=== PATIENT | male | born 1975 | race American Indian/Alaskan Native ===

== ENCOUNTER 2017-03-23 03:00 | Emergency (ER) | payer OTHER ==
[~2017-03-23] VITALS: Ht 175.3 cm; Wt 61.2 kg
[~2017-03-23 03:00] MED LIST: CLINDAMYCIN HC150 MG PO; COLCHICINE0.6 M1 PO; HUMALOG100 UNIT/1 SUB-Q; IBUPROFEN800 MG PO; K-PHOS NEUTRAL T1 EA PO; LANTUS100 UNIT/1 SUB-Q; LANTUS100 UNITS/ SUB-Q; LISINOPRIL10 MG PO; NORCO 5-325 TA1 EACH PO; NORCO 7.5-3251 EACH PO; OMEGA 3 1,0001 EACH PO; PANTOPRAZOLE SO40 MG PO; SENEXON-S TABL1 EACH PO
[2017-03-23] MEDS ORDERED: NORCO 5-325 TA1 EACH PO (06:00)
--- NOTE | 2017-03-23 15:23 | EKG ---
[facility] [address] [facility] [place] [address] Signed Normal sinus rhythm Incomplete right bundle branch block Borderline ECG No previous ECGs available Confirmed by JUDIT JOSEPH MD ([id number]) on 03/23/2017 3:23:05 PM Electronically Signed By: JUDIT JOSEPH MD 03/23/17 1523 PATIENT NAME: CHARLIE CHO Electrocardiogram DATE OF : 71 PHYSICIAN: JUDIT JOSEPH MD REPORT #: [id number] REPORT IS CONFIDENTIAL AND NOT TO BE RELEASED WITHOUT AUTHORIZATION
== END 2017-03-23 06:18 | disposition home or self-care (01) ==
LOC: ED 03:00
DX: R07.9 Chest pain, unspecified (principal); E11.9 Type 2 diabetes mellitus without complications; F10.10 Alcohol abuse, uncomplicated; Z90.49 Acquired absence of other specified parts of digestive tract; Z79.4 Long term (current) use of insulin
CPT/HCPCS: 71020; 80053; 83690; 84484; 85025; 93005; 93010; 99284

== ENCOUNTER 2018-02-22 12:38 | Emergency (ER) | payer OTHER ==
[~2018-02-22] VITALS: Ht 175.3 cm; Wt 61.2 kg
[2018-02-22] MEDS ORDERED: NORCO 5-325 TA1 EACH PO (14:11)
== END 2018-02-22 14:20 | disposition home or self-care (01) ==
LOC: ED 12:38
PROC: 2W3QX1Z Immobilization of Right Lower Leg using Splint (ICD-10-PCS; principal; 2018-02-22)
DX: S82.61XA Displaced fracture of lateral malleolus of right fibula, initial encounter for closed fracture (principal); E11.9 Type 2 diabetes mellitus without complications; Z79.84 Long term (current) use of oral hypoglycemic drugs; X50.9XXA Other and unspecified overexertion or strenuous movements or postures, initial encounter
CPT/HCPCS: 29515; 73610; 99283

== ENCOUNTER 2018-04-01 10:58 | Emergency (ER) | payer OTHER ==
[~2018-04-01] VITALS: Ht 175.3 cm; Wt 61.2 kg
== END 2018-04-01 12:05 | disposition home or self-care (01) ==
LOC: ED 10:58
DX: M79.661 Pain in right lower leg (principal); M79.651 Pain in right thigh; E11.9 Type 2 diabetes mellitus without complications; Z79.4 Long term (current) use of insulin
CPT/HCPCS: 93971; 99283

== ENCOUNTER 2018-05-21 16:53 | Emergency (ER) | payer OTHER ==
[~2018-05-21] VITALS: Ht 175.3 cm; Wt 61.2 kg
[2018-05-21] MEDS ORDERED: AUGMENTIN 875-1 EACH PO (18:15)
== END 2018-05-21 18:22 | disposition home or self-care (01) ==
LOC: ED 16:53
DX: S01.01XA Laceration without foreign body of scalp, initial encounter (principal); H66.92 Otitis media, unspecified, left ear; E11.9 Type 2 diabetes mellitus without complications; Z79.4 Long term (current) use of insulin; X58.XXXA Exposure to other specified factors, initial encounter
CPT/HCPCS: 70450; 80048; 85025; 99283

== ENCOUNTER 2020-06-21 16:27 | Observation (INO) | payer OTHER ==
[~2020-06-21] VITALS: Ht 175.3 cm; Wt 80.7 kg
[~2020-06-21 16:27] MED LIST changes: +AUGMENTIN 875-1 EACH PO
--- OUTSIDE RECORDS SUMMARY | 2020-06-21 16:30 | XMS ---
PreManage Notification: CHARLIE CHO Security Slot Floor Supervisor Events No recent Security Events currently on file CRITERIA MET - History of Sepsis Dx CARE PROVIDERS There are no care providers on record at this time. Demetrio has no Care Guidelines for this patient. Jan VISIT COUNT (12 MO.) 1 [facility] TOTAL 1 NOTE: Visits indicate total known visits. ED/C VISIT TRACKING (12 MO.) 06/21/2020 16:28 [facility] [place] TYPE: Emergency COMPLAINT: - LETHARGIC, ABNORMAL LAB RESULTS INPATIENT VISIT TRACKING (12 MO.) No inpatient visits to display in this time frame [email or web address]
[2020-06-21] MEDS ORDERED: IBUPROFEN200 M1 PO (16:34)
--- NOTE | 2020-06-21 20:50 | NUR ---
PT ARRIVED TO THE FLOOR VIA STRETCHER FROM ED, PT SELF XFER TO BED, PT IS ON EOB, VITALS DONE, STEAM PAN SPONGER ON, VEST BASTER MAKING ASSESSMENT, NO FURTHER NEEDS AT TIME, PT AWAING SNACKBOX
[2020-06-21] MEDS ORDERED: GABAPENTIN100 MG PO (21:03)
--- NOTE | 2020-06-21 21:49 | NUR ---
PT ARRIVED TO FLOOR AT 2044 VIA STRETCHER. HE PIVOTED OVER TO THE BED SBA. ORIENTED PT TO ROOM AND CALL LIGHT. VS ENTERED TAKEN BY NAS BUSTAMANTE AND ENTERED. PT HAS VISABLE TREMORS, BEER PROVIDED ALONG WITH SANDWICH BOX. BG CHECKED AND ISULIN ADMINISTERED PER ORDERS. COMPLETED PT'S HX AND MEDICATION HX. PT HAS FRESH ICEWATER AT BEDSIDE AT THIS TIME AND DENIES FURTHER NEEDS. CALL LIGHT IS CLOSE AND BED ALARM IS ON.
--- NOTE | 2020-06-21 23:21 | NUR ---
ASSESSMENT COMPLETED. GCS 15, A&O X4. LUNGS CLEAR, HEART TONES REGULAR. ABD SOFT, NONTENDER. CMS INTACT. BRUIISING NOTED TO BILATERAL INNER ELBOWS FROM IV ATTEMPTS. CIWA 3, BEER PROVIDED. PT DOES HAVE SLIGHT TREMORS. IV WNL, FLUSHED WELL. NO OTHER NEEDS AT THIS TIME. CALL LIGHT IN REACH.
--- NOTE | 2020-06-22 | NUR ---
IN RM TO ASST PT TO BR, SBA TOLERATING WELL, PT NOW UP TO THE CHAIR, HI REQUESTS ANOTHER [facility], [place] SUPERVISER NOTIFIED, ALSO LULU, JASMINAIEDED TO PT, NO FURHTER REQUESTS AT THIS TIME
--- NOTE | 2020-06-22 00:50 | NUR ---
PLATELETTE INFUSION STARTED AT 0035. NO S/S OF A REACTION. 2ND SET OF VITALS TAKEN, WNL. INFUSION CONTINUED. NO OTHER NEEDS. CALL LIGHT IN REACH.
--- NOTE | 2020-06-22 02:01 | NUR ---
IN RM WITH RN TO GET VITALS (2am), RN SALINE LOCK IV, LAMONTE SPAIN PROVIDED
--- NOTE | 2020-06-22 02:32 | NUR ---
PLATELET INFUSION COMPLETE. PT DENIES ANY REACTIONS. PT FURTHER NEEDS AT THIS TIME. CALL LIGHT IS CLOSE. VS TAKEN AND ENTERED.
--- NOTE | 2020-06-22 04:00 | NUR ---
PT RESTING IN BED, EYES CLOSED. RR EVEN, UNLABORED. TELE SR @ 83. CALL LIGHT IN REACH.
--- NOTE | 2020-06-22 05:00 | NUR ---
PT STATES HE HAS A HEADACHE, 8/10. TYLENOL PROVIDED. ASSESSMENT COMPLETED. TREMORS NOTED. GCS 15, A&O X4. LUNGS CLEAR, TELE SR @ 68. IV WNL. ABD SOFT, NONTENDER, BOWEL TONES ACTIVE. PT IS A SBA IN ROOM, CALLS APPROPRIATELY SOMETIMES, EDUCATION CONCERNING CALL LIGHT PROVIDED. CMS INTACT. NO OTHER NEEDS AT THIS TIME. CALL LIGHT IN REACH.
--- NOTE | 2020-06-22 06:00 | NUR ---
PT REPORTED FEELING LIKE HIS BLOOD SUGAR WAS LOW. ACCUCHECK SHOWED BG AT 68. PROVIDED JUICE AND CRACKERS. PT DENIES FURTHER NEEDS AT THIS TIME. WILL REASSESS. CALL LIGHT IS CLOSE.
--- NOTE | 2020-06-22 06:20 | NUR ---
RECHECKED PT'S BLOOD SUGAR, IT IS NOW 112 AND HE STATES HE FEELS BETTER. PT DENIES FURTHER NEEDS. CALL LIGHT IS CLOSE.
--- NOTE | 2020-06-22 09:59 | NUR ---
ALERT, SBA UP TO RECLINER FOR BREAKFAST, MODERATE TREMORS, STATES HE DOES NOT HAVE MUCH APPETITE BUT WILL TRY TO TAKE A FEW BITES, REQUESTED A CAN OF BEER BEFORE HE TRIES TO EAT. CALL LIGHT IN EASY REACH.
--- NOTE | 2020-06-22 10:37 | NUR ---
DR MANZANARES IN TO SEE PT, JUST ARRIVED TO VISIT.
--- NOTE | 2020-06-22 11:04 | NUR ---
PHARMACY WAS IN TO SEE PT AND ANSWERE ANY QUESTIONS, REVIEWED DISCHARGE INSTRUCTIONS WITH PATIENT AND HIS , VERBALIZED UNDERSTANDING OF MEDICATIONS AND FOLLOWUP APPOINTMENT, SX TO REPORT. DENIES ANY QUESTIONS OR CONCERNS, STATES HE DOES HAVE COUNSELING APPOINTMENT AT [facility] TOMORROW. SL WAS DC INTACT, DC HOME WITH AT THIS TIME.
--- NOTE | 2020-06-22 11:55 | NUR ---
In to speak with Clyde. He is in a wc ready for dc. States his is waiting in the front. He denies needs for dc, will go home with . Plans on fu with . I called and updated Mary Lou from as she had called requesting infor. She will follow up with pt and notify his counselor he is in need of fu.
== END 2020-06-22 11:00 | disposition home or self-care (01) ==
LOC: ED 16:27 → MS 16:29
PROVIDERS: ADMIT Internal Medicine; ATTEND Internal Medicine
DX: D69.3 Immune thrombocytopenic purpura (principal); D72.819 Decreased white blood cell count, unspecified; M06.9 Rheumatoid arthritis, unspecified; E10.9 Type 1 diabetes mellitus without complications; F10.20 Alcohol dependence, uncomplicated; K76.0 Fatty (change of) liver, not elsewhere classified; I83.90 Asymptomatic varicose veins of unspecified lower extremity; Z86.718 Personal history of other venous thrombosis and embolism; Z87.891 Personal history of nicotine dependence; Z79.4 Long term (current) use of insulin
CPT/HCPCS: 36415; 36430; 74177; 80048; 80053; 80500; 81001; 82607; 82746; 83605; 83690; 83735; 85025; 85384; 85610; 85730; 86644; 86645; 86703; 86850; 86900; 86901; 87521; 87522; 96375; 96376; 99285-25; C9113; C9803; G0378; G0480; J1815; J2060; J7030; P9035; Q9967; U0003

== ENCOUNTER 2020-07-27 15:10 | Observation (INO) | payer OTHER ==
[~2020-07-27] VITALS: Ht 175.3 cm; Wt 81.0 kg
[~2020-07-27 15:10] MED LIST changes: +GABAPENTIN100 MG PO; +IBUPROFEN200 M1 PO
--- OUTSIDE RECORDS SUMMARY | 2020-07-27 15:14 | XMS ---
PreManage Notification: CHARLIE CHO Security Instructor Adjunct Pharmacy Technician Events No recent Security Events currently on file CRITERIA MET - History of Sepsis Dx CARE PROVIDERS Name Unknown Clinic/Center 06/22/2020-Current PHONE: [phone] Demetrio has no Care Guidelines for this patient. Care History Medical/Surgical 06/22/2020 [facility] - PATIENT IS [facility], \T\middot;\T\nbsp; PLEASE REFER PATIENT TO [facility] FOR NON EMERGENT MEDICAL NEEDS. \T\middot;\T\nbsp; [facility] CAN SEE PATIENTS SAME DAY FOR APTS IF PATIENT CALLS FIRST THING IN THE MORNING. E.D. VISIT COUNT (12 MO.) 2 [facility] TOTAL 2 NOTE: Visits indicate total known visits. ED/UCC VISIT TRACKING (12 MO.) 07/27/2020 15:13 [facility] [place] TYPE: Emergency COMPLAINT: - INTOXICATED 06/21/2020 16:28 [facility] [place] TYPE: Emergency COMPLAINT: - ABNORMAL LAB WORK INPATIENT VISIT TRACKING (12 MO.) 06/21/2020 16:[address] [facility] [place] TYPE: Observation COMPLAINT: - ACUTE THROMBOCYTOPENIA DIAGNOSES: - Personal history of nicotine dependence - Alcohol dependence, uncomplicated - Asymptomatic varicose veins of unspecified lower extremity - Decreased white blood cell count, unspecified - Personal history of other venous thrombosis and embolism - Rheumatoid arthritis, unspecified - Thrombocytopenia, unspecified - Type 1 diabetes mellitus without complications - watermelon inspector (current) use of insulin - Immune thrombocytopenic purpura - Fatty (change of) liver, not elsewhere classified [email or web address]
--- NOTE | 2020-07-27 19:28 | NUR ---
IN ROOM TO ASSESS PATIENT AT THIS TIME. PT DENIES SHORTNESS OF BREATH, OR ANY PAIN OR DISCOMFORT. DISCUSSED PLAN OF CARE FOR EVENING. PT REFUSED LOVENOX INJECTION. STATES "I KNOW WHAT THAT STUFF IS. I DONT NEED IT" DISCUSSED FLUID RESTRICITION FOR EVENING. CALL LIGHT WITHIN REACH. NO FURTHER NEEDS AT THIS TIME.
--- NOTE | 2020-07-27 20:00 | NUR ---
Pt arrived via stretcher on teletypesetter monitor; with Diltiazem drip infusing at 5mg/hr. application security specialist at bedside. Pt alert but disoriented, unable to remember location or situation. pt attempting to get out of bed. 5 mg of IV valium given at this time for CIWA of 9.
--- NOTE | 2020-07-27 20:42 | NUR ---
assessment completed. Pt seems more comfortable, not attempting to exit bed. following commands at this time. Pt in an A-flutter rhythm with a rate in the 70-90's at rest. spo2 =99 percent on room air.
--- NOTE | 2020-07-27 20:45 | NUR ---
pt stated he was hungry, this oil pipeline dispatcher got a lunch box for pt and he had fallen asleep, lunch box in fridge for pt.
--- NOTE | 2020-07-27 21:05 | NUR ---
Pt now resting with eyes closed. laying on left side. awakens to voice. denies need to void. heart rhythm remains in flutter with a rate in the 60's. diltiazem drip put on standby at this time.
--- NOTE | 2020-07-27 21:25 | NUR ---
pt pulling at lines and youth nutritional monitor. reoriented patient to location and situation.
--- NOTE | 2020-07-27 21:33 | EKG ---
[facility] [address] [facility] [place] [address] Signed Atrial flutter with variable AV block Right bundle branch block Possible Inferior infarct , age undetermined Abnormal ECG When compared with ECG of 27-JUL-2020 15:15, (Unconfirmed) ST elevation has replaced ST depression in Inferior leads ST no longer depressed in Anterolateral leads Nonspecific T wave abnormality now evident in Lateral leads Confirmed by JUDIT JOSEPH MD ([id number]) on 07/27/2020 9:33:14 PM Electronically Signed By: JUDIT JOSEPH MD 07/27/202132 PATIENT NAME: CHARLIE CHO Electrocardiogram DATE OF : 71 PHYSICIAN: JUDIT JOSEPH MD REPORT #: [id number] REPORT IS CONFIDENTIAL AND NOT TO BE RELEASED WITHOUT AUTHORIZATION
--- NOTE | 2020-07-27 21:33 | EKG ---
[facility] [address] [place] [address] Signed Atrial flutter with 2:1 AV conduction Right axis deviation Pulmonary disease pattern Incomplete right bundle branch block Junctional ST depression, probably normal Abnormal ECG When compared with ECG of 05-MAR-2018 10:06, Significant changes have occurred Confirmed by JUDIT JOSEPH MD ([id number]) on 07/27/2020 9:33:08 PM Electronically Signed By: JUDIT JOSEPH MD 07/27/20 2133 PATIENT NAME: MARQUISCHARLIEGELY PEREZ Electrocardiogram DATE OF : 71 PHYSICIAN: JUDIT JOSEPH MD REPORT #: [id number] REPORT IS CONFIDENTIAL AND NOT TO BE RELEASED WITHOUT AUTHORIZATION
--- NOTE | 2020-07-27 21:54 | NUR ---
pt up to bsc with two person assist. pt report dizziness with sitting up and movement. heart rate maintianed under 100 bpm with movement and ambulation. pt had small inconinent bm. provided clean attends. back in bed. given a sandwich box and water. bed alarm on. call light within reach. will continue to monitor.
--- NOTE | 2020-07-28 00:14 | NUR ---
Assessment completed. pt sleeping but rousable by voice. Pt given one unit of humalog for cbg of 166. pt alert and oriented. Able to answers questions and follow commands. heart rate in the 70-80 at rest. Remains in A-Flutter at this time. IV fluids infusing. call light within reach and bed alarm on for safety.
--- NOTE | 2020-07-28 01:51 | NUR ---
in room to check patients blood glucose. no sliding scale insulin coverage required. CIWA of 7. scheduled librium administered at this time. bed alarm on, call light within reach. no further needs at this time.
--- NOTE | 2020-07-28 03:07 | NUR ---
responded to patients call light. pt up to bsc to void and have bowel movement. heart rate up to 110 with exertion. pt states he still feels lightheaded. back in bed. assessment completed. bed alarm in place. pt denies further needs at this time.
--- NOTE | 2020-07-28 06:07 | NUR ---
IN ROOM TO CHANGE CARDIAC LEADS AND CHECK PT BLOOD SUGAR. PT ALERT AND ORIENTED. BLOOD SUGAR WITHIN RANGE. PROVIDED FRESH WATER. CALL LIGHT WITHIN REACH. NO FURTHER NEEDS AT THIS TIME.
--- NOTE | 2020-07-28 07:55 | NUR ---
PT SLEEPING, BUT WAKES EASILY TO VOICE. PT DENIES PAIN, NAUSEA, AND SOB AT THIS TIME. BREAKFAST ORDER TAKEN. VITALS ARE WNL. HR IS STILL IRREGULAR BUT RATE CONTROLED.
[2020-07-28] MEDS ORDERED: METOPROLOL SUCC50 MG PO (08:09)
--- NOTE | 2020-07-28 08:10 | NUR ---
Spoke with Clyde. He states he lives on [address] [place]. He lives with his mom and aunt. He has used crutches and a cane in the past, but no longer needs. They have a ramp. He has long history of alcohol use. He sees for counseling for alcohol. Declines Peer to Peer support. He plans on dc today as he converted from flutter.
[2020-07-28] MEDS ORDERED: NEURONTIN300 MG PO (09:07)
[2020-07-28] MEDS ORDERED: TYLENOL325 MG PO (09:07)
[2020-07-28] MEDS ORDERED: ZESTRIL10 MG PO (09:07)
[2020-07-28] MEDS ORDERED: MULTI VITAMIN1 EACH PO (09:08)
--- NOTE | 2020-07-28 09:10 | NUR ---
MED REC COMPLETE
--- NOTE | 2020-07-28 09:11 | NUR ---
pt eating breakfast at this time. pt is sitting up in bed awake and alert. pt deneis pain, nausea, and sob this morning.
[2020-07-28] MEDS ORDERED: METOPROLOL SUC100 MG PO (09:33)
--- NOTE | 2020-07-28 10:12 | NUR ---
BOTH IV SITES REMOVED. TIP OF BOTH CATHS ARE INTACT. PT DENIES PAIN, SOB, AND NAUSEA IN GENERAL. ALL DISCHARGE INSTRUCTIONS REVIEWED, ALL QUESTIONS ANSWERED. PT HAS HOME PACK OF LOPRESSOR TO TAKE WITH HIM. ALL PERSONAL BELONGINGS RETURNED TO THE PT. PT LEFT CCU VIA WHEELCHAIR TO DC HOME.
== END 2020-07-28 10:25 | disposition home or self-care (01) ==
LOC: ED 15:10 → CCU 15:14
PROVIDERS: ADMIT Internal Medicine; ATTEND Internal Medicine
DX: I48.92 Unspecified atrial flutter (principal); F10.229 Alcohol dependence with intoxication, unspecified; F10.239 Alcohol dependence with withdrawal, unspecified; F10.288 Alcohol dependence with other alcohol-induced disorder; D46.Z Other myelodysplastic syndromes; E10.65 Type 1 diabetes mellitus with hyperglycemia; M06.9 Rheumatoid arthritis, unspecified; I48.91 Unspecified atrial fibrillation; Z86.718 Personal history of other venous thrombosis and embolism; Z90.49 Acquired absence of other specified parts of digestive tract; Z79.4 Long term (current) use of insulin; Z20.828 Contact with and (suspected) exposure to other viral communicable diseases
CPT/HCPCS: 36415; 71045; 80053; 83690; 83735; 84100; 84484; 85025; 93005; 93010; 93306; 96374; 96375; 96376; 99285-25; C9803; G0378; G0480; J1815; J2405; J3360; J3411; J3480; J7030; J7121; U0003

== ENCOUNTER 2020-08-01 15:24 | Emergency (ER) | payer OTHER ==
[~2020-08-01] VITALS: Ht 175.3 cm; Wt 80.7 kg
[~2020-08-01 15:24] MED LIST changes: +METOPROLOL SUC100 MG PO; +METOPROLOL SUCC50 MG PO; +MULTI VITAMIN1 EACH PO; +NEURONTIN300 MG PO; +TYLENOL325 MG PO; +ZESTRIL10 MG PO
--- OUTSIDE RECORDS SUMMARY | 2020-08-01 15:26 | XMS ---
PreManage Notification: CHARLIE CHO Security Tape Deck Installer Events No recent Security Events currently on file CRITERIA MET - History of Sepsis - [facility] - 2 Visits in 30 Days CARE PROVIDERS Name Unknown Clinic/Center 06/22/2020-Current PHONE: [phone] Demetrio has no Care Guidelines for this patient. Care History Medical/Surgical 06/22/2020 [facility] - PATIENT IS [facility], \T\middot;\T\nbsp; PLEASE REFER PATIENT TO [facility] FOR NON EMERGENT MEDICAL NEEDS. \T\middot;\T\nbsp; [facility] CAN SEE PATIENTS SAME DAY FOR APTS IF PATIENT CALLS FIRST THING IN THE MORNING. E.D. VISIT COUNT (12 MO.) 3 [facility] TOTAL 3 NOTE: Visits indicate total known visits. ED/UCC VISIT TRACKING (12 MO.) 08/01/2020 15:24 [facility] [place] TYPE: Emergency COMPLAINT: - DIZZINESS, HEAD PAIN 07/27/2020 15:13 [facility] [place] TYPE: Emergency COMPLAINT: - INTOXICATED 06/21/2020 16:28 [facility] [place] TYPE: Emergency COMPLAINT: - ABNORMAL LAB WORK INPATIENT VISIT TRACKING (12 MO.) 07/27/2020 15:14 [facility] [place] TYPE: Observation COMPLAINT: - A FLUTTER WITH RVR DIAGNOSES: - Palpitations - Other myelodysplastic syndromes - Contact with and (suspected) exposure to other viral communicable diseases - Alcohol dependence with withdrawal, unspecified - terminal worker (current) use of insulin - Rheumatoid arthritis, unspecified - Unspecified atrial flutter - Type 1 diabetes mellitus with hyperglycemia - Alcohol dependence with intoxication, unspecified - Personal history of other venous thrombosis and embolism - Acquired absence of other specified parts of digestive tract - Alcohol dependence with other alcohol-induced disorder - Unspecified atrial fibrillation 06/21/2020 16:29 [facility] [place] TYPE: Observation COMPLAINT: - ACUTE THROMBOCYTOPENIA DIAGNOSES: - Personal history of nicotine dependence - Alcohol dependence, uncomplicated - Asymptomatic varicose veins of unspecified lower extremity - Decreased white blood cell count, unspecified - Personal history of other venous thrombosis and embolism - Rheumatoid arthritis, unspecified - Thrombocytopenia, unspecified - Type 1 diabetes mellitus without complications - [facility] (current) use of insulin - Immune thrombocytopenic purpura - Fatty (change of) liver, not elsewhere classified [email or web address]
--- NOTE | 2020-08-02 10:42 | EKG ---
[facility] [address] [place] [address] Signed Atrial flutter with variable AV block with premature ventricular or aberrantly conducted complexes Right bundle branch block Left posterior fascicular block Bifascicular block Cannot rule out Inferior infarct (cited on or before 27-JUL-2020) Abnormal ECG When compared with ECG of 27-JUL-2020 16:27, Questionable change in initial forces of Inferior leads T wave inversion now evident in Inferior leads Confirmed by JADIEL JOAQUIN DO ([id number]) on 08/02/2020 10:42:24 AM Electronically Signed By: JADIEL JOAQUIN DO 08/02/20 1042 PATIENT NAME: CHARLIE CHO Electrocardiogram DATE OF : 71 PHYSICIAN: JADIEL JOAQUIN DO REPORT #: [id number] REPORT IS CONFIDENTIAL AND NOT TO BE RELEASED WITHOUT AUTHORIZATION
== END 2020-08-01 18:04 | disposition home or self-care (01) ==
LOC: ED 15:24
DX: F10.10 Alcohol abuse, uncomplicated (principal); Y90.8 Blood alcohol level of 240 mg/100 ml or more; I48.91 Unspecified atrial fibrillation; E10.65 Type 1 diabetes mellitus with hyperglycemia; Z79.899 Other long term (current) drug therapy; Z79.4 Long term (current) use of insulin
CPT/HCPCS: 70450; 80053; 84484; 85025; 93005; 93010; 99285-25; G0480; J1815; J7030

== ENCOUNTER 2020-08-15 17:30 | Emergency (ER) | payer OTHER ==
[~2020-08-15] VITALS: Ht 175.3 cm; Wt 80.7 kg
--- OUTSIDE RECORDS SUMMARY | 2020-08-15 17:34 | XMS ---
PreManage Notification: CHARLIE CHO Security Long Line Teamster Events No recent Security Events currently on file CRITERIA MET - History of Sepsis - [facility] - 2 Visits in 30 Days CARE PROVIDERS Name Unknown Clinic/Center 06/22/2020-Current PHONE: [phone] Demetrio has no Care Guidelines for this patient. Care History Medical/Surgical 06/22/2020 [facility] - PATIENT IS [facility], \T\middot;\T\nbsp; PLEASE REFER PATIENT TO [facility] FOR NON EMERGENT MEDICAL NEEDS. \T\middot;\T\nbsp; [facility] CAN SEE PATIENTS SAME DAY FOR APTS IF PATIENT CALLS FIRST THING IN THE MORNING. E.D. VISIT COUNT (12 MO.) 4 [facility] TOTAL 4 NOTE: Visits indicate total known visits. ED/UCC VISIT TRACKING (12 MO.) 08/15/2020 17:31 [facility] [place] TYPE: Emergency COMPLAINT: - DIZZINESS 08/01/2020 15:24 [facility] [place] TYPE: Emergency COMPLAINT: - DIZZINESS, HEAD PAIN DIAGNOSES: - intermediate project manager (current) use of insulin - Unspecified atrial fibrillation - Other manager terminal (current) drug therapy - Alcohol abuse, uncomplicated - Type 2 diabetes mellitus with hyperglycemia - Type 1 diabetes mellitus with hyperglycemia - Blood alcohol level of 240 mg/100 ml or more - Dizziness and giddiness 07/27/2020 15:[address] [facility] [place] TYPE: Emergency COMPLAINT: - INTOXICATED 06/21/2020 16:[address] [facility] [place] TYPE: Emergency COMPLAINT: - ABNORMAL LAB WORK INPATIENT VISIT TRACKING (12 MO.) 07/27/2020 15:[address] [facility] [place] TYPE: Observation COMPLAINT: - A FLUTTER WITH RVR DIAGNOSES: - Palpitations - Other myelodysplastic syndromes - Contact with and (suspected) exposure to other viral communicable diseases - Alcohol dependence with withdrawal, unspecified - penitentiary (current) use of insulin - Rheumatoid arthritis, [...] Type 1 diabetes mellitus without complications - intermediate project manager (current) use of insulin - Immune thrombocytopenic purpura - Fatty (change of) liver, not elsewhere classified [email or web address]
[2020-08-15] MEDS ORDERED: CALCIUM CARBON650 MG PO (17:49)
[2020-08-15] MEDS ORDERED: D3-200050 MCG PO (17:50)
[2020-08-15] MEDS ORDERED: MAGNESIUM400 MG PO (17:50)
[2020-08-15] MEDS ORDERED: ZESTRIL40 MG PO (17:50)
[2020-08-15] MEDS ORDERED: MELATONIN3 M3 PO (17:52)
--- NOTE | 2020-08-16 21:13 | EKG ---
[facility] [address] [facility] [place], [place] [address] Signed Atrial flutter with variable AV block Right bundle branch block Possible Inferior infarct (cited on or before 27-JUL-2020) Cannot rule out Anterior infarct , age undetermined Abnormal ECG When compared with ECG of 15-AUG-2020 17:51, (Unconfirmed) No significant change was found Confirmed by JADIEL JOAQUIN DO ([id number]) on 08/16/2020 9:13:20 PM Electronically Signed By: JADIEL JOAQUIN DO 08/16/202112 PATIENT NAME: CHARLIE CHO Electrocardiogram DATE OF : 71 PHYSICIAN: JADIEL JOAQUIN DO REPORT #: [id number] REPORT IS CONFIDENTIAL AND NOT TO BE RELEASED WITHOUT AUTHORIZATION
== END 2020-08-15 20:50 | disposition home or self-care (01) ==
LOC: ED 17:30
DX: I48.92 Unspecified atrial flutter (principal); E86.0 Dehydration; E87.1 Hypo-osmolality and hyponatremia; E11.9 Type 2 diabetes mellitus without complications; E10.9 Type 1 diabetes mellitus without complications; F17.200 Nicotine dependence, unspecified, uncomplicated; Z79.899 Other long term (current) drug therapy
CPT/HCPCS: 70450; 71045; 80053; 83690; 83735; 84484; 85025; 93005; 93010; 99285-25; J7121

== ENCOUNTER 2020-08-20 06:41 | Emergency (ER) | payer OTHER ==
[~2020-08-20] VITALS: Ht 175.3 cm; Wt 79.4 kg
[~2020-08-20 06:41] MED LIST changes: +CALCIUM CARBON650 MG PO; +D3-200050 MCG PO; +MAGNESIUM400 MG PO; +MELATONIN3 M3 PO; +ZESTRIL40 MG PO
--- OUTSIDE RECORDS SUMMARY | 2020-08-20 06:44 | XMS ---
PreManage Notification: CHARLIE CHO Security Component Assembler Events No recent Security Events currently on file CRITERIA MET - 6 ED Visits in 6 Months - History of Sepsis - [facility] - 2 Visits in 30 Days CARE PROVIDERS Name Unknown Clinic/Center 06/22/2020-Current PHONE: [phone] Demetrio has no Care Guidelines for this patient. Care History Medical/Surgical 06/22/2020 [facility] - PATIENT IS [facility], \T\middot;\T\nbsp; PLEASE REFER PATIENT TO [facility] FOR NON EMERGENT MEDICAL NEEDS. \T\middot;\T\nbsp; [facility] CAN SEE PATIENTS SAME DAY FOR APTS IF PATIENT CALLS FIRST THING IN THE MORNING. E.D. VISIT COUNT (12 MO.) 1 [facility]. TOTAL 6 NOTE: Visits indicate total known visits. ED/UCC VISIT TRACKING (12 MO.) 08/20/2020 06:42 [facility] TYPE: Emergency COMPLAINT: - POSSIBLE ALERGIC REACTION BEE STING 08/16/2020 15:13 [facility] TYPE: Emergency COMPLAINT: - Heartbeat Irregular 08/15/2020 17:31 [facility] [place] TYPE: Emergency COMPLAINT: - DIZZINESS 08/01/2020 15:24 [facility] [place] TYPE: Emergency COMPLAINT: - DIZZINESS, HEAD PAIN DIAGNOSES: - terminal block assembler (current) use of insulin - Unspecified atrial fibrillation - Other termite control technician (current) drug therapy - Alcohol abuse, uncomplicated - Type 2 diabetes mellitus with hyperglycemia - Type 1 diabetes mellitus with hyperglycemia - Blood alcohol level of 240 mg/100 ml or more - Dizziness and giddiness 07/27/2020 15:13 [facility] [place] TYPE: Emergency [...] Alcohol dependence with withdrawal, unspecified - terminal block assembler (current) use of insulin - Rheumatoid arthritis, [...] Type 1 diabetes mellitus without complications - senior living (current) use of insulin - Immune thrombocytopenic purpura - Fatty (change of) liver, not elsewhere classified [email or web address]
[2020-08-20] MEDS ORDERED: CARDIZEM30 MG PO (07:07)
--- NOTE | 2020-08-20 21:22 | EKG ---
[facility] [address] [facility] [place], [place] [address] Signed Atrial flutter with variable AV block Inferior infarct (cited on or before 27-JUL-2020) Abnormal ECG When compared with ECG of 15-AUG-2020 20:28, Right bundle branch block is no longer present Confirmed by SANGITA REIS MD ([id number]) on 08/20/2020 9:21:51 PM Electronically Signed By: SANGITA REIS MD 08/20/202121 PATIENT NAME: MARQUISCHARLIEGELY PEREZ Electrocardiogram DATE OF : 71 PHYSICIAN: SANGITA REIS MD REPORT #: [id number] REPORT IS CONFIDENTIAL AND NOT TO BE RELEASED WITHOUT AUTHORIZATION
== END 2020-08-20 07:50 | disposition home or self-care (01) ==
LOC: ED 06:41
DX: T63.461A Toxic effect of venom of wasps, accidental (unintentional), initial encounter (principal); I48.92 Unspecified atrial flutter; E10.9 Type 1 diabetes mellitus without complications; F17.200 Nicotine dependence, unspecified, uncomplicated; Z79.899 Other long term (current) drug therapy
CPT/HCPCS: 93005; 93010; 99285-25; Q0163

== ENCOUNTER 2020-08-28 11:34 | Emergency (ER) | payer OTHER ==
[~2020-08-28] VITALS: Ht 175.3 cm; Wt 79.4 kg
[~2020-08-28 11:34] MED LIST changes: +CARDIZEM30 MG PO
--- OUTSIDE RECORDS SUMMARY | 2020-08-28 11:36 | XMS ---
PreManage Notification: CHARLIE CHO Security Web Applications Programmer Events No recent Security Events currently on file CRITERIA MET - 6 ED Visits in 6 Months - History of Sepsis [facility] - 2 Visits in 30 Days CARE PROVIDERS Name Unknown Clinic/Center 06/22/2020-Current PHONE: [phone] Demetrio has no Care Guidelines for this patient. Care History Medical/Surgical 08/23/2020 [facility] - PATIENT IS CLOSELY FOLLOWING UP WITH PCP DR [facility]NDEZ [facility]. - PATIENT HAS A COUNSELOR -BEHAVIORAL HEALTH- TOBI KEMP. - PATIENT REFUSED REHAB\T\nbsp; AT RECENT APT WITH PROVIDER ON 08/03/20. - PATIENT HAS AN APT WITH PCP 08/23/20 FOR FOLLOW UP TO RECENT ED VISITS. 06/22/2020 [facility] - PATIENT IS [facility] ELIGIBLE, \T\middot;\T\nbsp; PLEASE REFER PATIENT TO [facility] FOR NON EMERGENT MEDICAL NEEDS. \T\middot;\T\nbsp; [facility] CAN SEE PATIENTS SAME DAY FOR APTS IF PATIENT CALLS FIRST THING IN THE MORNING. E.D. VISIT COUNT (12 MO.) 1 Rolaagatha Rodriguezgigi H. 6 [facility] TOTAL 7 NOTE: Visits indicate total known visits. ED/UCC VISIT TRACKING (12 MO.) 08/28/2020 11:35 [facility] [place] TYPE: Emergency COMPLAINT: - DIZZINESS, SOB 08/20/2020 06:42 [facility] [place] TYPE: Emergency COMPLAINT: - POSSIBLE ALERGIC REACTION BEE STING DIAGNOSES: - Type 1 diabetes mellitus without complications - Nicotine dependence, unspecified, uncomplicated - Unspecified atrial flutter - Toxic effect of venom of wasps, accidental (unintentional), initial encounter - Other care home (current) drug therapy 08/16/2020 15:13 [facility] [place] TYPE: Emergency COMPLAINT: - Heartbeat Irregular - SYNCOPE AND COLLAPSE - UNSPECIFIED ABDOMINAL PAIN - DIZZINESS AND GIDDINESS DIAGNOSES: 0. Syncope and collapse 1. Syncope and collapse 5. Hypotension, unspecified 6. Unspecified atrial flutter 08/15/2020 17:31 [facility] TYPE: Emergency COMPLAINT: - DIZZINESS DIAGNOSES: - Type 2 diabetes mellitus without complications - Nicotine dependence, unspecified, uncomplicated - Other neuropsychology director (current) drug therapy - Type 1 diabetes mellitus without complications - Hypo-osmolality and hyponatremia - Syncope and collapse - Dehydration - Unspecified atrial flutter 08/01/2020 15:24 [facility] TYPE: Emergency COMPLAINT: - DIZZINESS, HEAD PAIN DIAGNOSES: - [facility] (current) use of insulin - Unspecified atrial fibrillation - Other care home (current) drug therapy - Alcohol abuse, uncomplicated [...] - Alcohol dependence with withdrawal, unspecified - pigment supplier (current) use of insulin - Rheumatoid arthritis, [...] Type 1 diabetes mellitus without complications - pigment supplier (current) use of insulin - Immune thrombocytopenic purpura - Fatty (change of) liver, not elsewhere classified [email or web address]
[2020-08-28] MEDS ORDERED: DILTIAZEM HCL30 MG PO (11:45)
--- NOTE | 2020-08-29 16:28 | EKG ---
[facility] [address] [place] [address] Signed Atrial flutter with variable AV block Pulmonary disease pattern Incomplete right bundle branch block Possible Right ventricular hypertrophy Junctional ST depression, probably normal Abnormal ECG When compared with ECG of 20-AUG-2020 07:18, Incomplete right bundle branch block is now present ST now depressed in Inferior leads ST now depressed in Lateral leads Confirmed by JADIEL JOAQUIN DO ([id number]) on 08/29/2020 4:27:54 PM Electronically Signed By: JADIEL JOAQUIN DO 08/29/20 1628 PATIENT NAME: CHARLIE CHO Electrocardiogram DATE OF : 71 PHYSICIAN: JADIEL JOAQUIN DO REPORT #: [id number] REPORT IS CONFIDENTIAL AND NOT TO BE RELEASED WITHOUT AUTHORIZATION
== END 2020-08-28 15:41 | disposition home or self-care (01) ==
LOC: ED 11:34
DX: E10.65 Type 1 diabetes mellitus with hyperglycemia (principal); I48.92 Unspecified atrial flutter; F10.10 Alcohol abuse, uncomplicated; Z91.14 Patient's other noncompliance with medication regimen; Z86.718 Personal history of other venous thrombosis and embolism; Z87.891 Personal history of nicotine dependence; Z79.899 Other long term (current) drug therapy
CPT/HCPCS: 71045; 80053; 83735; 84484; 85025; 93005; 93010; 96374; 96375; 96376; 99284-25; J2405; J7030

== ENCOUNTER 2020-11-19 13:03 | Observation (INO) | payer OTHER ==
[~2020-11-19] VITALS: Ht 175.3 cm; Wt 86.0 kg
[~2020-11-19 13:03] MED LIST changes: +ASPIRIN81 MG PO; +DILTIAZEM HCL30 MG PO
--- OUTSIDE RECORDS SUMMARY | 2020-11-19 13:06 | XMS ---
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 Care History Medical/Surgical 08/23/2020 [facility] - PATIENT IS CLOSELY FOLLOWING UP WITH PCP DR HERNANDEZ AT [facility]. - PATIENT HAS A COUNSELOR -BEHAVIORAL HEALTH- TOBI KEMP. - PATIENT REFUSED REHAB\T\nbsp; AT RECENT APT WITH PROVIDER ON 08/03/20. - PATIENT HAS AN APT WITH PCP 08/23/20 FOR FOLLOW UP TO RECENT ED VISITS. 06/22/2020 [facility] - PATIENT IS [facility] ELIGIBLE, \T\middot;\T\nbsp; PLEASE REFER PATIENT TO [facility] FOR NON EMERGENT MEDICAL NEEDS. \T\middot;\T\nbsp; [facility] CAN SEE PATIENTS SAME DAY FOR APTS IF PATIENT CALLS FIRST THING IN THE MORNING. E.D. VISIT COUNT (12 MO.) 1 Lavinia Berry 8 [facility] TOTAL 9 NOTE: Visits indicate total known visits. ED/UCC VISIT TRACKING (12 MO.) 11/19/2020 13:03 [facility] [place] TYPE: Emergency COMPLAINT: - FALL 10/05/2020 14:08 [facility] [place] TYPE: Emergency COMPLAINT: - CHEST PAIN DIAGNOSES: - Personal history of nicotine dependence - Type 1 diabetes mellitus without complications - retirement (current) use of aspirin - Other longterm (current) drug therapy - Blood alcohol level of 240 mg/100 ml or more - retirement (current) use of insulin - Chest pain, unspecified - Alcohol abuse with intoxication, unspecified - Type 2 diabetes mellitus without complications 08/28/2020 11:35 [facility] TYPE: Emergency COMPLAINT: - DIZZINESS, SOB DIAGNOSES: - Personal history of other venous thrombosis and embolism - Patient's other noncompliance with medication regimen - Alcohol abuse, uncomplicated - Personal history of nicotine dependence - Unspecified atrial flutter - Type 1 diabetes mellitus with hyperglycemia - Other puff ironer (current) drug therapy - Dizziness and giddiness 08/20/2020 06:42 [facility] TYPE: Emergency COMPLAINT: - POSSIBLE ALERGIC REACTION BEE STING DIAGNOSES: - Type 1 diabetes mellitus without complications - Nicotine dependence, unspecified, uncomplicated - Unspecified atrial flutter - Toxic effect of venom of wasps, accidental (unintentional), initial encounter - Other longterm (current) drug therapy 08/16/2020 15:13 [facility] TYPE: Emergency COMPLAINT: - Heartbeat Irregular - SYNCOPE AND COLLAPSE - UNSPECIFIED ABDOMINAL PAIN - DIZZINESS AND GIDDINESS DIAGNOSES: 0. Syncope and collapse 1. Syncope and collapse 5. Hypotension, unspecified 6. Unspecified atrial flutter 08/15/2020 17:31 [facility] [place] TYPE: Emergency COMPLAINT: - DIZZINESS DIAGNOSES: - Type 2 diabetes mellitus without complications - Nicotine dependence, unspecified, uncomplicated - Other puff ironer (current) drug therapy - Type 1 diabetes mellitus without complications - Hypo-osmolality and hyponatremia - Syncope and collapse - Dehydration - Unspecified atrial flutter 08/01/2020 15:24 [facility] [place] TYPE: Emergency COMPLAINT: - DIZZINESS, HEAD PAIN DIAGNOSES: - retirement (current) use of insulin - Unspecified atrial fibrillation - Other puff ironer (current) drug therapy - Alcohol abuse, uncomplicated - Type 2 diabetes mellitus with hyperglycemia - Type 1 diabetes mellitus with hyperglycemia - Blood alcohol level of 240 mg/100 ml or more - Dizziness and giddiness 07/27/2020 15:13 [facility] [place] TYPE: Emergency COMPLAINT: - INTOXICATED 06/21/2020 16:28 [facility] [place] TYPE: Emergency COMPLAINT: - ABNORMAL LAB WORK INPATIENT VISIT TRACKING (12 MO.) 07/27/2020 15:14 [facility] [place] TYPE: Observation COMPLAINT: - A FLUTTER WITH RVR DIAGNOSES: - Palpitations - Other myelodysplastic syndromes - Contact with and (suspected) exposure to other viral communicable diseases - Alcohol dependence with withdrawal, unspecified - retirement (current) use of insulin - Rheumatoid arthritis, [...] Type 1 diabetes mellitus without complications - 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
--- NOTE | 2020-11-19 19:18 | NUR ---
PATIENT ADMITTED TO [facility]U 126 FOR AFIB W/RVR. PATIENT STATES HE NEEDS TO HAVE A BM. UP TO BSC TO HAVE A BM AND VOID - PT SOMEWHAT UNSTEADY ON FEET AND STATES HE FEELS DIZZY WITH STANDING. PT HAD SMALL INCONTINENCE IN HIS UDNERWEAR WHICH WERE REMOVED AND CLEANED FOR HIM. PT HR UP TO 130s WITH THIS ACTIVITY OF STANDING AND TAKING 1-2 STEPS. PT INSTRUCTED THAT HE NEEDS TO STAY IN BED AND ONLY USE BEDSIDE COMMODE. PT REPORTS HISTORY OF AFIB. DILT GTT AT 5 MG/HR. SANDWICH BOX ORDERED FOR PATIENT. PATIENT IS DAILY DRINKING OF ALCOHOL. PO LIBRIUM GIVEN. PT ALREADY TREMULOUS. PT DENIED NEED TO LOCK ANY PERSONAL BELONGINGS IN THE SAFE AND REQUESTS TAHT THEY STAY IN HIS ROOM IN THE CLOSET. OF NOTE, APTIENT REPORTS THAT HE HAS HIS WALLET WITH AT LEAST 100$ AND AN ENVELOPE IN HIS BAG THAT HAS "ABOUT $1,500". INSTRUCTED PATIENT THAT HE IS WELCOME TO AND RECOMMENDED TO LOCK ANY AMOUNTS OF HARDING OR VALUABLES IN THE SAFE BUT DENIES DESIRE FOR THIS. PT NOW ON THE PHONE WITH HIS MOTHER. PT ASKED NOT TO GET UP ON HIS OWN AND BED ALARM WILL BE PLACED. CONTINUE TO MONITOR. REPORT TO FUR TRAPPER.
--- NOTE | 2020-11-19 19:30 | NUR ---
RECEIVED REPORT FROM YOLIS MURPHY. pt RESTING IN BED. WOULD LIKE A SANDWICH. PROVIDED FRESH ICE WATER. DILTIZEM GTT AT 5MG/HR. CALL LIGHT WITHIN REACH.
--- NOTE | 2020-11-19 20:01 | NUR ---
O2 SAT HIGH 80'S pt WOKE TO VOICE. O2 SAT MID 90'S WHILE AWAKE. pt WOULD LIKE TO REST FOR A BIT, ON 2L O2 VIA NC TO MAINTAIN SATS. NO REQUESTS AT THIS TIME. SANDWICH BOX AT BEDSIDE. CALL LIGHT WITHIN REACH. IV FLUIDS COMPLETED, SL. GTT REMAINS UNCHANGED. HR 70'S.
--- NOTE | 2020-11-19 20:36 | NUR ---
IN TO DO ASSESSMENT. pt RESTING IN BED. OPENED EYES TO VOICE. pt REPORTED NEEDING TO USE URINAL. HR INCREASES TO 130'S WHEN MOVING. UNABLE TO VOID AT THIS TIME. REQUESTED TO HOLD OFF ON LANTUS HIS BLOOD SUGAR IS "BELOW 200" WILL RECHECK AND DISCUSS LATER. REPORTS FEELING DIZZY WHEN GETTING UP TO VOID. BUMP TO BACK OF HEAD VISUALIZED, NO BLOOD AT THIS TIME. BED ALARM ON. CALL LIGHT WITHIN REACH. HX: REPORTS STAYING AWAY FROM [place] "BECAUSE IT MAKES MY HEART GO FASTER" SLEEPS SITTING UP. pt REPORTS GETTING SOB WHEN WALKING TO THE BATHROOM AT HOME. DENIES USING ANY MEDICATIONS FOR SOB AT HOME. REPORTS ONLY DRINKING TWICE A WEEK ABOUT 4 BEERS. REPORTS THAT HE FEELS THAT HE NEEDS MORE HELP AT HOME. HE LIVES WITH HIS MOTHER BECAUSE "AFTER [place] MY ROOMMATE FELT LIKE IT WOULD BE TOO MUCH"
--- NOTE | 2020-11-19 23:14 | NUR ---
RECHECKED BLOOD SUGAR. pt CONTINUES TO REFUSE LANTUS, EDUCATION DONE. pt HAS CONTINUOUS BLOOD SUGAR MONITOR ALTHOUGH HE DOES NOT HAVE THE SCANNER WITH HIM.
--- NOTE | 2020-11-19 23:44 | NUR ---
pt COMPLAINED OF HEADACHE, CIWA NOW 9. ATIVAN GIVEN (SEE MAR). CALL LIGHT WITHIN REACH.
--- NOTE | 2020-11-20 00:01 | NUR ---
ROUNDED ON pt. RESTING IN BED WITH EYES CLOSED, RESPIRATIONS REGULAR. CALL LIGHT WITHIN REACH.
--- NOTE | 2020-11-20 00:10 | NUR ---
DILTIAZEM GTT ON STANDBY AT THIS TIME. HR HAS REMAINED UNDER 100. BP STARTING TO BE LOWER. pt RESTING AT THIS TIME WITH EYES CLOSED, RESPIRATIONS REGULAR AND UNLABORED.
--- NOTE | 2020-11-20 00:20 | NUR ---
HR DID INCREASE TO 140 WHEN HE SAT AT THE SIDE OF THE BED TO VOID. RECOVERED TO <100 AFTER GETTING BACK TO BED SIMILAR TO WHEN HE WAS ON THE GTT.
--- NOTE | 2020-11-20 01:09 | NUR ---
CALL LIGHT ON. pt UP TO BSC TO VOID AND BACK TO BED. HR INCREASED TO 130'S WHILE pt WAS MOVING. HR IN 80'S WHEN pt IS RESTING IN BED. ASSESSMENT DONE. NO CHANGES NOTED. CALL LIGHT WITHIN REACH.
--- NOTE | 2020-11-20 02:14 | NUR ---
ROUNDED ON pt. RESTING IN BED WITH EYES CLOSED, RESPIRATIONS REGULAR AND UNLABORED. CALL LIGHT WITHIN REACH.
--- NOTE | 2020-11-20 02:33 | NUR ---
PT UP TO SIDE OF BED, HR UP TO 130'S, C/O NAUSEA AND "DRY HEAVING, I THREW UP A LITTLE". 4MG IV ZOFRAN GIVEN. PT ASSISTED BACK TO BED, HR QUICKLY BACK DOWN TO 90'S.
--- NOTE | 2020-11-20 02:53 | NUR ---
ROUNDED ON pt. RESTING IN BED WITH EYES CLOSED, RESPIRATIONS REGULAR. HR 76.
--- NOTE | 2020-11-20 03:31 | NUR ---
pt COMPLAINED OF "NOT BEING ABLE TO BREATH" IMPROVED AFTER SITTING pt UP IN BED. SATS HIGH 90'S ON ROOM AIR. NO CHANGES NOTED ON ECG, HR 80'S. PROVIDED PAIN MED FOR BACK PAIN, CIWA 10 PROVIDED ATIVAN, SEE MAR. NO CHANGE IN LUNG SOUNDS OR WORK OF BREATHING. CALL LIGHT WITHIN REACH.
--- NOTE | 2020-11-20 04:01 | NUR ---
pt REQUESTED TO USE COMMODE. REQUIRED 1PA TO STAND, MORE UNSTEADY THAN PRIOR AMBULATIONS. BM. VOIDED, SOME ON FLOOR. FLOOR CLEANED, FRESH LINENS. pt 1PA BACK TO BED. pt MOVEMENT IS LESS COORDINATED THAN PRIOR. SETTLE BACK IN BED. HR DID INCREASE TO 136 WHILE MOVING BEFORE, NOW IN THE 80'S. NO OTHER CHANGES IN ASSESSMENT. CALL LIGHT WITHIN REACH.
--- NOTE | 2020-11-20 04:56 | NUR ---
pt UP TO HAVE BM. BSC. BM IS BOND IN COLOR, STRANDS OF GEL LIKE SUBSTANCE. pt REPORTS THIS IS NOT A USUAL BM FOR HIM. FAT NOTED TO BE FLOATING ON TOP OF URINE/STOOL MIX. pt BACK TO BED. PROVIDED A JELLO. CALL LIGHT WITHIN REACH.
--- NOTE | 2020-11-20 05:50 | NUR ---
LAB FINISHED DRAWING. pt REPORTS THAT HIS HEADACHE AND BACK ACHE ARE "BETTER" PROVIDED WITH A MENU AND SOMETHING TO DRINK. CALL RENETTA DOLL.
--- NOTE | 2020-11-20 08:30 | NUR ---
SHIFT REPORT RECEIVED FROM JEFFREY VILLEDA. ASSESSMENT COMPLETED AT THIS TIME. PT IS ALERT/ORIENTED, REPORTS 7/10 LOW BACK PAIN, PT REPOSITIONED HIMSELF IN BED; WILL PLAN TO GIVE TYLENOL WHEN AVAILABLE. CIWA:6. LUNGS CLEAR, DIM IN BASES, RA, REPORTS MILD SOB. BOWEL TONES ACTIVE, REPORTS MILD NAUSEA, PRN ZOFRAN GIVEN. SKIN GROSSLY INTACT, BRUISING NOTED TO BACK OF HEAD. CB, 1 UNIT HUMALOG GIVEN. IV SITES INTACT AND PATENT. PT SITTING UP IN BED AND EATING BREAKFAST, CALL LIGHT WITHIN REACH.
--- NOTE | 2020-11-20 09:03 | NUR ---
RE-STARTED CARDIZEM DRIP AT 5MG/HR. PT'S HR 120-130'S AT REST. DISCUSSED WITH PT, NO QUESTIONS AT THIS TIME.
[2020-11-20] MEDS ORDERED: TOPROL XL100 MG PO (09:08)
[2020-11-20] MEDS ORDERED: HYDROCHLOROTHIA25 MG PO (09:11)
--- NOTE | 2020-11-20 09:17 | NUR ---
CARDIZEM TITRATED TO 7.5MG/HR, HR REMAINS IN 120'S.
--- NOTE | 2020-11-20 10:00 | NUR ---
PRN TYLENOL GIVEN FOR 10 LOW BACK PAIN. BED BATH AND SHOWER CAP PROVIDED PER PT REQUEST. NEW LINENS PROVIDED.
--- NOTE | 2020-11-20 10:15 | NUR ---
DR. JOAQUIN IN TO SEE PT, PLAN OF CARE DISCUSSED AND QUESTIONS ANSWERED.
--- NOTE | 2020-11-20 10:18 | NUR ---
Medications reconciled using [facility] medication list
--- NOTE | 2020-11-20 10:30 | NUR ---
CARDIZEM DRIP TITRATED TO 5 MG/HR FOR HR IN 80'S. PT UP TO BSC, UNMEASURED LARGE VOID AND MEDIUM HENNESSY-COLORED SOFT BM. PT ABLE TO PROVIDE OWN PERICARE, ASSISTED HIM BACK TO BED. 1-PA, PT UNSTEADY ON FEET.
--- NOTE | 2020-11-20 10:45 | NUR ---
CARDIZEM DRIP OFF AT THIS TIME FOR HR 60-70'S.
--- NOTE | 2020-11-20 12:39 | NUR ---
PT AWOKE FROM NAP. ASSESSMENT COMPLETED. DENIES PAIN AND NAUSEA AT THIS TIME. CIWA:5. REMAINDER OF ASSESSMENT UNCHANGED. CB, 1 UNIT HUMALOG ADMINISTERED. LUNCH ORDERED, PT DENIES FURTHER REQUESTS AT THIS TIME.
--- NOTE | 2020-11-20 14:09 | NUR ---
PT FINISHED 100% OF LUNCH, TOLERATED WELL. SCHEDULED CARDIZEM GIVEN, HR: 60- 70'S AT REST. PT DENIES NEEDS AT THIS TIME, CALL LIGHT WITHIN REACH.
--- NOTE | 2020-11-20 14:42 | NUR ---
PT IS SOMEWHAT ALERT, ORIENTED AND WELCOMED ME IN. HE BEGAN TO RELATE HIS STORY OF BEING IN LOCAL [place] [facility] AND WAITING FOR SECTION WEAVER TO CAME AND FOUND HIMSELF ON FLOOR AND BLEEDING FROM THE HEAD. PT DESCRIBES THINGS BEING "CLOUDY" AND HIS HEART RACES WHEN HE TRIES TO USE URINAL. SLIGHT HEADACHE STILL, GAVE BLESSING AND ENCOURAGEMENT. WILL FOLLOW NEEDED
--- NOTE | 2020-11-20 15:21 | NUR ---
IV FLUIDS COMPLETED, IV SALINE LOCKED. PT UP TO BSC WITH 1-PA, VOIDED (UNMEASURED, LARGE AMOUNT) AND HAD MEDIUM-SIZED HENNESSY BM. PT ABLE TO PROVIDE OWN PERICARE AND RETURN TO BED. PT DENIES FURTHER REQUESTS AT THIS TIME, CALL LIGHT WITHIN REACH.
--- NOTE | 2020-11-20 15:39 | EKG ---
[facility] [address] [place] [address] Signed Atrial flutter with 2:1 AV conduction Right axis deviation Pulmonary disease pattern Incomplete right bundle branch block Right ventricular hypertrophy Marked ST abnormality, possible inferior subendocardial injury Abnormal ECG When compared with ECG of 05-OCT-2020 14:11, Criteria for Lateral infarct are no longer present Criteria for Inferior infarct are no longer present ST more depressed in Inferior leads ST now depressed in Lateral leads Confirmed by JADIEL JOAQUIN DO ([id number]) on 11/20/2020 3:39:37 PM Electronically Signed By: JADIEL JOAQUIN DO 11/20/20 1539 PATIENT NAME: CHARLIE CHO Electrocardiogram DATE OF : 71 PHYSICIAN: JADIEL JOAQUIN DO REPORT #: [id number] REPORT IS CONFIDENTIAL AND NOT TO BE RELEASED WITHOUT AUTHORIZATION
--- NOTE | 2020-11-20 16:08 | NUR ---
SPOKE WITH PATIENT IN ROOM. PATIENT IS IN BED, AWAKE. PATIENT LIVES WITH HIS MOM IN [place]. SAYS HE DOES NOT USE ANY DME TO WALK, HAS A CANE AND CRUTCHES FROM THE PAST. STATES HE DOES GET DIZZY SOMETIMES AND HAS ISSUES WALKING ON UNEVEN SURFACES SOMETIMES. SAYS HE USES ANYTHING HE CAN TOUCH TO STAY "BALANCED" LIKE [place], FURNITURE, ETC. STATES HIS AUNT HAS A WALKER BUT HIS MOM JUST HAD SURGERY AND IS USING IT. GAVE HIM A BROCHURE FOR [facility] IF HE DECIDES HE NEEDS ONE AND HE CAN BORROW ONE TO TRY. PATIENT DOES NOT WORK, DOES NOT DRIVE. MOTHER DRIVES HIM TO TOWN. HE HAS TRIED FOR DISABILITY FOR FOUR YEARS AND HAS BEEN DENIED. STATES HE GETS SNAP BENEFITS, MEDS ARE PAID FOR AT [facility] AND MOM PAYS THE HOUSE UTILITIES AND HE DOES NOT THINK THEY ARE AT RISK FOR THAT. HE WILL NEED A RIDE HOME HIS MOTHER JUST HAD SURGERY AND CANNOT COME GET HIM AT DISCHARGE. ASKED IF HE WAS INTERESTED IN ETOH PROGRAMS OR TREATMENT. HE DENIES WANTING THIS. HE DOES KNOW THEY HAVE A PROGRAM AT [facility]. DISCUSSED OUR PEER TO PEER PROGRAM THROUGH [facility] AND IF HE DECIDES HE WANTS INFORMATION TO TELL NURSES AND WE WILL BRING IT OVER TO HIM. HIS PREFERANCE IS TO DISCHARGE HOME AT DISCHARGE AND FEELS SAFE TO DO SO. CM WILL FOLLOW NEEDED.
--- NOTE | 2020-11-20 17:13 | NUR ---
PT AWOKEN FOR DINNER, CB, 3 UNITS HUMALOG GIVEN. ASSESSMENT COMPLETED AND UNCHANGED, CIWA:4 AT THIS TIME, SCHEDULED LIBRIUM GIVEN. PT NOW SITTING UP IN BED AND EATING DINNER. IV SITES INTACT AND SALINE LOCKED. PT DENIES REQUESTS, CALL LIGHT WITHIN REACH.
--- NOTE | 2020-11-20 17:31 | NUR ---
PT FINISHED 100% OF DINNER, DENIES NAUSEA. NO FURTHER REQUESTS AT THIS TIME.
--- NOTE | 2020-11-20 19:00 | NUR ---
PT CALLED TO USE BATHROOM, REQUESTED TO WALK TO BATHROOM. TOLERATED WELL WITH 1-PA. PT VOIDED 400ML JOHN URINE AND HAD MEDIUM HENNESSY-COLORED BM. PT PROVIDED OWN PERICARE AND AMBULATED BACK TO BED. PT DENIES FURTHER REQUESTS, CALL LIGHT WITHIN REACH.
--- NOTE | 2020-11-20 19:30 | NUR ---
RECEIVED REPORT FROM JEFFREY LYLES. pt RESTING IN BED WITH EYES CLOSED, RESPIRATIONS REGULAR. PROVIDED FRESH WATER. CALL LIGHT WITHIN REACH.
--- NOTE | 2020-11-20 20:40 | NUR ---
IN TO DO ASSESSMENT. pt WOKE TO VOICE. AFFECT FLAT. REPORTED 7/10 PAIN IN LOWER BACK PROVIDED PRN. BLOOD GLUCOSE 83, LANTUS HELD PER MD ORDERS. pt WILL CALL WHEN HE NEEDS TO VOID. CALL LIGHT WITHIN REACH. BED ALARM ON.
--- NOTE | 2020-11-20 20:49 | NUR ---
pt BLOOD SUGAR 83. DR JOAQUIN NOTIFIED. NEW ORDER TO DISCONTINUE LANTUS.
--- NOTE | 2020-11-20 22:24 | NUR ---
ROUNDED ON pt. RESTING IN BED WITH EYES CLOSED, RESPIRATIONS REGULAR AND UNLABORED. CALL LIGHT WITHIN REACH. BED ALARM ON.
--- NOTE | 2020-11-21 01:27 | NUR ---
ROUNDED ON pt. PULLING AT IV. STARTLED AWAKE TO VOICE. pt ORIENTED TO PLACE AND SITUATION. REQUIRED SOME TIME TO WAKE UP PRIOR TO GETTING UP TO VOID. USED THE WALL AND GRAB BARS TO STABILIZE HE WALKED. LINENS CHANGED. pt DIAPHORETIC. CIWA OF 4. pt PROVIDED WITH FRESH WATER. CALL LIGHT WITHIN REACH.
--- NOTE | 2020-11-21 03:29 | NUR ---
ROUNDED ON pt. RESTING IN BED WITH EYES CLOSED, RESPIRATIONS REGULAR AND UNLABORED. CALL LIGHT WITHIN REACH. BED ALARM ON.
--- NOTE | 2020-11-21 04:35 | NUR ---
CALL LIGHT ON. pt UP TO HAVE BM AND VOID. BACK TO BED. REPORTED FEELING "WEAK" PROVIDED SODA AND CRACKERS. pt THOUGHT BLOOD SUGAR MIGHT BE LOW, CHECKED 141. pt REPORTED "THAT'S PRETTY LOW" DISCUSSED IMPORTANCE OF BLOOD SUGAR CONTROL. ASSESSMENT DONE. NO CHANGES FROM PRIOR ASSESSMENT. CALL LIGHT WITHIN REACH. pt SITTING UP IN BED WATCHING TV.
--- NOTE | 2020-11-21 05:50 | NUR ---
ROUNDED ON pt. RESTING IN BED WITH EYES CLOSED, RESPIRATIONS REGULAR AND UNLABORED. CALL LIGHT WITHIN REACH.
--- NOTE | 2020-11-21 08:30 | NUR ---
IN PATIENT'S ROOM FOR ASSESSMENT, CBG CHECK, AND BREAKFAST. PATIENT STATES HE FEELS PRETTY GOOD OVERALL. HR IS WELL CONTROLLED AT THE MOMENT, RANGING FROM 70-80s WHILE RESTING. PHYS THERAPY WILL SEE PATIENT TODAY AND WORK WITH PATIENT. PT EATING HIS BREAKFAST. PT ALREADY SHOWERED THIS AM AND WONDERING WHAT THE PLAN IS FOR THE DAY. CONTINUE TO MONITOR.
--- NOTE | 2020-11-21 09:01 | NUR ---
PHYSICAL THERAPY IN ROOM WITH PATIENT AT THIS TIME.
--- NOTE | 2020-11-21 09:07 | NUR ---
PATIENT WALKING WITH PHYSICAL THERAPY IN [place] AND TOLERATING WELL. PT'S HR RANGING FROM 100-132 WITH THIS ACTIVITY.
--- NOTE | 2020-11-21 09:40 | NUR ---
Spoke with Clyde and he plans on dc today. Received RX for walker from Dr. Orellana. Pt does not have transportation at this time. Notified I will call the [facility]. Called [facility] and sent RX to them for walker. 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 CAlled and spoke with Drea MURPHY from the [facility] and she states transportation is full today. Pt's mom is being transported to town today and she will check if that transport can pick pt up when her appt is complete. Updated to walker and need to orange picker machine operator. Also updated pt has a prescheduled cardiology appt. tomorrow and asked if he has transportation schedule. She will check all and call me back.
--- NOTE | 2020-11-21 09:52 | NUR ---
DR. JOAQUIN IN ROOM WITH PATIENT AT THIS TIME. PLAN OF CARE BEING DISCUSSED.
[2020-11-21] MEDS ORDERED: DILTIAZEM HCL120 MG PO (10:03)
[2020-11-21] MEDS ORDERED: METOPROLOL TART25 MG PO (10:03)
[2020-11-21] MEDS ORDERED: THIAMINE HCL100 MG PO (10:05)
--- NOTE | 2020-11-21 10:20 | NUR ---
[facility] will pick pt up when moms appt is completed and take him to [facility] to cherry picker operator his walker. Transport will call [facility] when they are headed to the hospital. [facility] [place] will arrange transport for his cardiology appt for tomorrow. DC summary faxed to [facility] for their records as requested. DC summary, orders, face sheet, notes, PT notes faxed to OP therapy.
== END 2020-11-21 11:15 | disposition home or self-care (01) ==
LOC: ED 13:03 → CCU 13:04
PROVIDERS: ADMIT Student in an Organized Health Care Education/Training Program; ATTEND Student in an Organized Health Care Education/Training Program
DX: I48.20 Chronic atrial fibrillation, unspecified (principal); I48.92 Unspecified atrial flutter; F10.232 Alcohol dependence with withdrawal with perceptual disturbance; Y90.9 Presence of alcohol in blood, level not specified; D46.Z Other myelodysplastic syndromes; E10.9 Type 1 diabetes mellitus without complications; M06.9 Rheumatoid arthritis, unspecified; I31.9 Disease of pericardium, unspecified; R55 Syncope and collapse; Z79.01 Long term (current) use of anticoagulants
CPT/HCPCS: 36415; 70450; 71045; 72125; 74177; 80048; 80053; 81001; 83690; 83735; 84484; 85025; 85379; 93005; 93010; C9803; J1815; J2060; J2405; J3411; J3475; J7030; J7121; Q9967; U0003

== ENCOUNTER 2020-11-25 22:08 | Emergency (ER) | payer OTHER ==
[~2020-11-25] VITALS: Ht 175.3 cm; Wt 90.7 kg
[~2020-11-25 22:08] MED LIST changes: +DILTIAZEM HCL120 MG PO; +HYDROCHLOROTHIA25 MG PO; +METOPROLOL TART25 MG PO; +THIAMINE HCL100 MG PO; +TOPROL XL100 MG PO
--- OUTSIDE RECORDS SUMMARY | 2020-11-25 22:10 | XMS ---
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 - 2 Visits in 30 Days CARE PROVIDERS [facility]/[place] 06/22/2020-[facility] PHONE: [phone] Demetrio has no Care Guidelines for this patient. Care History Medical/Surgical 08/23/2020 [facility] - PATIENT IS CLOSELY FOLLOWING UP WITH PCP DR HERNANDEZ AT [facility]. - PATIENT HAS A COUNSELOR -BEHAVIORAL HEALTH- TOBI KEMP. - PATIENT REFUSED REHAB\T\nbsp; AT RECENT APT WITH PROVIDER ON 08/03/20. - PATIENT HAS AN APT WITH PCP 08/23/20 FOR FOLLOW UP TO RECENT ED VISITS. 06/22/2020 [facility] - PATIENT IS [facility] ELIGIBLE, \T\middot;\T\nbsp; PLEASE REFER PATIENT TO [facility] FOR NON EMERGENT MEDICAL NEEDS. \T\middot;\T\nbsp; [facility] CAN SEE PATIENTS SAME DAY FOR APTS IF PATIENT CALLS FIRST THING IN THE MORNING. E.D. VISIT COUNT (12 MO.) 1 Lavinia Huitron HRadha 9 SOHA Hubbard TOTAL 10 NOTE: Visits indicate total known visits. ED/UCC VISIT TRACKING (12 MO.) 11/25/2020 22:09 [facility] [place] TYPE: Emergency COMPLAINT: - FALL 11/19/2020 13:03 [facility] [place] TYPE: Emergency COMPLAINT: - FALL 10/05/2020 14:08 [facility] [place] TYPE: Emergency COMPLAINT: - CHEST PAIN DIAGNOSES: - Personal history of nicotine dependence - Type 1 diabetes mellitus without complications - [facility] (current) use of aspirin - Other halfway (current) drug therapy - Blood alcohol level of 240 mg/100 ml or more - [facility] (current) use of insulin - Chest pain, unspecified - Alcohol abuse with intoxication, unspecified - Type 2 diabetes mellitus without complications 08/28/2020 11:35 [facility] [place] TYPE: Emergency COMPLAINT: - DIZZINESS, SOB DIAGNOSES: - Personal history of other venous thrombosis and embolism - Patient's other noncompliance with medication regimen - Alcohol abuse, uncomplicated - Personal history of nicotine dependence - Unspecified atrial flutter - Type 1 diabetes mellitus with hyperglycemia - Other halfway (current) drug therapy - Dizziness and giddiness 08/20/2020 06:42 [facility] [place] TYPE: Emergency COMPLAINT: - POSSIBLE ALERGIC REACTION BEE STING DIAGNOSES: - Type 1 diabetes mellitus without complications - Nicotine dependence, unspecified, uncomplicated - Unspecified atrial flutter - Toxic effect of venom of wasps, accidental (unintentional), initial encounter - Other halfway (current) drug therapy 08/16/2020 15:13 Lavinia WOO [...] - Nicotine dependence, unspecified, uncomplicated - Other ad terminal makeup operator (current) drug therapy - Type 1 diabetes mellitus without complications - Hypo-osmolality and hyponatremia - Syncope and collapse - Dehydration - Unspecified atrial flutter 08/01/2020 15:24 [facility] [place] TYPE: Emergency COMPLAINT: - DIZZINESS, HEAD PAIN DIAGNOSES: - [facility] (current) use of insulin - Unspecified atrial fibrillation - Other ad terminal makeup operator (current) drug therapy - Alcohol abuse, uncomplicated - Type 2 diabetes mellitus with hyperglycemia - Type 1 diabetes mellitus with hyperglycemia - Blood alcohol level of 240 mg/100 ml or more - Dizziness and giddiness 07/27/2020 15:13 [facility] [place] TYPE: Emergency COMPLAINT: - INTOXICATED 06/21/2020 16:28 [facility] [place] TYPE: Emergency COMPLAINT: - ABNORMAL LAB WORK INPATIENT VISIT TRACKING (12 MO.) 11/19/2020 13:04 [facility] [place] TYPE: Observation COMPLAINT: - AFIB DIAGNOSES: - Type 1 diabetes mellitus without complications - 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 - Rheumatoid arthritis, unspecified - Disease of pericardium, unspecified - Syncope and collapse - Chronic atrial fibrillation, unspecified - [facility] (current) use of anticoagulants - Presence of alcohol in blood, level not specified - Other myelodysplastic syndromes - Unspecified atrial flutter 07/27/2020 15:14 [facility] [place] TYPE: Observation COMPLAINT: - A FLUTTER WITH RVR DIAGNOSES: - Palpitations - Other myelodysplastic syndromes - Contact with and (suspected) exposure to other viral communicable diseases - Alcohol dependence with withdrawal, unspecified - 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
== END 2020-11-26 03:37 | disposition home or self-care (01) ==
LOC: ED 22:08
DX: F10.129 Alcohol abuse with intoxication, unspecified (principal); Y90.8 Blood alcohol level of 240 mg/100 ml or more; F13.10 Sedative, hypnotic or anxiolytic abuse, uncomplicated; E10.9 Type 1 diabetes mellitus without complications; I48.92 Unspecified atrial flutter; Z79.899 Other long term (current) drug therapy; Z79.4 Long term (current) use of insulin
CPT/HCPCS: 70450; 72125; 80053; 81001; 85025; 85610; 85730; 99284-25; J7030

== ENCOUNTER 2020-12-15 14:22 | Emergency (ER) | payer OTHER ==
[~2020-12-15] VITALS: Ht 175.3 cm; Wt 87.1 kg
[~2020-12-15 14:22] MED LIST changes: +CALCIUM500 MG PO; +CHLORDIAZEPOXID25 MG PO; +GLUCOSE4 GM PO; +IODOSORB40 GM TOP; +ROPINIROLE HC0.25 MG PO; +THEREMS-M TABL1 EACH PO
--- OUTSIDE RECORDS SUMMARY | 2020-12-15 14:28 | XMS ---
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 Care History Medical/Surgical 11/29/2020 [facility] - CHW CONTACTED LATHING SUPERVISOR MAICO AT [facility] - PATIENT IS CURRENTLY WORKING WITH [employer] [facility] A\T\amp;D SERVICES [phone]. 08/23/2020 [facility] - PATIENT IS CLOSELY FOLLOWING UP WITH PCP DR HERNANDEZ AT [facility]. - PATIENT HAS A COUNSELOR -BEHAVIORAL HEALTH- TOBI KEMP. - PATIENT REFUSED REHAB\T\nbsp; AT RECENT APT WITH PROVIDER ON 08/03/20. - PATIENT HAS AN APT WITH PCP 08/23/20 FOR FOLLOW UP TO RECENT ED VISITS. 06/22/2020 [facility] - PATIENT IS [facility] ELIGIBLE, \T\middot;\T\nbsp; PLEASE REFER PATIENT TO [facility] FOR NON EMERGENT MEDICAL NEEDS. \T\middot;\T\nbsp; [facility] CAN SEE PATIENTS SAME DAY FOR APTS IF PATIENT CALLS FIRST THING IN THE MORNING. E.D. VISIT COUNT (12 MO.) 2 Lavinia Berry 11 SOHA Hubbard TOTAL 13 NOTE: Visits indicate total known visits. ED/UCC VISIT TRACKING (12 MO.) 12/15/2020 14:23 [facility] [place] TYPE: Emergency COMPLAINT: - SORE THROAT, UNABLE TO TALK 12/08/2020 11:12 [facility] [place] TYPE: Emergency COMPLAINT: - DIZZINESS 12/06/2020 10[facility] COMPLAINT: - Syncope / Pre-syncope - DIZZINESS AND GIDDINESS - SYNCOPE AND COLLAPSE DIAGNOSES: 0. Syncope and collapse 1. Syncope and collapse 4. Other petroleum terminal plant operator (current) drug therapy 5. FDC (current) use of insulin 11/25/2020 22:09 [facility] [place] TYPE: Emergency COMPLAINT: - INTOXICATION DIAGNOSES: - Blood alcohol level of 240 mg/100 ml or more - Unspecified atrial flutter - Other longterm (current) drug therapy - Alcohol abuse with intoxication, unspecified - Alcohol abuse with intoxication, unspecified - terminal manager (current) use of insulin - Type 1 diabetes mellitus without complications - Sedative, hypnotic or anxiolytic abuse, uncomplicated 11/19/2020 13:03 [facility] [place] TYPE: Emergency COMPLAINT: - FALL 10/05/2020 14:08 [facility] [place] TYPE: Emergency COMPLAINT: - CHEST PAIN DIAGNOSES: - Personal history of nicotine dependence - Type 1 diabetes mellitus without complications - terminal manager (current) use of aspirin - Other longterm (current) drug therapy - Blood alcohol level of 240 mg/100 ml or more - FDC (current) use of insulin - Chest pain, [...] 1 diabetes mellitus with hyperglycemia - Other petroleum terminal plant operator (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 Syncope and collapse 1. Syncope and collapse 5. Hypotension, unspecified 6. Unspecified atrial flutter 08/15/2020 17:31 SOHA [place] TYPE: Emergency COMPLAINT: - DIZZINESS DIAGNOSES: - Type 2 diabetes mellitus without complications - Nicotine dependence, unspecified, uncomplicated - Other petroleum terminal plant operator (current) drug therapy - Type 1 diabetes mellitus without complications - Hypo-osmolality and hyponatremia - Syncope and collapse - Dehydration - Unspecified atrial flutter 08/01/2020 15:24 SOH[facility] [place] TYPE: Emergency COMPLAINT: - DIZZINESS, HEAD PAIN DIAGNOSES: - FDC (current) use of insulin - Unspecified atrial fibrillation - Other petroleum terminal plant operator (current) drug therapy - Alcohol abuse, uncomplicated - Type 2 diabetes mellitus with hyperglycemia - Type 1 diabetes mellitus with hyperglycemia - Blood alcohol level of 240 mg/100 ml or more - Dizziness and giddiness 07/27/2020 15:13 [facility] [place] TYPE: Emergency COMPLAINT: - INTOXICATED 06/21/2020 16:28 [facility] [place] TYPE: Emergency COMPLAINT: - ABNORMAL LAB WORK INPATIENT VISIT TRACKING (12 MO.) 12/08/2020 11:13 [facility] [place] TYPE: Observation COMPLAINT: - ALCOHOL WITHDRAWL DIAGNOSES: - Essential (primary) hypertension - Unspecified atrial flutter - Type 1 diabetes mellitus with hyperglycemia - FDC (current) use of insulin - Chronic atrial fibrillation, unspecified - Myelodysplastic syndrome, unspecified - Alcohol abuse with withdrawal, unspecified - Unspecified atrial fibrillation - Rheumatoid arthritis, unspecified 11/19/2020 13:04 [facility] [place] TYPE: Observation COMPLAINT: - AFIB DIAGNOSES: - Type 1 diabetes mellitus without complications - 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 - Rheumatoid arthritis, unspecified - Disease of pericardium, unspecified - Syncope and collapse - Chronic atrial fibrillation, unspecified - terminal manager (current) use of anticoagulants - Presence of alcohol in blood, level not specified - Other myelodysplastic syndromes - Unspecified atrial flutter 07/27/2020 15:14 [facility] [place] TYPE: Observation COMPLAINT: - A FLUTTER WITH RVR DIAGNOSES: - Palpitations - Other myelodysplastic syndromes - Contact with and (suspected) exposure to other viral communicable diseases - Alcohol dependence with withdrawal, unspecified - FDC (current) use of insulin - Rheumatoid arthritis, unspecified - Unspecified atrial flutter - Type 1 diabetes mellitus with hyperglycemia - Alcohol dependence with intoxication, unspecified - Personal history of other venous thrombosis and embolism - Acquired absence of other specified parts of digestive tract - Alcohol dependence with other alcohol-induced disorder - Unspecified atrial fibrillation 06/21/2020 16:[address] [facility] [place] TYPE: Observation COMPLAINT: - ACUTE THROMBOCYTOPENIA DIAGNOSES: - Personal history of nicotine dependence - Alcohol dependence, uncomplicated - Asymptomatic varicose veins of unspecified lower extremity - Decreased white blood cell count, unspecified - Personal history of other venous thrombosis and embolism - Rheumatoid arthritis, unspecified - Thrombocytopenia, unspecified - Type 1 diabetes mellitus without complications - terminal manager (current) use of insulin - Immune thrombocytopenic purpura - Fatty (change of) liver, not elsewhere classified [email or web address]
[2020-12-15] MEDS ORDERED: DOXYCYCLINE HY100 MG PO (18:13)
[2020-12-15] MEDS ORDERED: NYSTATIN100000 UN1 PO (18:13)
== END 2020-12-15 18:40 | disposition home or self-care (01) ==
LOC: ED 14:22
DX: B37.0 Candidal stomatitis (principal); J02.9 Acute pharyngitis, unspecified; Z20.822 Contact with and (suspected) exposure to COVID-19; E11.9 Type 2 diabetes mellitus without complications; E10.9 Type 1 diabetes mellitus without complications; I48.4 Atypical atrial flutter; Z79.899 Other long term (current) drug therapy; Z79.4 Long term (current) use of insulin
CPT/HCPCS: 71045; 80053; 83605; 85025; 86308; 87880; 99283-25; C9803; J7040; U0003

== ENCOUNTER 2021-02-12 13:59 | Emergency (ER) | payer OTHER ==
[~2021-02-12] VITALS: Ht 175.3 cm; Wt 87.1 kg
[~2021-02-12 13:59] MED LIST changes: +DOXYCYCLINE HY100 MG PO; +NYSTATIN100000 UN1 PO
--- OUTSIDE RECORDS SUMMARY | 2021-02-12 14:08 | XMS ---
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 Care History Medical/Surgical 12/18/2020 [facility] - [facility] CONTACTED MAICO MURPHYAPPLE PICKER AT [facility] - CASE MANAGEMENT TEAM IS FULLY AWARE OF PATIENT- LAST APT WITH PATIENT WAS ON 12/14/20 PATIENT WAS TOO INTOXICATED FOR THE ASSESSMENT. - REFERRAL HAS BEEN PLACED FOR PEER SUPPORT A\T\amp;D SERVICES AT [facility] - PATIENT HAS ANOTHER EVALUATION SCHEDULED WITH [facility] WITHIN THE WEEK OF 12/18/20. - PATIENT HAS A COUNTY ADVISER REFERRAL-PATIENT DID NOT GO TO PREVIOUS APT-NEXT APT SCHEDULED 01/03/21. - APPLE PICKER MAICO HAS A CONSULT FROM PATIENT PROVIDER TO HELP PATIENT- MAICO WILL TRY AND GET IN CONTACT WITH PATIENT. 11/29/2020 [facility] - W CONTACTED APPLE PICKER MAICO AT [facility] - PATIENT IS CURRENTLY WORKING WITH [employer] [facility] A\T\amp;D SERVICES [phone]. 08/23/2020 [facility] - PATIENT IS CLOSELY FOLLOWING UP WITH PCP DR EHRNANDEZ AT [facility]. - PATIENT HAS A COUNSELOR -BEHAVIORAL HEALTH- TOBI KEMP. - PATIENT REFUSED REHAB\T\nbsp; AT RECENT APT WITH PROVIDER ON 08/03/20. - PATIENT HAS AN APT WITH PCP 08/23/20 FOR FOLLOW UP TO RECENT ED VISITS. EHumaira VISIT COUNT (12 MO.) 1 [facility] TOTAL 15 NOTE: Visits indicate total known visits. ED/C VISIT TRACKING (12 MO.) 02/12/2021 13:59 [facility] [place] TYPE: Emergency COMPLAINT: - DIZZINESS 01/27/2021 18:04 [facility] TYPE: Emergency DIAGNOSES: - Alcohol use, unspecified with intoxication, uncomplicated - Syncope - Unspecified atrial flutter 12/15/2020 14:23 [facility] [place] TYPE: Emergency COMPLAINT: - SORE THROAT DIAGNOSES: - Atypical atrial flutter - Other group home (current) drug therapy - Type 1 diabetes mellitus without complications - Candidal stomatitis - [facility] (current) use of insulin - Acute pharyngitis, unspecified - Type 2 diabetes mellitus without complications 12/08/2020 11:12 [facility] [place] TYPE: Emergency COMPLAINT: - DIZZINESS 12/06/2020 10:55 Lavinia Reeves [place] TYPE: Emergency COMPLAINT: - Syncope / Pre-syncope - DIZZINESS AND GIDDINESS - SYNCOPE AND COLLAPSE DIAGNOSES: 0. Syncope and collapse 1. Syncope and collapse 4. Other group home (current) drug therapy 5. [facility] (current) use of insulin 11/25/2020 22:09 [facility] [place] TYPE: Emergency COMPLAINT: - INTOXICATION DIAGNOSES: - Blood alcohol level of 240 mg/100 ml or more - Unspecified atrial flutter - Other watcher automat long goods (current) drug therapy - Alcohol abuse with intoxication, unspecified - Alcohol abuse with intoxication, unspecified - [facility] (current) use of insulin - Type 1 diabetes mellitus without complications - Sedative, hypnotic or anxiolytic abuse, uncomplicated 11/19/2020 13:03 [facility] [place] TYPE: Emergency COMPLAINT: - FALL 10/05/2020 14:08 [facility] [place] TYPE: Emergency COMPLAINT: - CHEST PAIN DIAGNOSES: - Personal history of nicotine dependence - Type 1 diabetes mellitus without complications - manager long term care (current) use of aspirin - Other group home (current) drug therapy - Blood alcohol level of 240 mg/100 ml or more - [facility] (current) use of insulin - Chest pain, [...] 1 diabetes mellitus with hyperglycemia - Other watcher automat long goods (current) drug therapy - Dizziness and giddiness 08/20/2020 06:42 [facility] [place] TYPE: Emergency COMPLAINT: - POSSIBLE ALERGIC REACTION BEE STING DIAGNOSES: - Type 1 diabetes mellitus without complications - Nicotine dependence, unspecified, uncomplicated - Unspecified atrial flutter - Toxic effect of venom of wasps, accidental (unintentional), initial encounter - Other watcher automat long goods (current) drug therapy 08/16/2020 15:13 Lavinia WOO TYPE: Emergency COMPLAINT: - Heartbeat Irregular - SYNCOPE AND COLLAPSE - UNSPECIFIED ABDOMINAL PAIN - DIZZINESS AND GIDDINESS DIAGNOSES: 0. Syncope and collapse 1. Syncope and collapse 5. Hypotension, unspecified 6. Unspecified atrial flutter 08/15/2020 17:[address] [facility] TYPE: Emergency COMPLAINT: - DIZZINESS DIAGNOSES: - Type 2 diabetes mellitus without complications - Nicotine dependence, unspecified, uncomplicated - Other group home (current) drug therapy - Type 1 diabetes mellitus without complications - Hypo-osmolality and hyponatremia - Syncope and collapse - Dehydration - Unspecified atrial flutter 08/01/2020 15:[address] [facility] TYPE: Emergency COMPLAINT: - DIZZINESS, HEAD PAIN DIAGNOSES: - manager long term care (current) use of insulin - Unspecified atrial fibrillation - Other group home (current) drug therapy - Alcohol abuse, uncomplicated - Type 2 diabetes mellitus with hyperglycemia - Type 1 diabetes mellitus with hyperglycemia - Blood alcohol level of 240 mg/100 ml or more - Dizziness and giddiness 07/27/2020 15:[address] [facility] [place] TYPE: Emergency COMPLAINT: - INTOXICATED 06/21/2020 16:28 [facility] [place] TYPE: Emergency COMPLAINT: - ABNORMAL LAB WORK INPATIENT VISIT TRACKING (12 MO.) 12/08/2020 11:13 [facility] [place] TYPE: Observation COMPLAINT: - ALCOHOL WITHDRAWL DIAGNOSES: - Essential (primary) hypertension - Unspecified atrial flutter - Type 1 diabetes mellitus with hyperglycemia - manager long term care (current) use of insulin - Chronic atrial [...] collapse - Chronic atrial fibrillation, unspecified - manager long term care (current) use of anticoagulants - Presence of alcohol in blood, level not specified - Other myelodysplastic syndromes - Unspecified atrial flutter 07/27/2020 15:14 [facility] [place] TYPE: Observation COMPLAINT: - A FLUTTER WITH RVR DIAGNOSES: - Palpitations - Other myelodysplastic syndromes - Contact with and (suspected) exposure to other viral communicable diseases - Alcohol dependence with withdrawal, unspecified - [facility] (current) use of insulin - Rheumatoid arthritis, [...] Type 1 diabetes mellitus without complications - [facility] (current) use of insulin - Immune thrombocytopenic purpura - Fatty (change of) liver, not elsewhere classified [email or web address]
--- NOTE | 2021-02-15 10:23 | EKG ---
[facility] [address] [facility] [place] [address] Signed Atrial flutter with variable AV block Incomplete right bundle branch block Inferior infarct , age undetermined Abnormal ECG When compared with ECG of 09-DEC-2020 14:10, Inferior infarct is now present ST now depressed in Anterior leads T wave inversion now evident in Inferior leads Confirmed by SANGITA REIS MD ([id number]) on 02/15/2021 10:23:40 AM Electronically Signed By: SANGITA REIS MD 02/15/21 1023 PATIENT NAME: CHARLIE CHO Electrocardiogram DATE OF : 71 PHYSICIAN: SANGITA REIS MD REPORT #: [id number] REPORT IS CONFIDENTIAL AND NOT TO BE RELEASED WITHOUT AUTHORIZATION
== END 2021-02-12 16:31 | disposition home or self-care (01) ==
LOC: ED 13:59
DX: F10.129 Alcohol abuse with intoxication, unspecified (principal); Y90.8 Blood alcohol level of 240 mg/100 ml or more; E10.9 Type 1 diabetes mellitus without complications; Z79.899 Other long term (current) drug therapy
CPT/HCPCS: 80053; 85025; 99284-25; G0480; J7030

== ENCOUNTER 2021-02-16 02:25 | Emergency (ER) | payer OTHER ==
[~2021-02-16] VITALS: Ht 175.3 cm; Wt 87.1 kg
--- OUTSIDE RECORDS SUMMARY | 2021-02-16 02:28 | XMS ---
PreManage Notification: CHARLIE CHO Security Mortar Carrier Events No recent Security Events currently on file CRITERIA MET - [facility] - 3 Facilities in 90 Days - [facility] - 2 Visits in 30 Days - 6 ED Visits in 6 Months CARE PROVIDERS [facility] 06/22/2020-[facility] PHONE: [phone] Demetrio has no Care Guidelines for this patient. Care History Medical/Surgical 12/18/2020 [facility] - [facility] CONTACTED MAICO MURPHYAPPLICATIONS SALES REPRESENTATIVE AT [facility] - CASE MANAGEMENT TEAM IS FULLY AWARE OF PATIENT- LAST APT WITH PATIENT WAS ON 12/14/20 PATIENT WAS TOO INTOXICATED FOR THE ASSESSMENT. - REFERRAL HAS BEEN PLACED FOR PEER SUPPORT A\T\amp;D SERVICES AT [facility] - PATIENT HAS ANOTHER EVALUATION SCHEDULED WITH [facility] WITHIN THE WEEK OF 12/18/20. - PATIENT HAS A NONFARM ANIMAL CARETAKER REFERRAL-PATIENT DID NOT GO TO PREVIOUS APT-NEXT APT SCHEDULED 01/03/21. - APPLICATIONS SALES REPRESENTATIVE MAICO HAS A CONSULT FROM PATIENT PROVIDER TO HELP PATIENT- MAICO WILL TRY AND GET IN CONTACT WITH PATIENT. 11/29/2020 [facility] - [facility] CONTACTED APPLICATIONS SALES REPRESENTATIVE MAICO AT [facility] - PATIENT IS CURRENTLY WORKING WITH [employer] [facility] A\T\amp;D SERVICES [phone]. 08/23/2020 [facility] - PATIENT IS CLOSELY FOLLOWING UP WITH PCP DR HERNANDEZ AT [facility]. - PATIENT HAS A COUNSELOR -BEHAVIORAL HEALTH- TOBI KEMP. - PATIENT REFUSED REHAB\T\nbsp; AT RECENT APT WITH PROVIDER ON 08/03/20. - PATIENT HAS AN APT WITH PCP 08/23/20 FOR FOLLOW UP TO RECENT ED VISITS. EHumaira V[facility] ([facility] MO[facility] TOTAL 17 NOTE: Visits indicate total known visits. ED/C VISIT TRACKING (12 MO.) 02/16/2021 02:25 [facility] [place] TYPE: Emergency COMPLAINT: - HEART PALPATATIONS 02/14/2021 15:33 [facility] TYPE: Emergency COMPLAINT: - Walk In 02/12/2021 13:[address] [facility] TYPE: Emergency COMPLAINT: - DIZZINESS DIAGNOSES: - Dizziness and giddiness - Alcohol abuse with intoxication, unspecified - Type 1 diabetes mellitus without complications - Blood alcohol level of 240 mg/100 ml or more - Other fpc (current) drug therapy 01/27/2021 [facility] DIAGNOSES: - Alcohol use, unspecified with intoxication, uncomplicated - Syncope - Unspecified atrial flutter 12/15/2020 14:[address] [facility] [place] TYPE: Emergency COMPLAINT: - SORE THROAT DIAGNOSES: - Atypical atrial flutter - Other termite control representative (current) drug therapy - Type 1 diabetes mellitus without complications - Candidal stomatitis - senior care (current) use of insulin - Acute pharyngitis, unspecified - Type 2 diabetes mellitus without complications 12/08/2020 11:12 [place] [facility] TYPE: Emergency COMPLAINT: - DIZZINESS 12/06/2020 10:55 [facility] TYPE: Emergency COMPLAINT: - Syncope / Pre-syncope - DIZZINESS AND GIDDINESS - SYNCOPE AND COLLAPSE DIAGNOSES: 0. Syncope and collapse 1. Syncope and collapse 4. Other fpc (current) drug therapy 5. meterman (current) use of insulin 11/25/2020 22:09 [place] [facility] TYPE: Emergency COMPLAINT: - INTOXICATION DIAGNOSES: - Blood alcohol level of 240 mg/100 ml or more - Unspecified atrial flutter - Other fpc (current) drug therapy - Alcohol abuse with intoxication, unspecified - Alcohol abuse with intoxication, unspecified - senior care (current) use of insulin - Type 1 diabetes mellitus without complications - Sedative, hypnotic or anxiolytic abuse, uncomplicated 11/19/2020 13:03 [facility] [place] TYPE: Emergency COMPLAINT: - FALL 10/05/2020 14:08 [facility] [place] TYPE: Emergency COMPLAINT: - CHEST PAIN DIAGNOSES: - Personal history of nicotine dependence - Type 1 diabetes mellitus without complications - meterman (current) use of aspirin - Other fpc (current) drug therapy - Blood alcohol level of 240 mg/100 ml or more - meterman (current) use of insulin - Chest pain, [...] 1 diabetes mellitus with hyperglycemia - Other termite control representative (current) drug therapy - Dizziness and giddiness 08/20/2020 06:42 [facility] [place] TYPE: Emergency COMPLAINT: - POSSIBLE ALERGIC REACTION BEE STING DIAGNOSES: - Type 1 diabetes mellitus without complications - Nicotine dependence, unspecified, uncomplicated - Unspecified atrial flutter - Toxic effect of venom of wasps, accidental (unintentional), initial encounter - Other termite control representative (current) drug therapy 08/16/2020 15:13 [facility] [...] - Nicotine dependence, unspecified, uncomplicated - Other fpc (current) drug therapy - Type 1 diabetes mellitus without complications - Hypo-osmolality and hyponatremia - Syncope and collapse - Dehydration - Unspecified atrial flutter 08/01/2020 15:24 [facility] [place] TYPE: Emergency COMPLAINT: - DIZZINESS, HEAD PAIN DIAGNOSES: - meterman (current) use of insulin - Unspecified atrial fibrillation - Other fpc (current) drug therapy - Alcohol abuse, uncomplicated - Type 2 diabetes mellitus with hyperglycemia - Type 1 diabetes mellitus with hyperglycemia - Blood alcohol level of 240 mg/100 ml or more - Dizziness and giddiness 07/27/2020 15:13 [facility] [place] TYPE: Emergency COMPLAINT: - INTOXICATED 06/21/2020 16:[facility] [place] TYPE: Emergency COMPLAINT: - ABNORMAL LAB WORK INPATIENT VISIT TRACKING (12 MO.) 12/08/2020 11:13 [facility] [place] TYPE: Observation COMPLAINT: - ALCOHOL WITHDRAWL DIAGNOSES: - Essential (primary) hypertension - Unspecified atrial flutter - Type 1 diabetes mellitus with hyperglycemia - meterman (current) use of insulin - Chronic atrial [...] collapse - Chronic atrial fibrillation, unspecified - meterman (current) use of anticoagulants - Presence of alcohol in blood, level not specified - Other myelodysplastic syndromes - Unspecified atrial flutter 07/27/2020 15:14 [facility] [place] TYPE: Observation COMPLAINT: - A FLUTTER WITH RVR DIAGNOSES: - Palpitations - Other myelodysplastic syndromes - Contact with and (suspected) exposure to other viral communicable diseases - Alcohol dependence with withdrawal, unspecified - senior care (current) use of insulin - Rheumatoid arthritis, unspecified - Unspecified atrial flutter - Type 1 diabetes mellitus with hyperglycemia - Alcohol dependence with intoxication, unspecified - Personal history of other venous thrombosis and embolism - Acquired absence of other specified parts of digestive tract - Alcohol dependence with other alcohol-induced disorder - Unspecified atrial fibrillation 06/21/2020 16:[address] [facility] [place] [...] 1 diabetes mellitus without complications - senior care (current) use of insulin - Immune thrombocytopenic purpura - Fatty (change of) liver, not elsewhere classified [email or web address]
--- NOTE | 2021-02-16 07:14 | EKG ---
[facility] [address] [facility] [place] [address] Signed Atrial flutter with variable AV block Indeterminate axis Right bundle branch block T wave abnormality, consider inferolateral ischemia Abnormal ECG When compared with ECG of 12-FEB-2021 14:07, Right bundle branch block has replaced Incomplete right bundle branch block Confirmed by SANGITA REIS MD ([id number]) on 02/16/2021 7:14:20 AM Electronically Signed By: SANGITA REIS MD 02/16/21 0714 PATIENT NAME: CHARLIE CHO Electrocardiogram DATE OF : 71 PHYSICIAN: SANGITA REIS MD REPORT #: [id number] REPORT IS CONFIDENTIAL AND NOT TO BE RELEASED WITHOUT AUTHORIZATION
== END 2021-02-16 04:19 | disposition home or self-care (01) ==
LOC: ED 02:25
DX: E83.42 Hypomagnesemia (principal); E87.6 Hypokalemia; E11.9 Type 2 diabetes mellitus without complications; E10.9 Type 1 diabetes mellitus without complications; I48.92 Unspecified atrial flutter; Z79.899 Other long term (current) drug therapy; Z79.4 Long term (current) use of insulin
CPT/HCPCS: 80053; 83735; 84484; 85025; 93005; 93010; 96374; 99285-25; J2060; J7121

== ENCOUNTER 2021-02-23 22:16 | Emergency (ER) | payer OTHER ==
[~2021-02-23] VITALS: Ht 175.3 cm; Wt 79.8 kg
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
--- NOTE | 2021-02-24 13:09 | EKG ---
[facility] [address] [place] [address] Signed Atrial flutter with variable AV block Incomplete right bundle branch block Cannot rule out Anterior infarct , age undetermined ST \T\ T wave abnormality, consider lateral ischemia Abnormal ECG When compared with ECG of 16-FEB-2021 02:31, Vent. rate has decreased BY 70 BPM Incomplete right bundle branch block has replaced Right bundle branch block Minimal criteria for Anterior infarct are now present Confirmed by JUDIT JOSEPH MD ([id number]) on 02/24/2021 1:08:50 PM Electronically Signed By: JUDIT JOSEPH MD 02/24/21 1309 PATIENT NAME: CHARLIE CHO Electrocardiogram DATE OF : 71 PHYSICIAN: JUDIT JOSEPH MD REPORT #: [id number] REPORT IS CONFIDENTIAL AND NOT TO BE RELEASED WITHOUT AUTHORIZATION
== END 2021-02-24 00:16 | disposition home or self-care (01) ==
LOC: ED 22:16
DX: S00.93XA Contusion of unspecified part of head, initial encounter (principal); S20.211A Contusion of right front wall of thorax, initial encounter; Y04.0XXA Assault by unarmed brawl or fight, initial encounter; E10.9 Type 1 diabetes mellitus without complications; I48.92 Unspecified atrial flutter; Z79.899 Other long term (current) drug therapy; Z79.4 Long term (current) use of insulin
CPT/HCPCS: 70450; 70486; 71046; 72125; 93005; 93010; 99284-25

== ENCOUNTER 2021-04-08 22:26 | Emergency (ER) | payer OTHER ==
[~2021-04-08] VITALS: Ht 175.3 cm; Wt 79.8 kg
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
[2021-04-09] MEDS ORDERED: ATIVAN1 MG PO (01:55)
--- NOTE | 2021-04-10 14:29 | EKG ---
[facility] [address] [place] [address] Signed Atrial flutter with 2:1 AV conduction Right bundle branch block Septal infarct (cited on or before 23-FEB-2021) Inferior infarct , age undetermined Abnormal ECG When compared with ECG of 23-FEB-2021 22:22, Vent. rate has increased BY 86 BPM Right bundle branch block has replaced Incomplete right bundle branch block Serial changes of Septal infarct present Confirmed by JUDIT JOSEPH MD ([id number]) on 04/10/2021 2:29:15 PM Electronically Signed By: JUDIT JOSEPH MD 04/10/21 1429 PATIENT NAME: CHARLIE CHO Electrocardiogram DATE OF : 71 PHYSICIAN: JUDIT JOSEPH MD REPORT #: [id number] REPORT IS CONFIDENTIAL AND NOT TO BE RELEASED WITHOUT AUTHORIZATION
== END 2021-04-09 02:10 | disposition home or self-care (01) ==
LOC: ED 22:26
DX: F10.239 Alcohol dependence with withdrawal, unspecified (principal); Y90.0 Blood alcohol level of less than 20 mg/100 ml; I48.92 Unspecified atrial flutter; E10.9 Type 1 diabetes mellitus without complications; Z87.891 Personal history of nicotine dependence; Z79.899 Other long term (current) drug therapy; Z79.4 Long term (current) use of insulin
CPT/HCPCS: 80048; 81001; 85007; 85025; 93005; 93010; 96365; 96375; 99285-25; G0480; J2060; J3411; J7030

== ENCOUNTER 2021-04-13 18:10 | Emergency (ER) | payer OTHER ==
[~2021-04-13] VITALS: Ht 175.3 cm; Wt 79.8 kg
[~2021-04-13 18:10] MED LIST changes: +ATIVAN1 MG PO
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
== END 2021-04-13 20:34 | disposition home or self-care (01) ==
LOC: ED 18:10
DX: R53.1 Weakness (principal); F10.10 Alcohol abuse, uncomplicated; M25.511 Pain in right shoulder; R10.9 Unspecified abdominal pain; I48.92 Unspecified atrial flutter; E10.9 Type 1 diabetes mellitus without complications; M19.90 Unspecified osteoarthritis, unspecified site; M06.9 Rheumatoid arthritis, unspecified; I82.409 Acute embolism and thrombosis of unspecified deep veins of unspecified lower extremity; Z87.891 Personal history of nicotine dependence; Z79.899 Other long term (current) drug therapy; Z79.4 Long term (current) use of insulin
CPT/HCPCS: 80053; 81001; 83690; 85007; 85025; 96374; 99285-25; J1815; J2405; J7030

== ENCOUNTER 2021-04-18 17:42 | Emergency (ER) | payer OTHER ==
[~2021-04-18] VITALS: Ht 175.3 cm; Wt 79.8 kg
--- OUTSIDE RECORDS SUMMARY | 2021-04-18 17:44 | XMS ---
PreManage Notification: CHARLIE CHO Security Cheesemaker Events No recent Security Events currently on file CRITERIA MET - 6 ED Visits in 6 Months - [facility] [place] - 3 Facilities in 90 Days - PDMP - [facility] [place] - 2 Visits in 30 Days CARE PROVIDERS [facility] 06/22/[facility] PHONE: [phone] Demetrio has no Care Guidelines for this patient. Care History Medical/Surgical 03/12/2021 [facility] - PER SAMPLE STITCHER- [facility] AT [facility]-PATIENT HAS A CARDIOLOGY APT AT [facility] 03/20/21. 12/18/2020 [facility] CONTACTED MAICO MURPHYSAMPLE STITCHER AT [facility] - CASE MANAGEMENT TEAM IS FULLY AWARE OF PATIENT- LAST APT WITH PATIENT WAS ON 12/14/20 PATIENT WAS TOO INTOXICATED FOR THE ASSESSMENT. - REFERRAL HAS BEEN PLACED FOR PEER SUPPORT A\T\amp;D SERVICES AT [facility] - PATIENT HAS ANOTHER EVALUATION SCHEDULED WITH [facility] WITHIN THE WEEK OF 12/18/20. - PATIENT HAS A DIRECTOR OF PRODUCT DEVELOPMENT REFERRAL-PATIENT DID NOT GO TO PREVIOUS APT-NEXT APT SCHEDULED 01/03/21. - SAMPLE STITCHER MAICO HAS A CONSULT FROM PATIENT PROVIDER TO HELP PATIENT- MAICO WILL TRY AND GET IN CONTACT WITH PATIENT. 11/29/2020 [facility] - [facility] CONTACTED SAMPLE STITCHER MAICO AT [facility] - PATIENT IS CURRENTLY WORKING WITH [employer] A\T\amp;D SERVICES [phone]. EHumaira VISIT COUNT (12 MO.) 1 [facility] S[facility]A [facility] TOTAL 22 NOTE: Visits indicate total known visits. ED/UCC VISIT TRACKING (12 MO.) 04/18/2021 17:43 [place] [place] TYPE: Emergency COMPLAINT: - WEAKNESS 04/13/2021 18:11 [place] [place] TYPE: Emergency COMPLAINT: - WEAKNESS DIAGNOSES: - Unspecified abdominal pain - Rheumatoid arthritis, unspecified - Pain in left shoulder - Other intermediate accountant (current) drug therapy - terminologist (current) use of insulin - Pain in right shoulder - Unspecified osteoarthritis, unspecified site - Personal history of nicotine dependence - Weakness - Alcohol abuse, uncomplicated - Acute embolism and thrombosis of unspecified deep veins of unspecified lower extremity - Type 1 diabetes mellitus without complications - Unspecified atrial flutter 04/08/2021 22:[address] [facility] [address] Baldev [place] TYPE: Emergency COMPLAINT: - ALCOHOL WITHDRAW DIAGNOSES: - Unspecified atrial flutter - Blood alcohol level of less than 20 mg/100 ml - Syncope and collapse - Personal history of nicotine dependence - Other group home (current) drug therapy - Alcohol dependence with withdrawal, unspecified - nursing home (current) use of insulin - Type 1 diabetes mellitus without complications 03/08/2021 18:16 Lavinia WOO TYPE: Emergency COMPLAINT: - Ambulance - PALPITATIONS - ALCOHOL USE UNS W/INTOXICATION UNS - HEADACHE UNSPECIFIED DIAGNOSES: 0. Alcohol use, unspecified with intoxication, unspecified 1. Alcohol abuse with intoxication, unspecified 5. terminologist (current) use of insulin 6. Other intermediate accountant (current) drug therapy 7. Blood alcohol level [...] initial encounter - Syncope and collapse - terminologist (current) use of insulin - Other group home (current) drug therapy 02/16/2021 02:25 SOHA Blackwell TYPE: Emergency COMPLAINT: - HEART PALPATATIONS DIAGNOSES: - Unspecified atrial flutter - Dizziness and giddiness - nursing home (current) use of insulin - Hypokalemia - Type 2 diabetes mellitus without complications - Other intermediate accountant (current) drug therapy - Hypomagnesemia - Type 1 diabetes mellitus without complications 02/14/2021 15:33 Lavinia WOO TYPE: Emergency COMPLAINT: - Walk In - CHEST PAIN UNSPECIFIED DIAGNOSES: 0. Chest pain, unspecified 1. Alcohol abuse with intoxication, unspecified 3. Unspecified atrial flutter 4. Blood alcohol level of 240 mg/100 ml or more 5. nursing home (current) use of insulin 6. Other group home (current) drug therapy 02/12/2021 13:59 [facility] [place] TYPE: Emergency COMPLAINT: - DIZZINESS DIAGNOSES: - Dizziness and giddiness - Alcohol abuse with intoxication, unspecified - Type 1 diabetes mellitus without complications - Blood alcohol level of 240 mg/100 ml or more - Other group home (current) drug therapy [facility]2021 [facility] DIAGNOSES: - Alcohol use, unspecified with intoxication, uncomplicated - Syncope - Unspecified atrial flutter 12/15/2020 14:23 [facility] [place] TYPE: Emergency COMPLAINT: - SORE THROAT DIAGNOSES: - Atypical atrial flutter - Other intermediate accountant (current) drug therapy - Type 1 diabetes [...] collapse 1. Syncope and collapse 4. Other intermediate accountant (current) drug therapy 5. terminologist (current) use of insulin 11/25/2020 22:09 [facility] [place] TYPE: Emergency COMPLAINT: - INTOXICATION DIAGNOSES: - Blood alcohol level of 240 mg/100 ml or more - Unspecified atrial flutter - Other group home (current) drug therapy - Alcohol abuse with intoxication, unspecified - Alcohol abuse with intoxication, unspecified - terminologist (current) use of insulin - Type 1 diabetes mellitus without complications - Sedative, hypnotic or anxiolytic abuse, uncomplicated 11/19/2020 13:03 SOHA Lawsony Jamal [place] TYPE: Emergency COMPLAINT: - FALL 10/05/2020 14:08 [facility] [place] TYPE: Emergency COMPLAINT: - CHEST PAIN DIAGNOSES: - Personal history of nicotine dependence - Type 1 diabetes mellitus without complications - terminologist (current) use of aspirin - Other intermediate accountant (current) drug therapy - Blood alcohol level [...] 1 diabetes mellitus with hyperglycemia - Other intermediate accountant (current) drug therapy - Dizziness and giddiness 08/20/2020 06:42 SOHA [place] TYPE: Emergency COMPLAINT: - POSSIBLE ALERGIC REACTION BEE STING DIAGNOSES: - Type 1 diabetes mellitus without complications - Nicotine dependence, unspecified, uncomplicated - Unspecified atrial flutter - Toxic effect of venom of wasps, accidental (unintentional), initial encounter - Other group home (current) drug therapy 08/16/2020 15:13 Lavinia Reeves PA TYPE: Emergency COMPLAINT: - Heartbeat Irregular - [...] COMPLAINT: - DIZZINESS, HEAD PAIN DIAGNOSES: - terminologist (current) use of insulin - Unspecified atrial fibrillation - Other group home (current) drug therapy - Alcohol abuse, uncomplicated - Type 2 diabetes mellitus with hyperglycemia - Type 1 diabetes mellitus with hyperglycemia - Blood alcohol level of 240 mg/100 ml or more - Dizziness and giddiness Plus 2 More Visits INPATIENT VISIT TRACKING (12 MO.) 12/08/2020 11:13 [facility] [place] TYPE: Observation COMPLAINT: - ALCOHOL WITHDRAWL [...] - Alcohol dependence with withdrawal, unspecified - terminologist (current) use of insulin - Rheumatoid arthritis, [...] Type 1 diabetes mellitus without complications - terminologist (current) use of insulin - Immune thrombocytopenic purpura - Fatty (change of) liver, not elsewhere classified [email or web address]
[2021-04-18] MEDS ORDERED: MULTI-VITAMIN1 EACH PO (17:58)
[2021-04-18] MEDS ORDERED: D3-200050 MCG PO (17:59)
[2021-04-18] MEDS ORDERED: MELATONIN3 M3 PO (18:00)
[2021-04-18] MEDS ORDERED: OZEMPIC1 MG/0.71 SUB-Q (18:00)
[2021-04-18] MEDS ORDERED: HYDROCHLOROTHIA25 MG PO (18:01)
--- NOTE | 2021-04-19 02:28 | EKG ---
[facility] [address] [facility] [address] [place] [address] Signed Atrial flutter with variable AV block Incomplete right bundle branch block Inferior infarct , possibly acute ACUTE ME / STEMI Abnormal ECG Confirmed by SANGITA REIS MD ([id number]) on 04/19/2021 2:28:43 AM Electronically Signed By: SANGITA REIS MD 04/19/21 0228 PATIENT NAME: CHARLIE CHO Electrocardiogram DATE OF : 71 PHYSICIAN: SANGITA REIS MD REPORT #: [id number] REPORT IS CONFIDENTIAL AND NOT TO BE RELEASED WITHOUT AUTHORIZATION
== END 2021-04-18 19:08 | disposition left against medical advice (07) ==
LOC: ED 17:42
DX: Z53.21 Procedure and treatment not carried out due to patient leaving prior to being seen by health care provider (principal); E11.9 Type 2 diabetes mellitus without complications; E10.9 Type 1 diabetes mellitus without complications; I48.92 Unspecified atrial flutter; Z79.899 Other long term (current) drug therapy
CPT/HCPCS: 80053; 83735; 84484; 85007; 85025; 93005; 93010; G0480

== ENCOUNTER 2021-04-21 20:56 | Inpatient (IN) | payer OTHER ==
[~2021-04-21] VITALS: Ht 175.3 cm; Wt 82.4 kg
[~2021-04-21 20:56] MED LIST changes: +MULTI-VITAMIN1 EACH PO; +OZEMPIC1 MG/0.71 SUB-Q
--- OUTSIDE RECORDS SUMMARY | 2021-04-21 20:58 | XMS ---
PreManage Notification: CHARLIE CHO Security Brick Grader Events 1 event(s) in the past 18 months Most recent security events: Elopement at [facility] 04/18/2021 17:43 - Other Details: PATIENT LEFT AMA CRITERIA MET - [facility] - 2 Visits in 30 Days - 6 ED Visits in 6 Months - [facility] - 3 [facility] in 90 Days [facility] [facility]22[facility]2020[facility] PHONE: [phone] Demetrio has no Care Guidelines for this patient. Care History Medical/Surgical 03/12/2021 [facility] - [place] PASTER OPERATOR- [facility]-PATIENT HAS A CARDIOLOGY APT AT [facility] 03/20/21. 12/18/2020 [facility] - [facility] CONTACTED MAICO MURPHYPASTER OPERATOR AT [facility] - CASE MANAGEMENT TEAM IS FULLY AWARE OF PATIENT- LAST APT WITH PATIENT WAS ON 12/14/20 PATIENT WAS TOO INTOXICATED FOR THE ASSESSMENT. - REFERRAL HAS BEEN PLACED FOR PEER SUPPORT A\T\amp;D SERVICES AT [facility] - PATIENT HAS ANOTHER EVALUATION SCHEDULED WITH [facility] WITHIN THE WEEK OF 12/18/20. - PATIENT HAS A FURNACE COMBINATION ANALYST REFERRAL-PATIENT DID NOT GO TO PREVIOUS APT-NEXT APT SCHEDULED 01/03/21. - PASTER OPERATOR MAICO HAS A CONSULT FROM PATIENT PROVIDER TO HELP PATIENT- MAICO WILL TRY AND GET IN CONTACT WITH PATIENT. 11/29/2020 [facility] - [facility] CONTACTED PASTER OPERATOR MAICO LEROY [facility] - PATIENT IS CURRENTLY WORKING WITH [employer] [facility] A\T\amp;D SERVICES [phone]. EHumaira VISIT COUNT (12 MO.) 1 [facility] NOTE: Visits indicate total known visits. ED/UCC VISIT TRACKING (12 MO.) 04/21/2021 20:57 [facility] [place] TYPE: Emergency COMPLAINT: - LOC 04/18/2021 17:43 [facility] [place] TYPE: Emergency COMPLAINT: - WEAKNESS 04/13/2021 18:11 [facility] [place] TYPE: Emergency COMPLAINT: - WEAKNESS DIAGNOSES: - Unspecified abdominal pain - Rheumatoid arthritis, unspecified - Pain in left shoulder - Other terminal carman (current) drug therapy - senior living (current) use of insulin - Pain in right shoulder - Unspecified osteoarthritis, unspecified site - Personal history of nicotine dependence - Weakness - Alcohol abuse, uncomplicated - Acute embolism and thrombosis of unspecified deep veins of unspecified lower extremity - Type 1 diabetes mellitus without complications - Unspecified atrial flutter 04/08/2021 22:27 [facility] [place] TYPE: Emergency COMPLAINT: - ALCOHOL WITHDRAW DIAGNOSES: - Unspecified atrial flutter - Blood alcohol level of less than 20 mg/100 ml - Syncope and collapse - Personal history of nicotine dependence - Other nursing home (current) drug therapy - Alcohol dependence with withdrawal, unspecified - exterminator termite (current) use of insulin - Type 1 diabetes mellitus without complications 03/08/2021 18:16 Lavinia Reeves MD TYPE: Emergency COMPLAINT: - Ambulance - PALPITATIONS - ALCOHOL USE UNS W/INTOXICATION UNS - HEADACHE UNSPECIFIED DIAGNOSES: 0. Alcohol use, unspecified with intoxication, unspecified 1. Alcohol abuse with intoxication, unspecified 5. senior living (current) use of insulin 6. Other terminal carman (current) drug therapy 7. Blood alcohol level [...] initial encounter - Syncope and collapse - senior living (current) use of insulin - Other nursing home (current) drug therapy 02/16/2021 02:25 [facility] [place] TYPE: Emergency COMPLAINT: - HEART PALPATATIONS DIAGNOSES: - Unspecified atrial flutter - Dizziness and giddiness - exterminator termite (current) use of insulin - Hypokalemia - Type 2 diabetes mellitus without complications - Other nursing home (current) drug therapy - Hypomagnesemia - Type 1 diabetes mellitus without complications 02/14/2021 15:33 Rolaagatha Michaelbishopgalilea MoyRadha Reeves MD TYPE: Emergency COMPLAINT: - Walk In - CHEST PAIN UNSPECIFIED DIAGNOSES: 0. Chest pain, unspecified 1. Alcohol abuse with intoxication, unspecified 3. Unspecified atrial flutter 4. Blood alcohol level of 240 mg/100 ml or more 5. senior living (current) use of insulin 6. Other nursing home (current) drug therapy 02/12/2021 13:59 [facility] [place] TYPE: Emergency COMPLAINT: - DIZZINESS DIAGNOSES: - Dizziness and giddiness - Alcohol abuse with intoxication, unspecified - Type 1 diabetes mellitus without complications - Blood alcohol level of 240 mg/100 ml or more - Other terminal carman (current) drug therapy 01/27/2021 [facility]:04 [facility] DIAGNOSES: - Alcohol use, unspecified with intoxication, uncomplicated - Syncope - Unspecified atrial flutter 12/15/2020 14:23 SOHA [place] TYPE: Emergency COMPLAINT: - SORE THROAT DIAGNOSES: - Atypical atrial flutter - Other nursing home (current) drug therapy - Type 1 diabetes mellitus without complications - Candidal stomatitis - senior living (current) use of insulin - Acute pharyngitis, unspecified - Type 2 diabetes mellitus without complications 12/08/2020 11:[address] [facility] [address] [facility] [place] TYPE: Emergency COMPLAINT: - DIZZINESS 12/06/2020 10:55 Lavinia WOO TYPE: Emergency COMPLAINT: - Syncope / Pre-syncope - DIZZINESS AND GIDDINESS - SYNCOPE AND COLLAPSE DIAGNOSES: 0. Syncope and collapse 1. Syncope and collapse 4. Other nursing home (current) drug therapy 5. senior living (current) use of insulin 11/25/2020 22:[address] [facility] [address] [facility] [place] TYPE: Emergency COMPLAINT: - INTOXICATION DIAGNOSES: - Blood alcohol level of 240 mg/100 ml or more - Unspecified atrial flutter - Other nursing home (current) drug therapy - Alcohol abuse with intoxication, unspecified - Alcohol abuse with intoxication, unspecified - exterminator termite (current) use of insulin - Type 1 diabetes mellitus without complications - Sedative, hypnotic or anxiolytic abuse, uncomplicated 11/19/2020 13:03 [facility] [address] [facility] [place] TYPE: Emergency COMPLAINT: - FALL 10/05/2020 14:[address] [facility] [address] [place] [place] TYPE: Emergency COMPLAINT: - CHEST PAIN DIAGNOSES: - Personal history of nicotine dependence - Type 1 diabetes mellitus without complications - exterminator termite (current) use of aspirin - Other terminal carman (current) drug therapy - Blood alcohol level of 240 mg/100 ml or more - senior living (current) use of insulin - Chest pain, unspecified - Alcohol abuse with intoxication, unspecified - Type 2 diabetes mellitus without complications 08/28/2020 11:35 SOHA Hines MoyRadha [place] TYPE: Emergency COMPLAINT: - DIZZINESS, SOB DIAGNOSES: - Personal history of other venous thrombosis and embolism - Patient's other noncompliance with medication regimen - Alcohol abuse, uncomplicated - Personal history of nicotine dependence - Unspecified atrial flutter - Type 1 diabetes mellitus with hyperglycemia - Other terminal carman (current) drug therapy - Dizziness and giddiness 08/20/2020 06:42 SOHA Hines MoyRadha [place] TYPE: Emergency COMPLAINT: - POSSIBLE ALERGIC REACTION BEE STING DIAGNOSES: - Type 1 diabetes mellitus without complications - Nicotine dependence, unspecified, uncomplicated - Unspecified atrial flutter - Toxic effect of venom of wasps, accidental (unintentional), initial encounter - Other nursing home (current) drug therapy 08/16/2020 15:13 [facility]: Emergency COMPLAINT: - Heartbeat Irregular - SYNCOPE AND COLLAPSE - UNSPECIFIED ABDOMINAL PAIN - DIZZINESS AND GIDDINESS DIAGNOSES: 0. Syncope and collapse 1. Syncope and collapse 5. Hypotension, unspecified 6. Unspecified atrial flutter 08/15/2020 17:31 [facility] [place] TYPE: Emergency COMPLAINT: - DIZZINESS DIAGNOSES: - Type 2 diabetes mellitus without complications - Nicotine dependence, unspecified, uncomplicated - Other nursing home (current) drug therapy - Type 1 diabetes mellitus without complications - Hypo-osmolality and hyponatremia - Syncope and collapse - Dehydration - Unspecified atrial flutter Plus 3 More Visits INPATIENT VISIT TRACKING (12 MO.) 12/08/2020 11:13 [facility] [place] TYPE: Observation COMPLAINT: - ALCOHOL WITHDRAWL DIAGNOSES: - Essential (primary) hypertension - Unspecified atrial flutter - Type 1 diabetes mellitus with hyperglycemia - senior living (current) use of insulin - Chronic atrial [...] - Alcohol dependence with withdrawal, unspecified - exterminator termite (current) use of insulin - Rheumatoid arthritis, [...] Type 1 diabetes mellitus without complications - exterminator termite (current) use of insulin - Immune thrombocytopenic purpura - Fatty (change of) liver, not elsewhere classified [email or web address]
--- NOTE | 2021-04-22 04:00 | NUR ---
arrived from ed via stretcher.
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
--- NOTE | 2021-04-22 04:49 | NUR ---
pt arrived from ed at 0400, brought in by EMS after syncope with loss of consiousness. injury to back of head with 2 stapled area, scant amount of sanguineous drainage, loose dressing to area. IVF infusing R hand, field start IV site. Pt alert and cooperative with admit assessment. mild hand tremors noted bilat. Tele#[address] Sinus tach readings, denies CP or SOB. coop with assessment, lungs clear bilat, hob elevated to comfort, tende to touch all over. Ice to R knee, edema to R ankle and feet+1. scabbed over areas L huston "from my dogs stated. voided clear yellow urine. Bed alarm on as a precaution.
--- NOTE | 2021-04-22 06:12 | NUR ---
on room air, head bandage loosened, redressed with jaspal wrap, non adherent dressing adn abd, tender, coop
--- NOTE | 2021-04-22 08:06 | NUR ---
pt alert and interactive at time of shift exchange. sitting up in bed watching tv call light in reach. breakfast ordered pt denies other needs.
--- NOTE | 2021-04-22 08:45 | NUR ---
PT WAS IN BED EATING BREAKFAST. PT STATED THEY WERE FEELING NAUSEOUS. THIS SWISS MACHINIST REPORTED TO HARSHAD. PT DECLINED A WARM WASHCLOTH FOR FACE. WHITEBOARD WAS UPDATED. CALL LIGHT IS WITHIN REACH. NO FURTHER NEEDS AT THIS TIME.
--- NOTE | 2021-04-22 09:36 | NUR ---
PT HAD SOME NAUSEA AFTER MORNING MEAL, NO EMESIS. MEDICATED WITH ZOFRAN PT AGREES IT WAS EFFECTIVE FOR HIM.
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
--- NOTE | 2021-04-22 10:30 | NUR ---
THIS SWITCHGEAR REPAIRER AND DIANNA MUELLER TRANSFERRED PT TO THE BED. THIS SWITCHGEAR REPAIRER AND SWITCHGEAR REPAIRERDoug SUNI CHANGED PTS ATTENDS. ATTENDS WERE ABOUT X3 OF INCONTINENCE. PT IS NOW IN BED WITH BLANKETS. ROTATED TO THEIR RIGHT SIDE. CALL LIGHT IS WITHIN REACH. NO FURTHER NEEDS AT THIS TIME. BED ALARM IS ON.
--- NOTE | 2021-04-22 10:30 | NUR ---
TOOK BLOOD SUGAR UPON RN REQUEST. BLOOD SUGAR WAS 176, RN NOTIFIED.
--- NOTE | 2021-04-22 12:07 | NUR ---
PT HAS REMAINED IN BED THIS SHIFT. HAS SOME SHAKING IN HIS HANDS AND GENERALIZED BODY TREMOR PT STATES THIS IS NOT NEW FOR HIM AND HAS BEEN GOING ON FOR A COUPLE OF YEARS. HE GOES ON TO SAY HE ASKED HIS PCP ABOUT IT BUT DID NOT GET AN ANSWER. PT FEELING A LITTLE UNSTEADY WALKER PROVIDED FOR [facility] TO [facility], PT HAS A WALKER AT HOME HE USES AT DIFFERENT TIMES. PT IS SWEATY BUT DENIES DISCOMFORTS. EATING NOON MEAL CURRENTLY. BLOOD SUGAR WAS TESTED ONE UNIT OF INSULIN ADMINISTERED
--- NOTE | 2021-04-22 13:02 | NUR ---
DR JOSEPH IN TO SEE PT ORDERS TO BE WRITTEN
--- NOTE | 2021-04-22 14:56 | NUR ---
PATIENT IN BED WATCHING TV, VISITOR IN ROOM. VITALS AND I&O'S CHARTED. TEMP ELEVATED, RN NOTIFIED. CALL LIGHT IN REACH. NO FURTHER NEEDS AT THIS TIME.
--- NOTE | 2021-04-22 15:25 | NUR ---
BOILER HELPER REPORTS ELEVATED TEMP, TYLENOL ADMINISTERED. PT C/O NAUSEA COMPAZINE PROVIDED. PT RESTING EYES CLOSED AT THIS TIME APPEARS COMFORTABLE. MOTHER AT BEDSIDE
--- NOTE | 2021-04-22 16:26 | EKG ---
[facility] [address] [place] [address] Signed Atrial flutter with 2:1 AV conduction Incomplete right bundle branch block Inferior infarct (cited on or before 08-APR-2021) Abnormal ECG When compared with ECG of 18-APR-2021 18:15, Vent. rate has increased BY [address] now depressed in Inferior leads ST now depressed in Anterolateral leads Confirmed by JUDIT JOSEPH MD ([id number]) on 04/22/2021 4:26:51 PM Electronically Signed By: JUDIT JOSEPH MD 04/22/21 1626 PATIENT NAME: CHARLIE CHO Electrocardiogram DATE OF : 71 PHYSICIAN: JUDIT JOSEPH MD REPORT #: [id number] REPORT IS CONFIDENTIAL AND NOT TO BE RELEASED WITHOUT AUTHORIZATION
--- NOTE | 2021-04-22 18:26 | NUR ---
PT HAS BEEN QUIET ALERT SINCE MEDICATIONS FOR ETOH STARTED. HE DOZES AWHILE THEN AWAKENS AND WATCHES TV OR EATS HIS MEAL. AGREES HE IS NO LONGER NAUSEATED HIS HEAD FEELS BETTER AND HE IS COMFORTABLE.
--- NOTE | 2021-04-22 18:35 | NUR ---
PATIENT IN BED WATCHING TV. VITALS AND I&O'S CHARTED. CALL LIGHT IN REACH. NO FURTHER NEEDS AT THIS TIME.
--- NOTE | 2021-04-22 19:20 | NUR ---
SHIFT REPORT RECEIVED FROM DAYSHIFT JEFFREY PATRICIA AT BEDSIDE. pt RESTING QUIETLY IN BED. NO DISTRESS NOTED, TELE#[address] IN [address], HR 80'S. NSR. SUGAR FREE JELLO PROVIDED. NO FURTHER NEEDS.
--- NOTE | 2021-04-22 20:43 | NUR ---
ASSESSMENT COMPLETE, VSS. TELE#[address] DENIES CHEST PAIN, REPORTS MINIMAL SOB WITH EXERTION, NO DISTRESS AT THIS TIME. RR EVEN AND UNLABORED, CLEAR LUNG SOUNDS. 100% ON RA. SINUS RHYTHM, HR 80'S-90'S. pt SENSITIVE TO TOUCH, BUT FOLLOWS COMMANDS AND IS COMPLAIANT WITH CARE. IV SITE WNL, FLUSHES EASILY. ACCUCHECK COMPLETE, SCHEDULED MEDS GIVEN, SEE EMAR. NO FURTHER NEEDS, CALL LIGHT IN REACH AND BED ALARM ON FOR SAFETY. pt DENIES NEED TO VOID. WILL MONITOR.
--- NOTE | 2021-04-22 22:10 | NUR ---
PT REQUESTED AND RECEIVED JELLOW AND SOFT DRINK, SUGAR FREE.
--- NOTE | 2021-04-22 22:31 | NUR ---
SCHEDULED VALIUM GIVEN (SEE EMAR). CIWA SCORE OF 6. SWEATING NOTED TO pt's FOREHEAD AND MINIMAL TREMORS NOTED TO BILATERAL HANDS WITH MOVEMENT. pt DENIES HALLUCINATIONS OF ANY KIND, WILL CONTINUE TO MONITOR. CALL LIGHT IN REACH AND BED ALARM REMAINS ON. URINAL ALSO EMPTIED.
--- NOTE | 2021-04-23 01:23 | NUR ---
pt RESTING IN BED, EYES CLOSED. RR EVEN AND UNLABORED. NO DISTRESS NOTED. BED ALARM REMAINS ON FOR SAFETY. TELE#[address] CALL LIGHT IN REACH.
--- NOTE | 2021-04-23 03:00 | NUR ---
SCHEDULED CARDIAC AND VALIUM GIVEN (SEE EMAR). UNABLE TO COMPLETE ACCURATE CIWA, WHEN ASKED IF pt IS HAVING ANY HALLUCINATIONS OR HEADACHE, pt STATES, "I DON'T KNOW...I JUST WOKE UP". VISIBLE TREMORS NOTED IN HANDS ONLY WHEN MOVING, NOT VISIBLE WHEN pt IS STILL IN BED RESTING. NO FURTHER NEEDS, CALL LIGHT IN REACH.
--- NOTE | 2021-04-23 07:21 | NUR ---
CHANGED PATIENT'S INCONTINENT BM AND URINE ON THE BED AND ON HIS PANTS.
--- NOTE | 2021-04-23 07:26 | NUR ---
PT AWAKE SITTING UP IN BED WATCHING TV. CALM AND COOPERATIVE. C/O NAUSEA, WILL BRING PRN. BALNKET AND FRESH H20 PROVIDED PT DENIES OTHER NEEDS.
--- NOTE | 2021-04-23 08:47 | NUR ---
PT AWAKE IN ROOM. PT USED BSC AND NOW AWAKE IN BED EATING BREAKFAST WITH BED ALARM ON. NO FURTHER NEEDS AT THIS TIME.
--- NOTE | 2021-04-23 09:04 | NUR ---
PT UP TO BSC THEN EATS MOST OF MORNING MEAL. RESTING NOW EYES CLOSED APPEARS RELAXED AND COMFORTABLE. CALL LIGHT AND NEEDED ITEMS IN REACH
--- NOTE | 2021-04-23 10:15 | NUR ---
PT CONTINUES RESTING IN BED TV IS ON FRESH H20 AT BEDSIDE. PT AWAKENS TO VOICE DENIES HEAD ACHE OR OTHER DISCOMFORTS AGREES NAUSEA HAS ABATED. HE'S BEEN UP TO BSC EARLIER IN THE SHIFT AND MOVED HIS BOWELS, ATE MOST OF MORNING MEAL.
--- NOTE | 2021-04-23 11:57 | NUR ---
PT AWAKE AFTER SOUNDLY NAPPING FOR QUIET SOMETIME. ASKS WHAT HIS BLOOD SUGAR IS DRINKS H20. MOTHER IS PRESENT IN THE ROOM.
--- NOTE | 2021-04-23 12:50 | NUR ---
pt returns to napping soundly refuses noon meal at the moment, which he has done on several other occassions. mother remains in the room
--- NOTE | 2021-04-23 15:36 | NUR ---
PT AWAKENS TO VOICE. AGREES MD WAS IN TO SEE HIM A SHORT TIME AGO. DENIES QUESTIONS OR CONCERNS. CONTINUES JUST RESTING FOR THE MOST PART THIS SHIFT.
--- NOTE | 2021-04-23 16:13 | NUR ---
PT HAS SHOWERED, RETURNED TO BED. WELL TOLERATED. RESTING EYES CLOSED NOW
--- NOTE | 2021-04-23 17:06 | NUR ---
PT AWAKE EATING EVENING MEAL. NO SWEATING OR AGITATION. NO C/O NAUSEA OR HEADACHE. CONTINUES TO HAVE SOME TREMORS BUT AGREES HE FEELS PRETTY GOOD.
--- NOTE | 2021-04-23 19:53 | NUR ---
REPORT RECEIVED FROM DAY SHIFT RN. PT LYING IN BED ALERT AND ORIENTED. FRESH WATER AND CRACKERS PROVIDED. NO FURTHER NEEDS. CALL LIGHT IN REACH. WHITE BOARD UPDATED.
--- NOTE | 2021-04-23 21:15 | NUR ---
EVENING ASSESSMENT COMPLETE. SCHEDULED MEDS ADMINISTERED PER EMAR. PRN FOR PAIN ADMINISTERED FOR C/O HEAD/RIGHT KNEE PAIN. PT DENIES NAUSEA. REQUESTING FREQUENT SNACKS. PROTEIN PACK PROVIDED. MILD TREMORS IN HAND NOTED. CIWA SCORE 3. SCD'S IN PLACE. ANNABELLA TO BACK OF HEAD INTACT. SMALL AMOUNT SEROSANG DRAINAGE NOTED ON PILLOW CASE. CLEAN PILLOW CASE PROVIDED. PT DENIES QUESTIONS OR CONCERNS. CALL LIGHT IN REACH.
--- NOTE | 2021-04-23 21:50 | NUR ---
WENT IN TO THE ROOM. EMPTIED URINAL. PATIENT ASKED FOR SALTINE CRACKERS AND SUGAR FREE JELLO. PROVIDED.
--- NOTE | 2021-04-23 22:25 | NUR ---
PT CALLED, REQUESTED ICE WATER, AND SONYA SPAIN. GIVEN. NO OTHER REQUESTS AT THIS TIME.
--- NOTE | 2021-04-23 23:53 | NUR ---
CALL LIGHT ANSWERED. PT RUBBING HEAD AND SAYS HE "FEELS A BUMP". ICE PACK PROVIDED FOR HEAD. ANNABELLA INTACT. ASSESSMENT UNCHANGED. PT DENIES FURTHER NEEDS. CALL LIGHT IN REACH.
--- NOTE | 2021-04-24 02:20 | NUR ---
PT AWAKE SITTING UP IN BED. CALENDER AND PEN PROVIDED PER PT REQUEST. QUESTIONS ANSWERED ABOUT ADMISSION DATE AND TIME. SCHEDULED MEDS ADMINISTERED PER EMAR. CIWA 3. FRESH WATER PROVIDED. NO FURTHER NEEDS. CALL LIGHT IN REACH.
--- NOTE | 2021-04-24 03:56 | NUR ---
CALL LIGHT ANSWERED. PT UP TO BSC TO HAVE XL SOFT BM AND VOID. SBA AND FWW. GAIT STEADY. PT INCONTINENT OF URINE ALSO. MONA CARE DONE. CLEAN BRIEF PROVIDED. BACK TO BED, ABDIEL WELL. SCD'S IN PLACE. CALL LIGHT IN REACH.
--- NOTE | 2021-04-24 06:15 | NUR ---
VS AND I&O COMPLETE. BREAKFAST ORDERED. CIWA ASSESSMENT UNCHANGED. SCHEDULED MEDS ADMINISTERED PER EMAR. PT DENIES FURTHER NEEDS. CALL LIGHT IN REACH.
--- NOTE | 2021-04-24 07:35 | NUR ---
this rn received report from lucila staples. pt appears to be resting at this time, this rn will come back to check on pt soon
--- NOTE | 2021-04-24 08:03 | NUR ---
this rn in pts room to give pt his morning meds. pt states that he is hungry this am and frustrated that this rn interrupted his breakfast. pt compliant with care otherwise. pt sitting up to chair and has notable tremors and not fully oriented. pt has no other complaints or other things to report at this time.
--- NOTE | 2021-04-24 08:19 | NUR ---
PATIENT UP TO CHAIR FOR BREAKFAST, 1PA. LINENS CHANGED. CALL LIGHT IN REACH. NO FURTHER NEEDS AT THIS TIME.
--- NOTE | 2021-04-24 08:40 | NUR ---
pt sustained at 130 HR for about 2mins. pt was sitting on edge of bed packing and repacking his backpack, pt states that he not feeling palpitations. pt not willing to allow nurse to help with getting pt settled in bed, pt wanting to do it himself stating "im tired of doing nothing"
--- NOTE | 2021-04-24 10:24 | NUR ---
THIS RN IN PTS ROOM TO ENSURE THAT PT TOOK HIS VALIUM, PT ABLE TO TAKE IT INFRONT OF THIS RN. PT APPEARS TO BE 2-3 ON THE CIWA SCALE. PT ASKING FOR A SNACK THIS RN PROVIDED PT WITH A SUGAR FREE JELLO AT THIS TIME.
--- NOTE | 2021-04-24 11:45 | NUR ---
Pt lives in a triple wide trailer home with his mom and aunt. Pt has long history of Alcoholism. He states he had counseling from [facility] and graduated. He will not answer, when I ask if he has stopped drinking and when. States he's "tired" of being asked this questions. Informed I was asking to find out if he would like me to schedule with [facility] if he needs to resume counseling. Pt declined to answer so I moved on. He uses a cane and a walker at his home. He would like a wc, discussed he was able to walk without issue with PT, so I cannot order a wc. Gave him the sheet for [place] to borrow a wc if he wishes. Pt denies issues with walking up steps into his home. He also states he feels he needs to help his elderly mom and Aunt, but cannot due to his health. Pt is anxious to discharge today and states he has called his mom. Discussed he needs to see Dr. Brooks before he discharges and is busy in CCU at this time and may be a while. Pts hand are shakey during our visit. Pt denies other needs and plans on going home with mom today.
--- NOTE | 2021-04-24 12:46 | NUR ---
THIS RN HAS BEEN IN PTS ROOM 3 TIMES IN THE PAST HOUR. PTS MOM IN ROOM, PT STAETS THAT HE IS READY TO GO HOME. THIS RN DISCUSSED WITH PT THAT MD IS TIED UP WITH A CRICAL PT AND WILL BE IN TO SEE PT SOON HE CAN. PT ASKING IF THERE WAS ANOTHER MD- THIS RN INFORMED THAT NO THERE ISN'T AND WE JUST NEED TO SIT TIGHT.
--- NOTE | 2021-04-24 12:58 | NUR ---
Spoke with Norman. He states he lives in an apartment on the bottom floor. He has a caregiver he pays out of pockets. He spends 1-3 hrs per day. He sees pt daily and gets him up and cleaned up for the day Pt is no longer able to walk or assist cg. He would like to go to a SNF for rehab and regain ability to stand and transfer. Pt denies issues with alcoholism, but does state he drinks a 6 pack per day. He states his cg has a second job, so is not able to spend much time on some days. He cleans pts home, does laundry, and brings/cooks him food. Pt would like placement to [facility] and informed they are not cur- rently accepting pts. List given of SNFS in area. Pts first choice is [facility], second choice is [facility] and rehab. Pulled up pictures of [facility] on my phone and showed them to Norman. He is happy with the photos and would like to go there. I will fax chart to Alisa at [facility].
[2021-04-24] MEDS ORDERED: DILTIAZEM 24HR120 MG PO (13:21)
--- NOTE | 2021-04-24 13:21 | NUR ---
Face sheet, covid test with not showing pt was vaccinated x 2, ER note, H&P, progress notes, PT eval faxed to Alisa at [facility].
[2021-04-24] MEDS ORDERED: METOPROLOL SUC200 MG PO (13:22)
--- NOTE | 2021-04-25 07:12 | NUR ---
DC summary and H&P faxed to medical records.
== END 2021-04-24 14:10 | disposition home or self-care (01) | DRG 312 ==
LOC: ED 20:56 → MS 20:58
PROVIDERS: ADMIT Internal Medicine; ATTEND Internal Medicine
PROC: 0HQ0XZZ Repair Scalp Skin, External Approach (ICD-10-PCS; principal; 2021-04-21)
DX: R55 Syncope and collapse (principal); F10.239 Alcohol dependence with withdrawal, unspecified; I48.92 Unspecified atrial flutter; D61.818 Other pancytopenia; F40.240 Claustrophobia; S01.01XA Laceration without foreign body of scalp, initial encounter; E10.9 Type 1 diabetes mellitus without complications; M06.9 Rheumatoid arthritis, unspecified; W01.10XA Fall on same level from slipping, tripping and stumbling with subsequent striking against unspecified object, initial encounter; I48.91 Unspecified atrial fibrillation; Z86.718 Personal history of other venous thrombosis and embolism; Z98.890 Other specified postprocedural states; Z79.899 Other long term (current) drug therapy
CPT/HCPCS: 12001; 70450; 71045; 72125; 80053; 80500; 81001; 83605; 83735; 84484; 85025; 85610; 93005; 93010; 96376; 97110; 97116; 97163; 99285-25; A9270; C9113; C9803; G0378; G0480; J0780; J1815; J2405; J7030; J7121; U0003

== ENCOUNTER 2021-05-04 15:16 | Emergency (ER) | payer OTHER ==
[~2021-05-04] VITALS: Ht 175.3 cm; Wt 82.1 kg
[~2021-05-04 15:16] MED LIST changes: +DILTIAZEM 24HR120 MG PO; +METOPROLOL SUC200 MG PO
--- OUTSIDE RECORDS SUMMARY | 2021-05-04 15:18 | XMS ---
PreManage Notification: CHARLIE CHO Security Patient Relations Manager Events 1 event(s) in the past 18 months Most recent security events: Elopement at [facility] 04/18/2021 17:43 - Other Details: PATIENT LEFT AMA CRITERIA MET - [facility] - 2 Visits in 30 Days - [facility] [facility] PHONE: [phone] Demetrio has no Care Guidelines for this patient. Care History Medical/Surgical 03/12/2021 [facility] - PER CALENDER RUNNER- [facility]-PATIENT HAS A CARDIOLOGY APT AT [facility] 03/20/21. 12/18/2020 [facility] - W CONTACTED MAICO MURPHYCALENDER RUNNER AT [facility] - CASE MANAGEMENT TEAM IS FULLY AWARE OF PATIENT- LAST APT WITH PATIENT WAS ON 12/14/20 PATIENT WAS TOO INTOXICATED FOR THE ASSESSMENT. - REFERRAL HAS BEEN PLACED FOR [facility] A\T\amp;D SERVICES AT [facility] - PATIENT HAS ANOTHER EVALUATION SCHEDULED WITH [facility] WITHIN THE WEEK OF 12/18/20. - PATIENT HAS A SWING SAW OPERATOR REFERRAL-PATIENT DID NOT GO TO PREVIOUS APT-NEXT APT SCHEDULED 01/03/21. - CALENDER RUNNER AMICO HAS A CONSULT FROM PATIENT PROVIDER TO HELP PATIENT- MAICO WILL TRY AND GET IN CONTACT WITH PATIENT. 11/29/2020 [facility] - [facility] CAL[facility] PATIENT IS CURRENTLY WORKING WITH [employer] [facility] A\T\amp;D SERVICES [phone]. E.D. VISIT COUNT (12 MO.) [facility] Elana [facility] 19 [facility] TOTAL 24 NOTE: Visits indicate total known visits. ED/UCC VISIT TRACKING (12 MO.) 05/04/2021 15:16 [facility] [place] TYPE: Emergency COMPLAINT: - CHEST PAIN 04/21/2021 20:57 [facility] [place] TYPE: Emergency COMPLAINT: - LOC 04/18/2021 17:43 [facility] [place] TYPE: Emergency COMPLAINT: - WEAKNESS DIAGNOSES: - Unspecified atrial flutter - Procedure and treatment not carried out due to patient leaving prior to being seen by health care provider - Type 2 diabetes mellitus without complications - Type 1 diabetes mellitus without complications - Other ballistics expert forensic (current) drug therapy 04/13/2021 18:11 [facility] [place] TYPE: Emergency COMPLAINT: - WEAKNESS DIAGNOSES: - Unspecified abdominal pain - Rheumatoid arthritis, unspecified - Pain in left shoulder - Other snf (current) drug therapy - penitentiary (current) use of insulin - Pain in right shoulder - Unspecified osteoarthritis, unspecified site - Personal history of nicotine dependence - Weakness - Alcohol abuse, uncomplicated - Acute embolism and thrombosis of unspecified deep veins of unspecified lower extremity - Type 1 diabetes mellitus without complications - Unspecified atrial flutter 04/08/2021 22:27 [facility] [place] TYPE: Emergency COMPLAINT: - ALCOHOL WITHDRAW DIAGNOSES: - Unspecified atrial flutter - Blood alcohol level of less than 20 mg/100 ml - Syncope and collapse - Personal history of nicotine dependence - Other snf (current) drug therapy - Alcohol dependence with withdrawal, unspecified - penitentiary (current) use of insulin - Type 1 diabetes mellitus without complications [facility] [place] [facility] COMPLAINT: - Ambulance - PALPITATIONS - ALCOHOL USE UNS W/INTOXICATION UNS - HEADACHE UNSPECIFIED DIAGNOSES: 0. Alcohol use, unspecified with intoxication, unspecified 1. Alcohol abuse with intoxication, unspecified 5. grain elevator man (current) use of insulin 6. Other snf (current) drug therapy 7. Blood alcohol level [...] initial encounter - Syncope and collapse - penitentiary (current) use of insulin - Other ballistics expert forensic (current) drug therapy 02/16/2021 02:25 [facility] [place] TYPE: Emergency COMPLAINT: - HEART PALPATATIONS DIAGNOSES: - Unspecified atrial flutter - Dizziness and giddiness - penitentiary (current) use of insulin - Hypokalemia - Type 2 diabetes mellitus without complications - Other ballistics expert forensic (current) drug therapy - Hypomagnesemia - Type 1 diabetes mellitus without complications 02/14/2021 15:33 [facility] TYPE: Emergency COMPLAINT: - Walk In - CHEST PAIN UNSPECIFIED DIAGNOSES: 0. Chest pain, unspecified 1. Alcohol abuse with intoxication, unspecified 3. Unspecified atrial flutter 4. Blood alcohol level of 240 mg/100 ml or more 5. penitentiary (current) use of insulin 6. Other ballistics expert forensic (current) drug therapy 02/12/2021 13:59 [facility] [place] TYPE: Emergency COMPLAINT: - DIZZINESS DIAGNOSES: - Dizziness and giddiness - Alcohol abuse with intoxication, unspecified - Type 1 diabetes mellitus without complications - Blood alcohol level of 240 mg/100 ml or more - Other snf (current) drug therapy 01/27/2021 18:04 [facility] TYPE: Emergency DIAGNOSES: - Alcohol use, unspecified with intoxication, uncomplicated - Syncope - Unspecified atrial flutter 12/15/2020 14:23 [facility] [place] TYPE: Emergency COMPLAINT: - SORE THROAT DIAGNOSES: - Atypical atrial flutter - Other snf (current) drug therapy - Type 1 diabetes mellitus without complications - Candidal stomatitis - penitentiary (current) use of insulin - Acute pharyngitis, unspecified - Type 2 diabetes mellitus without complications 12/08/2020 11:12 [facility] [place] TYPE: Emergency COMPLAINT: - DIZZINESS 12/06/2020 10:55 [facility] [place] TYPE: Emergency COMPLAINT: - Syncope / Pre-syncope - DIZZINESS AND GIDDINESS - SYNCOPE AND COLLAPSE DIAGNOSES: 0. Syncope and collapse 1. Syncope and collapse 4. Other snf (current) drug therapy 5. penitentiary (current) use of insulin 11/25/2020 22:09 [facility] [place] TYPE: Emergency COMPLAINT: - INTOXICATION DIAGNOSES: - Blood alcohol level of 240 mg/100 ml or more - Unspecified atrial flutter - Other ballistics expert forensic (current) drug therapy - Alcohol abuse with intoxication, unspecified - Alcohol abuse with intoxication, unspecified - grain elevator man (current) use of insulin - Type 1 diabetes mellitus without complications - Sedative, hypnotic or anxiolytic abuse, uncomplicated 11/19/2020 13:03 [facility] [place] TYPE: Emergency COMPLAINT: - FALL 10/05/2020 14:08 [facility] [place] TYPE: Emergency COMPLAINT: - CHEST PAIN DIAGNOSES: - Personal history of nicotine dependence - Type 1 diabetes mellitus without complications - penitentiary (current) use of aspirin - Other snf (current) drug therapy - Blood alcohol level of 240 mg/100 ml or more - grain elevator man (current) use of insulin - Chest pain, [...] 1 diabetes mellitus with hyperglycemia - Other ballistics expert forensic (current) drug therapy - Dizziness and giddiness 08/20/2020 06:42 [facility] [place] TYPE: Emergency COMPLAINT: - POSSIBLE ALERGIC REACTION BEE STING DIAGNOSES: - Type 1 diabetes mellitus without complications - Nicotine dependence, unspecified, uncomplicated - Unspecified atrial flutter - Toxic effect of venom of wasps, accidental (unintentional), initial encounter - Other ballistics expert forensic (current) drug therapy 08/16/2020 15:13 [facility] [place] TYPE: Emergency COMPLAINT: - Heartbeat Irregular - SYNCOPE AND COLLAPSE - UNSPECIFIED ABDOMINAL PAIN - DIZZINESS AND GIDDINESS DIAGNOSES: 0. Syncope and collapse 1. Syncope and collapse 5. Hypotension, unspecified 6. Unspecified atrial flutter Plus 4 More Visits INPATIENT VISIT TRACKING (12 MO.) 04/23/2021 13:49 [facility] [place] TYPE: Medical Surgical COMPLAINT: - SYNCOPE,A-FLUTTER,HEAD INJURY DIAGNOSES: - Unspecified atrial fibrillation - Unspecified atrial fibrillation - Rheumatoid arthritis, unspecified - Unspecified atrial flutter - Alcohol dependence with withdrawal, unspecified - Other specified postprocedural states - Type 1 diabetes mellitus without complications - Alcohol dependence with withdrawal, unspecified - Fall on same level from slipping, tripping and stumbling with subsequent striking against unspecified object, initial encounter - Other specified postprocedural states - Rheumatoid arthritis, unspecified - Laceration without foreign body of scalp, initial encounter - Claustrophobia - Unspecified atrial flutter - Personal history of other venous thrombosis and embolism - Fall on same level from slipping, tripping and stumbling with subsequent striking against unspecified object, initial encounter - Claustrophobia - Other snf (current) drug therapy - Personal history of other venous thrombosis and embolism - Other ballistics expert forensic (current) drug therapy - Laceration without foreign body of scalp, initial encounter - Other pancytopenia - Other pancytopenia - Syncope and collapse - Type 1 diabetes mellitus without complications 12/08/2020 11:13 [facility] [place] TYPE: Observation COMPLAINT: - ALCOHOL WITHDRAWL DIAGNOSES: - Essential (primary) hypertension - Unspecified atrial flutter - Type 1 diabetes mellitus with hyperglycemia - penitentiary (current) use of insulin - Chronic atrial [...] collapse - Chronic atrial fibrillation, unspecified - grain elevator man (current) use of anticoagulants - Presence of [...] Type 1 diabetes mellitus without complications - penitentiary (current) use of insulin - Immune thrombocytopenic purpura - Fatty (change of) liver, not elsewhere classified [email or web address]
--- NOTE | 2021-05-06 18:04 | EKG ---
[facility] [address] [place], [place] [address] Signed Atrial flutter with variable AV block Incomplete right bundle branch block Inferior infarct , age undetermined T wave abnormality, consider lateral ischemia Prolonged QT Abnormal ECG No previous ECGs available Confirmed by JUDIT JOSEPH MD ([id number]) on 05/06/2021 6:03:58 PM Electronically Signed By: JUDIT JOSEPH MD 05/06/21 1804 PATIENT NAME: CHARLIE CHO Electrocardiogram DATE OF : 71 PHYSICIAN: JUDIT JOSEPH MD REPORT #: [id number] REPORT IS CONFIDENTIAL AND NOT TO BE RELEASED WITHOUT AUTHORIZATION
== END 2021-05-04 17:16 | disposition home or self-care (01) ==
LOC: ED 15:16
DX: F10.129 Alcohol abuse with intoxication, unspecified (principal); I48.92 Unspecified atrial flutter; E10.9 Type 1 diabetes mellitus without complications; Z86.718 Personal history of other venous thrombosis and embolism; Y90.8 Blood alcohol level of 240 mg/100 ml or more; Z87.891 Personal history of nicotine dependence; Z90.49 Acquired absence of other specified parts of digestive tract; Z79.899 Other long term (current) drug therapy
CPT/HCPCS: 71045; 80053; 83735; 84484; 85025; 93005; 93010; 99285-25; G0480; J7030

== ENCOUNTER 2021-07-17 15:28 | Emergency (ER) | payer OTHER ==
[~2021-07-17] VITALS: Ht 175.3 cm; Wt 82.1 kg
--- OUTSIDE RECORDS SUMMARY | 2021-07-17 16:33 | XMS ---
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 06/22/2020-[facility] PHONE: [phone] Demetrio has no Care Guidelines for this patient. Care History Medical/Surgical 03/12/2021 [facility] - PER COAGULATING BATH OPERATOR- [facility] AT [facility]-PATIENT HAS A CARDIOLOGY APT AT [facility] 03/20/21. 12/18/2020 [facility] - W CONTACTED MAICO MURPHYCOAGULATING BATH OPERATOR AT [facility] - CASE MANAGEMENT TEAM IS FULLY AWARE OF PATIENT- LAST APT WITH PATIENT WAS ON 12/14/20 PATIENT WAS TOO INTOXICATED FOR THE ASSESSMENT. - REFERRAL HAS BEEN PLACED FOR PEER SUPPORT A\T\amp;D SERVICES AT [facility] - PATIENT HAS ANOTHER EVALUATION SCHEDULED WITH [facility] WITHIN THE WEEK OF 12/18/20. - PATIENT HAS A BUTTON FACING MACHINE OPERATOR REFERRAL-PATIENT DID NOT GO TO PREVIOUS APT-NEXT APT SCHEDULED 01/03/21. - COAGULATING BATH OPERATOR MAICO HAS A CONSULT FROM PATIENT PROVIDER TO HELP PATIENT- MAICO WILL TRY AND GET IN CONTACT WITH PATIENT. 11/29/2020 [facility] - W CONTACTED COAGULATING BATH OPERATOR MAICO BELTRAN - PATIENT IS CURRENTLY WORKING WITH [facility] A[facility]T\amp;D [facility] [phone]. EHumaira VISIT [facility] (12 MO.) [facility] [place] TOTAL 24 NOTE: Visits indicate total known visits. ED/UCC VISIT TRACKING (12 MO.) 07/17/2021 15:28 [place] TYPE: Emergency COMPLAINT: - SYNCOPE 05/04/2021 15:16 [place] [place] TYPE: Emergency COMPLAINT: - CHEST PAIN DIAGNOSES: - Chest pain, unspecified - Personal history of nicotine dependence - Other group home (current) drug therapy - Type 1 diabetes mellitus without complications - Alcohol abuse with intoxication, unspecified - Personal history of other venous thrombosis and embolism - Unspecified atrial flutter - Blood alcohol level of 240 mg/100 ml or more - Acquired absence of other specified parts of digestive tract 04/21/2021 20:57 [place] [place] TYPE: Emergency COMPLAINT: - LOC 04/18/2021 17:43 [place] [place] TYPE: Emergency COMPLAINT: - WEAKNESS DIAGNOSES: - Unspecified atrial flutter - Procedure and treatment not carried out due to patient leaving prior to being seen by health care provider - Type 2 diabetes mellitus without complications - Type 1 diabetes mellitus without complications - Other group home (current) drug therapy 04/13/2021 18:11 [facility] [place] TYPE: Emergency COMPLAINT: - WEAKNESS DIAGNOSES: - Unspecified abdominal pain - Rheumatoid arthritis, unspecified - Pain in left shoulder - Other long filler cigar roller machine (current) drug therapy - terminal block assembler (current) use of insulin - Pain in [...] - Alcohol dependence with withdrawal, unspecified - skilled nursing (current) use of insulin - Type 1 diabetes mellitus without complications 03/08/2021 18:16 Rola Elana [place] TYPE: Emergency COMPLAINT: - Ambulance - PALPITATIONS - ALCOHOL USE UNS W/INTOXICATION UNS - HEADACHE UNSPECIFIED DIAGNOSES: 0. Alcohol use, unspecified with intoxication, unspecified 1. Alcohol abuse with intoxication, unspecified 5. terminal block assembler (current) use of insulin 6. Other long filler cigar roller machine (current) drug therapy 7. Blood alcohol level [...] initial encounter - Syncope and collapse - terminal block assembler (current) use of insulin - Other group home (current) drug therapy 02/16/2021 02:25 [facility] [place] TYPE: Emergency COMPLAINT: - HEART PALPATATIONS DIAGNOSES: - Unspecified atrial flutter - Dizziness and giddiness - terminal block assembler (current) use of insulin - Hypokalemia - Type 2 diabetes mellitus without complications - Other group home (current) drug therapy - Hypomagnesemia - Type 1 diabetes mellitus without complications 02/14/2021 15:33 Lavinia Reeves [place] TYPE: Emergency COMPLAINT: - Walk In - CHEST PAIN UNSPECIFIED DIAGNOSES: 0. Chest pain, unspecified 1. Alcohol abuse with intoxication, unspecified 3. Unspecified atrial flutter 4. Blood alcohol level of 240 mg/100 ml or more 5. terminal block assembler (current) use of insulin 6. Other group home (current) drug therapy 02/12/2021 13:59 [facility] [place] TYPE: Emergency COMPLAINT: - DIZZINESS DIAGNOSES: - Dizziness and giddiness - Alcohol abuse with intoxication, unspecified - Type 1 diabetes mellitus without complications - Blood alcohol level of 240 mg/100 ml or more - Other long filler cigar roller machine (current) drug therapy 01/27/2021 18:04 [facility] AMNA [place] TYPE: Emergency DIAGNOSES: - Alcohol use, unspecified with intoxication, uncomplicated - Syncope - Unspecified atrial flutter 12/15/2020 14:23 [place] [place] TYPE: Emergency COMPLAINT: - SORE THROAT DIAGNOSES: - Atypical atrial flutter - Other long filler cigar roller machine (current) drug therapy - Type 1 diabetes mellitus without complications - Candidal stomatitis - terminal block assembler (current) use of insulin - Acute pharyngitis, unspecified - Type 2 diabetes mellitus without complications 12/08/2020 11:12 SOHA [place] TYPE: Emergency COMPLAINT: - DIZZINESS 12/06/2020 10:55 Rolaagatha Elana MoyRadha WOO TYPE: Emergency COMPLAINT: - Syncope / Pre-syncope - DIZZINESS AND GIDDINESS - SYNCOPE AND COLLAPSE DIAGNOSES: 0. Syncope and collapse 1. Syncope and collapse 4. Other long filler cigar roller machine (current) drug therapy 5. terminal block assembler (current) use of insulin 11/25/2020 22:09 [facility] [place] TYPE: Emergency COMPLAINT: - INTOXICATION DIAGNOSES: - Blood alcohol level of 240 mg/100 ml or more - Unspecified atrial flutter - Other long filler cigar roller machine (current) drug therapy - Alcohol abuse with intoxication, unspecified - Alcohol abuse with intoxication, unspecified - terminal block assembler (current) use of insulin - Type 1 diabetes mellitus without complications - Sedative, hypnotic or anxiolytic abuse, uncomplicated 11/19/2020 13:03 [facility] [place] TYPE: Emergency COMPLAINT: - FALL 10/05/2020 14:08 [facility] [place] TYPE: Emergency COMPLAINT: - CHEST PAIN DIAGNOSES: - Personal history of nicotine dependence - Type 1 diabetes mellitus without complications - skilled nursing (current) use of aspirin - Other long filler cigar roller machine (current) drug therapy - Blood alcohol level of 240 mg/100 ml or more - terminal block assembler (current) use of insulin - Chest pain, [...] 1 diabetes mellitus with hyperglycemia - Other group home (current) drug therapy - Dizziness and giddiness 08/20/2020 06:42 [facility] [place] TYPE: Emergency COMPLAINT: - POSSIBLE ALERGIC REACTION BEE STING DIAGNOSES: - Type 1 diabetes mellitus without complications - Nicotine dependence, unspecified, uncomplicated - Unspecified atrial flutter - Toxic effect of venom of wasps, accidental (unintentional), initial encounter - Other long filler cigar roller machine (current) drug therapy Plus 4 More Visits INPATIENT VISIT TRACKING [...] object, initial encounter - Claustrophobia - Other long filler cigar roller machine (current) drug therapy - Personal history of other venous thrombosis and embolism - Other long filler cigar roller machine (current) drug therapy - Laceration without foreign body of scalp, initial encounter - Other pancytopenia - Other pancytopenia - Syncope and collapse - Type 1 diabetes mellitus without complications 12/08/2020 11:13 [facility] [place] TYPE: Observation COMPLAINT: - ALCOHOL WITHDRAWL DIAGNOSES: - Essential (primary) hypertension - Unspecified atrial flutter - Type 1 diabetes mellitus with hyperglycemia - terminal block assembler (current) use of insulin - Chronic atrial fibrillation, unspecified - Myelodysplastic syndrome, unspecified - Alcohol abuse with withdrawal, unspecified - Unspecified atrial fibrillation - Rheumatoid arthritis, unspecified 11/19/2020 13:[address] [facility] [place] TYPE: Observation COMPLAINT: - AFIB DIAGNOSES: - Type 1 diabetes mellitus without complications - 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 - Rheumatoid arthritis, unspecified - Disease of pericardium, unspecified - Syncope and collapse - Chronic atrial fibrillation, unspecified - skilled nursing (current) use of anticoagulants - Presence of alcohol in blood, level not specified - Other myelodysplastic syndromes - Unspecified atrial flutter 07/27/2020 15:14 [facility] [place] TYPE: Observation COMPLAINT: - A FLUTTER WITH RVR DIAGNOSES: - Palpitations - Other myelodysplastic syndromes - Contact with and (suspected) exposure to other viral communicable diseases - Alcohol dependence with withdrawal, unspecified - skilled nursing (current) use of insulin - Rheumatoid arthritis, unspecified - Unspecified atrial flutter - Type 1 diabetes mellitus with hyperglycemia - Alcohol dependence with intoxication, unspecified - Personal history of other venous thrombosis and embolism - Acquired absence of other specified parts of digestive tract - Alcohol dependence with other alcohol-induced disorder - Unspecified atrial fibrillation [email or web address]
[2021-07-17] MEDS ORDERED: METOPROLOL SUC100 MG PO (16:46)
[2021-07-17] MEDS ORDERED: K-TAB ER20 MEQ PO (18:50)
--- NOTE | 2021-07-18 13:07 | EKG ---
[facility] [address] [place] [address] Signed Atrial flutter with variable AV block RSR' or QR pattern in V1 suggests right ventricular conduction delay Nonspecific ST abnormality Abnormal ECG When compared with ECG of 04-MAY-2021 15:17, Significant changes have occurred Confirmed by SANGITA REIS MD ([id number]) on 07/18/2021 1:07:10 PM Electronically Signed By: SANGITA REIS MD 07/18/21 1307 PATIENT NAME: MARQUISCHARLIE CHRIS Electrocardiogram DATE OF : 71 PHYSICIAN: SANGITA REIS MD REPORT #: [id number] REPORT IS CONFIDENTIAL AND NOT TO BE RELEASED WITHOUT AUTHORIZATION
== END 2021-07-17 19:10 | disposition home or self-care (01) ==
LOC: ED 15:28
DX: F10.10 Alcohol abuse, uncomplicated (principal); I48.92 Unspecified atrial flutter; E10.65 Type 1 diabetes mellitus with hyperglycemia; Z79.899 Other long term (current) drug therapy
CPT/HCPCS: 80053; 84484; 85025; 93005; 93010; 99285-25; G0480; J1815; J7030

== ENCOUNTER 2021-07-19 17:54 | Emergency (ER) | payer OTHER ==
[~2021-07-19] VITALS: Ht 175.3 cm; Wt 82.1 kg
[~2021-07-19 17:54] MED LIST changes: +K-TAB ER20 MEQ PO
--- OUTSIDE RECORDS SUMMARY | 2021-07-19 18:02 | XMS ---
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 Care History Medical/Surgical 03/12/2021 [facility] - PER SAUSAGE WRAPPER- [facility] AT [facility]-PATIENT HAS A CARDIOLOGY APT AT LOC[facility]IN [facility] 03/20/21. 12/18/2020 [facility] - W CONTACTED MAICO MURPHYSAUSAGE WRAPPER AT [facility] - CASE MANAGEMENT TEAM IS FULLY AWARE OF PATIENT- LAST APT WITH PATIENT WAS ON 12/14/20 PATIENT WAS TOO INTOXICATED FOR THE ASSESSMENT. - REFERRAL HAS BEEN PLACED FOR PEER SUPPORT A\T\amp;D SERVICES AT [facility] - PATIENT HAS ANOTHER EVALUATION SCHEDULED WITH [facility] WITHIN THE WEEK OF 12/18/20. 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 - SAUSAGE WRAPPER MAICO HAS A CONSULT FROM PATIENT PROVIDER TO HELP PATIENT- MAICO WILL TRY AND GET IN CONTACT WITH PATIENT. 11/29/2020 [facility] - W CONTACTED SAUSAGE WRAPPER [facility] - PATIENT IS CURRENTLY WORKING WITH [employer] [facility] A\T\amp;D SERVICES [phone]. E.D. VISIT COUNT (12 MO.) 1 [facility] [address] [place] [address] Elana Javier [facility] TOTAL 25 NOTE: Visits indicate total known visits. ED/UCC VISIT TRACKING (12 MO.) 07/19/2021 17:54 [facility] [place] [facility] COMPLAINT: - FALL, NECK PAIN 07/17/2021 15:28 [facility] [place] TYPE: Emergency [...] 1 diabetes mellitus without complications - Other local company intermodal truck driver (current) drug therapy 04/13/2021 18:11 [facility] [place] TYPE: Emergency COMPLAINT: - WEAKNESS DIAGNOSES: - Unspecified abdominal pain - Rheumatoid arthritis, unspecified - Pain in left shoulder - Other group home (current) drug therapy - local intermodal truck driver (current) use of insulin - Pain in [...] Personal history of nicotine dependence - Other local 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 Alcohol use, unspecified with intoxication, unspecified 1. Alcohol abuse with intoxication, unspecified 5. local intermodal truck driver (current) use of insulin 6. Other group home (current) drug therapy 7. 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 Chest pain, unspecified 1. Alcohol abuse with intoxication, unspecified 3. Unspecified atrial flutter 4. Blood alcohol level of 240 mg/100 ml or more 5. local intermodal truck driver (current) use of insulin 6. Other local company intermodal truck driver (current) drug therapy 02/12/2021 13:[address] [facility] [address] 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 DIAGNOSES: - Alcohol use, unspecified with intoxication, uncomplicated - Syncope - Unspecified atrial flutter 12/15/2020 14:23 [facility] [place] TYPE: Emergency COMPLAINT: - SORE THROAT DIAGNOSES: - Atypical atrial flutter - Other local company intermodal truck driver (current) drug therapy - Type 1 diabetes mellitus without complications - Candidal stomatitis - local intermodal truck driver (current) use of insulin - Acute pharyngitis, unspecified - Type 2 diabetes mellitus without complications 12/08/2020 11:12 S[facility] [place] TYPE: Emergency COMPLAINT: - DIZZINESS 12/06/2020 10:55 [facility] [place] TYPE: Emergency COMPLAINT: - Syncope / Pre-syncope - DIZZINESS AND GIDDINESS - SYNCOPE AND COLLAPSE DIAGNOSES: 0. Syncope and collapse 1. Syncope and collapse 4. Other local company intermodal truck driver (current) drug therapy 5. local intermodal truck driver (current) use of insulin 11/25/2020 22:09 [facility] [place] TYPE: Emergency COMPLAINT: - INTOXICATION DIAGNOSES: - Blood alcohol level of 240 mg/100 ml or more - Unspecified atrial flutter - Other local company intermodal truck driver (current) drug therapy - Alcohol abuse with intoxication, unspecified - Alcohol abuse with intoxication, unspecified - [facility] (current) use of insulin - Type 1 diabetes mellitus without complications - Sedative, hypnotic or anxiolytic abuse, uncomplicated 11/19/2020 13:03 [facility] [place] TYPE: Emergency COMPLAINT: - FALL 10/05/2020 14:08 [facility] [place] TYPE: Emergency COMPLAINT: - CHEST PAIN DIAGNOSES: - Personal history of nicotine dependence - Type 1 diabetes mellitus without complications - [facility] (current) use of aspirin - 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 [place] TYPE: Medical Surgical COMPLAINT: - SYNCOPE,A-FLUTTER,HEAD [...] object, initial encounter - Claustrophobia - Other group home (current) drug therapy - Personal history of other venous thrombosis and embolism - Other local company intermodal truck driver (current) drug therapy - Laceration without foreign body of scalp, initial encounter - Other pancytopenia - Other pancytopenia - Syncope and collapse - Type 1 diabetes mellitus without complications 12/08/2020 11:13 [facility] [place] TYPE: Observation COMPLAINT: - ALCOHOL WITHDRAWL DIAGNOSES: - Essential (primary) hypertension - Unspecified atrial flutter - Type 1 diabetes mellitus with hyperglycemia - [facility] (current) use of insulin - Chronic atrial [...] collapse - Chronic atrial fibrillation, unspecified - local intermodal truck driver (current) use of anticoagulants - Presence of alcohol in blood, level not specified - Other myelodysplastic syndromes - Unspecified atrial flutter 07/27/2020 15:[address] [facility] [place] TYPE: Observation COMPLAINT: - A FLUTTER WITH RVR DIAGNOSES: - Palpitations - Other myelodysplastic syndromes - Contact with and (suspected) exposure to other viral communicable diseases - Alcohol dependence with withdrawal, unspecified - [facility] (current) use of insulin - Rheumatoid arthritis, unspecified - Unspecified atrial flutter - Type 1 diabetes mellitus with hyperglycemia - Alcohol dependence with intoxication, unspecified - Personal history of other venous thrombosis and embolism - Acquired absence of other specified parts of digestive tract - Alcohol dependence with other alcohol-induced disorder - Unspecified atrial fibrillation [email or web address]
--- NOTE | 2021-07-20 07:10 | EKG ---
[facility] [address] [facility] [place] [address] Signed Atrial flutter with variable AV block Left axis deviation Incomplete right bundle branch block Inferior infarct , age undetermined Abnormal ECG When compared with ECG of 17-JUL-2021 15:42, QRS axis shifted left Inferior infarct is now present ST less elevated in Inferior leads T wave inversion now evident in Inferior leads Confirmed by SANGITA REIS MD ([id number]) on 07/20/2021 7:10:06 AM Electronically Signed By: SANGITA REIS MD 07/20/21 0710 PATIENT NAME: CHARLIE CHO Electrocardiogram DATE OF : 71 PHYSICIAN: SANGITA REIS MD REPORT #: [id number] REPORT IS CONFIDENTIAL AND NOT TO BE RELEASED WITHOUT AUTHORIZATION
== END 2021-07-19 22:22 | disposition home or self-care (01) ==
LOC: ED 17:54
DX: S09.90XA Unspecified injury of head, initial encounter (principal); E10.65 Type 1 diabetes mellitus with hyperglycemia; F10.129 Alcohol abuse with intoxication, unspecified; W18.30XA Fall on same level, unspecified, initial encounter; I48.92 Unspecified atrial flutter; Z87.891 Personal history of nicotine dependence; Z79.899 Other long term (current) drug therapy
CPT/HCPCS: 70450; 72125; 80048; 82010; 82803; 85007; 85025; 93005; 93010; 99284-25; J7121

== ENCOUNTER 2021-08-08 14:22 | Emergency (ER) | payer OTHER ==
[~2021-08-08] VITALS: Ht 175.3 cm; Wt 82.1 kg
--- NOTE | ~2021-08-08 | EKG ---
[facility] [address] [place], [place] [address] Draft EK completed, results pending confirmation PATIENT NAME: CHARLIE CHO Electrocardiogram DATE OF : 71 PHYSICIAN: PRELIMINARY REPORT #: [id number] REPORT IS CONFIDENTIAL AND NOT TO BE RELEASED WITHOUT AUTHORIZATION
--- NOTE | ~2021-08-08 | EKG ---
[facility] [address] [place], [place] [address] Draft EK completed, results pending confirmation PATIENT NAME: CHARLIE CHO Electrocardiogram DATE OF : 71 PHYSICIAN: PRELIMINARY REPORT #: [id number] REPORT IS CONFIDENTIAL AND NOT TO BE RELEASED WITHOUT AUTHORIZATION
--- OUTSIDE RECORDS SUMMARY | 2021-08-08 14:24 | XMS ---
PreManage Notification: CHARLIE CHO Security Accounts Receivable Coordinator Events 1 event(s) in the past 18 months Most recent security events: Elopement at [facility] 04/18/2021 17:43 - Other Details: PATIENT LEFT AMA CRITERIA MET - [facility] - 2 Visits in 30 Days - PDMP - 6 ED Visits in 6 Months CARE PROVIDERS [facility]/[place] 06/22/2020-[facility] PHONE: [phone] Demetrio has no Care Guidelines for this patient. Care History Medical/Surgical 03/12/2021 [facility] - PER FOOD SERVICE SALES REPRESENTATIVES- [facility] AT [facility]-PATIENT HAS A CARDIOLOGY APT AT [facility] 03/20/21. 12/18/2020 [facility] - W CONTACTED MAICO MURPHYFOOD SERVICE SALES REPRESENTATIVES AT [facility] - CASE MANAGEMENT TEAM IS FULLY AWARE OF PATIENT- LAST APT WITH PATIENT WAS ON 12/14/20 PATIENT WAS TOO INTOXICATED FOR THE ASSESSMENT. - REFERRAL HAS BEEN PLACED FOR PEER SUPPORT A\T\amp;D SERVICES AT [facility] - PATIENT HAS ANOTHER EVALUATION SCHEDULED WITH [facility] WITHIN THE WEEK OF 12/18/20. - PATIENT HAS A GLOVE TURNER AND FORMER AUTOMATIC REFERRAL-PATIENT DID NOT GO TO PREVIOUS APT-NEXT APT SCHEDULED 01/03/21. - FOOD SERVICE SALES REPRESENTATIVES MAICO HAS A CONSULT FROM PATIENT PROVIDER TO HELP PATIENT- MAICO WILL TRY AND GET IN CONTACT WITH PATIENT. 11/29/2020 [facility] - W CONTACTED FOOD SERVICE SALES REPRESENTATIVES MAICO RAMIREZFORMERLY [facility] - PATIENT IS CURRENTLY WORKING WITH [employer]ACO[employer] [facility] A\T\amp;D SERVICES [phone]. [facility].D. V[facility] ([facility] MO[facility] Elana Dahl [facility] TOTAL 24 NOTE: Visits indicate total known visits. ED/UCC VISIT TRACKING (12 MO.) 08/08/2021 14:23 [facility] [place] TYPE: Emergency COMPLAINT: - WEAKNESS 07/19/2021 17:54 [facility] [place] TYPE: Emergency COMPLAINT: - FALL, NECK PAIN DIAGNOSES: - Personal history of nicotine dependence - Unspecified injury of head, initial encounter - Alcohol abuse with intoxication, unspecified - Type 2 diabetes mellitus with hyperglycemia - Unspecified atrial flutter - Type 1 diabetes mellitus with hyperglycemia - Fall on same level, unspecified, initial encounter - Other emt intermediate (current) drug therapy 07/17/2021 15:28 [facility] [place] TYPE: Emergency COMPLAINT: - SYNCOPE DIAGNOSES: - Type 1 diabetes mellitus with hyperglycemia - Unspecified atrial flutter - Alcohol abuse, uncomplicated - Other emt intermediate (current) drug therapy - Type 2 diabetes mellitus with hyperglycemia - Syncope and collapse 05/04/2021 15:16 [facility] [place] TYPE: Emergency COMPLAINT: - CHEST PAIN DIAGNOSES: - Chest pain, unspecified - Personal history of nicotine dependence - Other skilled nursing (current) drug therapy [...] 1 diabetes mellitus without complications - Other skilled nursing (current) drug therapy 04/13/2021 18:11 [facility] [place] TYPE: Emergency COMPLAINT: - WEAKNESS DIAGNOSES: - Unspecified abdominal pain - Rheumatoid arthritis, unspecified - Pain in left shoulder - Other emt intermediate (current) drug therapy - FPC (current) use of insulin - Pain in [...] Personal history of nicotine dependence - Other emt intermediate (current) drug therapy - Alcohol dependence with withdrawal, unspecified - termite exterminator helper (current) use of insulin - Type 1 diabetes mellitus without complications 03/08/2021 18:16 [facility] TYPE: Emergency COMPLAINT: - Ambulance - PALPITATIONS - ALCOHOL USE UNS W/INTOXICATION UNS - HEADACHE UNSPECIFIED DIAGNOSES: 0. Alcohol use, unspecified with intoxication, unspecified 1. Alcohol abuse with intoxication, unspecified 5. termite exterminator helper (current) use of insulin 6. Other skilled nursing (current) drug therapy 7. Blood alcohol level [...] initial encounter - Syncope and collapse - termite exterminator helper (current) use of insulin - Other emt intermediate (current) drug therapy 02/16/2021 02:25 [facility] [place] TYPE: Emergency COMPLAINT: - HEART PALPATATIONS DIAGNOSES: - Unspecified atrial flutter - Dizziness and giddiness - FPC (current) use of insulin - Hypokalemia - Type 2 diabetes mellitus without complications - Other emt intermediate (current) drug therapy - Hypomagnesemia - Type 1 diabetes mellitus without complications 02/14/2021 15:33 [facility] TYPE: Emergency COMPLAINT: - Walk In - CHEST PAIN UNSPECIFIED DIAGNOSES: 0. Chest pain, unspecified 1. Alcohol abuse with intoxication, unspecified 3. Unspecified atrial flutter 4. Blood alcohol level of 240 mg/100 ml or more 5. FPC (current) use of insulin 6. Other skilled nursing (current) drug therapy 02/12/2021 13:59 [facility] [place] TYPE: Emergency COMPLAINT: - DIZZINESS DIAGNOSES: - Dizziness and giddiness - Alcohol abuse with intoxication, unspecified - Type 1 diabetes mellitus without complications - Blood alcohol level of 240 mg/100 ml or more - Other emt intermediate (current) drug therapy 01/27/2021 18:04 [facility] TYPE: Emergency DIAGNOSES: - Alcohol use, unspecified with intoxication, uncomplicated - Syncope - Unspecified atrial flutter 12/15/2020 14:23 [facility] [place] TYPE: Emergency COMPLAINT: - SORE THROAT DIAGNOSES: - Atypical atrial flutter - Other emt intermediate (current) drug therapy - Type 1 diabetes mellitus without complications - Candidal stomatitis - termite exterminator helper (current) use of insulin - Acute pharyngitis, unspecified - Type 2 diabetes mellitus without complications 12/08/2020 11:12 [facility] [place] TYPE: Emergency COMPLAINT: - DIZZINESS 12/06/2020 10:55 [facility] TYPE: Emergency COMPLAINT: - Syncope / Pre-syncope - DIZZINESS AND GIDDINESS - SYNCOPE AND COLLAPSE DIAGNOSES: 0. Syncope and collapse 1. Syncope and collapse 4. Other emt intermediate (current) drug therapy 5. FPC (current) use of insulin 11/25/2020 22:09 [facility] [place] TYPE: Emergency COMPLAINT: - INTOXICATION DIAGNOSES: - Blood alcohol level of 240 mg/100 ml or more - Unspecified atrial flutter - Other emt intermediate (current) drug therapy - Alcohol abuse with intoxication, unspecified - Alcohol abuse with intoxication, unspecified - FPC (current) use of insulin - Type 1 diabetes mellitus without complications - Sedative, hypnotic or anxiolytic abuse, uncomplicated 11/19/2020 13:03 [facility] [place] TYPE: Emergency COMPLAINT: - FALL 10/05/2020 14:08 [facility] [place] TYPE: Emergency COMPLAINT: - CHEST PAIN DIAGNOSES: - Personal history of nicotine dependence - Type 1 diabetes mellitus without complications - termite exterminator helper (current) use of aspirin - Other emt intermediate (current) drug therapy - Blood alcohol level of 240 mg/100 ml or more - termite exterminator helper (current) use of insulin - Chest pain, unspecified - Alcohol abuse with intoxication, unspecified - Type 2 diabetes mellitus without complications Plus 4 More Visits INPATIENT VISIT TRACKING [...] object, initial encounter - Claustrophobia - Other emt intermediate (current) drug therapy - Personal history of other venous thrombosis and embolism - Other emt intermediate (current) drug therapy - Laceration without foreign body of scalp, initial encounter - Other pancytopenia - Other pancytopenia - Syncope and collapse - Type 1 diabetes mellitus without complications 12/08/2020 11:[address] [facility] [address] [facility] [place] TYPE: Observation COMPLAINT: - ALCOHOL WITHDRAWL DIAGNOSES: - Essential (primary) hypertension - Unspecified atrial flutter - Type 1 diabetes mellitus with hyperglycemia - FPC (current) use of insulin - Chronic atrial fibrillation, unspecified - Myelodysplastic syndrome, unspecified - Alcohol abuse with withdrawal, unspecified - Unspecified atrial fibrillation - Rheumatoid arthritis, unspecified 11/19/2020 13:[address] [facility] [address] 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
== END 2021-08-08 17:35 | disposition home or self-care (01) ==
LOC: ED 14:22
DX: S09.90XA Unspecified injury of head, initial encounter (principal); F10.121 Alcohol abuse with intoxication delirium; Y90.8 Blood alcohol level of 240 mg/100 ml or more; E10.65 Type 1 diabetes mellitus with hyperglycemia; I48.91 Unspecified atrial fibrillation; W18.39XA Other fall on same level, initial encounter; Z87.891 Personal history of nicotine dependence; Z79.899 Other long term (current) drug therapy; I48.92 Unspecified atrial flutter
CPT/HCPCS: 70450; 80053; 82010; 82803; 83690; 85025; 93005; 93010; 99284-25; G0480

== ENCOUNTER 2021-08-09 14:37 | Emergency (ER) | payer OTHER ==
[~2021-08-09] VITALS: Ht 175.3 cm; Wt 74.7 kg
--- OUTSIDE RECORDS SUMMARY | 2021-08-09 14:40 | XMS ---
PreManage Notification: CHARLIE CHO Security Clinical Operations Consultant Events 1 event(s) in the past 18 months Most recent security events: Elopement at [facility] 04/18/2021 17:43 - Other Details: PATIENT LEFT AMA CRITERIA MET - 6 ED Visits in 6 Months - [facility] - 2 Visits in 30 Days - [facility] CARE PROVIDERS [facility]/[place] 06/22/2020-[facility] PHONE: [phone] Demetrio has no Care Guidelines for this patient. Care History Medical/Surgical 03/12/2021 [facility] - PER SOCK DRIER- [facility] AT [facility]-PATIENT HAS A CARDIOLOGY APT AT [facility] 03/20/21. 12/18/2020 [facility] - W CONTACTED MAICO MURPHYSOCK DRIER AT [facility] - CASE MANAGEMENT TEAM IS FULLY AWARE OF PATIENT- LAST APT WITH PATIENT WAS ON 12/14/20 PATIENT WAS TOO INTOXICATED FOR THE ASSESSMENT. - REFERRAL HAS BEEN PLACED FOR PEER SUPPORT A\T\amp;D SERVICES AT [facility] - PATIENT HAS ANOTHER EVALUATION SCHEDULED WITH [facility] WITHIN THE WEEK OF 12/18/20. - PATIENT HAS A DIRECTOR GIFT REFERRAL-PATIENT DID NOT GO TO PREVIOUS APT-NEXT APT SCHEDULED 01/03/21. - SOCK DRIER MAICO HAS A CONSULT FROM PATIENT PROVIDER TO HELP PATIENT- MAICO WILL TRY AND GET IN CONTACT WITH PATIENT. 11/29/2020 [facility] - W CONTACTED [facility] PATIENT IS CURRENTLY WORKING WITH [employer] [facility] A\T\amp;D SERVICES [phone]. E.D. VISIT COUNT (12 MO.) 1 [facility] Michaelwidener Jamal Javier [facility] TOTAL 25 NOTE: Visits indicate total known visits. ED/UCC VISIT TRACKING (12 MO.) 08/09/2021 14:38 [facility] [place] TYPE: Emergency COMPLAINT: - SYNCOPE 08/08/2021 14:23 [facility] [place] TYPE: Emergency COMPLAINT: - WEAKNESS 07/19/2021 17:54 [facility] [place] TYPE: Emergency COMPLAINT: - FALL, NECK PAIN DIAGNOSES: - Personal history of nicotine dependence - Unspecified injury of head, initial encounter - Alcohol abuse with intoxication, unspecified - Type 2 diabetes mellitus with hyperglycemia - Unspecified atrial flutter - Type 1 diabetes mellitus with hyperglycemia - Fall on same level, unspecified, initial encounter - Other oil heaterman (current) drug therapy 07/17/2021 15:28 [facility] [place] TYPE: Emergency COMPLAINT: - SYNCOPE DIAGNOSES: - Type 1 diabetes mellitus with hyperglycemia - Unspecified atrial flutter - Alcohol abuse, uncomplicated - Other oil heaterman (current) drug therapy - Type 2 diabetes mellitus with hyperglycemia - Syncope and collapse 05/04/2021 15:16 [facility] [place] TYPE: Emergency COMPLAINT: - CHEST PAIN DIAGNOSES: - Chest pain, unspecified - Personal history of nicotine dependence - Other oil heaterman (current) drug therapy - Type 1 diabetes [...] 1 diabetes mellitus without complications - Other care home (current) drug therapy 04/13/2021 18:11 [facility] [place] TYPE: Emergency COMPLAINT: - WEAKNESS DIAGNOSES: - Unspecified abdominal pain - Rheumatoid arthritis, unspecified - Pain in left shoulder - Other care home (current) drug therapy - longterm (current) use of insulin - Pain in right shoulder - Unspecified osteoarthritis, unspecified site - Personal history of nicotine dependence - Weakness - Alcohol abuse, uncomplicated - Acute embolism and thrombosis of unspecified deep veins of unspecified lower extremity - Type 1 diabetes mellitus without complications - Unspecified atrial flutter 04/08/2021 22:27 [facility] [place] TYPE: Emergency COMPLAINT: - ALCOHOL WITHDRAW DIAGNOSES: - Unspecified atrial flutter - Blood alcohol level of less than 20 mg/100 ml - Syncope and collapse - Personal history of nicotine dependence - Other oil heaterman (current) drug therapy - Alcohol dependence with withdrawal, unspecified - roasterman (current) use of insulin - Type 1 diabetes mellitus without complications 03/08/2021 18:16 [facility]al Reeves [place] TYPE: Emergency COMPLAINT: - Ambulance - PALPITATIONS - ALCOHOL USE UNS W/INTOXICATION UNS - HEADACHE UNSPECIFIED DIAGNOSES: 0. Alcohol use, unspecified with intoxication, unspecified 1. Alcohol abuse with intoxication, unspecified 5. roasterman (current) use of insulin 6. Other oil heaterman (current) drug therapy 7. Blood alcohol level [...] initial encounter - Syncope and collapse - longterm (current) use of insulin - Other oil heaterman (current) drug therapy 02/16/2021 02:25 [facility] [place] TYPE: Emergency COMPLAINT: - HEART PALPATATIONS DIAGNOSES: - Unspecified atrial flutter - Dizziness and giddiness - roasterman (current) use of insulin - Hypokalemia - Type 2 diabetes mellitus without complications - Other care home (current) drug therapy - Hypomagnesemia - Type 1 diabetes mellitus without complications 02/14/2021 15:33 [facility] TYPE: Emergency COMPLAINT: - Walk In - CHEST PAIN UNSPECIFIED DIAGNOSES: 0. Chest pain, unspecified 1. Alcohol abuse with intoxication, unspecified 3. Unspecified atrial flutter 4. Blood alcohol level of 240 mg/100 ml or more 5. longterm (current) use of insulin 6. Other oil heaterman (current) drug therapy 02/12/2021 13:59 [facility] [place] TYPE: Emergency COMPLAINT: - DIZZINESS DIAGNOSES: - Dizziness and giddiness - Alcohol abuse with intoxication, unspecified - Type 1 diabetes mellitus without complications - Blood alcohol level of 240 mg/100 ml or more - Other oil heaterman (current) drug therapy [facility]2021 [facility] DIAGNOSES: - Alcohol use, unspecified with intoxication, uncomplicated - Syncope - Unspecified atrial flutter 12/15/2020 14:23 [facility] [place] TYPE: Emergency COMPLAINT: - SORE THROAT DIAGNOSES: - Atypical atrial flutter - Other oil heaterman (current) drug therapy - Type 1 diabetes mellitus without complications - Candidal stomatitis - roasterman (current) use of insulin - Acute pharyngitis, unspecified - Type 2 diabetes mellitus without complications 12/08/2020 11:12 [facility] [place] TYPE: Emergency COMPLAINT: - DIZZINESS 12/06/2020 10:55 [facility] [place] TYPE: Emergency COMPLAINT: - Syncope / Pre-syncope - DIZZINESS AND GIDDINESS - SYNCOPE AND COLLAPSE DIAGNOSES: 0. Syncope and collapse 1. Syncope and collapse 4. Other care home (current) drug therapy 5. longterm (current) use of insulin 11/25/2020 22:09 [facility] [place] TYPE: Emergency COMPLAINT: - INTOXICATION DIAGNOSES: - Blood alcohol level of 240 mg/100 ml or more - Unspecified atrial flutter - Other care home (current) drug therapy - Alcohol abuse with intoxication, unspecified - Alcohol abuse with intoxication, unspecified - roasterman (current) use of insulin - Type 1 diabetes mellitus without complications - Sedative, hypnotic or anxiolytic abuse, uncomplicated 11/19/2020 13:03 [facility] [place] TYPE: Emergency COMPLAINT: - FALL Plus 5 More Visits INPATIENT VISIT TRACKING [...] object, initial encounter - Claustrophobia - Other oil heaterman (current) drug therapy - Personal history of other venous thrombosis and embolism - Other oil heaterman (current) drug therapy - Laceration without foreign [...] collapse - Chronic atrial fibrillation, unspecified - longterm (current) use of anticoagulants - Presence of alcohol in blood, level not specified - Other myelodysplastic syndromes - Unspecified atrial flutter [email or web address]
== END 2021-08-09 15:43 | disposition left against medical advice (07) ==
LOC: ED 14:37
DX: R55 Syncope and collapse (principal); F10.129 Alcohol abuse with intoxication, unspecified; E10.9 Type 1 diabetes mellitus without complications; I48.92 Unspecified atrial flutter; Z87.891 Personal history of nicotine dependence; Z79.899 Other long term (current) drug therapy
CPT/HCPCS: 80053; 84484; 85025; 93005; 93010; 99284-25; G0480

== ENCOUNTER 2021-10-10 23:18 | Emergency (ER) | payer OTHER ==
[~2021-10-10] VITALS: Ht 175.3 cm; Wt 73.2 kg
[~2021-10-10 23:18] MED LIST changes: +CARDIZEM CD120 MG PO; +MAGNESIUM OXID400 M1 PO; +TERBINAFINE HC250 MG PO
--- OUTSIDE RECORDS SUMMARY | 2021-10-10 23:20 | XMS ---
PreManage Notification: CHARLIE CHO Security Obiee Report Developer Events 2 event(s) in the past 18 months Most recent security events: Elopement at [facility] 08/09/2021 14:38 - Other Details: PATIENT LEFT AMA Elopement at [facility] 04/18/2021 17:43 - Other Details: PATIENT LEFT AMA CRITERIA MET - [facility] - 2 Visits in 30 Days - 6 ED Visits in 6 Months - [facility] CARE PROVIDERS [facility] 06/22/[facility] PHONE: [phone] Demetrio has no Care Guidelines for this patient. Care History Medical/Surgical 08/27/2021 [facility] Contacted Jada MURPHYblackenerXesoibs-Dcfvqb-qreavoxd of recent ED visits. They will follow up with the patient. 03/12/2021 [facility] - CALDERON MURPHYIT HELP DESK TECHNICIAN- [facility]-PATIENT HAS A CARDIOLOGY APT AT [facility] 03/20/21. 12/18/2020 [facility] - [facility] CONTACTED MAICO MURPHYIT HELP DESK TECHNICIAN AT [facility] - CASE MANAGEMENT TEAM IS FULLY AWARE OF PATIENT- LAST APT WITH PATIENT WAS ON 12/14/20 PATIENT WAS TOO INTOXICATED FOR THE ASSESSMENT. - REFERRAL HAS BEEN PLACED FOR PEER SUPPORT A\T\amp;D SERVICES AT [facility] - PATIENT HAS ANOTHER EVALUATION SCHEDULED WITH [facility] [address] WITHIN THE WEEK OF 12/18/20. - PATIENT HAS A MANAGER TRANSMISSION REFERRAL-PATIENT DID NOT GO TO PREVIOUS APT-NEXT APT SCHEDULED 01/03/21. - IT HELP DESK TECHNICIAN MAICO HAS A CONSULT FROM PATIENT PROVIDER TO HELP PATIENT- MAICO WILL TRY AND GET IN CONTACT WITH PATIENT. [place] VISIT COUNT (12 MO.) 1 [facility] 1 [facility] 3 Lavin[facility] Hubbard TOTAL 23 NOTE: Visits indicate total known visits. ED/UCC VISIT TRACKING (12 MO.) 10/10/2021 23:18 [facility] [place] TYPE: Emergency COMPLAINT: - HALLUCINATIONS 10/03/2021 19:25 [facility] TYPE: Emergency 08/15/2021 12:36 [facility] [place] TYPE: Emergency COMPLAINT: - SOB DIAGNOSES: - Other intermediate card tender (current) drug therapy - Personal history of nicotine dependence - Unspecified atrial flutter - Weakness - Type 2 diabetes mellitus with hyperglycemia - Type 1 diabetes mellitus with hyperglycemia 08/09/2021 14:38 [facility] [place] TYPE: Emergency COMPLAINT: - SYNCOPE DIAGNOSES: - Other prison (current) drug therapy - Unspecified atrial flutter - Syncope and collapse - Alcohol abuse with intoxication, unspecified - Personal history of nicotine dependence - Type 1 diabetes mellitus without complications 08/08/2021 14:23 [facility] [place] TYPE: Emergency COMPLAINT: - WEAKNESS DIAGNOSES: - Unspecified atrial flutter - Unspecified atrial fibrillation - Headache, unspecified - Unspecified injury of head, initial encounter - Other intermediate card tender (current) drug therapy - Personal history of nicotine dependence - Other fall on same level, initial encounter - Alcohol abuse with intoxication delirium - Blood alcohol level of 240 mg/100 ml or more - Type 1 diabetes mellitus with hyperglycemia 07/19/2021 17:54 [facility]: [place] COMPLAINT: - FALL, NECK PAIN DIAGNOSES: - Personal history of nicotine dependence - Unspecified injury of head, initial encounter - Alcohol abuse with intoxication, unspecified - Type 2 diabetes mellitus with hyperglycemia - Unspecified atrial flutter - Type 1 diabetes mellitus with hyperglycemia - Fall on same level, unspecified, initial encounter - Other prison (current) drug therapy 07/17/2021 15:28 [facility] TYPE: Emergency COMPLAINT: - SYNCOPE DIAGNOSES: - Type 1 diabetes mellitus with hyperglycemia - Unspecified atrial flutter - Alcohol abuse, uncomplicated - Other prison (current) drug therapy - Type 2 diabetes mellitus with hyperglycemia - Syncope and collapse 05/04/2021 15:16 [facility] [place] TYPE: Emergency COMPLAINT: - CHEST PAIN DIAGNOSES: - Chest pain, unspecified - Personal history of nicotine dependence - Other prison (current) drug therapy - Type 1 diabetes [...] 1 diabetes mellitus without complications - Other prison (current) drug therapy 04/13/2021 18:11 [facility] [place] TYPE: Emergency COMPLAINT: - WEAKNESS DIAGNOSES: - Unspecified abdominal pain - Rheumatoid arthritis, unspecified - Pain in left shoulder - Other prison (current) drug therapy - snf (current) use of insulin - Pain in right shoulder - Unspecified osteoarthritis, unspecified site - Personal history of nicotine dependence - Weakness - Alcohol abuse, uncomplicated - Acute embolism and thrombosis of unspecified deep veins of unspecified lower extremity - Type 1 diabetes mellitus without complications - Unspecified atrial flutter 04/08/2021 22:27 [facility] [place] TYPE: Emergency COMPLAINT: - ALCOHOL WITHDRAW DIAGNOSES: - Unspecified atrial flutter - Blood alcohol level of less than 20 mg/100 ml - Syncope and collapse - Personal history of nicotine dependence - Other intermediate card tender (current) drug therapy - Alcohol dependence with withdrawal, unspecified - intermediate card tender (current) use of insulin - Type 1 diabetes mellitus without complications 03/08[facility]2021 18[facility] [place] [facility] COMPLAINT: - Ambulance - PALPITATIONS - ALCOHOL USE UNS W/INTOXICATION UNS - HEADACHE UNSPECIFIED DIAGNOSES: 0. Alcohol use, unspecified with intoxication, unspecified 1. Alcohol abuse with intoxication, unspecified 5. intermediate card tender (current) use of insulin 6. Other intermediate card tender (current) drug therapy 7. Blood alcohol level [...] initial encounter - Syncope and collapse - intermediate card tender (current) use of insulin - Other prison (current) drug therapy 02/16/2021 02:25 [facility] [place] TYPE: Emergency COMPLAINT: - HEART PALPATATIONS DIAGNOSES: - Unspecified atrial flutter - Dizziness and giddiness - snf (current) use of insulin - Hypokalemia - Type 2 diabetes mellitus without complications - Other intermediate card tender (current) drug therapy - Hypomagnesemia - Type 1 diabetes mellitus without complications 02/14/2021 15:33 [facility] TYPE: Emergency COMPLAINT: - Walk In - CHEST PAIN UNSPECIFIED DIAGNOSES: 0. Chest pain, unspecified 1. Alcohol abuse with intoxication, unspecified 3. Unspecified atrial flutter 4. Blood alcohol level of 240 mg/100 ml or more 5. intermediate card tender (current) use of insulin 6. Other intermediate card tender (current) drug therapy 02/12/2021 13:59 [facility] [place] TYPE: Emergency COMPLAINT: - DIZZINESS DIAGNOSES: - Dizziness and giddiness - Alcohol abuse with intoxication, unspecified - Type 1 diabetes mellitus without complications - Blood alcohol level of 240 mg/100 ml or more - Other intermediate card tender (current) drug therapy 01/27/2021 [facility] DIAGNOSES: - Alcohol use, unspecified with intoxication, uncomplicated - Syncope - Unspecified atrial flutter 12/15/2020 14:[address] [facility] [address] [facility] [place] TYPE: Emergency COMPLAINT: - SORE THROAT DIAGNOSES: - Atypical atrial flutter - Other prison (current) drug therapy - Type 1 diabetes mellitus without complications - Candidal stomatitis - snf (current) use of insulin - Acute pharyngitis, unspecified - Type 2 diabetes mellitus without complications 12/08/2020 11:12 [facility] [place] TYPE: Emergency COMPLAINT: - DIZZINESS Plus 3 More Visits INPATIENT VISIT TRACKING [...] object, initial encounter - Claustrophobia - Other prison (current) drug therapy - Personal history of other venous thrombosis and embolism - Other prison (current) drug therapy - Laceration without foreign body of scalp, initial encounter - Other pancytopenia - Other pancytopenia - Syncope and collapse - Type 1 diabetes mellitus without complications 12/08/2020 11:13 [facility] [place] TYPE: Observation COMPLAINT: - ALCOHOL WITHDRAWL DIAGNOSES: - Essential (primary) hypertension - Unspecified atrial flutter - Type 1 diabetes mellitus with hyperglycemia - intermediate card tender (current) use of insulin - Chronic atrial [...] collapse - Chronic atrial fibrillation, unspecified - intermediate card tender (current) use of anticoagulants - Presence of alcohol in blood, level not specified - Other myelodysplastic syndromes - Unspecified atrial flutter [email or web address]
[2021-10-11] MEDS ORDERED: DILTIAZEM 24HR120 MG PO (00:26)
[2021-10-11] MEDS ORDERED: METOPROLOL SUC200 MG PO (00:27)
[2021-10-11] MEDS ORDERED: GLUCOSE4 GM PO (00:28)
--- NOTE | 2021-10-11 16:21 | EKG ---
[facility] [address] [place] [address] Signed Normal sinus rhythm Possible Left atrial enlargement Incomplete right bundle branch block Borderline ECG When compared with ECG of 09-AUG-2021 14:54, Sinus rhythm has replaced Atrial flutter Incomplete right bundle branch block has replaced Right bundle branch block Confirmed by JADIEL JOAQUIN DO ([id number]) on 10/11/2021 4:21:06 PM Electronically Signed By: JADIEL JOAQUIN DO 10/11/21 1621 PATIENT NAME: CHARLIE CHO Electrocardiogram DATE OF : 71 PHYSICIAN: JADIEL JOAQUIN DO REPORT #: [id number] REPORT IS CONFIDENTIAL AND NOT TO BE RELEASED WITHOUT AUTHORIZATION
== END 2021-10-11 01:18 | disposition home or self-care (01) ==
LOC: ED 23:18
DX: F10.951 Alcohol use, unspecified with alcohol-induced psychotic disorder with hallucinations (principal); E10.9 Type 1 diabetes mellitus without complications; M06.9 Rheumatoid arthritis, unspecified; Z86.718 Personal history of other venous thrombosis and embolism; Z87.891 Personal history of nicotine dependence; Z79.899 Other long term (current) drug therapy
CPT/HCPCS: 81001; 84443; 84484; 85025; 93005; 93010; 99285-25; G0480

== ENCOUNTER 2021-10-26 10:55 | Emergency (ER) | payer OTHER ==
[~2021-10-26] VITALS: Ht 175.3 cm; Wt 73.0 kg
--- OUTSIDE RECORDS SUMMARY | 2021-10-26 10:58 | XMS ---
PreManage Notification: CHARLIE CHO Security Fund Raiser Events 2 event(s) in the past 18 months Most recent security events: Elopement at [facility] 08/09/2021 14:38 - Other Details: PATIENT LEFT AMA Elopement at [facility] 04/18/2021 17:43 - Other Details: PATIENT LEFT AMA CRITERIA MET - 6 ED Visits in 6 Months - [facility] - 2 Visits in 30 Days - [facility] CARE PROVIDERS [facility] 06/22/2020-[facility] PHONE: [phone] Demetrio has no Care Guidelines for this patient. Care History Medical/Surgical 08/27/2021 [facility] Contacted Jada MURPHYmetal furniture assembly supervisorJonctjj-Fsscxo-wyizrwpl of recent ED visits. They will follow up with the patient. 03/12/2021 [facility] - CALDERON MURPHYDESIGN PRINTER BALLOON- [facility]-PATIENT HAS A CARDIOLOGY APT AT [facility] 03/20/21. 12/18/2020 [facility] - W CONTACTED MAICO MURPHYDESIGN PRINTER BALLOON AT [facility] - CASE MANAGEMENT TEAM IS FULLY AWARE OF PATIENT- LAST APT WITH PATIENT WAS ON 12/14/20 PATIENT WAS TOO INTOXICATED FOR THE ASSESSMENT. - REFERRAL HAS BEEN PLACED FOR PEER SUPPORT A\T\amp;D SERVICES AT [facility] - PATIENT HAS ANOTHER EVALUATION SCHEDULED WITH [facility] WITHIN THE WEEK OF 12/18/20. - PATIENT HAS A APRON TRIMMER REFERRAL-PATIENT DID NOT GO TO PREVIOUS APT-NEXT APT SCHEDULED 01/03/21. - DESIGN PRINTER BALLOON MAICO HAS A CONSULT FROM PATIENT PROVIDER TO HELP PATIENT- MAICO WILL TRY AND GET IN CONTACT WITH PATIENT. [place] VISIT COUNT (12 MO.) 1 [facility] 1 [facility] 3 Lavinia Hubbard TOTAL 24 NOTE: Visits indicate total known visits. 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 Alcohol abuse with intoxication, unspecified 2. Type 2 diabetes mellitus with hyperglycemia 3. long-term (current) use of insulin 4. Pain in right wrist 5. Pain in right knee 6. Pain in left knee 7. Unspecified fall, initial encounter 08/15/2021 12:36 [facility] [place] TYPE: Emergency COMPLAINT: - SOB DIAGNOSES: - Other shelter (current) drug therapy - Personal history of nicotine dependence - Unspecified atrial flutter - Weakness - Type 2 diabetes mellitus with hyperglycemia - Type 1 diabetes mellitus with hyperglycemia [facility]09[facility]2021 [facility] [place] [facility] COMPLAINT: - SYNCOPE DIAGNOSES: - Other shelter (current) drug therapy - Unspecified atrial flutter - Syncope and collapse - Alcohol abuse with intoxication, unspecified - Personal history of nicotine dependence - Type 1 diabetes mellitus without complications 08/08/2021 14:23 [facility] [place] TYPE: Emergency COMPLAINT: - WEAKNESS DIAGNOSES: - Unspecified atrial flutter - Unspecified atrial fibrillation - Headache, unspecified - Unspecified injury of head, initial encounter - Other terminal manager (current) drug therapy - Personal history of nicotine dependence - Other fall on same level, initial encounter - Alcohol abuse with intoxication delirium - Blood alcohol level of 240 mg/100 ml or more - Type 1 diabetes mellitus with hyperglycemia 07/19/2021 17:54 [facility] [place] TYPE: Emergency COMPLAINT: - FALL, NECK PAIN DIAGNOSES: - Personal history of nicotine dependence - Unspecified injury of head, initial encounter - Alcohol abuse with intoxication, unspecified - Type 2 diabetes mellitus with hyperglycemia - Unspecified atrial flutter - Type 1 diabetes mellitus with hyperglycemia - Fall on same level, unspecified, initial encounter - Other shelter (current) drug therapy 07/17/2021 15:28 [facility] [place] TYPE: Emergency COMPLAINT: - SYNCOPE DIAGNOSES: - Type 1 diabetes mellitus with hyperglycemia - Unspecified atrial flutter - Alcohol abuse, uncomplicated - Other shelter (current) drug therapy - Type 2 diabetes mellitus with hyperglycemia - Syncope and collapse 05/04/2021 15:16 [facility] [place] TYPE: Emergency COMPLAINT: - CHEST PAIN DIAGNOSES: - Chest pain, unspecified - Personal history of nicotine dependence - Other terminal manager (current) drug therapy - Type 1 diabetes [...] 1 diabetes mellitus without complications - Other shelter (current) drug therapy 04/13/2021 18:11 [facility] [place] TYPE: Emergency COMPLAINT: - WEAKNESS DIAGNOSES: - Unspecified abdominal pain - Rheumatoid arthritis, unspecified - Pain in left shoulder - Other terminal manager (current) drug therapy - long-term (current) use of insulin - Pain in [...] Personal history of nicotine dependence - Other terminal manager (current) drug therapy - Alcohol dependence with withdrawal, unspecified - long-term (current) use of insulin - Type 1 diabetes mellitus without complications 03/08/2021 18:16 [facility] [place] TYPE: Emergency COMPLAINT: - Ambulance - PALPITATIONS - ALCOHOL USE UNS W/INTOXICATION UNS - HEADACHE UNSPECIFIED DIAGNOSES: 0. Alcohol use, unspecified with intoxication, unspecified 1. Alcohol abuse with intoxication, unspecified 5. 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 Other shelter (current) drug therapy 7. Blood alcohol level [...] initial encounter - Syncope and collapse - petroleum terminal plant operator (current) use of insulin - Other shelter (current) drug therapy 02/16/2021 02:25 [facility] [place] TYPE: Emergency COMPLAINT: - HEART PALPATATIONS DIAGNOSES: - Unspecified atrial flutter - Dizziness and giddiness - petroleum terminal plant operator (current) use of insulin - Hypokalemia - Type 2 diabetes mellitus without complications - Other terminal manager (current) drug therapy - Hypomagnesemia - Type 1 diabetes mellitus without complications 02/14/2021 15:33 [facility] TYPE: Emergency COMPLAINT: - Walk In - CHEST PAIN UNSPECIFIED DIAGNOSES: 0. Chest pain, unspecified 1. Alcohol abuse with intoxication, unspecified 3. Unspecified atrial flutter 4. Blood alcohol level of 240 mg/100 ml or more 5. 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 Other shelter (current) drug therapy 02/12/2021 13:59 [facility] [place] TYPE: Emergency COMPLAINT: - DIZZINESS DIAGNOSES: - Dizziness and giddiness - Alcohol abuse with intoxication, unspecified - Type 1 diabetes mellitus without complications - Blood alcohol level of 240 mg/100 ml or more - Other terminal manager (current) drug therapy 01/27/2021 18:04 [facility] TYPE: Emergency DIAGNOSES: - Alcohol use, unspecified with intoxication, uncomplicated - Syncope - Unspecified atrial flutter 12/15/2020 14:23 [facility] [place] TYPE: Emergency COMPLAINT: - SORE THROAT DIAGNOSES: - Atypical atrial flutter - Other terminal manager (current) drug therapy - Type 1 diabetes mellitus without complications - Candidal stomatitis - petroleum terminal plant operator (current) use of insulin - Acute pharyngitis, [...] object, initial encounter - Claustrophobia - Other terminal manager (current) drug therapy - Personal history of other venous thrombosis and embolism - Other terminal manager (current) drug therapy - Laceration without foreign body of scalp, initial encounter - Other pancytopenia - Other pancytopenia - Syncope and collapse - Type 1 diabetes mellitus without complications 12/08/2020 11:13 [facility] [place] TYPE: Observation COMPLAINT: - ALCOHOL WITHDRAWL DIAGNOSES: - Essential (primary) hypertension - Unspecified atrial flutter - Type 1 diabetes mellitus with hyperglycemia - long-term (current) use of insulin - Chronic atrial [...] collapse - Chronic atrial fibrillation, unspecified - petroleum terminal plant operator (current) use of anticoagulants - Presence of alcohol in blood, level not specified - Other myelodysplastic syndromes - Unspecified atrial flutter [email or web address]
== END 2021-10-26 16:15 | disposition home or self-care (01) ==
LOC: ED 10:55
DX: E10.65 Type 1 diabetes mellitus with hyperglycemia (principal); F10.10 Alcohol abuse, uncomplicated; M19.90 Unspecified osteoarthritis, unspecified site; Z86.718 Personal history of other venous thrombosis and embolism; M06.9 Rheumatoid arthritis, unspecified; Z87.891 Personal history of nicotine dependence; Z79.899 Other long term (current) drug therapy
CPT/HCPCS: 80053; 85025; 99285; G0480; J1815; J7030

== ENCOUNTER 2021-10-31 18:22 | Emergency (ER) | payer OTHER ==
[~2021-10-31] VITALS: Ht 175.3 cm; Wt 73.0 kg
--- OUTSIDE RECORDS SUMMARY | 2021-10-31 18:24 | XMS ---
PreManage Notification: CHARLIE CHO Security Nurse Wound Events 2 event(s) in the past 18 months Most recent security events: Elopement at [facility] 08/09/2021 14:38 - Other Details: PATIENT LEFT AMA Elopement at [facility] 04/18/2021 17:43 - Other Details: PATIENT LEFT AMA CRITERIA MET - [facility] - 2 Visits in 30 Days - PDMP - 6 ED Visits in 6 Months - [facility] - Has Care Guidelines CARE PROVIDERS [facility]/[place] 06/22/2020-[facility] PHONE: [phone] Demetrio has no Care Guidelines for this patient. Care History Medical/Surgical 10/28/2021 [facility] - PATIENT IS [facility] ELIGIBLE, \T\middot;\T\nbsp; PLEASE REFER PATIENT TO [facility] FOR NON EMERGENT MEDICAL NEEDS. \T\middot;\T\nbsp; [facility] CAN SEE PATIENTS SAME DAY FOR APTS IF PATIENT CALLS FIRST THING IN THE MORNING. 08/27/2021 [facility] Contacted Jada landing scalerVxnfajm-Fmfkmb-quximnkf of recent ED visits. They will follow up with the patient. 03/12/2021 [facility] - CALDERON MANAGER POOL- [facility] AT [facility]-PATIENT HAS A CARDIOLOGY APT AT [facility] 8/3/21. E.D. VISIT COUNT (12 MO.) 1 [facility] 1 [facility] NOTE: Visits indicate total known visits. ED/UCC VISIT TRACKING (12 MO.) 10/31/2021 18:22 [facility] [place] TYPE: Emergency COMPLAINT: - ALTERED MENTAL STATUS 10/26/2021 10:55 [facility] [place] TYPE: Emergency COMPLAINT: - WEAKNESS DIAGNOSES: - Other watermelon harvesting supervisor (current) drug therapy - Rheumatoid arthritis, unspecified - Type 1 diabetes mellitus with hyperglycemia - Personal history of other venous thrombosis and embolism - Personal history of nicotine dependence - Unspecified osteoarthritis, unspecified site - Weakness - Alcohol abuse, uncomplicated 10/10/2021 23:18 [facility] TYPE: Emergency COMPLAINT: - HALLUCINATIONS DIAGNOSES: - Personal history of nicotine dependence - Type 1 diabetes mellitus without complications - Personal history of other venous thrombosis and embolism - Rheumatoid arthritis, unspecified - Other watermelon harvesting supervisor (current) drug therapy - Alcohol use, 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 Alcohol abuse with intoxication, unspecified 2. Type 2 diabetes mellitus with hyperglycemia 3. termite control service representative (current) use of insulin 4. Pain in right wrist 5. Pain in right knee 6. Pain in left knee 7. Unspecified fall, initial encounter 08/15/2021 12:[address] [facility] [place] TYPE: Emergency COMPLAINT: - SOB DIAGNOSES: - Other watermelon harvesting supervisor (current) drug therapy - Personal history of nicotine dependence - Unspecified atrial flutter - Weakness - Type 2 diabetes mellitus with hyperglycemia - Type 1 diabetes mellitus with hyperglycemia 08/09/2021 14:[address] [facility] [place] TYPE: Emergency COMPLAINT: - SYNCOPE DIAGNOSES: - Other skilled nursing (current) drug therapy - Unspecified atrial flutter - Syncope and collapse - Alcohol abuse with intoxication, unspecified - Personal history of nicotine dependence - Type 1 diabetes mellitus without complications 08/08/2021 14:23 [facility] [place] [facility]: Emergency COMPLAINT: - WEAKNESS DIAGNOSES: - Unspecified atrial flutter - Unspecified atrial fibrillation - Headache, unspecified - Unspecified injury of head, initial encounter - Other skilled nursing (current) drug therapy - Personal history of nicotine dependence - Other fall on same level, initial encounter - Alcohol abuse with intoxication delirium - Blood alcohol level of 240 mg/100 ml or more - Type 1 diabetes mellitus with hyperglycemia 07/19/2021 17:[address] [facility] [place] TYPE: Emergency COMPLAINT: - FALL, NECK PAIN DIAGNOSES: - Personal history of nicotine dependence - Unspecified injury of head, initial encounter - Alcohol abuse with intoxication, unspecified - Type 2 diabetes mellitus with hyperglycemia - Unspecified atrial flutter - Type 1 diabetes mellitus with hyperglycemia - Fall on same level, unspecified, initial encounter - Other skilled nursing (current) drug therapy 07/17/2021 15:[address] [facility] [place] TYPE: Emergency COMPLAINT: - SYNCOPE DIAGNOSES: - Type 1 diabetes mellitus with hyperglycemia - Unspecified atrial flutter - Alcohol abuse, uncomplicated - Other skilled nursing (current) drug therapy - Type 2 diabetes mellitus with hyperglycemia - Syncope and collapse 05/04/2021 15:[address] [facility] [place] TYPE: Emergency [...] 1 diabetes mellitus without complications - Other watermelon harvesting supervisor (current) drug therapy 04/13/2021 18:11 [facility] [place] TYPE: Emergency COMPLAINT: - WEAKNESS DIAGNOSES: - Unspecified abdominal pain - Rheumatoid arthritis, unspecified - Pain in left shoulder - Other skilled nursing (current) drug therapy - [facility] (current) use of insulin - Pain in [...] skilled nursing (current) drug therapy - Alcohol dependence with withdrawal, unspecified - termite control service representative (current) use of insulin - Type 1 diabetes mellitus without complications 03/08/2021 18:16 [facility] TYPE: Emergency COMPLAINT: - Ambulance - PALPITATIONS - ALCOHOL USE UNS W/INTOXICATION UNS - HEADACHE UNSPECIFIED DIAGNOSES: 0. Alcohol use, unspecified with intoxication, unspecified 1. Alcohol abuse with intoxication, unspecified 5. [facility] (current) use of insulin 6. Other skilled [...] initial encounter - Syncope and collapse - [facility] (current) use of insulin - Other watermelon harvesting supervisor (current) drug therapy 02/16/2021 02:25 [facility] [place] TYPE: Emergency COMPLAINT: - HEART PALPATATIONS DIAGNOSES: - Unspecified atrial flutter - Dizziness and giddiness - [facility] (current) use of insulin - Hypokalemia - Type 2 diabetes mellitus without complications - Other watermelon harvesting supervisor (current) drug therapy - Hypomagnesemia - Type 1 diabetes mellitus without complications [facility]21 [facility] [place] [facility] COMPLAINT: - Walk In - CHEST PAIN UNSPECIFIED DIAGNOSES: 0. Chest pain, unspecified 1. Alcohol abuse with intoxication, unspecified 3. Unspecified atrial flutter 4. Blood alcohol level of 240 mg/100 ml or more 5. [facility] (current) use of insulin 6. Other skilled nursing (current) drug therapy 02/12/2021 13:59 [facility] TYPE: Emergency COMPLAINT: - DIZZINESS DIAGNOSES: - Dizziness and giddiness - Alcohol abuse with intoxication, unspecified - Type 1 diabetes mellitus without complications - Blood alcohol level of 240 mg/100 ml or more - Other skilled nursing (current) drug therapy 01/27/2021 18:04 [facility] TYPE: Emergency DIAGNOSES: - Alcohol use, unspecified with intoxication, uncomplicated - Syncope - Unspecified atrial flutter Plus 5 More Visits INPATIENT VISIT TRACKING [...] object, initial encounter - Claustrophobia - Other watermelon harvesting supervisor (current) drug therapy - Personal history of other venous thrombosis and embolism - Other watermelon harvesting supervisor (current) drug therapy - Laceration without foreign body of scalp, initial encounter - Other pancytopenia - Other pancytopenia - Syncope and collapse - Type 1 diabetes mellitus without complications 12/08/2020 11:[address] [facility] [place] TYPE: Observation COMPLAINT: - ALCOHOL WITHDRAWL DIAGNOSES: - Essential (primary) hypertension - Unspecified atrial flutter - Type 1 diabetes mellitus with hyperglycemia - [facility] (current) use of insulin - Chronic atrial fibrillation, unspecified - Myelodysplastic syndrome, unspecified - Alcohol abuse with withdrawal, unspecified - Unspecified atrial fibrillation - Rheumatoid arthritis, unspecified 11/19/2020 13:[address] [facility] [place] TYPE: Observation COMPLAINT: - AFIB DIAGNOSES: - Type 1 diabetes mellitus without complications - 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 - Rheumatoid arthritis, unspecified - Disease of pericardium, unspecified - Syncope and collapse - Chronic atrial fibrillation, unspecified - termite control service representative (current) use of anticoagulants - Presence of alcohol in blood, level not specified - Other myelodysplastic syndromes - Unspecified atrial flutter [email or web address]
--- NOTE | 2021-11-01 07:45 | EKG ---
[facility] [address] [facility] [place] [address] Signed Normal sinus rhythm Possible Right ventricular hypertrophy Inferior infarct , age undetermined Abnormal ECG When compared with ECG of 11-OCT-2021 00:15, QRS axis shifted right T wave inversion no longer evident in Anterior leads Confirmed by SANGITA REIS MD ([id number]) on 11/01/2021 7:45:38 AM Electronically Signed By: SANGITA REIS MD 11/01/21 0745 PATIENT NAME: MARQUISCHARLIE DAVE Electrocardiogram DATE OF : 71 PHYSICIAN: SANGITA REIS MD REPORT #: [id number] REPORT IS CONFIDENTIAL AND NOT TO BE RELEASED WITHOUT AUTHORIZATION
== END 2021-10-31 21:28 | disposition home or self-care (01) ==
LOC: ED 18:22
DX: R20.0 Anesthesia of skin (principal); F10.129 Alcohol abuse with intoxication, unspecified; M19.90 Unspecified osteoarthritis, unspecified site; Z86.718 Personal history of other venous thrombosis and embolism; M06.9 Rheumatoid arthritis, unspecified; E10.9 Type 1 diabetes mellitus without complications; Z87.891 Personal history of nicotine dependence; Z79.899 Other long term (current) drug therapy
CPT/HCPCS: 36415; 70450; 70496; 70498; 71045; 80053; 80503; 81001; 83735; 84484; 85025; 85610; 85730; 93005; 93010; 96372; 99285-25; G0480; J1815; J3411; J7030; Q9967

== ENCOUNTER 2022-07-03 10:53 | Emergency (ER) | payer OTHER ==
[~2022-07-03] VITALS: Ht 175.3 cm; Wt 71.0 kg
--- OUTSIDE RECORDS SUMMARY | 2022-07-03 10:57 | XMS ---
PreManage Notification: CHARLIE CHO Security Builder'S Labourer Events 3 event(s) in the past 18 months Most recent security events: Elopement at [facility] 12/18/2021 13:40 - Patient eloped before treatment completed. - Patient with suicidal and/or homicidal ideations eloped. - Patient eloped with IV in place. Details: PATIENT LWBS Elopement at [facility] 08/09/2021 14:38 - Other Details: PATIENT LEFT AMA Elopement at [facility] 04/18/2021 17:43 - Other Details: PATIENT LEFT AMA CRITERIA MET - [facility] - [facility] - Has Care Guidelines CARE PROVIDERS [facility]/[place] 06/22/2020-[facility] PHONE: [phone] Demetrio has no Care Guidelines for this patient. Care History Medical/Surgical 10/28/2021 [facility] - PATIENT IS RUBY CASTILLO, \T\middot;\T\nbsp; PLEASE REFER PATIENT TO [facility] FOR NON EMERGENT MEDICAL NEEDS. \T\middot;\T\nbsp; [facility] CAN SEE PATIENTS SAME DAY FOR APTS IF PATIENT CALLS FIRST THING IN THE MORNING. 08/27/2021 [facility] Contacted Ruby MURPHYpaint brush makerXagspqu-Jhnxsz-paksdeoq of recent ED visits. They will follow up with the patient. 03/12/2021 [facility] - PER EMERGENCY DEPARTMENT AIDE- [facility] AT [facility]-PATIENT HAS A CARDIOLOGY APT AT [facility] 03/20/21. Jan VISIT COUNT (12 MO.) [address] [facility] 1 [facility] TOTAL [facility] NOTE: Visits indicate total known visits. ED/UCC VISIT TRACKING (12 MO.) 07/03/2022 10:54 [facility] [place] [facility] COMPLAINT: - LOW IRON 02/25/2022 01:39 [facility] TYPE: Emergency DIAGNOSES: - Diarrhea, unspecified - Diarrhea; Dizzy; lightheadedness 12/18/2021 13:40 [facility] TYPE: Emergency COMPLAINT: - SYNCOPE 10/31/2021 18:22 [facility] TYPE: Emergency COMPLAINT: - ALTERED MENTAL STATUS DIAGNOSES: - Other half-way (current) drug therapy - Personal history of nicotine dependence - Anesthesia of skin - Alcohol abuse with intoxication, unspecified - Personal history of other venous thrombosis and embolism - Unspecified osteoarthritis, unspecified site - Type 1 diabetes mellitus without complications - Rheumatoid arthritis, unspecified 10/26/2021 10:55 [facility] [place] TYPE: Emergency COMPLAINT: - WEAKNESS DIAGNOSES: - Type 1 diabetes mellitus with hyperglycemia - Other rat exterminator (current) drug therapy - Alcohol abuse, uncomplicated - Unspecified osteoarthritis, unspecified site - Personal history of other venous thrombosis and embolism - Rheumatoid arthritis, unspecified - Weakness - Personal history of nicotine dependence 10/10/2021 23:18 [facility] [place] TYPE: Emergency COMPLAINT: - HALLUCINATIONS DIAGNOSES: - Personal history of other venous thrombosis and embolism - Personal history of nicotine dependence - Alcohol use, 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 Alcohol abuse with intoxication, unspecified 2. Type 2 diabetes mellitus with hyperglycemia 3. jail (current) use of insulin 4. Pain in right wrist 5. Pain in right knee 6. Pain in left knee 7. Unspecified fall, initial encounter 08/15/2021 12:36 [facility] [place] TYPE: Emergency COMPLAINT: - SOB DIAGNOSES: - Unspecified atrial flutter - Other half-way (current) drug therapy - Type 1 diabetes mellitus with hyperglycemia - Weakness - Personal history of nicotine dependence - Type 2 diabetes mellitus with hyperglycemia 08/09/2021 14:38 [facility] [place]: Emergency COMPLAINT: - SYNCOPE DIAGNOSES: - Syncope and collapse - Other half-way (current) drug therapy - Type 1 diabetes mellitus without complications - Alcohol abuse with intoxication, unspecified - Unspecified atrial flutter - Personal history of nicotine dependence 08/08/2021 14:23 [facility] [place]: Emergency COMPLAINT: - WEAKNESS DIAGNOSES: - Headache, unspecified - Type 1 diabetes mellitus with hyperglycemia - Unspecified atrial flutter - Alcohol abuse with intoxication delirium - Personal history of nicotine dependence - Unspecified injury of head, initial encounter - Unspecified atrial fibrillation - Blood alcohol level of 240 mg/100 ml or more - Other fall on same level, initial encounter - Other half-way (current) drug therapy 07/19/2021 17:[address] [facility] [address] [facility] [place] TYPE: Emergency COMPLAINT: - FALL, NECK PAIN DIAGNOSES: - Alcohol abuse with intoxication, unspecified - Personal history of nicotine dependence - Other half-way (current) drug therapy - Type 1 diabetes mellitus with hyperglycemia - Type 2 diabetes mellitus with hyperglycemia - Unspecified injury of head, initial encounter - Fall on same level, unspecified, initial encounter - Unspecified atrial flutter 07/17/2021 15:28 [facility] [place] TYPE: Emergency COMPLAINT: - SYNCOPE DIAGNOSES: - Alcohol abuse, uncomplicated - Type 1 diabetes mellitus with hyperglycemia - Syncope and collapse - Other rat exterminator (current) drug therapy - Unspecified atrial flutter - Type 2 diabetes mellitus with hyperglycemia INPATIENT VISIT TRACKING (12 MO.) No inpatient visits to display in this time frame [id number]
--- NOTE | 2022-07-06 13:53 | EKG ---
[facility] [address] [place] [address] Signed Marked sinus bradycardia Abnormal ECG When compared with ECG of 31-OCT-2021 18:44, Vent. rate has decreased BY 33 BPM QRS axis shifted left QT has shortened Confirmed by JUDIT JOSEPH MD ([id number]) on 07/06/2022 1:52:54 PM Electronically Signed By: JUDIT JOSEPH MD 07/06/22 1353 PATIENT NAME: CHARLIE CHO Electrocardiogram DATE OF : 71 PHYSICIAN: JUDIT JOSEPH MD REPORT #: [id number] REPORT IS CONFIDENTIAL AND NOT TO BE RELEASED WITHOUT AUTHORIZATION
== END 2022-07-03 14:15 | disposition home or self-care (01) ==
LOC: ED 10:53
DX: E10.9 Type 1 diabetes mellitus without complications (principal); I48.92 Unspecified atrial flutter; Z87.891 Personal history of nicotine dependence; Z86.718 Personal history of other venous thrombosis and embolism; Z79.899 Other long term (current) drug therapy
CPT/HCPCS: 36415; 80053; 83540; 83550; 85025; 86850; 86900; 86901; 93005; 93010; 96365; 99284-25; Q0138

== ENCOUNTER 2022-09-22 00:25 | Emergency (ER) | payer OTHER ==
[~2022-09-22] VITALS: Ht 175.3 cm; Wt 70.8 kg
--- OUTSIDE RECORDS SUMMARY | 2022-09-22 00:28 | XMS ---
PreManage Notification: CHARLIE CHO Security Bruise Trimmer Events 3 event(s) in the past 18 months Most recent security events: Elopement at [facility] 12/18/2021 13:40 - Patient eloped before treatment completed. - Patient with suicidal and/or homicidal ideations eloped. - Patient eloped with IV in place. Details: PATIENT LWBS Elopement at [facility] 08/09/2021 14:38 - Other Details: PATIENT LEFT AMA Elopement at [facility] 04/18/2021 17:43 - Other Details: PATIENT LEFT AMA CRITERIA MET - [facility] - Has Care Guidelines - PDMP CARE PROVIDERS [facility]/[place] 06/22/2020-[facility] PHONE: [phone] Demetrio has no Care Guidelines for this patient. Care History Medical/Surgical 10/28/2021 [facility] - PATIENT IS RUBY CASTILLO, \T\middot;\T\nbsp; PLEASE REFER PATIENT TO [facility] FOR NON EMERGENT MEDICAL NEEDS. \T\middot;\T\nbsp; [facility] CAN SEE PATIENTS SAME DAY FOR APTS IF PATIENT CALLS FIRST THING IN THE MORNING. 08/27/2021 [facility] Contacted Ruby MURPHYarboristJkwvdjq-Yaohhl-dptvysdh of recent ED visits. They will follow up with the patient. 03/12/2021 [facility] - PER SURGICAL INSTRUMENT TECHNICIAN- [facility] AT [facility]-PATIENT HAS A CARDIOLOGY APT AT [facility] 03/20/21. Jan VISIT COUNT (12 MO.) [address] 6 [facility] TOTAL 8 NOTE: Visits indicate total known visits. ED/UCC VISIT TRACKING (12 MO.) 09/22/2022 [facility]:25 [facility] [place] [facility] COMPLAINT: - FELL IN SHOWER 07/03/2022 10:54 [facility] [place] TYPE: Emergency COMPLAINT: - LOW IRON DIAGNOSES: - Other intermodal customer service (current) drug therapy - Type 1 diabetes mellitus without complications - Iron deficiency anemia, unspecified - Unspecified atrial flutter - Personal history of other venous thrombosis and embolism - Personal history of nicotine dependence 02/25/2022 01:39 [facility] DIAGNOSES: - Diarrhea; Dizzy; lightheadedness - Diarrhea, unspecified 12/18/2021 13:40 [facility] [place] TYPE: Emergency COMPLAINT: - SYNCOPE 10/31/2021 18:22 [facility] [place] TYPE: Emergency COMPLAINT: - ALTERED MENTAL STATUS DIAGNOSES: - Unspecified osteoarthritis, unspecified site - Type 1 diabetes mellitus without complications - Rheumatoid arthritis, unspecified - Other intermodal customer service (current) drug therapy - Personal history of nicotine dependence - Anesthesia of skin - Alcohol abuse with intoxication, unspecified - Personal history of other venous thrombosis and embolism 10/26/2021 10:55 [facility] TYPE: Emergency COMPLAINT: - WEAKNESS DIAGNOSES: - Rheumatoid arthritis, unspecified - Weakness - Personal history of nicotine dependence - Type 1 diabetes mellitus with hyperglycemia - Other correction (current) drug therapy - Alcohol abuse, uncomplicated - Unspecified osteoarthritis, unspecified site - Personal history of other venous thrombosis and embolism 10/10/2021 23:18 [facility] TYPE: Emergency COMPLAINT: - HALLUCINATIONS DIAGNOSES: - Type 1 diabetes mellitus without complications - Visual hallucinations - Other correction (current) drug therapy - Personal history of other venous thrombosis and embolism - Personal history of nicotine dependence - Alcohol use, 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 Alcohol abuse with intoxication, unspecified 2. Type 2 diabetes mellitus with hyperglycemia 3. manager long term care (current) use of insulin 4. Pain in right wrist 5. Pain in right knee 6. Pain in left knee 7. Unspecified fall, initial encounter INPATIENT VISIT TRACKING (12 MO.) No inpatient visits to display in this time frame [email or web address]
== END 2022-09-22 02:31 | disposition left against medical advice (07) ==
LOC: ED 00:25
DX: E11.65 Type 2 diabetes mellitus with hyperglycemia (principal); F10.129 Alcohol abuse with intoxication, unspecified; Z87.891 Personal history of nicotine dependence; Z79.899 Other long term (current) drug therapy; W18.2XXA Fall in (into) shower or empty bathtub, initial encounter; Z53.29 Procedure and treatment not carried out because of patient's decision for other reasons
CPT/HCPCS: 36415; 71045; 73020; 73560; 80053; 82010; 82803; 85025; 85610; 99284-25; G0480; J1815; J7121

== ENCOUNTER 2023-05-02 14:25 | Emergency (ER) | payer OTHER ==
[~2023-05-02] VITALS: Ht 175.3 cm; Wt 74.8 kg
[~2023-05-02 14:25] MED LIST changes: +ASPIR-TRIN325 MG PO; +CILOXAN3.5 GM OPTH
[2023-05-02 15:12] LABS: BASOPHILS 0.3 % (0-2); EOSINOPHILS 0.5 % (0-6); HEMATOCRIT 25.3 % (35.0-50.0); HEMOGLOBIN 8.5 g/dL (12.0-18.0); LYMPHOCYTES 18.1 % (24-44); MCH 33.3 (27-36); MCHC 33.8 g/dl (30-36); MCV 98.4 fl (81-99); MONOCYTES 11.3 % (0-12); NEUTROPHILS 69.8 % (39-80); PLATELET COUNT 90 K/uL (140-440); RBC 2.57 M/ul (4.3-5.7); RDW 13.6 (10.5-15.0)
[2023-05-02 15:20] LABS: ALBUMIN 2.5 g/dL (3.4-5.0); ALBUMIN/GLOBULIN RATIO 0.57 (1.1-2.4); ANION GAP 12.8 (7-21); BILIRUBIN, TOTAL 0.3 ng/dL (0.2-1.0); BUN/CREATININE RATIO 8.82 (6.0-28.6); CALCIUM 7.5 mg/dL (8.5-10.1); CREATININE, SERUM 1.36 mg/dL (0.70-1.30); POTASSIUM 3.8 mmol/L (3.5-5.1); PROTEIN, TOTAL 6.9 g/dL (6.4-8.2)
[2023-05-02 18:34] VITALS: BP 121/87
== END 2023-05-02 18:34 | disposition home or self-care (01) ==
LOC: ED 14:25
PROVIDERS: Emergency Medicine
DX: F10.129 Alcohol abuse with intoxication, unspecified (principal); E10.9 Type 1 diabetes mellitus without complications; Z87.891 Personal history of nicotine dependence; Z79.899 Other long term (current) drug therapy; Z79.82 Long term (current) use of aspirin
CPT/HCPCS: 36415; 80053; 85025; 99284; G0480

== ENCOUNTER 2024-01-28 18:51 | Emergency (ER) | payer OTHER ==
[~2024-01-28] VITALS: Ht 175.3 cm; Wt 60.1 kg
[~2024-01-28 18:51] MED LIST changes: +MAG-OXIDE400 MG PO
[2024-01-28 19:43] LABS: BASOPHILS 0.7 % (0-2); HEMATOCRIT 27.4 % (35.0-50.0); HEMOGLOBIN 9.2 g/dL (12.0-18.0); LYMPHOCYTES 16.4 % (24-44); MCH 32.2 (27-36); MCHC 33.6 g/dl (30-36); MCV 95.9 fl (81-99); MONOCYTES 8.4 % (0-12); NEUTROPHILS 73.5 % (39-80); PLATELET COUNT 117 K/uL (140-440); RBC 2.86 M/ul (4.3-5.7); RDW 12.2 (10.5-15.0)
[2024-01-28] MEDS ORDERED: CIPROFLOXACIN 0.3% OD ONE (19:45)
[2024-01-28] MEDS ORDERED: OPTH OD ONE (19:45)
[2024-01-28 19:58] LABS: ALBUMIN 2.7 g/dL (3.4-5.0); ALBUMIN/GLOBULIN RATIO 0.66 (1.1-2.4); ANION GAP 18.9 (7-21); BILIRUBIN, TOTAL 0.3 ng/dL (0.2-1.0); BUN/CREATININE RATIO 6.52 (6.0-28.6); CALCIUM 8.3 mg/dL (8.5-10.1); CREATININE, SERUM 1.38 mg/dL (0.70-1.30); POTASSIUM 3.9 mmol/L (3.5-5.1); PROTEIN, TOTAL 6.8 g/dL (6.4-8.2)
[2024-01-28] MEDS ORDERED: FUROSEMIDE 20 MG/2 ML VIAL IV ONE (20:15)
[2024-01-28] MEDS ORDERED: INSULIN LISPRO 100 UNIT/ML ML IV ONE (20:15)
[2024-01-28 20:23] LABS: PH, VENOUS 7.337 (7.31-7.41)
[2024-01-28] MEDS ORDERED: CIPROFLOXACIN 0.3% 5 ML HOME.PACK OPTH ONE (20:30)
[2024-01-28 20:57] VITALS: BP 130/90
== END 2024-01-28 21:04 | disposition home or self-care (01) ==
LOC: ED 18:51
PROVIDERS: Family Medicine
DX: E10.65 Type 1 diabetes mellitus with hyperglycemia (principal); H10.9 Unspecified conjunctivitis; R60.9 Edema, unspecified; Z87.891 Personal history of nicotine dependence; Z79.899 Other long term (current) drug therapy; Z79.82 Long term (current) use of aspirin
CPT/HCPCS: 36415; 80053; 82010; 82803; 83880; 85025; G0480; J1815; J1940

== ENCOUNTER 2024-03-11 12:08 | Emergency (ER) | payer OTHER ==
[~2024-03-11] VITALS: Ht 175.3 cm; Wt 60.8 kg
[2024-03-11] MEDS ORDERED: ondansetron HCL 4 MG/2 ML VIAL IV ONE (12:15)
[2024-03-11] MEDS ORDERED: SODIUM CHLORIDE 0.9% 1,000 ML IV ONE ×2 (12:15→13:15)
[2024-03-11 12:25] LABS: BASOPHILS 0.9 % (0-2); EOSINOPHILS 2.2 % (0-6); HEMATOCRIT 25.9 % (35.0-50.0); HEMOGLOBIN 8.8 g/dL (12.0-18.0); LYMPHOCYTES 41.1 % (24-44); MCH 30.3 (27-36); MCHC 33.9 g/dl (30-36); MCV 89.2 fl (81-99); MONOCYTES 5.4 % (0-12); NEUTROPHILS 50.4 % (39-80); PLATELET COUNT 240 K/uL (140-440)
[2024-03-11 12:40] LABS: MAGNESIUM 1.7 mg/dL (1.8-2.4)
[2024-03-11 12:44] LABS: ALBUMIN 2.6 g/dL (3.4-5.0); ALBUMIN/GLOBULIN RATIO 0.59 (1.1-2.4); ALKALINE PHOSPHATASE 141 U/L (46-116); ALT (SGPT) 14 U/L (14-59); AST (SGOT) 17 U/L (15-37); BILIRUBIN, TOTAL 0.2 ng/dL (0.2-1.0); BUN/CREATININE RATIO 4.54 (6.0-28.6); CALCIUM 8.7 mg/dL (8.5-10.1); CARBON DIOXIDE 23 mmol/L (21-32); CHLORIDE 96 mmol/L (98-107); CREATININE, SERUM 1.54 mg/dL (0.70-1.30); GLOMERULAR FILTRATION RATE,EST 55 mL/min (>60); UREA NITROGEN 7 mg/dL (7-18)
[2024-03-11] MEDS ORDERED: Insulin Regular, Human 100 UNIT/ML ML SUB-Q ONE ×2 (13:15→14:45)
[2024-03-11] MEDS ORDERED: MAGNESIUM OXIDE 400 MG TABLET PO ONE (13:45)
[2024-03-11] MEDS ORDERED: POTASSIUM CHLORIDE 10 MEQ TABCR PO ONE (13:45)
[2024-03-11 16:06] VITALS: BP 150/100
== END 2024-03-11 16:06 | disposition home or self-care (01) ==
LOC: ED 12:08
PROVIDERS: Emergency Medicine
DX: E10.65 Type 1 diabetes mellitus with hyperglycemia (principal); F10.10 Alcohol abuse, uncomplicated; Z79.82 Long term (current) use of aspirin; Z79.899 Other long term (current) drug therapy; Z87.891 Personal history of nicotine dependence
CPT/HCPCS: 36415; 80053; 83690; 83735; 85025; 96361; 96374; 99284-25; A9270; G0480; J1815; J2405; J7030

== ENCOUNTER 2024-04-04 08:18 | Emergency (ER) | payer OTHER ==
[~2024-04-04] VITALS: Ht 175.3 cm; Wt 74.9 kg
[2024-04-04 11:00] VITALS: BP 137/81
== END 2024-04-04 11:00 | disposition home or self-care (01) ==
LOC: ED 08:18
DX: E10.649 Type 1 diabetes mellitus with hypoglycemia without coma (principal); Z79.4 Long term (current) use of insulin; Z87.891 Personal history of nicotine dependence; Z79.899 Other long term (current) drug therapy; Z79.82 Long term (current) use of aspirin
CPT/HCPCS: 99285

== ENCOUNTER 2024-04-15 20:32 | Emergency (ER) | payer OTHER ==
[~2024-04-15] VITALS: Ht 175.3 cm; Wt 74.6 kg
[2024-04-15 21:45] LABS: BASOPHILS 0.5 % (0-2); EOSINOPHILS 1.7 % (0-6); HEMATOCRIT 20.5 % (35.0-50.0); HEMOGLOBIN 6.9 g/dL (12.0-18.0); LYMPHOCYTES 24.6 % (24-44); MCH 30.9 (27-36); MCHC 33.8 g/dl (30-36); MCV 91.3 fl (81-99); MONOCYTES 11.7 % (0-12); NEUTROPHILS 61.5 % (39-80); PLATELET COUNT 272 K/uL (140-440); RBC 2.25 M/ul (4.3-5.7); RDW 15.5 (10.5-15.0)
[2024-04-15 22:01] LABS: ALBUMIN/GLOBULIN RATIO 0.43 (1.1-2.4); ANION GAP 16.4 (7-21); BILIRUBIN, TOTAL 0.2 ng/dL (0.2-1.0); BUN/CREATININE RATIO 12.5 (6.0-28.6); CALCIUM 7.8 mg/dL (8.5-10.1); CREATININE, SERUM 1.36 mg/dL (0.70-1.30); MAGNESIUM 1.9 mg/dL (1.8-2.4); POTASSIUM 4.4 mmol/L (3.5-5.1); PROTEIN, TOTAL 6.6 g/dL (6.4-8.2)
[2024-04-15] MEDS ORDERED: ACETAMINOPHEN 500 MG TAB PO ONE (22:30)
[2024-04-15 23:00] LABS: ABO O; ANTIBODY SCREEN NEGATIVE; IS CROSSMATCH COMPATIBLE; RH POSITIVE
[2024-04-16] MEDS ORDERED: FUROSEMIDE 40 MG/4 ML VIAL IV ONE (02:15)
[2024-04-16 02:51] LABS: BILIRUBIN, URINE NEGATIVE (negative); BLOOD/HGB, URINE TRACE-I (Negative); KETONE, URINE NEGATIVE (Negative); LEUK ESTERASE, URINE NEGATIVE (negative); NITRITE, URINE NEGATIVE (negative)
[2024-04-16 02:56] LABS: EPITHELIAL CELLS, URINE SQUAMOUS 1+ /lpf (0-1+)
[2024-04-16 02:57] LABS: BACTERIA, URINE RARE /hpf (negative); CASTS, URINE NONE SEEN \\lpf; COLLECTION TYPE, URINE CLEAN CATCH; CRYSTALS, URINE NONE SEEN (0-1+); REFLEX CULTURE, URINE No (No)
[2024-04-16 03:05] LABS: AMPHETAMINES, URINE NEGATIVE (NEGATIVE); BARBITURATES, URINE NEGATIVE (NEGATIVE); BENZODIAZEPINE, URINE NEGATIVE (NEGATIVE); BUPRENORPHINE, URINE NEGATIVE (NEGATIVE); CANNABINOID, URINE NEGATIVE (NEGATIVE); COCAINE, URINE NEGATIVE (NEGATIVE); ECSTASY, URINE NEGATIVE (NEGATIVE); FENTANYL, URINE NEGATIVE (NEGATIVE); METHADONE, URINE NEGATIVE (NEGATIVE); OPIATES, URINE NEGATIVE (NEGATIVE); OXYCODONE, URINE NEGATIVE (NEGATIVE); PHENCYCLIDINE, URINE NEGATIVE (NEGATIVE)
[2024-04-16 05:34] LABS: BASOPHILS 0.8 % (0-2); EOSINOPHILS 3.2 % (0-6); HEMATOCRIT 25.1 % (35.0-50.0); HEMOGLOBIN 8.7 g/dL (12.0-18.0); LYMPHOCYTES 25.1 % (24-44); MCH 30.9 (27-36); MCHC 34.6 g/dl (30-36); MCV 89.4 fl (81-99); MONOCYTES 12.3 % (0-12); NEUTROPHILS 58.6 % (39-80); PLATELET COUNT 250 K/uL (140-440); RBC 2.81 M/ul (4.3-5.7); RDW 15.5 (10.5-15.0)
[2024-04-16 05:45] LABS: ANION GAP 14.2 (7-21); BUN/CREATININE RATIO 13.04 (6.0-28.6); CALCIUM 7.9 mg/dL (8.5-10.1); CREATININE, SERUM 1.38 mg/dL (0.70-1.30); POTASSIUM 4.2 mmol/L (3.5-5.1)
[2024-04-16 06:21] VITALS: BP 163/98
--- NOTE | 2024-04-16 14:52 | EKG ---
[facility] [address] [facility] [place] [address] Signed Normal sinus rhythm Incomplete right bundle branch block Prolonged QT Abnormal ECG When compared with ECG of 23-OCT-2023 14:48, Nonspecific T wave abnormality has replaced inverted T waves in Inferior leads Confirmed by Keiry Rico MD () on 04/16/2024 2:51:55 PM Electronically Signed By: KEIRY RICO MD 04/16/24 1452 PATIENT NAME: CHOCHARLIE CHRIS Electrocardiogram DATE OF : 71 PHYSICIAN: KEIRY RICO MD REPORT #: [id number] REPORT IS CONFIDENTIAL AND NOT TO BE RELEASED WITHOUT AUTHORIZATION
[2024-04-17 21:37] LABS: IRON BINDING CAPACITY TOTAL 174 ug/dL (240-450); IRON,SERUM OR PLASMA 54 ug/dL (45-182); TRANSFERRIN SATURATION 31 %sat (20-50)
== END 2024-04-16 06:54 | disposition home or self-care (01) ==
LOC: ED 20:32
PROVIDERS: Internal Medicine
DX: D64.9 Anemia, unspecified (principal); I50.9 Heart failure, unspecified; R60.0 Localized edema; E10.9 Type 1 diabetes mellitus without complications; Z87.891 Personal history of nicotine dependence
CPT/HCPCS: 36415; 36430; 71045; 80048; 80053; 80307; 81001; 83550; 83735; 83880; 85025; 85379; 86850; 86900; 86901; 86922; 93005; 93010; 93970; 96374; 99284-25; A9270; J1940; P9016; U0002

== ENCOUNTER 2024-05-21 11:18 | Inpatient (IN) | payer OTHER ==
[2024-05-21] VITALS (7 sets, daily range): BP systolic 148–178; BP diastolic 76–94
[~2024-05-21] VITALS: Ht 175.3 cm; Wt 71.9 kg
[2024-05-21] MEDS ORDERED: SODIUM CHLORIDE 0.9% 1,000 ML IV PRN (11:30)
[2024-05-21 11:47] LABS: BASOPHILS 0.6 % (0-2); EOSINOPHILS 1.6 % (0-6); HEMOGLOBIN 9.4 g/dL (12.0-18.0); LYMPHOCYTES 42.1 % (24-44); MCH 31.7 (27-36); MCHC 33.6 g/dl (30-36); MCV 94.3 fl (81-99); MONOCYTES 6.4 % (0-12); NEUTROPHILS 49.3 % (39-80); PLATELET COUNT 141 K/uL (140-440); RBC 2.97 M/ul (4.3-5.7); RDW 18.2 (10.5-15.0)
[2024-05-21 11:52] LABS: INR 1.16 (0.80-1.30)
[2024-05-21 11:56] LABS: BILIRUBIN, URINE NEGATIVE (negative); BLOOD/HGB, URINE SMALL (Negative); KETONE, URINE NEGATIVE (Negative); LEUK ESTERASE, URINE NEGATIVE (negative); NITRITE, URINE NEGATIVE (negative)
[2024-05-21] MEDS ORDERED: CEFEPIME HCL/D5W 2 GM/100 ML PIGGYBACK IV ONE (12:00)
--- NOTE | 2024-05-21 12:01 | EKG ---
[facility] [address] [facility] [place] [address] Signed Normal sinus rhythm with sinus arrhythmia Incomplete right bundle branch block Prolonged QT Abnormal ECG No previous ECGs available Confirmed by Roberto Campuzano MD ([id number]) on 05/21/2024 12:01:35 PM Electronically Signed By: ROBERTO CAMPUZANO DO 05/21/24 1201 PATIENT NAME: MARQUISCHARLIE CHRIS Electrocardiogram DATE OF : 71 PHYSICIAN: ROBERTO CAMPUZANO DO REPORT #: [id number] REPORT IS CONFIDENTIAL AND NOT TO BE RELEASED WITHOUT AUTHORIZATION
[2024-05-21 12:04] LABS: ALBUMIN 2.3 g/dL (3.4-5.0); ALBUMIN/GLOBULIN RATIO 0.47 (1.1-2.4); ANION GAP 16.6 (7-21); BILIRUBIN, TOTAL 0.1 ng/dL (0.2-1.0); BUN/CREATININE RATIO 13.19 (6.0-28.6); CALCIUM 8.1 mg/dL (8.5-10.1); CREATININE, SERUM 1.44 mg/dL (0.70-1.30); MAGNESIUM 2.6 mg/dL (1.8-2.4); POTASSIUM 4.6 mmol/L (3.5-5.1); PROTEIN, TOTAL 7.2 g/dL (6.4-8.2); TSH, 3RD GENERATION 3.468 uIU/mL (0.358-3.740)
[2024-05-21 12:07] LABS: BACTERIA, URINE 1+ /hpf (negative); COLLECTION TYPE, URINE CLEAN CATCH; CRYSTALS, URINE NONE SEEN (0-1+); REFLEX CULTURE, URINE No (No)
[2024-05-21 12:08] LABS: CASTS, URINE GRANULAR 2+ \\lpf
[2024-05-21 12:18] LABS: AMPHETAMINES, URINE NEGATIVE (NEGATIVE); BARBITURATES, URINE NEGATIVE (NEGATIVE); BENZODIAZEPINE, URINE NEGATIVE (NEGATIVE); BUPRENORPHINE, URINE NEGATIVE (NEGATIVE); CANNABINOID, URINE NEGATIVE (NEGATIVE); COCAINE, URINE NEGATIVE (NEGATIVE); ECSTASY, URINE NEGATIVE (NEGATIVE); FENTANYL, URINE NEGATIVE (NEGATIVE); METHADONE, URINE NEGATIVE (NEGATIVE); OPIATES, URINE NEGATIVE (NEGATIVE); OXYCODONE, URINE NEGATIVE (NEGATIVE); PHENCYCLIDINE, URINE NEGATIVE (NEGATIVE)
[2024-05-21 12:42] LABS: INFLUENZA B NAA NEGATIVE (NEGATIVE); RESPIRATORY SYNCYTIAL VIR NAA NEGATIVE (NEGATIVE)
[2024-05-21] MEDS ORDERED: DEXTROSE 5% - NACL 0.45% 1,000 ML IV SCH (14:00)
[2024-05-21] MEDS ORDERED: DEXTROSE 50% 50 ML SYR IV ONE ×2 (15:45→16:00)
[2024-05-21] MEDS ORDERED: IBLOOD GLUCOSE TEST STRIP 1 EA TEST XX SCH (16:00)
[2024-05-21] MEDS ORDERED: ondansetron HCL 4 MG/2 ML VIAL IV PRN (16:00)
[2024-05-21] MEDS ORDERED: THIAMINE HCL 100 MG,FOLIC ACID 1 MG,MULTIVITAMINS 10 ML in SODIUM CHLORIDE 0.9% 1,000 ML IV ONE (16:15)
[2024-05-21] MEDS ORDERED: LORazepam 1 MG TAB PO PRN (16:15)
[2024-05-21] MEDS ORDERED: LANTUS100 UNITS/ SUB-Q (16:52)
[2024-05-21] MEDS ORDERED: SYMBICORT 80-10.2 GM INH (17:20)
--- NOTE | 2024-05-21 17:47 | NUR ---
LE 1700: THIS RN SEES THE PT FOR A WOUND CONSULT OF BILATERAL FEET. HE IS REPORTED TO HAVE LACERATIONS/FISSURES ON EACH. LACERATIONS ARE ONLY VISUALIZED ON THE RIGHT FOOT BY THIS WOUND RN. THERE IS A SIGNIFICANT AMOUNT OF DRIED BLOOD ON THE RIGHT FOOT AND DRY/ SKIN ON THE LEFT FOOT. USING WARM, WET WASH CLOTHS BILATERAL FEET ARE GENTLY CLEANSED OF DRY/ SKIN AND DRIED BLOOD. HYDROGEN PEROXIDE SOAKED GAUZE IS UTILIZED TO HELP REMOVED ALL THE DRIED BLOOD FROM THE RIGHT FOOT. ONCE ALL DRIED BLOOD (AND DOG HAIR) IS REMOVED FROM THE RIGHT FOOT PHOTOGRAPHS ARE TAKEN OF THE GREAT TOE ANTERIORLY AND LATERALLY. THERE IS A SMALL OPEN AREA ON BOTH ANTERIOR AND LATERAL AREAS. SKIN PREP IS APPLIED TO THE LACERATIONS. MEDIHONEY IS APPLIED TO THE OPEN AREAS AND COVERED WITH A SMALL ADHESIVE FOAM DRESSING. LOTION IS APPLIED TO BILATERAL FEET. LAURO 1738: WOUND CONSULT IS COMPLETE.
[2024-05-21] MEDS ORDERED: ARTIFICIAL TEAR15 M6 OU (17:55)
[2024-05-21] MEDS ORDERED: GLUCOSE4 GM PO (17:56)
--- NOTE | 2024-05-21 17:56 | NUR ---
MED REC COMPLETE
--- NOTE | 2024-05-21 18:00 | NUR ---
SINCE ARRIVAL PT HAS BEEN AAOX4, PT IS VERY HARD OF HEARING ON THE LEFT SIDE. 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 PT OVERALL SEEMS VERY PAINFULLY SENSITIVE TO MINOR TOUCH. WOUND RN DID TREAT ABRASIONS ON RIGHT FOOT. PLEASE SEE HER ORDERS. ALL LOBES ARE CLERA, ABD SOUNDS PRESENT, PT IS WEAK OVERALL. PER PT HE DRINKS ABOUT 3 TALLBOYS/ DAY. PER MOTHER PT DRINKS ABOUT 4 TALL BOYS PER DAY. CIWA AT 1800 WAS A 9. 1MG ATIVAN PO WAS GIVEN. PT HAS HAD WITHDRAWL SYMPTOMS WITH SEIZURES BEFORE WAS STATED BY HIS MOTHER. BUT PT HASNEVER BEEN INTUBATED FOR ETOH WITHDRAWL. BLOOD SUGAR IS OF CONCERN BECAUSE IT SO FAR APPEARS TO BE DROPPING QUICKLY. AT [facility] @ 1600--152, @1700--109, @1800--85. PT IS CURRENTLY EATING DINNER AND DRINKING SOME OJ. PER PT AND HIS MOTHER, PT HAD 15IU OF LANTUS INSULIN YESTDAY EVENING BETWEEN [id number]. NO PERIPHERAL EDEMA NOTED. NO HEART MURMUR NOTED, S1 S2 HEARD.
--- NOTE | 2024-05-21 19:33 | NUR ---
REPORT RECEIVED FROM DAY SHIFT RN. PATIENT RESTING IN BED WITH EYES CLOSED. RESPIRATIONS EVEN AND UNLABORED. CALL LIGHT WITHIN REACH.
--- NOTE | 2024-05-21 20:34 | NUR ---
PATIENT RESTING IN BED. ALERT AND ORIENTED TO PERSON AND PLACE. CIWA ASSESSMENT COMPLETED. HS MEDICATIONS ADMINSTERED. LUNGS CTA, RESPIRATIONS EVEN AND UNLABORED. BOWEL TONES ACTIVE X 4 QUADRANTS. IVF INFUSING WITH NO ISSUES OR CONCERNS. VSS, VILLAR CATHERTER DRAINING CLEAR YELLOW URINE. DRESSING TO RIGHT FOOT CDI, SLIGHT DRAINAGE LEAKING FROM SIDE OF DRESSING. PEDAL PULSES PALPABLE. PATIENT C/O NAUSEA AND HEADACHE. APPEARS SENSITIVE TO TOUCH, AND LIGHT. SECOND RN SKIN CHECK COMPLETED. PATIENT REPOSITIONED IN BED. PATIENT ABLE TO ROLL FROM SIDE TO SIDE WITH MINMIAL ASSISTANCE. NO FURTHER NEEDS AT THIS TIME. CALL LIGHT WITHIN REACH. BED ALARM ON.
[2024-05-21] MEDS ORDERED: DEXTROSE 10% 1,000 ML IV SCH (20:45)
[2024-05-21 21:00] LABS: ANION GAP 13.5 (7-21); BUN/CREATININE RATIO 14.16 (6.0-28.6); CALCIUM 7.5 mg/dL (8.5-10.1); CREATININE, SERUM 1.2 mg/dL (0.70-1.30); POTASSIUM 4.5 mmol/L (3.5-5.1)
[2024-05-21] MEDS ORDERED: MELATONIN 3 MG TAB PO SCH (21:00)
[2024-05-21] MEDS ORDERED: GABAPENTIN 300 MG CAP PO SCH (21:00)
[2024-05-21] MEDS ORDERED: IBLOOD GLUCOSE TEST STRIP 1 EA TEST XX PRN (21:15)
[2024-05-21] MEDS ORDERED: DEXTROSE 50% 50 ML SYR IV PRN ×2 (21:15)
--- NOTE | 2024-05-21 21:55 | NUR ---
PATIENT RESTING IN BED. BS TAKEN. IVF INFUSING WITH NO ISSUES OR CONCERNS. IV SITE WNL. PATIENT REPORTS FEELING, "SLEEPY." NO FURTHER NEEDS AT THIS TIME.
--- NOTE | 2024-05-21 23:06 | NUR ---
PATIENT RESTING IN BED. ALERT AND ORIENTED TO PERSNO, PLACE AND SITUTATION. CIWA ASSESSMENT COMPLETED. BS OBTAINED. IV SITES REMAIN WNL. IVF INFUSING WITH NO ISSUES OR CONCERNS. PATIENT WAKES TO ANSWER QUESTIONS THAN HE FALLS BACK TO SLEEP. CATHERTER DRAINAING YELLOW URINE WITH NO ISSUES. CALL LIGHT WITHIN REACH. BED ALARM ON.
--- NOTE | 2024-05-21 23:52 | NUR ---
PATIENT CALLING OUT. REQUESTING CRACKERS. CRACKERS GIVEN. PATIENT ABLE TO CHEW AND SWALLOW WITH NO ISSUES OR CONCERNS. OFFERED APPLE JUICE, PATIENT ACCEPTED.
[2024-05-22] VITALS (16 sets, daily range): BP systolic 130–170; BP diastolic 67–87
--- NOTE | 2024-05-22 01:07 | NUR ---
BS OBTAINED. PATIENT RESTING IN BED WITH EYES CLOSED. RESPIRATIONS EVEN AND UNLABORED. CIWA COMPLETED. IVF INFUSING WITH NO ISSUE. VSS. CALL LIGHT WITHIN REACH, BED ALARM ON.
--- NOTE | 2024-05-22 03:02 | NUR ---
BS OBTAINED PATIENT RESTING IN BED WITH EYES CLOSED. RESPIRATIONS EVEN AND UNLABORED. VILLAR DRAINAING YELLOW URINE. CALL LIGHT WITHIN REACH, BED ALARM ON .
--- NOTE | 2024-05-22 05:09 | NUR ---
PATIENT RESTING IN BED WITH EYES CLOSED. RESPONDS TO VERBAL STIMULI. ANSWERES WUESTIONS APPROPIATLY. BS OBTAINED. LUNGS CTA, BOWEL TONES ACTIVE X 4 QUADRANTS. DRESSING TO RIGHT FOOT REMAINS CDI. IV SITES WNL, IVF INFUSING WITH NO ISSUES. LAB IN ROOM WITH PATIENT. PATIENT DENIES ANY FURTHER NEEDS AT THIS TIME. CALL LIGHT WITHIN REACH, BED ALARM ON.
[2024-05-22 05:59] LABS: ANION GAP 10.7 (7-21); BUN/CREATININE RATIO 13.07 (6.0-28.6); CALCIUM 7.5 mg/dL (8.5-10.1); CREATININE, SERUM 1.3 mg/dL (0.70-1.30); PHOSPHORUS, INORGANIC 3.1 mg/dL (2.5-4.9); POTASSIUM 4.7 mmol/L (3.5-5.1)
--- NOTE | 2024-05-22 06:10 | NUR ---
BS OBTAINED, OUTPUT DOCUMENTED. VLILAR DRAINAING WELL. ORAL TEMPERATURE TAKEN. CIWA COMPLETED. LAB BACK IN ROOM WITH PATIENT. NO FURTHER NEEDS AT THIS TIME. BED ALARM BRONZER LIGHT WITHIN REACH.
[2024-05-22 06:20] LABS: BASOPHILS 0.5 % (0-2); EOSINOPHILS 0.8 % (0-6); HEMATOCRIT 22.6 % (35.0-50.0); HEMOGLOBIN 7.6 g/dL (12.0-18.0); LYMPHOCYTES 17.4 % (24-44); MCH 31.5 (27-36); MCHC 33.7 g/dl (30-36); MCV 93.3 fl (81-99); MONOCYTES 15.6 % (0-12); NEUTROPHILS 65.7 % (39-80); PLATELET COUNT 97 K/uL (140-440); RBC 2.42 M/ul (4.3-5.7); RDW 17.7 (10.5-15.0)
[2024-05-22] MEDS ORDERED: SODIUM PHOSPHATE 20 MMOL in DEXTROSE 5% 250 ML IV ONE (07:00)
--- NOTE | 2024-05-22 07:29 | NUR ---
PATIENT CALLED FOR ASSISTANCE UP TO THE BSC. PATIENT IS WEAK, ABLE TO TRANSFER WITH STAND PIVOT. PATIENT HAD MEDIUM SOFT BM; WHICH IS HENNESSY IN COLOR. PATIENT ASSISTED WITH MONA CARE. RETURNED TO BED. ASSISTED TO POSITION FOR COMFORT. PATIENT REPORTS FEELING BETTER THIS MORNING. DENIED ANY NEEDS OR CONCERNS. CALL LIGHT IN REACH. BED ALARM ACTIVE.
[2024-05-22] MEDS ORDERED: THIAMINE HCL 100 MG TAB PO SCH (08:00)
[2024-05-22] MEDS ORDERED: FOLIC ACID 1 MG TAB PO SCH (08:00)
[2024-05-22] MEDS ORDERED: AMOXICILLIN/CLAVULANATE K 875 MG TAB PO SCH (09:00)
[2024-05-22] MEDS ORDERED: ENOXAPARIN SODIUM 40 MG/0.4 ML SYR SUB-Q SCH (09:00)
--- NOTE | 2024-05-22 09:15 | NUR ---
ACCUCHECK-162. TOOK BREAKFAST WELL . D10 CONTINUES AT 100 ML/HR. SODIUM PHOSPHATE INFUSING AT 62 ML/H. SODIUM PHOSPHATE MIXED IN D5W. WILL NOTIFY MD REGARDING ACCUCHECK. PHYSICAL THERAPIST WORKING WITH PATIENT.
--- NOTE | 2024-05-22 09:30 | NUR ---
BACK TO BED W/O INCIDENT. DENIES SHORTNESS OF BREATH OR DIZZINESS. IVF CONTINUE TO INFUSE. VILLAR CATH PATENT WITH CLEAR YELLOW URINE NOTED. PATIENT W/O REQUESTS. CALL LIGHT IS WITHIN REACH.
--- NOTE | 2024-05-22 10:11 | NUR ---
HENRY FOR ACCUCHECK OF 205. DR. COBB AWARE. ORDERS RECEIVED TO DC D10. THIS DONE.
--- NOTE | 2024-05-22 11:10 | NUR ---
ACCUCHECK-172. PATIENT HAS BEEN RESTING AND NAPPING. STATES HE IS FEELING BETTER.
[2024-05-22] MEDS ORDERED: PHARMACY RENAL DOSE ADJUSTMENT 1 DOSE MISC PO SCH (12:00)
--- NOTE | 2024-05-22 14:10 | NUR ---
DR. COBB HERE TO SEE PATIENT. ORDERS RECEIVED. WILL GIVE SEMGLEE ORDERED.
[2024-05-22] MEDS ORDERED: INSULIN GLARGINE-YFGN 100 UNIT/ML ML SUB-Q ONE (14:15)
--- NOTE | 2024-05-22 15:10 | NUR ---
VILLAR CATH DC'D AND EMPTIED FOR 550 ML OF CLEAR YELLOW URINE.
--- NOTE | 2024-05-22 16:30 | NUR ---
ASSESSMENT DONE. STATES PAIN IS LESS. NO IVF INFUSING AT THIS TIME. TAKING PO WELL. DENIES NAUSEA. ACCUCHECK 145. DR. COBB AWARE. NO SS INSULIN ORDERED.
[2024-05-22] MEDS ORDERED: IBLOOD GLUCOSE TEST STRIP 1 EA TEST VI SCH (16:45)
--- NOTE | 2024-05-22 17:18 | NUR ---
TOOK DINNER WELL. IS W/O C/O.
[2024-05-22] MEDS ORDERED: TRAZODONE HCL 50 MG TAB PO PRN (18:45)
--- NOTE | 2024-05-22 19:20 | NUR ---
REPORT RECEIVED FROM DAY SHIFT RN. PATIENT RESTING IN BED WATCHING TV. DENIES ANY NEEDS AT THIS TIME. CALL LIGHT WITHIN REACH.
--- NOTE | 2024-05-22 20:30 | NUR ---
VSS, NOTED ELEVATED TEMPERATURE. MD AWARE. PATIENT IS ASYMTPOMATIC AT THIS TIME. LUNGS CTA, BOWEL TONES ACTIVE X 4. NOTED EDMEA TO BILATERAL LOWER EXTERMITIES GENERALIZED. DRESSING TO RIGHT FOOT REMAINS CDI. PATIENT C/O PAIN TO LEFT ANKLE. REPORTS PAIN IS CHRONIC AND HIS PRIMARY DOCTOR KNOWS ABOUT IT STATING. " THE GABAPENTIN IS SUPPOSED TO HELP WITH IT". DENIES NEED TO VOID AT THIS TIME. IV SITES WNL AND PATENT. BS TAKEN, HS MEDICATIONS ADMINSTERED. HS SNACK GIVEN. NO FURTHER NEEDS AT THIS TIME. CALL LIGHT WITHIN REACH.
--- NOTE | 2024-05-22 21:11 | NUR ---
CALL LIGHT ANSWERED. PATIENT DONE EATTING HS SNACK. URINAL EMPTED. NO FURTHER NEEDS AT THIS TIME CALL LIGHT WITHIN REACH.
--- NOTE | 2024-05-22 23:30 | NUR ---
PATIENT RESTING IN BED WITH EYES CLOSED. RESPIRATIONS EVEN AND UNLABORED. CALL LIGHT WITHIN REACH.
[2024-05-23] VITALS (11 sets, daily range): BP systolic 141–179; BP diastolic 82–101
--- NOTE | 2024-05-23 00:27 | NUR ---
PATIENT RESTING IN BED, FACE APPEARS SWEATY. BS CHECKED. READING OF 61MG/DL. DEXTROSE GIVEN PER MD VERBAL ORDERS EARILER IN THE SHIFT. VSS, IV SITES WNL. DENIES ANY HEADACHE AT THIS TIME. NO NOTED TREMMOR. LUNGS CTA, BOWEL TONES ACTIVE. EDEMA TO BLLE APPERAS TO BE IMPROVED. PAIN TO LEFT ANKLE REMAINS. URINAL EMPTIED. CALL LIGHT WITHIN REACH.
--- NOTE | 2024-05-23 00:43 | NUR ---
BS RECHECKED AND WITHIN ACCEPTABLE RANGE AT THIS TIME.
--- NOTE | 2024-05-23 01:47 | NUR ---
CALL LIGHT ANSWERED. PATIENT ASSISTED TO BSC, 1PA ASSIST WITH FWW. TOLLERATED WELL. BM NOTED. PATIENT ASSISTED BACK INTO BED. BS RECHECKED RESULTS OF 80. JUCIE AND SNACK GIVEN TO PATIENT. NO FURTHER NEEDS AT THIS TIME. CALL LIGHT WITHIN REACH.
--- NOTE | 2024-05-23 02:40 | NUR ---
PATIENT REQUESTING HIS LIGHT BE SHUT OFF AND REQUESTING HELP TO PUT THE HOB DOWN. LIGHT TURNED OFF AND HOB PUT DOWN. CALL LIGHT WITHIN REACH.
--- NOTE | 2024-05-23 04:19 | NUR ---
BLOOD SUGAR RECHECKED PRN RESULTS OF 91. PATIENT GIVEN SNACK OF PUDDING AND CRACKERS. VSS. ASSESSMENT COMPLETED. URINAL EMPTIED. NO FURTHER NEEDS AT THIS TIME. CALL LIGHT WITHIN REACH.
[2024-05-23 05:04] LABS: BASOPHILS 0.4 % (0-2); HEMATOCRIT 23.1 % (35.0-50.0); HEMOGLOBIN 7.9 g/dL (12.0-18.0); MCH 31.5 (27-36); MCV 92.6 fl (81-99); NEUTROPHILS 60.6 % (39-80); PLATELET COUNT 91 K/uL (140-440); RDW 17.5 (10.5-15.0)
[2024-05-23 05:18] LABS: ANION GAP 13.1 (7-21); BUN/CREATININE RATIO 16.27 (6.0-28.6); CALCIUM 7.6 mg/dL (8.5-10.1); CREATININE, SERUM 1.29 mg/dL (0.70-1.30); MAGNESIUM 1.7 mg/dL (1.8-2.4); PHOSPHORUS, INORGANIC 4.6 mg/dL (2.5-4.9); POTASSIUM 4.1 mmol/L (3.5-5.1)
--- NOTE | 2024-05-23 05:54 | NUR ---
UPON REVIEWING LABS NOTED PATIENT BS. BS CHECKED ON UNIT READING OF 100 MG/DL. PATIENT WITH NO COMPLAINTS AT THIS TIME. RESTING IN BED. CALL LIGHT WITHIN REACH.
--- NOTE | 2024-05-23 06:01 | NUR ---
MD NOTIFIED OF PATIENT BLOOD SUGARS THROUGHOUT THIS SHIFT. NEW TELEPHONE ORDERS RECEIVED TO MONITOR BLOOD SUGARS Q 2 HRS.
[2024-05-23] MEDS ORDERED: IBLOOD GLUCOSE TEST STRIP 1 EA TEST VI SCH (08:00)
--- NOTE | 2024-05-23 08:30 | NUR ---
TOOK BREAKFAST WELL. DENIES PROBLEMS. RESTING WITH HOB ELEVATED.
--- NOTE | 2024-05-23 08:50 | NUR ---
TO CT VIA W/C. RN WITH PATIENT.
[2024-05-23] MEDS ORDERED: MAGNESIUM SULFATE 2 GM/50 ML BAG IV ONE (09:15)
--- NOTE | 2024-05-23 09:15 | NUR ---
RETURN TO CCU TOLERATED CT WELL. REMAINS IN W/C. DRESSING TO RIGHT FOOT TAKEN OFF, CLEANSER TO RIGHT FOOT WOUND. TO SHOWER VIA SHOWER CHAIR.
--- NOTE | 2024-05-23 09:50 | NUR ---
TOLERATED SHOWER WELL. BACK TO ROOM. TRANSFERRED TO CHAIR.
[2024-05-23] MEDS ORDERED: PIPERACILLIN/TAZOBACTAM 3.375 GM in DEXTROSE 5% 100 ML IV SCH (10:24)
[2024-05-23] MEDS ORDERED: FUROSEMIDE 20 MG/2 ML VIAL IV ONE (10:45)
--- NOTE | 2024-05-23 13:00 | NUR ---
CONTINUES TO SIT IN CHAIR. TOOK LUNCH WELL. DENIES NAUSEA. ABX INFUSING. ASKING ABOUT DISCHARGE. TALKED WITH PATIENT ABOUT THIS, TOLD HIM I WOULD TALK TO DR. COBB ABOUT POC. PATIENT IS SOMEWHAT FRUSTRATED. PATIENT MOTHER IS IN ROOM.
--- NOTE | 2024-05-23 13:20 | NUR ---
AFTER TALKING WITH DR. COBB ABOUT POC FOR PATIENT, HE SAID HE HAS NO PLANS TO DISCHARGE PATIENT. I WILL COMMUNICATE THIS TO THE PATIENT.
--- NOTE | 2024-05-23 13:30 | NUR ---
TALKED WITH PATIENT THE REASONS WHY HE NEEDS TO REMAIN IN THE HOSPITAL. PATIENT INDICATES UNDERSTANDING. AMBULATED TO BR USING WALKER. VOIDED AND HAD SMALL FORMED STOOL. TO BED. HOB ELEVATED WATCHING TV.
--- NOTE | 2024-05-23 14:15 | NUR ---
DR. ROSARIO HERE TO SEE PATIENT. ORDERS RECEIVED TO APPLY METAHONEY THEN APPLY DRY SPONGE GAUZE AND WRAP WITH GAUZE. THIS DONE.
--- NOTE | 2024-05-23 18:00 | NUR ---
TOOK DINNER WELL.
[2024-05-23] MEDS ORDERED: INSULIN GLARGINE-YFGN 100 UNIT/ML ML SUB-Q ONE (18:15)
[2024-05-23] MEDS ORDERED: ACETAMINOPHEN 325 MG TAB PO PRN (18:15)
--- NOTE | 2024-05-23 18:15 | NUR ---
DR. COBB HERE AND UPDATED ON PATIENT DAY, VITAL SIGNS, ACCUCHECKS. ORDERS RECEIVED.
[2024-05-23] MEDS ORDERED: LOSARTAN POTASSIUM 25 MG TAB PO ONE (18:30)
--- NOTE | 2024-05-23 18:45 | NUR ---
LANTUN 5 UNITS SQ GIVEN ORDERED. COZAR 25 MG PO GIVEN ORDERED. PATIENT IS RESTING IN BED. IV ABX INFUSING.
--- NOTE | 2024-05-23 19:30 | NUR ---
REPORT RECEIVED FROM DONG MURPHY. PT IS AWAKE IN BED WATCHING TV, HR 90'S, RR 20.
--- NOTE | 2024-05-23 19:47 | NUR ---
IN TO CHECK ON PT AND DO ASSESSMENT. PT DENIES HEADACHE BUT DOES C/O PAIN "ALL THROUGHOUT MY BODY" AND POINTS TO LEFT SIDE DOWN TO LEGS. WILL GIVE PRN PAIN MEDS. DRESSING CDI, NO FURTHER REQUESTS. CALL LIGHT IN HAND.
--- NOTE | 2024-05-23 22:15 | NUR ---
IN TO DO BLOOD SUGAR, PT STATES HIS PAIN HAS IMPROVED "I WAS ABLE TO SLEEP". DENIES FURTHER NEEDS.
[2024-05-24] VITALS (12 sets, daily range): BP systolic 138–184; BP diastolic 73–104
--- NOTE | 2024-05-24 00:42 | NUR ---
IN TO DO ASSESSMENT, PT AWAKENS EASILY, DENIES NEEDS AND BACK TO SLEEP.
--- NOTE | 2024-05-24 02:20 | NUR ---
IN TO DO BLOOD SUGAR, PT AWAKENS EASILY, DENIES NEEDS. BLOOD SUGAR 148.
--- NOTE | 2024-05-24 03:40 | NUR ---
PT RESTING WITH EYES CLOSED, RESP EVEN AND UNLABORED. HR 70'S SINUS RHYTHM.
[2024-05-24 05:40] LABS: BASOPHILS 0.5 % (0-2); EOSINOPHILS 4.3 % (0-6); HEMATOCRIT 23.8 % (35.0-50.0); HEMOGLOBIN 8.1 g/dL (12.0-18.0); LYMPHOCYTES 20.8 % (24-44); MCH 31.9 (27-36); MCHC 34.2 g/dl (30-36); MCV 93.4 fl (81-99); MONOCYTES 10.6 % (0-12); NEUTROPHILS 63.8 % (39-80); PLATELET COUNT 91 K/uL (140-440); RBC 2.55 M/ul (4.3-5.7); RDW 17.3 (10.5-15.0)
[2024-05-24 05:57] LABS: ANION GAP 12.4 (7-21); BUN/CREATININE RATIO 12.5 (6.0-28.6); CREATININE, SERUM 1.76 mg/dL (0.70-1.30); MAGNESIUM 1.9 mg/dL (1.8-2.4); PHOSPHORUS, INORGANIC 4.7 mg/dL (2.5-4.9); POTASSIUM 4.4 mmol/L (3.5-5.1)
--- NOTE | 2024-05-24 07:30 | NUR ---
REPORT RECEIVED. PATIENT SLEEPING NO DISTRESS NOTED. IV ABX INFUSING.
[2024-05-24] MEDS ORDERED: AMOXICILLIN/CLAVULANATE K 875 MG TAB PO SCH (08:00)
[2024-05-24] MEDS ORDERED: INSULIN GLARGINE-YFGN 100 UNIT/ML ML SUB-Q SCH (09:00)
--- NOTE | 2024-05-24 09:00 | NUR ---
TOOK BREAKFAST WELL. AMBULATED TO BR TO VOID AND EXPELL FORMED STOOL. BACK TO CHAIR. USING WALKER TO AMBULATE. TOLERATES AMBULATION WELL. DENIES DIZZINESS.
--- NOTE | 2024-05-24 11:12 | NUR ---
SLEEPING IN CHAIR. NOT DISTRESS NOTED.
--- NOTE | 2024-05-24 11:26 | NUR ---
SPOKE TO THE PATIENT ABOUT THE DISCHARGE PLAN. THE PATIENT'S DEMOGRAPHICS ARE CORRECT.THE PATIENT LIVES WITH HIS MOTHER WHO HELPS THE PATIENT WITH IS ADLS AND MEDICATION ADMINISTRATION. PATIENT HAS FAMILY AND FRIENDS WHO CAN HELP NEEDED.PATIENT PLANS TO RETURN TO HIS MOTHER'S HOUSE. THE PATIENT USES A WALKER AND A WHEELCHAIR. THE PATIENT HAS GRABS IN THE BATHROOM. PATIENT CAN AFFORD FOOD AND RENT. PATIENT PALNS TO FOLLOW UP WITH [facility] WHEN HE IS DISCHARGED.
--- NOTE | 2024-05-24 11:35 | NUR ---
AMBULATED IN HALLWAY USING WALKER. WALKED UP AND DOWN GREGG 8-9 TIMES. TOLERATED WELL. RETURN TO ROOM, SITTING IN CHAIR.
--- NOTE | 2024-05-24 12:00 | NUR ---
ASSESSMENT UNCHANGE. SITTING IN CHAIR READY TO EAT LUNCH.
--- NOTE | 2024-05-24 13:27 | NUR ---
UR CLINICAL AND CONCURRENT REVIEW: [facility]CG-MEETS INPATIENT CRITERIA; DOES NOT MEET GL DAY 2, VARIANCE ADDED BASIC DMAP INPT 05/21/24 @ 1550 NO AUTH REQUIRED PER MEDICAID GUIDELINES DISCHARGE TO HOME WHEN STABLE 05/26/24
--- NOTE | 2024-05-24 14:20 | NUR ---
PATIENT UP TO BATHROOM, 1PA FWW. PATIENT THEN AMBULATED IN HALLWAY, 6 TIMES BACK AND FORTH IN CCU, 1PA FWW. PATIENT TOLERATED AMBULATION WELL. NOW BACK IN CHAIR. FRESH WATER GIVEN. CALL LIGHT IN REACH. NO FURTHER NEEDS AT THIS TIME.
--- NOTE | 2024-05-24 14:30 | NUR ---
DR. COBB AWARE OF MOST RECENT BP-176/101. HE SAID HE WILL PUT ORDER IN FOR BP MEDICATION.
--- NOTE | 2024-05-24 14:49 | NUR ---
VITALS AND I&O'S DONE AND CHARTED. RN NOTIFIED OF BLOOD PRESSURE. PATIENT UP TO BATHROOM AND BACK TO CHAIR, 1PA FWW. CALL LIGHT IN REACH. NO FURTHER NEEDS AT THIS TIME.
--- NOTE | 2024-05-24 15:47 | NUR ---
PATIENT UP TO BATHROOM, THEN AMBULATED 6 LAPS IN CCU, AND THEN TO CHAIR, 1PA FWW. FRESH WATER GIVEN. CALL LIGHT IN REACH. NO FURTHER NEEDS AT THIS TIME.
[2024-05-24] MEDS ORDERED: IBLOOD GLUCOSE TEST STRIP 1 EA TEST VI SCH (16:00)
--- NOTE | 2024-05-24 18:10 | NUR ---
dr. marie aware of lab results.
[2024-05-24] MEDS ORDERED: AMLODIPINE BESYLATE 5 MG TAB PO SCH (18:15)
[2024-05-24 18:34] LABS: ANION GAP 13.8 (7-21); BUN/CREATININE RATIO 13.14 (6.0-28.6); CALCIUM 8.1 mg/dL (8.5-10.1); CREATININE, SERUM 1.75 mg/dL (0.70-1.30); POTASSIUM 4.8 mmol/L (3.5-5.1)
[2024-05-24] MEDS ORDERED: SODIUM CHLORIDE 0.9% 500 ML IV SCH (18:45)
--- NOTE | 2024-05-24 18:45 | NUR ---
NORVASC 5 MG PO GIVEN, IVF OF NS AT 125 ML HUNG. TOTAL TO BE INFUSE 500 ML. PATIENT AWARE.
--- NOTE | 2024-05-24 19:30 | NUR ---
REPORT RECEIVED FROM DONG MURPHY. PT AWAKE IN BED WATCHING TV, NAD.
--- NOTE | 2024-05-24 20:30 | NUR ---
IN TO DO ASSESSMENT. WHEN ASKED PT HOW HE IS DOING HE STATES "A LITTLE SORE" AND ACCEPTS SOME TYLENOL WITH NEXT MEDS GIVEN. LUNGS CLEAR, IVF STILL INFUSING. DENIES FURTHER NEEDS, CALL LIGHT IN REACH, PT WATCHING TV IN BED.
--- NOTE | 2024-05-24 20:31 | NUR ---
PATIENT BS OBTAINED AND RECORDED. PATIENT DENIES NEEDS AT THIS TIME. CALL LIGHT IN REACH.
--- NOTE | 2024-05-24 21:27 | NUR ---
IN TO CHECK ON PT HIS HEARTRATE HAS COME UP TO 120'S. HE IS WANTING TO GET UP TO GO INTO BATHROOM. UP WITH ASSIST AND FWW TO BATHROOM, HAD STOOL AND URINE, HR UP TO 130, THEN BACK DOWN TO 125 IN BED. HS MEDS GIVEN WITH TYLENOL PT C/O "MY WHOLE BODY" PAIN 04/27. HE IS WANTING TO NAP AND THEN REQUESTS A SANDWICH BOX FOR LATER. IVF CONT OT INFUSE. CALL LIGHT IN HAND.
[2024-05-24] MEDS ORDERED: dilTIAZem HCL 25 MG/5 ML VIAL IV ONE (22:00)
--- NOTE | 2024-05-24 23:30 | NUR ---
IN TO DO ASSESSMENT, PT DENIES NEEDS, HAS BEEN ABLE TO SLEEP.
[2024-05-25] VITALS (21 sets, daily range): BP systolic 120–166; BP diastolic 59–96
[2024-05-25] MEDS ORDERED: dilTIAZem HCL 30 MG TAB PO SCH (02:00)
--- NOTE | 2024-05-25 02:02 | NUR ---
PT UP TO BR AND BACK TO BED, SBA WITH FWW. PT TOLERATED WELL. ICE WATER PROVIDED. PT STATES NO OTHER NEEDS.
--- NOTE | 2024-05-25 02:30 | NUR ---
IN TO GIVE PT SCHEDULED PO CARDIZEM. PT ALSO GIVEN SANDWICH BOX PER REQUEST.
--- NOTE | 2024-05-25 03:30 | NUR ---
PT ATE 100% OF SANDWICH BOX, NOW LYING DOWN TO GET SOME SLEEP WITH LIGHTS OUT. NO FURTHER REQUESTS.
--- NOTE | 2024-05-25 05:04 | NUR ---
PT CONT TO REST, HR 80'S SINUS RHYTHM. RR 16.
[2024-05-25 05:41] LABS: BASOPHILS 0.2 % (0-2); EOSINOPHILS 2.8 % (0-6); HEMATOCRIT 20.3 % (35.0-50.0); LYMPHOCYTES 15.3 % (24-44); MCH 32.1 (27-36); MCHC 34.7 g/dl (30-36); MCV 92.5 fl (81-99); MONOCYTES 12.8 % (0-12); NEUTROPHILS 68.9 % (39-80); PLATELET COUNT 82 K/uL (140-440); RBC 2.19 M/ul (4.3-5.7)
[2024-05-25 05:52] LABS: ANION GAP 12.2 (7-21); BUN/CREATININE RATIO 13.96 (6.0-28.6); CALCIUM 7.7 mg/dL (8.5-10.1); CREATININE, SERUM 1.79 mg/dL (0.70-1.30); MAGNESIUM 1.6 mg/dL (1.8-2.4); PHOSPHORUS, INORGANIC 4.4 mg/dL (2.5-4.9); POTASSIUM 4.2 mmol/L (3.5-5.1)
[2024-05-25] MEDS ORDERED: MAGNESIUM SULFATE 2 GM/50 ML BAG IV SCH (06:30)
--- NOTE | 2024-05-25 06:43 | NUR ---
PT CONT TO REST, HR 90'S SINUS RHYTHM.
[2024-05-25] MEDS ORDERED: dilTIAZem HCL 120 MG CAPCR PO SCH (09:00)
--- NOTE | 2024-05-25 10:30 | NUR ---
Spoke with Clyde. He denies needs. Lives with his mom and Aunt and they assist him. Per 8:30 meeting tp will move to the medical floor today. Per pt he is feeling better.
--- NOTE | 2024-05-25 10:41 | NUR ---
VISITED DURING SPIRITUAL CARE ROUNDS. PT APPEARED TO BE SLEEPING. DID NOT DISTURB. PROVIDED PRAYER.
--- NOTE | 2024-05-25 11:52 | NUR ---
VERBAL REPORT RECEIVED FROM JEFFREY UMANA AT 1111. PT ARRIVES TO MED-SURG ROOM 119 AT 1151 VIA BED. BELONGINGS WITH PT. PT IS AAOX4. REPORTS PAIN 9/10 LOWER BACK PAIN, DESCRIBES PAIN SHARP AND THROBBING. LUNGS DIM THROUGHOUT, DEEP BREATHING AND IS ENCOURAGED. HRR. BOWEL TONES ACTIVE X4 QUADRANTS. LLQ AND RLQ TENDER TO TOUCH. PT ORIENTED TO ROOM. CALL LIGHT IN REACH. PT NOTED TO BE FEBRILE PRIOR TO TRANSFER, DR. COBB NOTIFIED BY JEFFREY UMANA. NO NEW ORDERS. DRESSING TO RIGHT FOOT INTACT. PT EXPRESSES INTEREST IN AMBULTING AFTER LUNCH.
--- NOTE | 2024-05-25 15:17 | NUR ---
PT REPORTS HE AMBULATED IN THE HALLWAY WITH DIANNA MELISSA. PT NOW SITS UP IN BED WITH VISITOR AT BEDSIDE.
--- NOTE | 2024-05-25 15:21 | NUR ---
PT WANTED TO GO ON WALK IN THE HALLWAY AND JUST WALKED UP AND DOWN THE HALLWAY AND WANTED TO GO BACK TO HIS ROOM. PT ASKED FOR A SANDWICH BOX, WATER AND A MENUE. NURSE SAID IT WAS OKAY TO HAVE SANDWICH BOX. PT DIDNT NEED ANYHTING ELSE AND CALL LIGHT IS WITHIN REACH.
--- NOTE | 2024-05-25 17:06 | NUR ---
WARM PACKS X2 PROVIDED TO PT FOR NECK AND SHOULDERS.
--- NOTE | 2024-05-25 18:49 | NUR ---
PATIENT IN BED AT THIS TIME. VITALS AND I&O'S CHARTED. CALL LIGHT WITHIN REACH, NO FURTHER NEEDS AT THIS TIME.
--- NOTE | 2024-05-25 19:10 | NUR ---
pt RESTING IN THE BED WITH EYES CLOSED. BOARD UPDATED. CALL LIGHT WITHIN REACH.
[2024-05-25] MEDS ORDERED: SODIUM CHLORIDE 0.9% 500 ML IV SCH (19:15)
--- NOTE | 2024-05-25 20:30 | NUR ---
ASSESSMENT AND VITAL SIGNS DONE. pt RESTING IN THE BED. BG GLUCOSE CHECKED WITH A RESULTS OF 175 NO SS INSULIN AT THIS TIME PER ORDER. SCHEDULED MEDICATIONS ADMINISTERED AT THIS TIME. IV ASSESSED, WNL. IVF INFUSING PER ORDER. pt DENIES ANY OTHER NEEDS AT THIS TIME. CALL LIGHT WITHIN REACH.
--- NOTE | 2024-05-25 20:45 | NUR ---
PHONE PLACED TO ABOUT pt FEVER OF 102.6. TYLENOL GIVEN. GAVE NEW ORDERS AND VERFIED WITH REPEAT BACK METHOD. JORDYN TO PUT IN ORDERS.
[2024-05-25] MEDS ORDERED: PIPERACILLIN/TAZOBACTAM 3.375 GM VIAL ONE (21:40)
[2024-05-25] MEDS ORDERED: PIPERACILLIN/TAZOBACTAM 3.375 GM in DEXTROSE 5% 100 ML IV SCH (22:00)
--- NOTE | 2024-05-25 22:00 | NUR ---
pt TEMP RECHECKED WITH A RESULTS OF 101.5.
--- NOTE | 2024-05-25 23:35 | NUR ---
pt RESTING IN THE BED WITH EYES CLOSED. RR EVEN AND UNLABORED. CALL LIGHT WITHIN REACH.
[2024-05-26] VITALS (8 sets, daily range): BP systolic 117–147; BP diastolic 59–79
--- NOTE | 2024-05-26 01:50 | NUR ---
pt IV ABX DONE INFUSING. pt SL. pt DENIES ANY OTHER NEEDS AT THIS TIME. CALL LIGHT WITHIN REACH.
--- NOTE | 2024-05-26 03:00 | NUR ---
pt CALLED AND STATED HE WAS WET. pt ATTEMPTED TO USE THE URINAL AND MISSED. pt DENIES ANY OTHER NEEDS AT THIS TIME. CALL LIGHT WITHIN REACH.
[2024-05-26] MEDS ORDERED: PIPERACILLIN/TAZOBACTAM 3.375 GM VIAL ONE (05:45)
[2024-05-26 05:55] LABS: BASOPHILS 0.3 % (0-2); EOSINOPHILS 1.1 % (0-6); HEMATOCRIT 21.2 % (35.0-50.0); HEMOGLOBIN 7.3 g/dL (12.0-18.0); LYMPHOCYTES 9.8 % (24-44); MCH 32.1 (27-36); MCHC 34.5 g/dl (30-36); MONOCYTES 13.8 % (0-12); PLATELET COUNT 81 K/uL (140-440); RBC 2.28 M/ul (4.3-5.7); RDW 17.3 (10.5-15.0)
--- NOTE | 2024-05-26 06:05 | NUR ---
CALL PLACED TO ABOUT pt TEMP OF 102.6. TYLENOL ADMINISTERED. MD GAVE ORDER AND VERIFIED WITH REPEAT BACK METHOD.
[2024-05-26 06:14] LABS: ANION GAP 15.4 (7-21); BUN/CREATININE RATIO 14.85 (6.0-28.6); CALCIUM 7.7 mg/dL (8.5-10.1); CREATININE, SERUM 2.02 mg/dL (0.70-1.30); MAGNESIUM 2.3 mg/dL (1.8-2.4); PHOSPHORUS, INORGANIC 4.4 mg/dL (2.5-4.9); POTASSIUM 4.4 mmol/L (3.5-5.1)
[2024-05-26 07:35] LABS: BILIRUBIN, URINE NEGATIVE (negative); BLOOD/HGB, URINE MODERATE (Negative); KETONE, URINE NEGATIVE (Negative); LEUK ESTERASE, URINE NEGATIVE (negative); NITRITE, URINE NEGATIVE (negative)
[2024-05-26 07:43] LABS: BACTERIA, URINE RARE /hpf (negative); COLLECTION TYPE, URINE CLEAN CATCH; CRYSTALS, URINE NONE SEEN (0-1+); EPITHELIAL CELLS, URINE SQUAMOUS 2+ /lpf (0-1+)
[2024-05-26 07:45] LABS: CASTS, URINE HYALINE 1+ \\lpf; REFLEX CULTURE, URINE No (No)
[2024-05-26] MEDS ORDERED: SODIUM CHLORIDE 0.9% 1,000 ML IV ONE (08:00)
--- NOTE | 2024-05-26 08:06 | NUR ---
PT CALLED AND ASKED TO USE THE RESTROOM. PT HAD A BM AND HE GOT A NEW BRIEF. BM WAS CHARTED. PT IS IN PAIN. NURSE IS AWARE. PT DIDNT NEED ANYTHING ELSE AND IS BACK IN BED CALL LIGHT IS WITHIN REACH.
--- NOTE | 2024-05-26 08:59 | NUR ---
PT REPOSITIONED SELF IN BED. SITS UP AND EATS MEAL, FEEDS SELF. NS BOLUS INFUSING IN LAC, SITE C/D/I. IV IN RAC, NOT PATENT, REMOVED, TIP INTACT, GAUZE AND COBAN DRESSING APPLIED TO SITE, PT TOLERATED WELL. CALL LIGHT IN REACH, BED IN LOW POSITION, RAILS UP X3. NO FURTHER REQUESTS AT THIS TIME.
--- NOTE | 2024-05-26 12:32 | NUR ---
PT RESTS IN BED WITH EYES CLOSED, RESP EVEN AND UNLABORED. VISITOR X1 IN ROOM.
--- NOTE | 2024-05-26 14:56 | NUR ---
PT SITS UP AT BEDSIDE, DONS PERSONAL SHIRT PER PREFERENCE. ROM IN NECK INTACT. IV SL AT THIS TIME. CALL LIGHT AND BELONGINGS IN REACH. NO REQUESTS AT THIS TIME.
[2024-05-26 16:08] LABS: ANION GAP 14.2 (7-21); BUN/CREATININE RATIO 14.56 (6.0-28.6); CALCIUM 7.7 mg/dL (8.5-10.1); CREATININE, SERUM 2.06 mg/dL (0.70-1.30); POTASSIUM 4.2 mmol/L (3.5-5.1)
[2024-05-26 16:29] LABS: INFLUENZA B NAA NEGATIVE (NEGATIVE); RESPIRATORY SYNCYTIAL VIR NAA NEGATIVE (NEGATIVE)
[2024-05-26] MEDS ORDERED: SODIUM CHLORIDE 0.9% 1,000 ML IV SCH (16:30)
--- NOTE | 2024-05-26 17:01 | NUR ---
TOOK PT TEMP AND GOT 102.0 NURSE WAS NOTIFIED AND TEMP WAS CHARGED.
--- NOTE | 2024-05-26 17:40 | NUR ---
PT UP TO USE RESTROOM. PT SITS ON EDGE OF BED WITHOUT ASSISTANCE. PT STANDS WITH FWW AND CRIES OUT IN PAIN. PT STATES HIS R CALF HURTS WHEN WALKING ON IT. PT AMBULATES TO TOILET WITH SBA. BLE ASSESSED. R KNEE AND CALF NOTED TO BE WARMER THAN L WITH TENDERNESS TO PALTATION. PULSES STRONG BLE, CAP REFILL WNL BLE. PTs MOTHER IS PRESENT IN ROOM AND STATES THIS HAPPENS SOMETIMES R/T TO PTs RA. DR RICO INFORMED OF ALL OF THE ABOVE, STATES HE WILL GO IN TO SEE THE PT.
[2024-05-26] MEDS ORDERED: predniSONE 20 MG TAB PO ONE (18:30)
--- NOTE | 2024-05-26 19:10 | NUR ---
REPORT RECEIVED FROM THELMA MURPHY. pt RESTING IN THE BED. BOARD UPDATED. pt DENIES ANY OTHER NEEDS AT THIS TIME. CALL LIGHT WITHIN REACH.
--- NOTE | 2024-05-26 21:31 | NUR ---
ASSESSMENT DONE. pt RESTING IN THE BED. BG CHECKED WITH A RESULTS OF 131. SCHEDULED MEDICATION ADMINISTERED. IV ASSESSED, WNL. IVF INFUSING PER ORDER SEE MAR. pt DENIES ANY OTHER NEEDS AT THIS TIME. CALL LIGHT WITHIN REACH.
[2024-05-26 22:08] LABS: ANION GAP 13.3 (7-21); BUN/CREATININE RATIO 14.63 (6.0-28.6); CREATININE, SERUM 2.05 mg/dL (0.70-1.30); POTASSIUM 4.3 mmol/L (3.5-5.1)
--- NOTE | 2024-05-26 23:48 | NUR ---
pt TEMP RECHECKED WITH A RESULTS OF 101.6. pt DENIES ANY OTHER NEEDS AT THIS TIME. CALL LIGHT WITHIN.
[2024-05-27] VITALS (7 sets, daily range): BP systolic 111–133; BP diastolic 66–84
--- NOTE | 2024-05-27 01:17 | NUR ---
pt RESTING IN THE BED WITH EYES CLOSED. RR EVEN AND UNLABORED. CALL LIGHT WITHIN REACH.
--- NOTE | 2024-05-27 03:30 | NUR ---
pt RESTING IN THE BED WITH EYES CLOSED. RR EVEN AND UNLABORED. CALL LIGHT WITHIN REACH.
[2024-05-27 05:53] LABS: BASOPHILS 0.1 % (0-2); HEMOGLOBIN 7.3 g/dL (12.0-18.0); LYMPHOCYTES 4.8 % (24-44); MCH 32.3 (27-36); MCHC 34.7 g/dl (30-36); MONOCYTES 3.8 % (0-12); NEUTROPHILS 91.3 % (39-80); PLATELET COUNT 102 K/uL (140-440); RBC 2.26 M/ul (4.3-5.7); RDW 16.9 (10.5-15.0)
[2024-05-27 06:06] LABS: ALBUMIN 1.5 g/dL (3.4-5.0); ALBUMIN/GLOBULIN RATIO 0.35 (1.1-2.4); ANION GAP 16.1 (7-21); BILIRUBIN, TOTAL 0.3 ng/dL (0.2-1.0); BUN/CREATININE RATIO 14.69 (6.0-28.6); CALCIUM 7.7 mg/dL (8.5-10.1); CREATININE, SERUM 2.11 mg/dL (0.70-1.30); MAGNESIUM 2.1 mg/dL (1.8-2.4); POTASSIUM 4.1 mmol/L (3.5-5.1); PROTEIN, TOTAL 5.8 g/dL (6.4-8.2)
--- NOTE | 2024-05-27 06:33 | NUR ---
pt RESTED THROUGH OUT THE NIGHT. pt BLOOD GLUCOSE WNL. IVF INFUSING OVER THE NIGHT PER ORDER. NO OTHER CONCERNS AT THIS TIME.
--- NOTE | 2024-05-27 07:24 | NUR ---
RECIEVED SHIFT REPORT. PT IS RESTING IN BED, EYES CLOSED. BREATHING EVEN AND UNLABORED. CALL LIGHT IN REACH
--- NOTE | 2024-05-27 07:54 | NUR ---
Patient was sleeping I first entered the room. Student nurse entered and she, Sayda, and I checked BS. No other cares were requested at that time.
[2024-05-27] MEDS ORDERED: LACTATED RINGER'S 1,000 ML IV SCH (08:00)
--- NOTE | 2024-05-27 12:10 | NUR ---
pt requesting something for a cough. spoke with md. verbal order for lillian.
[2024-05-27] MEDS ORDERED: BENZONATATE 100 MG CAP PO PRN (12:15)
--- NOTE | 2024-05-27 13:12 | NUR ---
UR CLINICAL CONCURRENT REVIEW: [facility]-MEETS INPATIENT CRITERIA; DOES NOT MEET GL DAY 3 FOR HYPOGLYCEMIA, VARIANCE ADDED. MEETS INPT CRITERIA FOR ACUTE RENAL FAILURE GL 1, VARIANCE ADDED FOR DAY 2 BASIC DMAP INPT 05/21/24 @ 1550 NO AUTH REQUIRED PER MEDICAID GUIDELINES DISCHARGE TO HOME WHEN STABLE 05/30/24
--- NOTE | 2024-05-27 13:21 | NUR ---
WATCHING TV. PATIENT IS WAIT FOR HIS MOM TO COME FOR A VISIT. PATIENT PLANS TO GO HOME TODAY. THE HAS NOT ROUNDED ON THE PATIENT YET. CS REMINDED PATIENT THAT THE DOCTOR WILL MAKE THE DECISSION OF WHEN THE PATIENT WILL BE DC'D.
[2024-05-27 14:30] LABS: ANION GAP 15.6 (7-21); BUN/CREATININE RATIO 16.43 (6.0-28.6); CALCIUM 7.9 mg/dL (8.5-10.1); CREATININE, SERUM 2.13 mg/dL (0.70-1.30); POTASSIUM 4.6 mmol/L (3.5-5.1)
[2024-05-27] MEDS ORDERED: DEXTROSE 5% 1,000 ML IV PRN (17:15)
[2024-05-27] MEDS ORDERED: DEXTROSE 50% 50 ML SYR IV PRN ×2 (17:15)
[2024-05-27] MEDS ORDERED: IBLOOD GLUCOSE TEST STRIP 1 EA TEST XX PRN (17:15)
[2024-05-27] MEDS ORDERED: GLUCAGON,HUMAN RECOMBINANT 1 MG/ML VIAL SUB-Q PRN (17:15)
[2024-05-27] MEDS ORDERED: INSULIN LISPRO 100 UNIT/ML ML SUB-Q SCH ×2 (17:30→21:00)
[2024-05-27] MEDS ORDERED: THIAMINE HCL 100 MG,FOLIC ACID 1 MG,MULTIVITAMINS 10 ML in SODIUM CHLORIDE 0.9% 1,000 ML IV ONE (17:45)
--- NOTE | 2024-05-27 18:10 | NUR ---
PT WAS GIVEN A SHOWER. REFUSED TO TAKE OFF BANDAGE IN SHOWER. AFTER SHOWER THIS RN IN ROOM REMOVED DRESSING, WASHED R FOOT. NEW DRESSING APPLIED (PER WOUND DRESSING ORDER).
--- NOTE | 2024-05-27 19:10 | NUR ---
REPORT RECEIVED FROM KERVIN MURPHY. pt RESTING IN THE BED. BOARD UPDATED. CALL LIGHT WITHIN REACH.
--- NOTE | 2024-05-27 19:48 | NUR ---
CALL LIGHT ANSWERED. PT NEEDED TO USE BATHROOM. DIGITAL CAMERA TECHNICIAN SBA WITH FWW TO BATHROOM. PT HAD BM AND ASSISTED BACK TO BED. PT GIVEN TWO HOT PACKS UPON REQUEST. PT STATES NO FURTHER NEEDS AT THIS TIME. CALL LIGHT WITHIN REACH.
--- NOTE | 2024-05-27 20:17 | NUR ---
CALL LIGHT ANSWERED. PT NEEDED TO USE BATHROOM. PT SBA WITH FWW TO BATHROOM. PT HAD BM. PT THEN ASSISTED BACK TO BED. CASTING MACHINE SERVICE OPERATOR OBTAINED AND DOCUMENTED VITALS AND I&O. PT STATES NO FURTHER NEEDS AT THIS TIME. CALL LIGHT WITHIN REACH.
[2024-05-27 20:36] LABS: ANION GAP 16.4 (7-21); BUN/CREATININE RATIO 16.52 (6.0-28.6); CALCIUM 7.9 mg/dL (8.5-10.1); CREATININE, SERUM 2.36 mg/dL (0.70-1.30); POTASSIUM 4.4 mmol/L (3.5-5.1)
[2024-05-27] MEDS ORDERED: IBLOOD GLUCOSE TEST STRIP 1 EA TEST VI SCH (21:00)
--- NOTE | 2024-05-27 21:20 | NUR ---
ASSESSMENT AND VITAL SIGNS DONE. pt SITTING IN THE EDGE BED. BG CHECKED WITH A RESULTS OF 237. SS INSULIN ADMINISTERED. SCHEDULED MEDS ADMINISTERED. PRN PAIN MEDICATION ADMINISERED FOR 9/10 PAIN. WATER REFRESHED. WARM PACKS PROVIDED. pt DENIES ANY OTHER NEEDS AT THIS TIME. CALL LIGHT WITHIN REACH. SNACK PROVIDED.
--- NOTE | 2024-05-28 00:06 | NUR ---
pt RESTING IN THE BED WITH EYES CLOSED. RR EVEN AND UNLABORED. CALL LIGHT WITHIN REACH.
--- NOTE | 2024-05-28 02:05 | NUR ---
pt RESTING IN THE BED WITH EYES CLOSED. RR EVEN AND UNLABORED. CALL LIGHT WITHIN REACH.
--- NOTE | 2024-05-28 04:05 | NUR ---
pt RESTING IN THE BED. NO NEEDS AT THIS TIME. CALL LIGHT WITHIN REACH.
[2024-05-28 05:12] VITALS: BP 136/77
[2024-05-28 05:29] LABS: BASOPHILS 0.2 % (0-2); EOSINOPHILS 0.2 % (0-6); HEMOGLOBIN 7.3 g/dL (12.0-18.0); LYMPHOCYTES 13.6 % (24-44); MCH 31.9 (27-36); MCHC 34.6 g/dl (30-36); MCV 92.2 fl (81-99); MONOCYTES 11.3 % (0-12); NEUTROPHILS 74.7 % (39-80); PLATELET COUNT 159 K/uL (140-440); RBC 2.28 M/ul (4.3-5.7); RDW 16.4 (10.5-15.0)
[2024-05-28 05:46] LABS: ALBUMIN 1.4 g/dL (3.4-5.0); ALBUMIN/GLOBULIN RATIO 0.33 (1.1-2.4); ANION GAP 16.1 (7-21); BILIRUBIN, TOTAL 0.2 ng/dL (0.2-1.0); BUN/CREATININE RATIO 18.34 (6.0-28.6); CALCIUM 8.1 mg/dL (8.5-10.1); CREATININE, SERUM 2.18 mg/dL (0.70-1.30); MAGNESIUM 2.1 mg/dL (1.8-2.4); PHOSPHORUS, INORGANIC 4.9 mg/dL (2.5-4.9); POTASSIUM 4.1 mmol/L (3.5-5.1); PROTEIN, TOTAL 5.6 g/dL (6.4-8.2)
--- NOTE | 2024-05-28 06:27 | NUR ---
pt RESTED THROUGH OUT THE NIGHT. pt BG CHECKS ARE WNL. SS INSULIN ADMINISTERED PER ORDER. NO OTHER CONCERNS AT THIS TIME.
--- NOTE | 2024-05-28 06:49 | NUR ---
ROOM SERVICE CLERK ATTEMPED TO GET A UA SAMPLE FROM PT. PT STATED THAT HE TRIED EARLIER BUT IT DIDN'T MAKE IT INTO THE URINAL. ROOM SERVICE CLERK HELPED PT GET CLEANED UP AND CHANGE CLOTHES. PT CURRENTLY HAS A CLEAN URINAL FOR NEXT TIME WITHIN REACH. ROOM SERVICE CLERK ASSISTED PT TO WALK WITH FWW FROM ROOM TO THE CARPET BY [facility], TURN, WALK TO THE FULL LENGTH OF THE GREGG TO THE WALL, AND BACK TO PT'S ROOM, ROOM SERVICE CLERK LEFT PT IN RECLINING CHAIR WITH CALL LIGHT AND WHEELS LOCKED ON CHAIR.
[2024-05-28 07:25] LABS: BILIRUBIN, URINE NEGATIVE (negative); BLOOD/HGB, URINE TRACE-I (Negative); KETONE, URINE NEGATIVE (Negative); LEUK ESTERASE, URINE NEGATIVE (negative); NITRITE, URINE NEGATIVE (negative)
--- NOTE | 2024-05-28 07:39 | NUR ---
RECIEVED SHIFT REPORT. PT WAS WALKING OUT OF THE BATHROOM TO SIT IN RECLINER. PT REQUESTING TO SHOWER, AND WALK THE HALLS AFTER BREAKFAST. EAGER TO GO HOME. CALL LIGHT IN REACH.
[2024-05-28 07:40] LABS: CRYSTALS, URINE NONE SEEN (0-1+); EPITHELIAL CELLS, URINE SQUAMOUS 1+ /lpf (0-1+)
[2024-05-28 07:41] LABS: BACTERIA, URINE 1+ /hpf (negative); CASTS, URINE GRANULAR 2+ \\lpf; COLLECTION TYPE, URINE CLEAN CATCH; REFLEX CULTURE, URINE No (No)
[2024-05-28 08:30] VITALS: BP 135/75
--- NOTE | 2024-05-28 09:00 | NUR ---
MORNING ASSESSMENT COMPLETE. PT SITTING IN RECLINER. REQUESTING TYLENOL FOR GENERALIZED PAIN (PER EMAR). PT REQUESTING A WALK, AND A SHOWER AFTER BREAKFAST. NURISNG STUDENT IN ROOM TO ASSIST PT WITH MORNING ROUTINE. CALL LIGHT IN REACH.
--- NOTE | 2024-05-28 10:34 | NUR ---
PATIENT HAS BEEN HERE X7 DAYS. HE IS ON A 60 [employer] CONS CARB DIET AND IS EATING 85-100% OF MEALS. IT IS NOTED THAT HE HAS A HISTORY OF DRINKING 3 TALL BEERS A DAY AT HOME. DIABETES IS NOT NEW. CURRENT DIET IS APPROPRIATE. NO NUTRITION INTERVENTION NEEDED AT THIS TIME. PATIENT LIKELY TO GO HOME SOON.
--- NOTE | 2024-05-28 11:25 | NUR ---
ASSISTED PATIENT WITH A WALK. PT COMPLETED THREE LAPS DOWN HALLWAY AND BACK TO ROOM WITHOUT DIFFICULTY. PROVIDED A HOT PACK AND WARM BLANKET. PATIENT RESTING IN BED. CALL LIGHT WITHIN REACH.
[2024-05-28 13:11] LABS: ANION GAP 13.1 (7-21); BUN/CREATININE RATIO 20.5 (6.0-28.6); CALCIUM 8.1 mg/dL (8.5-10.1); POTASSIUM 4.1 mmol/L (3.5-5.1)
[2024-05-28] MEDS ORDERED: BENZONATATE100 MG PO (14:40)
[2024-05-28] MEDS ORDERED: DILTIAZEM 24HR120 MG PO (14:40)
[2024-05-28] MEDS ORDERED: FOLIC ACID1 MG PO (14:41)
[2024-05-28] MEDS ORDERED: VITAMIN B-1100 MG PO (14:41)
[2024-05-28 14:42] VITALS: BP 125/76
[2024-05-28] MEDS ORDERED: LANTUS100 UNITS/ SUB-Q (14:42)
--- NOTE | 2024-05-28 14:54 | NUR ---
PATIENT FOLLOW-UP APPOINTMENT SCHEDULED FOR Friday BY NURSING STAFF. PATIENT'S TRANSPORTATION FOR PROCEDURE IN [place] SET UP TO LEAVE PRIOR TO APPOINMENT TIME. CALLED AND SPOKE WITH RISHI AT [facility]. DR. RICO STATES APPOINTMENT IS NOT VITAL LONG LABS ARE REVIEWED BY A PROVIDER, LABS TO BE COMPLETED FRIDAY. NOTIFIED IRSHI OF THIS. STATES SHE WILL HAVE A PROVIDER REVIEW LABS WHEN THEY ARE RECEIVED AT THEIR FACILITY. DC SUMMARY FAXED TO CANDELARIA AT [facility].
== END 2024-05-28 15:30 | disposition home or self-care (01) | DRG 638 ==
LOC: ED 11:18 → CCU 15:50 → MS 05-25 11:30
PROVIDERS: Emergency Medicine; Family Medicine; ADMIT Student in an Organized Health Care Education/Training Program; ATTEND Student in an Organized Health Care Education/Training Program
DX: E10.649 Type 1 diabetes mellitus with hypoglycemia without coma (principal); E87.1 Hypo-osmolality and hyponatremia; E87.20 Acidosis, unspecified; I48.92 Unspecified atrial flutter; T68.XXXA Hypothermia, initial encounter; M06.9 Rheumatoid arthritis, unspecified; N17.9 Acute kidney failure, unspecified; H26.9 Unspecified cataract; M19.90 Unspecified osteoarthritis, unspecified site; F10.129 Alcohol abuse with intoxication, unspecified; E86.0 Dehydration; E10.42 Type 1 diabetes mellitus with diabetic polyneuropathy; S91.351A Open bite, right foot, initial encounter; W54.0XXA Bitten by dog, initial encounter; R26.81 Unsteadiness on feet; Z87.19 Personal history of other diseases of the digestive system; Z86.718 Personal history of other venous thrombosis and embolism; Z87.891 Personal history of nicotine dependence; Z98.890 Other specified postprocedural states; Z79.899 Other long term (current) drug therapy; Z79.82 Long term (current) use of aspirin
CPT/HCPCS: 36415; 51702; 70450; 71045; 71260; 74177; 76770; 80048; 80053; 80307; 81001; 82040; 82140; 82553; 83036; 83605; 83735; 84100; 84443; 85025; 85060; 85610; 85730; 87040; 87502; 93005; 93010; 93306; 97161; 97530; 99285-25; A9270; A9270-GY; G0480; J0692; J1815; J1940; J2405; J2543; J3411; J3475; J7030; J7040; J7042; J7060; J7121; J7512; Q9967; U0002

== ENCOUNTER 2024-06-04 12:10 | Inpatient (IN) | payer OTHER ==
[~2024-06-04] VITALS: Ht 175.3 cm; Wt 82.0 kg
[~2024-06-04 12:10] MED LIST changes: +ARTIFICIAL TEAR15 M6 OU; +BENZONATATE100 MG PO; +FOLIC ACID1 MG PO; +SYMBICORT 80-10.2 GM INH; +VITAMIN B-1100 MG PO
[2024-06-04 13:49] LABS: BASOPHILS 0.9 % (0-2); EOSINOPHILS 1.6 % (0-6); HEMATOCRIT 21.7 % (35.0-50.0); HEMOGLOBIN 7.4 g/dL (12.0-18.0); LYMPHOCYTES 14.7 % (24-44); MCH 31.1 (27-36); MCHC 33.9 g/dl (30-36); MCV 91.6 fl (81-99); MONOCYTES 15.4 % (0-12); NEUTROPHILS 67.4 % (39-80); PLATELET COUNT 421 K/uL (140-440); RBC 2.37 M/ul (4.3-5.7); RDW 16.6 (10.5-15.0)
[2024-06-04 14:03] LABS: ALBUMIN 1.8 g/dL (3.4-5.0); ALBUMIN/GLOBULIN RATIO 0.38 (1.1-2.4); BILIRUBIN, TOTAL 0.2 ng/dL (0.2-1.0); BUN/CREATININE RATIO 10.98 (6.0-28.6); CREATININE, SERUM 1.73 mg/dL (0.70-1.30); PROTEIN, TOTAL 6.6 g/dL (6.4-8.2)
[2024-06-04 14:22] LABS: INR 1.27 (0.80-1.30); PARTIAL THROMBOPLASTIN TIME 38.7 Sec (22.9-41.3); PROTIME 15.1 Sec (11.2-14.2)
[2024-06-04 14:50] LABS: ABO O; ANTIBODY SCREEN NEGATIVE; IS CROSSMATCH COMPATIBLE; RH POSITIVE
[2024-06-04] MEDS ORDERED: FUROSEMIDE40 MG PO (14:55)
[2024-06-04] MEDS ORDERED: K-TAB ER20 MEQ PO (14:55)
[2024-06-04] MEDS ORDERED: FUROSEMIDE 40 MG/4 ML VIAL IV ONE ×2 (17:00→18:30)
[2024-06-04] MEDS ORDERED: NITROGLYCERIN 0.4 MG SUBL SL ONE (17:00)
[2024-06-04] MEDS ORDERED: NITROGLYCERIN 0.4 MG SUBL SL PRN (17:15)
[2024-06-04] MEDS ORDERED: NITROGLYCERIN 50MG/D5W 250 ML IV SCH (17:15)
[2024-06-04] MEDS ORDERED: ACETAMINOPHEN 325 MG TAB PO PRN (18:45)
[2024-06-04] MEDS ORDERED: GLUCAGON,HUMAN RECOMBINANT 1 MG/ML VIAL SUB-Q PRN (18:45)
[2024-06-04] MEDS ORDERED: bisacodyL 10 MG SUPP PR PRN (18:45)
[2024-06-04] MEDS ORDERED: DEXTROSE 5% 1,000 ML IV PRN (18:45)
[2024-06-04] MEDS ORDERED: IBLOOD GLUCOSE TEST STRIP 1 EA TEST XX PRN (18:45)
[2024-06-04] MEDS ORDERED: ondansetron HCL 4 MG/2 ML VIAL IV PRN (18:45)
[2024-06-04] MEDS ORDERED: DEXTROSE 50% 50 ML SYR IV PRN ×2 (18:45)
[2024-06-04] MEDS ORDERED: LABETALOL HCL 100 MG/20 ML MDV IV PRN (19:15)
--- NOTE | 2024-06-04 19:45 | NUR ---
PATIENT ASSISTED BY BRANCH ASSISTANT TO BED FROM RECLINER, PATIENT OXYGEN SATURATIONS DROPPED TO 60% SHAWN 2L N.C., YOHANA RN INTO ROOMO TO ASSIST, PLACED OXYMASK AT 8L TO RECOVER PATIENT, PATIENT RECOVERED TO 98% IN 2MIN, PLACED BACK OT 3L N.C. FOR NOW, BEDSIDE PULSE OXIMETRY IN PLACE.
[2024-06-04 20:19] VITALS: BP 172/97
[2024-06-04] MEDS ORDERED: ADULT LOW DOSE81 MG PO (20:24)
[2024-06-04] MEDS ORDERED: AMLODIPINE BESYLATE 10 MG TAB PO SCH (20:30)
[2024-06-04] MEDS ORDERED: LOSARTAN POTASSIUM 25 MG TAB PO SCH (20:30)
--- NOTE | 2024-06-04 20:30 | NUR ---
THIS RN INTO PATIENT ROOM TO ASSESS PATIENT BILL RECAPITULATION CLERK ERIK IN ROOM TO COMPLETE INTAKE, PATIENTS MOTHER AT BEDSIDE, SHE SAID SHE PLANS TO LEAVE TO GO HOME.
[2024-06-04] MEDS ORDERED: INSULIN LISPRO 100 UNIT/ML ML SUB-Q SCH (21:00)
[2024-06-04] MEDS ORDERED: IBLOOD GLUCOSE TEST STRIP 1 EA TEST VI SCH (21:00)
[2024-06-04] MEDS ORDERED: MELATONIN 3 MG TAB PO PRN (21:00)
[2024-06-04] MEDS ORDERED: HEParin SOD (PORCINE) 5,000 UNIT/ML SDV SUB-Q SCH (21:00)
[2024-06-04] MEDS ORDERED: INSULIN GLARGINE-YFGN 100 UNIT/ML ML SUB-Q SCH (21:00)
--- NOTE | 2024-06-04 21:18 | NUR ---
UPDATED ON PATIENTS BLOOD SUGARS AND FOOD INTAKE, DISCUSSED LUNG SOUNDS, LASIX HAS BEEN GIVEN IN ED.
[2024-06-04] MEDS ORDERED: dilTIAZem HCL 60 MG TAB PO SCH (21:42)
--- NOTE | 2024-06-04 21:53 | NUR ---
UPDATED ON PATIENT FEVER.
[2024-06-04] MEDS ORDERED: LORazepam 2 MG/ML VIAL IV/IM PRN (22:00)
[2024-06-04] MEDS ORDERED: diphenhydrAMINE HCL 25 MG CAP PO ONE (22:00)
[2024-06-04] MEDS ORDERED: THIAMINE HCL 100 MG,FOLIC ACID 1 MG,MULTIVITAMINS 10 ML in SODIUM CHLORIDE 0.9% 1,000 ML IV ONE (22:00)
[2024-06-04] MEDS ORDERED: AZITHROMYCIN 250 MG TAB PO SCH (22:15)
[2024-06-04] MEDS ORDERED: CEFTRIAXONE/SODIUM CHLORIDE 2 GM/100 ML PIGGYBACK IV SCH (22:15)
[2024-06-04] MEDS ORDERED: metroNIDAZOLE 250 MG TAB PO SCH (22:15)
[2024-06-04] MEDS ORDERED: METOPROLOL TARTRATE 50 MG TAB PO SCH (22:16)
[2024-06-04] MEDS ORDERED: risperiDONE 1 MG TAB PO SCH (22:17)
[2024-06-04] MEDS ORDERED: THIAMINE HCL 200 MG/2 ML VIAL ONE (22:28)
[2024-06-04 22:56] VITALS: BP 152/78
--- NOTE | 2024-06-04 22:57 | NUR ---
UPDATED ON PATIENT, FEVER 102.3, V/S, MEETING SEPSIS PROTOCOL. NEW ORDERS FOR BLOOD CULTURES, ABX X3 HAS BEEN STARTED.
[2024-06-04 22:59] VITALS: BP 152/78
--- NOTE | 2024-06-04 23:03 | NUR ---
ROOF SHINGLER CHECKED PT BG AT JEFFREY CR REQUEST. PT BG IS 95. JEFFREY CR NOTIFED. PT STATES NO NEEDS AT THIS TIME. LAB IN ROOM AND CALL LIGHT WITHIN REACH.
--- NOTE | 2024-06-04 23:06 | NUR ---
UPDATED IN REGARDS TO PATIENT V/S, SEPSIS CRITERIA, RAPID RESPONSE CALL, PATIENT TO BE TRANSFERED TO CCU.
--- NOTE | 2024-06-04 23:09 | NUR ---
BLODD SUGAR 95 CHECKED WITH V/S
--- NOTE | 2024-06-04 23:20 | NUR ---
CALLED PATIENTS MARIKA ASKEW TO UPDATE ON PATIENT STATUS, V/S AND DUE TO SEPSIS PROTOCOL WILL BE MOVING PATIENT TO ROOM 126 IN CCU.
[2024-06-04 23:34] LABS: LACTIC ACID, BLOOD 0.7 mmol/L (0.4-2.0)
[2024-06-04 23:50] VITALS: BP 122/55
--- NOTE | 2024-06-04 23:50 | NUR ---
pt arrived to CCU room 126. handoff report received from JEFFREY Vidal. pt is asleep in bed, awakens with verbal stimuli. pt is A/O, has a flat affect, and is able to follow commands. pt IV site WNL. pt has 2+ pitting edema in lower extremities. pt has dry cough. pt updated on plan of care. call light within reach. bed in low and locked postion. pt has no needs at this time.
--- NOTE | 2024-06-04 23:50 | NUR ---
BEDSIDE REPORT TO BENITO Shafer RN IN CCU.
[2024-06-05] VITALS (25 sets, daily range): BP systolic 95–155; BP diastolic 53–95
--- NOTE | 2024-06-05 00:49 | NUR ---
PATIENT AGREED TO NASAL SWAB. DONE PER PROTOCOL AND SENT TO LAB.
--- NOTE | 2024-06-05 00:50 | NUR ---
COVID SWAB COMPLETED AND SENT TO LAB
--- NOTE | 2024-06-05 01:18 | NUR ---
UPDATED MD ON PATIENT'S CURRENT VS
[2024-06-05 01:21] LABS: INFLUENZA B NAA NEGATIVE (NEGATIVE); RESPIRATORY SYNCYTIAL VIR NAA NEGATIVE (NEGATIVE)
[2024-06-05 01:45] LABS: BILIRUBIN, URINE NEGATIVE (negative); BLOOD/HGB, URINE SMALL (Negative); KETONE, URINE NEGATIVE (Negative); LEUK ESTERASE, URINE NEGATIVE (negative); NITRITE, URINE NEGATIVE (negative); PH, URINE 5.5 (5-7)
[2024-06-05 01:56] LABS: CRYSTALS, URINE NONE SEEN (0-1+); EPITHELIAL CELLS, URINE NONE SEEN /lpf (0-1+)
[2024-06-05 01:57] LABS: BACTERIA, URINE RARE /hpf (negative); CASTS, URINE HYALINE 1+ \\lpf; COLLECTION TYPE, URINE CLEAN CATCH; REFLEX CULTURE, URINE No (No)
[2024-06-05 02:17] LABS: AMPHETAMINES, URINE NEGATIVE (NEGATIVE); BARBITURATES, URINE NEGATIVE (NEGATIVE); BENZODIAZEPINE, URINE NEGATIVE (NEGATIVE); CANNABINOID, URINE NEGATIVE (NEGATIVE); COCAINE, URINE NEGATIVE (NEGATIVE); ECSTASY, URINE NEGATIVE (NEGATIVE); FENTANYL, URINE NEGATIVE (NEGATIVE); METHADONE, URINE NEGATIVE (NEGATIVE); OPIATES, URINE NEGATIVE (NEGATIVE); OXYCODONE, URINE NEGATIVE (NEGATIVE); PHENCYCLIDINE, URINE NEGATIVE (NEGATIVE)
[2024-06-05 02:35] LABS: BUPRENORPHINE, URINE NEGATIVE (NEGATIVE)
--- NOTE | 2024-06-05 02:45 | NUR ---
pt resting with eyes closed, respirations even and unlabored. vital signs stable. call light within reach.
--- NOTE | 2024-06-05 04:15 | NUR ---
PT TEMPERATURE TAKEN; 100.3. PRN TYLENOL GIVEN PER EMAR. PT HAS NO FURTER NEEDS AT THIS TIME. CALL LIGHT WITHIN REACH.
[2024-06-05 05:31] LABS: BASOPHILS 2.1 % (0-2); EOSINOPHILS 0.8 % (0-6); HEMATOCRIT 19.4 % (35.0-50.0); HEMOGLOBIN 6.7 g/dL (12.0-18.0); LYMPHOCYTES 15.2 % (24-44); MCH 31.7 (27-36); MCHC 34.7 g/dl (30-36); MCV 91.3 fl (81-99); MONOCYTES 15.3 % (0-12); NEUTROPHILS 66.6 % (39-80); PLATELET COUNT 321 K/uL (140-440); RBC 2.12 M/ul (4.3-5.7); RDW 16.2 (10.5-15.0)
[2024-06-05 05:46] LABS: ANION GAP 15.3 (7-21); BUN/CREATININE RATIO 12.3 (6.0-28.6); CALCIUM 7.9 mg/dL (8.5-10.1); CREATININE, SERUM 1.95 mg/dL (0.70-1.30); MAGNESIUM 1.6 mg/dL (1.8-2.4); POTASSIUM 4.3 mmol/L (3.5-5.1)
--- NOTE | 2024-06-05 06:30 | NUR ---
DR CAMPUZANO CALLED AND UPDATED ON PT LABS AND STATUS. NEW ORDER RECEIVED FOR ONE UNIT BLOOD TO BE INFUSED.
[2024-06-05] MEDS ORDERED: LEVOTHYROXINE SODIUM 125 MCG TAB PO SCH (07:00)
[2024-06-05 07:21] LABS: IS CROSSMATCH COMPATIBLE
--- NOTE | 2024-06-05 07:30 | NUR ---
REPORT RECEIVED. U.S. OF ABD BEING DONE AT BEDSIDE.
--- NOTE | 2024-06-05 07:55 | NUR ---
U.S. COMPLETE. PATIENT USED URINAL TO VOID 400 ML 0F CLEAR YELLOW URINE.
--- NOTE | 2024-06-05 08:10 | NUR ---
ACCUCHKARELY 83. ASSESSMENT DONE. TALKED WITH PATIENT ABOUT POC. PATIENT DIDN'T RESPOND TO THIS VERBALLY. WITHDRAWN. SITTING UP IN BED FOR BREAKFAST.
--- NOTE | 2024-06-05 08:30 | NUR ---
PATIENT SKIN AND BODY VERY SENSITIVE TO TOUCH.
--- NOTE | 2024-06-05 08:58 | NUR ---
1 UNIT PRBC'S HUNG PER ORDERS. PRBC'S STARTED AT 50 ML/HR. PATIENT WITH VERY FLAT AFFECT, HAS KEPT EYES SHUT MOST OF THE MORNING. ROUTINE MEDS GIVEN.
[2024-06-05] MEDS ORDERED: ALBUMIN HUMAN 25% 100 ML BTL IV SCH (09:00)
[2024-06-05] MEDS ORDERED: lisinopriL 20 MG TAB PO SCH (09:00)
[2024-06-05] MEDS ORDERED: MAGNESIUM OXIDE 400 MG TABLET PO ONE (09:00)
[2024-06-05] MEDS ORDERED: FUROSEMIDE 100 MG/10 ML VIAL IV SCH (09:00)
[2024-06-05] MEDS ORDERED: lamoTRIgine 25 MG TAB PO SCH (09:00)
[2024-06-05] MEDS ORDERED: GABAPENTIN 300 MG CAP PO SCH (09:00)
--- NOTE | 2024-06-05 09:13 | NUR ---
prbc's increased to 85 ml/hr from 50 ml/hr as started.
[2024-06-05] MEDS ORDERED: metroNIDAZOLE 250 MG TAB ONE (09:16)
--- NOTE | 2024-06-05 09:50 | NUR ---
Evaristo AGARWAL RN, HERE TO PLACE U.S. GUIDED IV. HE PLACE AN 18 GA 2.5 INCH IV TO RIGHT AC. THIS WAS DONE AFTER 2 FAILED IV SITE ATTEMPTS.
--- NOTE | 2024-06-05 10:30 | NUR ---
DR. CAMPUZANO HERE TO SEE PATIENT. EXPLAINED TO PATIENT ABOUT THE NEED TO REMAIN IN THE HOSPITAL FOR AT LEAST THE NEXT TWO DAYS. PATIENT FRUSTRATED. ALBUMIN INFUSED. PRBC'S CONTINUE TO INFUSE. PATIENT WITH EVEN RESP, BP-145/72 (93). TEMP-99.6 AX. O2 SAT-94% DENIES SHORTNESS OF BREATH. NO S/S OF TRANSFUSION REACTION.
[2024-06-05] MEDS ORDERED: PHARMACY RENAL DOSE ADJUSTMENT 1 DOSE MISC PO SCH (12:00)
[2024-06-05] MEDS ORDERED: FUROSEMIDE 20 MG/2 ML VIAL IV ONE (14:00)
--- NOTE | 2024-06-05 15:13 | NUR ---
TYLENOL 650 MG PO GIVEN FOR COMFORT AND FEVER OF 101.5.
--- NOTE | 2024-06-05 15:15 | NUR ---
TYLENOL 650 MG PO GIVEN FOR OVERALL COMFORT AT TEMP.
--- NOTE | 2024-06-05 15:30 | NUR ---
DR. COBB HERE TO SEE PATIENT AND TALK WITH PATIENT ABOUT POC. PATIENT MOTHER IS IN ROOM.
--- NOTE | 2024-06-05 15:45 | NUR ---
DR. COBB SAID TO KEEP THE EYE GTT THAT WHERE ORDERED AT [facility] EARLIER THIS LAST WEEK ON SCHEDULE. EYE GTT TAKEN TO PHARMACY FOR REVIEW. PATIENT SITTING UP IN BED ENC TO USE I.S.
[2024-06-05] MEDS ORDERED: BENZONATATE 100 MG CAP PO PRN (16:00)
[2024-06-05] MEDS ORDERED: OFLOXACIN 0.3% OD SCH (17:00)
[2024-06-05] MEDS ORDERED: OPTH OD SCH (17:00)
[2024-06-05] MEDS ORDERED: prednisoLONE ACETATE 1% 10 ML BTL OD SCH (17:00)
--- NOTE | 2024-06-05 17:00 | NUR ---
T. PERLE 100 MG PO GIVEN FOR COUGH. PATIENT HAS OCC HARSH NON-PRODUCTIVE COUGH. SITTING UP IN BED EATING DINNER. MORE INTERACTIVE NOW THAN HE WAS EARLIER IN THE DAY.
--- NOTE | 2024-06-05 19:30 | NUR ---
REPORT RECEIVED FROM DAY SHIFT RN. DAYSHIFT RN ASSISTED PATIENT TO BATHROOM. NOTED INCONTENT VOID. PATIENT BACK IN BED. NO FURTHER NEEDS AT THIS TIME. CALL LIGHT WITHIN REACH, AT BEDSIDE.
--- NOTE | 2024-06-05 19:45 | NUR ---
handoff report received from JEFFREY Alatorre. pt laying awake in bed. no needs at this time. call light within reach. vital signs stable.
--- NOTE | 2024-06-05 20:35 | NUR ---
PT ASSESSMENT COMPLETE. PT LAYING AWAKE IN BED WATCHING TV. PT IS A/O, PLEASANT, ANSWERS QUESTIONS AND FOLLOWS COMMANDS APPROPRIATELY. PT TEMPERATURE TAKEN ORALLY AT 100.3. LUNG SOUNDS ARE DIMINSIHED, AND PT IS ON 2L NC SATURATING WELL. PT CONTINUES TO HAVE NON-PRODUCTIVE HARSH COUGH. 2+ EDEMA NOTED IN LOWER EXTREMITIES. PT DENIES FEELING SOB. IV SITES WNL. FRESH ICE WATER PROVIDED. PT HAS NO FURTHER NEEDS AT THIS TIME. CALL LIGHT WITHIN REACH. BED IN LOW AND LOCKED POSITION WITH BED ALARM ON.
[2024-06-05] MEDS ORDERED: DORZOLAMIDE HCL/TIMOLOL MALEAT 10 ML PLCT OD SCH (21:00)
--- NOTE | 2024-06-05 21:15 | NUR ---
pt provided with sandwhich and milk per request. PRN Tylenol and Melatonin given per EMAR. pt states his back hurts at 8/10 pain. pt has no further needs at this time. call light within reach, bed in low and locked position.
--- NOTE | 2024-06-05 23:05 | NUR ---
pt resting in bed with eyes closed, respirations even and unlabored. vital signs stable. no needs at this time. call light within reach. bed in low and locked positon with bed alarm on.
[2024-06-06] VITALS (11 sets, daily range): BP systolic 114–158; BP diastolic 62–89
--- NOTE | 2024-06-06 00:15 | NUR ---
pt assessment complete. no new changes at this time. pt has no needs at this time. call light within reach.
--- NOTE | 2024-06-06 00:47 | NUR ---
pt blood sugar checked with a result of 125. pt temperature 100.5. pt states he is comfortable and has no needs at this time. call light within reach.
--- NOTE | 2024-06-06 02:00 | NUR ---
pt continues to have dry hacking cough. pt is laying awake in bed. vital signs stable. pt states he has no needs at this time. call light within reach.
--- NOTE | 2024-06-06 02:50 | NUR ---
DOMINIQUE SHIPLEY GIVEN PER EMAR. TEMPERATURE TAKEN; 99.8. NO FURTHER NEEDS AT THIS TIME. CALL LIGHT WITHIN REACH.
--- NOTE | 2024-06-06 03:45 | NUR ---
PT RESTING IN BED WITH EYES CLOSED, RESPIRATIONS EVEN AND UNLABORED. VITAL SIGNS STABLE. PT ON 4L NC, WITH SATURATIONS IN THE LOW 90'S. NO NEEDS AT THIS TIME. CALL LIGHT WITHIN REACH.
--- NOTE | 2024-06-06 04:50 | NUR ---
PT ASSESSMENT COMPLETE. NO NEW CHANGES AT THIS TIME. PT REPOSITIONED IN BED, FRESH ICE WATER PROVIDED. NO NEEDS AT THIS TIME. CALL LIGHT WITHIN REACH.
[2024-06-06 05:17] LABS: BASOPHILS 0.9 % (0-2); EOSINOPHILS 2.7 % (0-6); HEMATOCRIT 22.6 % (35.0-50.0); HEMOGLOBIN 7.8 g/dL (12.0-18.0); LYMPHOCYTES 10.4 % (24-44); MCH 31.7 (27-36); MCHC 34.6 g/dl (30-36); MCV 91.5 fl (81-99); MONOCYTES 11.7 % (0-12); NEUTROPHILS 74.3 % (39-80); PLATELET COUNT 323 K/uL (140-440); RBC 2.47 M/ul (4.3-5.7)
[2024-06-06 05:31] LABS: ANION GAP 15.2 (7-21); BUN/CREATININE RATIO 12.9 (6.0-28.6); CALCIUM 8.1 mg/dL (8.5-10.1); CREATININE, SERUM 2.17 mg/dL (0.70-1.30); MAGNESIUM 1.6 mg/dL (1.8-2.4); POTASSIUM 4.2 mmol/L (3.5-5.1)
--- NOTE | 2024-06-06 06:03 | NUR ---
pt temperature taken; 101.1. pt reports shoulder and back pain. pt assisted with repositioning in bed. PRN Tylenol given per EMAR. No further needs at this time. call light within reach.
[2024-06-06] MEDS ORDERED: MAGNESIUM SULFATE 2 GM/50 ML BAG IV SCH (06:30)
--- NOTE | 2024-06-06 07:30 | NUR ---
report received. PATIENT IS SLEEPING WITH HOB ELEVATED TO 30 DEGREES. O2 AT [address] NO DISTRESS NOTED.
--- NOTE | 2024-06-06 07:45 | NUR ---
DR. COBB, WOKE PATIENT FOR ASSESSMENT. PATIENT STATES HE IS PAINFUL. SENSITIVE TO TOUCH. DR. COBB TALKED WITH PATIENT ABOUT POC, MD WILL CONSULT SKI PATROLLER REGARDING HEPATIC/RENAL SYNDROME. ROUTINE MEDS TO BE GIVEN.
--- NOTE | 2024-06-06 08:56 | NUR ---
TOOK BREAKFAST WELL. WANTS TO REST NOW. DR. COBB DID CONSULT REAL ESTATE ASSET MANAGER. AFTER CONSULT, ALBUMIN DC'D. LASIX ORDERED. ON NEXT VOID, WILL SEND URINE FOR TESTING. PATIENT IS AWARE.
[2024-06-06] MEDS ORDERED: FUROSEMIDE 40 MG/4 ML VIAL IV ONE ×2 (09:30→15:00)
--- NOTE | 2024-06-06 09:30 | NUR ---
SITTING UP IN BED TO TAKE MILK AND GLUCERNA. CONTINUES TO C/O INTERMITTENT PAIN IN SHOULDER AND FEET. NO TREATMENT AT THIS TIME. PATIENT IS FRUSTRATED WITH MONITOR CORDS, O2 TUBING. IV TUBING.
--- NOTE | 2024-06-06 09:35 | NUR ---
RN TOOK PATIENT TO XRAY VIA W/C FOR 2 VIEW CHEST XRAY.
--- NOTE | 2024-06-06 10:00 | NUR ---
RETURN TO CCU. PATIENT TOLERATED WELL. WAS NOT ABLE TO STAND UP FOR CHEST XRAY. WISHES TO SIT AT BEDSIDE. O2 SATS ON 4 L 97 WHILE SITTING UP, O2 DECREASED TO 2 LITERS.
[2024-06-06 11:49] LABS: CREATININE, RANDOM URINE 43.79 mg/dL (NOT ESTABLISHED)
--- NOTE | 2024-06-06 12:00 | NUR ---
ASSESSMENT UNCHANGED 3 UNITS INSULIN GIVEN FOR BLOOD SUGAR OF 182.
--- NOTE | 2024-06-06 12:12 | NUR ---
MED REC COMPLETE
--- NOTE | 2024-06-06 12:20 | NUR ---
TYLENOL 650 MG PO GIVEN FOR COMFORT. FMAILY MEMBERS ARE IN ROOM.
--- NOTE | 2024-06-06 13:10 | NUR ---
TOOK LUNCH WELL. PATIENT TALKING WITH HIS MOTHER. DENIES NEEDS AT THIS TIME.
--- NOTE | 2024-06-06 15:00 | NUR ---
ORDERS RECEIVED TO TRANSFER TO [facility].
[2024-06-06] MEDS ORDERED: OFLOXACIN5 M1 OD (15:20)
[2024-06-06] MEDS ORDERED: DILTIAZEM 24HR120 MG PO (15:24)
[2024-06-06] MEDS ORDERED: DORZOLAMIDE-TIM10 ML OD (15:25)
[2024-06-06] MEDS ORDERED: PREDNISOLONE ACE5 ML OD (15:25)
--- NOTE | 2024-06-06 16:30 | NUR ---
TO [facility] VIA [facility]. REPORT CALLED TO THEM.
[2024-06-07 01:20] LABS: IRON BINDING CAPACITY TOTAL 112 ug/dL (240-450); IRON,SERUM OR PLASMA 8 ug/dL (45-182); TRANSFERRIN SATURATION 7 %sat (20-50)
[2024-06-08 11:35] LABS: HEPATITIS A ANTIBODY, IGM Negative (Negative); HEPATITIS B CORE ANTIBODY, IGM Negative (Negative); HEPATITIS B SURFACE ANTIGEN Negative (Negative); HEPATITIS C AB CIA INTERP Negative (Negative); HEPATITIS C ANTIBODY CIA INDEX 0.08 IV (())
[2024-06-08 12:04] LABS: ANTI-NUCLEAR AB ANA,IGG ELISA Detected (None Detected)
[2024-06-08 16:34] LABS: DOUBLE-STRANDED DNA IGG ELISA 14 IU (0-24)
[2024-06-08 20:36] LABS: COMPLEMENT COMPONENT 4 21 mg/dL (10-40)
[2024-06-09 01:31] LABS: COMPLEMENT COMPONENT 3 93 mg/dL (90-180)
[2024-06-09 14:48] LABS: ANA PATTERN Speckled (()); ANTINUCLEAR AB (ANA),HEP-2,IGG Detected (<1:80)
== END 2024-06-06 16:23 | disposition short-term general hospital (02) | DRG 640 ==
LOC: ED 12:10 → MS 18:52 → CCU 23:07
PROVIDERS: Emergency Medicine; Student in an Organized Health Care Education/Training Program; ADMIT Student in an Organized Health Care Education/Training Program; ATTEND Student in an Organized Health Care Education/Training Program
PROC: 30233N1 Transfusion of Nonautologous Red Blood Cells into Peripheral Vein, Percutaneous Approach (ICD-10-PCS; principal; 2024-06-04)
DX: E87.70 Fluid overload, unspecified (principal); J18.9 Pneumonia, unspecified organism; I48.92 Unspecified atrial flutter; N17.9 Acute kidney failure, unspecified; R18.8 Other ascites; I50.32 Chronic diastolic (congestive) heart failure; I11.0 Hypertensive heart disease with heart failure; F10.10 Alcohol abuse, uncomplicated; E83.42 Hypomagnesemia; H54.61 Unqualified visual loss, right eye, normal vision left eye; E10.42 Type 1 diabetes mellitus with diabetic polyneuropathy; D64.9 Anemia, unspecified; M19.90 Unspecified osteoarthritis, unspecified site; Z87.19 Personal history of other diseases of the digestive system; M06.9 Rheumatoid arthritis, unspecified; H26.9 Unspecified cataract; Z87.891 Personal history of nicotine dependence; Z90.49 Acquired absence of other specified parts of digestive tract; Z98.890 Other specified postprocedural states; Z79.4 Long term (current) use of insulin; Z79.899 Other long term (current) drug therapy; R45.1 Restlessness and agitation; Z99.81 Dependence on supplemental oxygen
CPT/HCPCS: 36415; 71045; 71046; 76705; 80048; 80053; 80074; 80307; 81001; 82570; 83036; 83550; 83605; 83735; 83880; 84156; 84484; 85025; 85610; 85730; 86038; 86161; 86850; 86900; 86901; 86922; 87502; A9270; J0696; J1644; J1815; J1940; J3411; J3475; J7030; P9016; P9047; U0002

== ENCOUNTER 2024-09-18 15:30 | Emergency (ER) | payer OTHER ==
[~2024-09-18] VITALS: Ht 175.3 cm; Wt 88.5 kg
[~2024-09-18 15:30] MED LIST changes: +ADULT LOW DOSE81 MG PO; +DORZOLAMIDE-TIM10 ML OD; +FUROSEMIDE40 MG PO; +OFLOXACIN5 M1 OD; +PREDNISOLONE ACE5 ML OD
[2024-09-18] MEDS ORDERED: MULTIVITAMINS THERAPEUTIC 1 EA TAB PO ONE (17:45)
[2024-09-18] MEDS ORDERED: SODIUM CHLORIDE 0.9% 1,000 ML IV ONE (17:45)
[2024-09-18 17:59] LABS: HEMOGLOBIN 7.1 g/dL (12.0-18.0); RBC 2.16 M/ul (4.3-5.7)
[2024-09-18 18:01] LABS: BASOPHILS 0.8 % (0-2); EOSINOPHILS 4.9 % (0-6); HEMATOCRIT 20.9 % (35.0-50.0); LYMPHOCYTES 29.5 % (24-44); MCHC 34.2 g/dl (30-36); MCV 96.5 fl (81-99); MONOCYTES 15.6 % (0-12); NEUTROPHILS 49.2 % (39-80); PLATELET COUNT 209 K/uL (140-440); RDW 17.2 (10.5-15.0)
[2024-09-18 18:14] LABS: ALBUMIN 1.4 g/dL (3.4-5.0); ALBUMIN/GLOBULIN RATIO 0.32 (1.1-2.4); ANION GAP 16.2 (7-21); BILIRUBIN, TOTAL 0.1 ng/dL (0.2-1.0); BUN/CREATININE RATIO 7.38 (6.0-28.6); CALCIUM 7.4 mg/dL (8.5-10.1); CREATININE, SERUM 1.49 mg/dL (0.70-1.30); POTASSIUM 4.2 mmol/L (3.5-5.1); PROTEIN, TOTAL 5.8 g/dL (6.4-8.2)
[2024-09-18 22:25] VITALS: BP 126/82
== END 2024-09-18 22:25 | disposition home or self-care (01) ==
LOC: ED 15:30
PROVIDERS: Emergency Medicine
DX: F10.929 Alcohol use, unspecified with intoxication, unspecified (principal); E10.40 Type 1 diabetes mellitus with diabetic neuropathy, unspecified; E10.22 Type 1 diabetes mellitus with diabetic chronic kidney disease; N18.9 Chronic kidney disease, unspecified; I50.9 Heart failure, unspecified; I48.91 Unspecified atrial fibrillation; D63.8 Anemia in other chronic diseases classified elsewhere; H54.61 Unqualified visual loss, right eye, normal vision left eye; Z86.718 Personal history of other venous thrombosis and embolism; Z87.891 Personal history of nicotine dependence; Z79.4 Long term (current) use of insulin; Z79.899 Other long term (current) drug therapy
CPT/HCPCS: 36415; 80053; 85025; 85060; 99284; G0480; J7030

== ENCOUNTER 2024-10-19 11:13 | Emergency (ER) | payer OTHER ==
[~2024-10-19] VITALS: Ht 175.3 cm; Wt 82.6 kg
[2024-10-19] MEDS ORDERED: CEFTRIAXONE SODIUM 2 GM in SODIUM CHLORIDE 0.9% 100 ML IV ONE (11:30)
[2024-10-19] MEDS ORDERED: CEFTRIAXONE SODIUM 2 GM VIAL ONE (11:32)
[2024-10-19 11:38] LABS: BASOPHILS 0.3 % (0-2); EOSINOPHILS 0.2 % (0-6); HEMATOCRIT 19.9 % (35.0-50.0); HEMOGLOBIN 6.6 g/dL (12.0-18.0); LYMPHOCYTES 1.7 % (24-44); MCH 32.1 (27-36); MCHC 33.1 g/dl (30-36); MCV 97.1 fl (81-99); MONOCYTES 5.7 % (0-12); NEUTROPHILS 92.1 % (39-80); PLATELET COUNT 215 K/uL (140-440); RBC 2.05 M/ul (4.3-5.7); RDW 15.1 (10.5-15.0)
[2024-10-19] MEDS ORDERED: ZITHROMAX250 MG PO (11:39)
[2024-10-19] MEDS ORDERED: SODIUM CHLORIDE 0.9% 1,000 ML IV PRN ×2 (11:45)
[2024-10-19] MEDS ORDERED: SODIUM CHLORIDE 0.9% 500 ML IV PRN (11:45)
[2024-10-19 11:51] LABS: ALBUMIN 1.2 g/dL (3.4-5.0); ALBUMIN/GLOBULIN RATIO 0.25 (1.1-2.4); ANION GAP 16.5 (7-21); BILIRUBIN, TOTAL 0.8 mg/dL (0.2-1.0); BUN/CREATININE RATIO 16.86 (6.0-28.6); CALCIUM 7.6 mg/dL (8.5-10.1); CREATININE, SERUM 2.49 mg/dL (0.70-1.30); POTASSIUM 3.5 mmol/L (3.5-5.1)
[2024-10-19 11:53] LABS: INR 2.3 (0.80-1.30); PROTIME 25.4 Sec (11.2-14.2)
[2024-10-19 11:56] LABS: LACTIC ACID, BLOOD 1.7 mmol/L (0.4-2.0)
[2024-10-19] MEDS ORDERED: FUROSEMIDE 40 MG/4 ML VIAL IV ONE (13:00)
[2024-10-19 13:26] LABS: ABO O; RH POSITIVE
[2024-10-19 13:27] LABS: ANTIBODY SCREEN NEGATIVE
[2024-10-19] MEDS ORDERED: ondansetron HCL 4 MG/2 ML VIAL IV ONE (13:30)
[2024-10-19] MEDS ORDERED: PIPERACILLIN/TAZOBACTAM 4.5 GM in SODIUM CHLORIDE 0.9% 100 ML IV ONE (14:00)
[2024-10-19] MEDS ORDERED: VANCOMYCIN HCL 2,000 MG in DEXTROSE 5% 500 ML IV ONE (14:15)
[2024-10-19 14:45] LABS: IS CROSSMATCH COMPATIBLE
[2024-10-19 18:04] LABS: MONONUCLEAR CELLS, BODY FLUID 18; PMNS, BODY FLUID 82; RBC, BODY FLUID 310000; WBC, BODY FLUID 4500
[2024-10-19 19:54] LABS: CORONAVIRUS COVID-19 AG NEGATIVE (NEGATIVE); INFLUENZA A AG NEGATIVE (NEGATIVE); INFLUENZA B AG NEGATIVE (NEGATIVE)
[2024-10-19] MEDS ORDERED: DAILY VITE1 EAC1 PO (20:25)
[2024-10-19] MEDS ORDERED: THIAMINE HCL100 MG PO (20:25)
[2024-10-19] MEDS ORDERED: AMOXICILLIN500 M1 PO (20:25)
[2024-10-19] MEDS ORDERED: VENTOLIN HFA18 GM INH (20:26)
[2024-10-19] MEDS ORDERED: TORSEMIDE20 MG PO (20:26)
[2024-10-19] MEDS ORDERED: PHYTONADIONE 10 MG/ML AMP SUB-Q ONE (20:45)
[2024-10-19] MEDS ORDERED: TRANEXAMIC ACID IN NACL,ISO-OS 1,000 MG/100 ML PIGGYBACK IV ONE (21:00)
[2024-10-19 22:47] LABS: BASOPHILS 0.7 % (0-2); EOSINOPHILS 0.9 % (0-6); HEMATOCRIT 24.5 % (35.0-50.0); HEMOGLOBIN 8.3 g/dL (12.0-18.0); LYMPHOCYTES 3.1 % (24-44); MCH 31.5 (27-36); MCV 92.6 fl (81-99); MONOCYTES 7.5 % (0-12); NEUTROPHILS 87.8 % (39-80); PLATELET COUNT 167 K/uL (140-440); RBC 2.65 M/ul (4.3-5.7); RDW 16.6 (10.5-15.0)
[2024-10-19 22:49] LABS: PH, VENOUS 7.431 (7.31-7.41)
[2024-10-19 23:00] LABS: INR 2.28 (0.80-1.30); PROTIME 25.2 Sec (11.2-14.2)
[2024-10-20] MEDS ORDERED: HUMAN PROTHROMBIN COMPLX(PCC) 500 UNIT/20 ML VIAL IV ONE (02:15)
[2024-10-20 02:37] LABS: IS CROSSMATCH COMPATIBLE
[2024-10-20 03:02] LABS: HEMATOCRIT 24.6 % (35.0-50.0); HEMOGLOBIN 8.4 g/dL (12.0-18.0); MCH 31.3 (27-36); MCHC 34.1 g/dl (30-36); MCV 91.8 fl (81-99); PLATELET COUNT 172 K/uL (140-440); RBC 2.68 M/ul (4.3-5.7); RDW 17.3 (10.5-15.0)
[2024-10-20 03:19] LABS: BASOPHILS, MANUAL DIFF 1; EOSINOPHILS, MANUAL DIFF 4; LYMPHOCYTES, MANUAL DIFF 7; NEUTROPHILS, MANUAL DIFF 88
[2024-10-20 03:22] VITALS: BP 139/76
[2024-10-21 09:32] LABS: GLUCOSE FLUID SOURCE Pleural fluid (()); GLUCOSE,BODY FLUID 147 mg/dL (()); LACTATE DEHYDROGENASE TOTAL,BF 1156 U/L (()); LDH FLUID SOURCE Pleural fluid (()); TOTAL PROTEIN FLUID SOURCE Pleural fluid (()); TOTAL PROTEIN, BODY FLUID 3.3 g/dL (())
== END 2024-10-20 02:55 | disposition short-term general hospital (02) ==
LOC: ED 11:13
PROVIDERS: Emergency Medicine; Family Medicine
DX: A37.90 Whooping cough, unspecified species without pneumonia (principal); K70.9 Alcoholic liver disease, unspecified; D63.8 Anemia in other chronic diseases classified elsewhere; J94.2 Hemothorax; E10.9 Type 1 diabetes mellitus without complications; I50.9 Heart failure, unspecified; N28.9 Disorder of kidney and ureter, unspecified; Z87.891 Personal history of nicotine dependence; Z79.899 Other long term (current) drug therapy; Z79.4 Long term (current) use of insulin
CPT/HCPCS: 32551; 32555; 36415; 36430; 51702; 71045; 71260; 76604; 80053; 82803; 82945; 83605; 83880; 84155; 84157; 85025; 85610; 85730; 86850; 86900; 86901; 86922; 87040; 87070; 87077; 87186; 87205; 89051; 94799; 96368; 99285-25; J0696; J1940; J2405; J2543; J3370; J3430; J7060; J7168; P9016; P9059; Q9967

== ENCOUNTER 2024-11-05 13:54 | Emergency (ER) | payer OTHER ==
[~2024-11-05] VITALS: Ht 175.3 cm; Wt 82.3 kg
--- OUTSIDE RECORDS SUMMARY | ~2024-11-05 | XMS | Continuity of Care Document ---
Demographics + + + | Address | [address] | | | [place] [address] | + + + | Preferred Language | Unknown | + + + | Marital Status | Unknown | + + + | Quaker Affiliation | Unknown | + + + | Race | or | + + + | Ethnic Group | Not or | + + + Author + + + | Author | [facility] | + + + | Organization | [facility] | + + + | Address | [address] | | | [place] [address] | + + + | Phone | | + + + Care Team Providers + + + + | Care Hangar Attendant Name | Role | Phone | + [...]
[~2024-11-05 13:54] MED LIST changes: +AMOXICILLIN500 M1 PO; +DAILY VITE1 EAC1 PO; +TORSEMIDE20 MG PO; +VENTOLIN HFA18 GM INH; +ZITHROMAX250 MG PO
[2024-11-05 14:43] LABS: BASOPHILS 0.7 % (0-2); EOSINOPHILS 0.8 % (0-6); HEMATOCRIT 20.5 % (35.0-50.0); LYMPHOCYTES 5.6 % (24-44); MCH 31.9 (27-36); MCHC 34.1 g/dl (30-36); MCV 93.6 fl (81-99); MONOCYTES 4.7 % (0-12); NEUTROPHILS 88.2 % (39-80); RBC 2.19 M/ul (4.3-5.7); RDW 18.3 (10.5-15.0)
[2024-11-05 15:02] LABS: PLATELET COUNT 41 K/uL (140-440)
[2024-11-05 15:08] LABS: ALBUMIN 2.8 g/dL (3.4-5.0); ALBUMIN/GLOBULIN RATIO 0.88 (1.1-2.4); ALCOHOL, MEDICAL 276 ng/dL (<3); ALKALINE PHOSPHATASE 220 U/L (46-116); ALT (SGPT) 10 U/L (14-59); ANION GAP 15.9 (7-21); AST (SGOT) 20 U/L (15-37); BILIRUBIN, TOTAL 0.5 mg/dL (0.2-1.0); BUN/CREATININE RATIO 16.23 (6.0-28.6); CALCIUM 7.9 mg/dL (8.5-10.1); CARBON DIOXIDE 19 mmol/L (21-32); CHLORIDE 100 mmol/L (98-107); CREATININE, SERUM 1.54 mg/dL (0.70-1.30); GLOMERULAR FILTRATION RATE,EST 54 mL/min (>60); POTASSIUM 4.9 mmol/L (3.5-5.1); UREA NITROGEN 25 mg/dL (7-18)
[2024-11-05] MEDS ORDERED: FUROSEMIDE 40 MG/4 ML VIAL IV ONE (17:45)
[2024-11-05 17:51] LABS: ABO O; ANTIBODY SCREEN NEGATIVE; RH POSITIVE
[2024-11-05] MEDS ORDERED: ONDANSETRON 4 MG HOME.PACK SL ONE (18:30)
[2024-11-05 18:40] VITALS: BP 118/59
[2024-11-06] MEDS ORDERED: PREDNISONE20 MG PO (14:18)
[2024-11-06] MEDS ORDERED: CEFDINIR300 MG PO (14:18)
--- NOTE | 2024-11-06 19:24 | EKG ---
[facility] [address] [place] [address] Signed Normal sinus rhythm Incomplete right bundle branch block Cannot rule out Anteroseptal infarct , age undetermined Prolonged QT Abnormal ECG When compared with ECG of 21-MAY-2024 11:20, Minimal criteria for Anteroseptal infarct are now present Confirmed by Pee Woodard MD ([id number]) on 11/06/2024 7:24:33 PM Electronically Signed By: PEE OWODARD MD 11/06/241923 PATIENT NAME: MARQUISCHARLIEGELY PEREZ Electrocardiogram DATE OF : 71 PHYSICIAN: PEE WOODARD MD REPORT #: [id number] REPORT IS CONFIDENTIAL AND NOT TO BE RELEASED WITHOUT AUTHORIZATION
== END 2024-11-05 18:40 | disposition home or self-care (01) ==
LOC: ED 13:54
PROVIDERS: Emergency Medicine
DX: F10.129 Alcohol abuse with intoxication, unspecified (principal); D69.6 Thrombocytopenia, unspecified; Z79.4 Long term (current) use of insulin; Z79.899 Other long term (current) drug therapy
CPT/HCPCS: 36415; 71045; 80053; 83690; 83880; 85025; 85060; 86850; 86900; 86901; 93005; 93010; 96374; 99284-25; A9270; G0480; J1940

== ENCOUNTER 2024-11-06 11:15 | Emergency (ER) | payer OTHER ==
[~2024-11-06] VITALS: Ht 175.3 cm; Wt 81.9 kg
--- OUTSIDE RECORDS SUMMARY | ~2024-11-06 | XMS | Continuity of Care Document ---
Demographics + + + | Address | [address] | | | [place] [address] | + + + | Preferred Language | Unknown | + + + | Marital Status | Unknown | + + + | Tenriism Affiliation | Unknown | + + + | Race | or | + + + | Ethnic Group | Not or | + + + Author + + + | Author | [facility] | + + + | Organization | [facility] | + + + | Address | [address] | | | [place] [address] | + + + | Phone | | + + + Care Team Providers + + + + | Care Counter Clerk Name | Role | Phone | + + + + Unavailable | Unavailable | + + + + Allergies No information. Encounters No information. Functional Status No information. Immunizations No information. Medications No information. Problems + + + + | date | description | facility | + + + + | 2024-10-29 16:31:42 | Other pericardial effusion | [facility] | | | (noninflammatory) | | + + + + | 2024-10-29 16:31:42 | Hemothorax | [facility] | + + + + Procedures No information. Results/Labs No information. Social History +--------+ + + | date | description | facility | +--------+ + + Vital Signs No information."
[2024-11-06] MEDS ORDERED: diphenhydrAMINE HCL 50 MG/ML VIAL IV ONE (11:30)
[2024-11-06] MEDS ORDERED: FAMOTIDINE 20 MG/ 2 ML VIAL IV ONE (11:30)
[2024-11-06] MEDS ORDERED: methylPREDNISolone SOD SUCC 125 MG/2 ML VIAL IV ONE (11:30)
[2024-11-06 11:35] LABS: BASOPHILS 0.3 % (0-2); EOSINOPHILS 0.1 % (0-6); HEMATOCRIT 24.4 % (35.0-50.0); HEMOGLOBIN 8.3 g/dL (12.0-18.0); LYMPHOCYTES 4.6 % (24-44); MONOCYTES 2.2 % (0-12); NEUTROPHILS 92.8 % (39-80); RBC 2.59 M/ul (4.3-5.7); RDW 18.4 (10.5-15.0)
[2024-11-06 11:47] LABS: PLATELET COUNT 34 K/uL (140-440)
[2024-11-06 11:50] LABS: ALBUMIN 3.1 g/dL (3.4-5.0); ALBUMIN/GLOBULIN RATIO 0.86 (1.1-2.4); ANION GAP 19.8 (7-21); BILIRUBIN, TOTAL 0.9 mg/dL (0.2-1.0); BUN/CREATININE RATIO 14.81 (6.0-28.6); CALCIUM 8.5 mg/dL (8.5-10.1); CREATININE, SERUM 1.62 mg/dL (0.70-1.30); POTASSIUM 4.8 mmol/L (3.5-5.1); PROTEIN, TOTAL 6.7 g/dL (6.4-8.2)
[2024-11-06] MEDS ORDERED: CEFDINIR 300 MG CAP PO ONE (14:15)
[2024-11-06] MEDS ORDERED: PREDNISONE20 MG PO (14:18)
[2024-11-06] MEDS ORDERED: CEFDINIR300 MG PO (14:18)
[2024-11-06 15:29] VITALS: BP 163/96
== END 2024-11-06 15:29 | disposition home or self-care (01) ==
LOC: ED 11:15
PROVIDERS: Emergency Medicine
DX: T50.1X5A Adverse effect of loop [high-ceiling] diuretics, initial encounter (principal); D69.6 Thrombocytopenia, unspecified; E10.9 Type 1 diabetes mellitus without complications; I50.9 Heart failure, unspecified; M19.90 Unspecified osteoarthritis, unspecified site
CPT/HCPCS: 36415; 71045; 80053; 85025; 85060; J1200; J2919

== ENCOUNTER 2024-11-09 17:30 | Inpatient (IN) | payer OTHER ==
[2024-11-09] VITALS (8 sets, daily range): BP systolic 150–161; BP diastolic 88–101
[~2024-11-09] VITALS: Ht 175.3 cm; Wt 81.3 kg
--- OUTSIDE RECORDS SUMMARY | ~2024-11-09 | XMS | Continuity of Care Document ---
Demographics + + + | Address | [address] | | | [place] [address] | + + + | Preferred Language | Unknown | + + + | Marital Status | Unknown | + + + | Tenriism Affiliation | Unknown | + + + | Race | or | + + + | Ethnic Group | Not or | + + + Author + + + | Author | [facility] | + + + | Organization | [facility] | + + + | Address | [address] | | | [place] [address] | + + + | Phone | | + + + Care Team Providers + + + + | Care Fisher Hoop Net Name | Role | Phone | + [...]
--- OUTSIDE RECORDS SUMMARY | ~2024-11-09 | XMS | Continuity of Care Document ---
Demographics + + + | Address | [address] | | | [place] [address] | + + + | Preferred Language | Unknown | + + + | Marital Status | Unknown | + + + | Congregational Affiliation | Unknown | + + + | Race | or | + + + | Ethnic Group | Not or | + + + Author + + + | Author | [facility] | + + + | Organization | [facility] | + + + | Address | [address] | | | [place] [address] | + + + | Phone | | + + + Care Team Providers + + + + | Care Non Destructive Testing Specialist Name | Role | Phone | + [...]
[~2024-11-09 17:30] MED LIST changes: +CEFDINIR300 MG PO; +PREDNISONE20 MG PO
[2024-11-09 18:21] LABS: HEMATOCRIT 17.6 % (35.0-50.0); MCH 31.7 (27-36); MCHC 33.8 g/dl (30-36); MCV 93.8 fl (81-99); MONOCYTES 0.6 % (0-12); NEUTROPHILS 97.4 % (39-80); RBC 1.88 M/ul (4.3-5.7); RDW 18.3 (10.5-15.0)
[2024-11-09 18:38] LABS: ALBUMIN 2.9 g/dL (3.4-5.0); ALBUMIN/GLOBULIN RATIO 0.88 (1.1-2.4); ALKALINE PHOSPHATASE 246 U/L (46-116); ALT (SGPT) 14 U/L (14-59); AST (SGOT) 29 U/L (15-37); BILIRUBIN, TOTAL 0.6 mg/dL (0.2-1.0); BUN/CREATININE RATIO 16.21 (6.0-28.6); CARBON DIOXIDE 17 mmol/L (21-32); CHLORIDE 96 mmol/L (98-107); CREATININE, SERUM 1.85 mg/dL (0.70-1.30); GLOMERULAR FILTRATION RATE,EST 44 mL/min (>60); PROTEIN, TOTAL 6.2 g/dL (6.4-8.2); UREA NITROGEN 30 mg/dL (7-18)
[2024-11-09 18:48] LABS: PLATELET COUNT 29 K/uL (140-440)
[2024-11-09] MEDS ORDERED: PANTOPRAZOLE SODIUM 40 MG/10 ML VIAL IV ONE (19:00)
[2024-11-09 19:11] LABS: INR 1.3 (0.80-1.30); PROTIME 16.1 Sec (11.2-14.2)
[2024-11-09 19:20] LABS: PARTIAL THROMBOPLASTIN TIME 36.4 Sec (22.9-41.3)
[2024-11-09 19:26] LABS: ABO O; ANTIBODY SCREEN NEGATIVE; IS CROSSMATCH COMPATIBLE; RH POSITIVE
[2024-11-09] MEDS ORDERED: ondansetron HCL 4 MG/2 ML VIAL IV PRN (20:00)
[2024-11-09] MEDS ORDERED: CEFDINIR 300 MG CAP PO SCH (21:00)
[2024-11-09] MEDS ORDERED: PANTOPRAZOLE SODIUM 40 MG/10 ML VIAL IV SCH (21:00)
--- NOTE | 2024-11-09 21:41 | NUR ---
PICTURES TAKEN IN ER OF WOUNDS AFTER CONSENT SIGNED. LEFT ABD/PANNUS URINE CHAWLA CLEANED WITH SOAP AND WATER, BARRIER CREAM PLACED, BRIEF ON COVERING AREA. GROIN URINE CHAWLA- AREA CLEANED WITH SOAP AND WATER. AREAS OF SANGUINOUS DISCHARGE NOTED, SCANT. BARRIER CREAM APPLIED. BRIEF ON COVERING AREA. KEEP THESE AREAS CLEAN, USE BARRIER CREAM, CHANGE BRIEFS PRN, FREQUENT POSITION CHANGES. CHANGES TO AVOID SKIN BREAKDOWN. LLE ANTERIOR ULCER-1.3CM X 2.3CM WITH FIRMLY ADHERED YELLOW SLOUGH BASE, EDGES RED, PERIWOUND RED. CLEANED WITH SOAP AND WATER, IODOSORB, PINK FOAM DRESSING. CHANGE EVERY 3 DAYS AND PRN. LLE LATERAL ULCER- 0.5CM X 0.5CM WITH RED GRANULATING BASE. EDGES VIABLE, PINK. MONA WOUND PINK. CLEANED WITH SOAP AND WATER, BANDAID IN PLACE. CHANGE EVERY 3 DAYS AND PRN.
--- NOTE | 2024-11-09 21:54 | NUR ---
PATIENT ARRIVED TO THE FLOOR VIA STRETCHER. PATIENT TRANSFERRED BY STAFF FROM STRETCHER TO BED. PATIENTS ADMISSION COMPELTED. ASSESMENT COMPLETED. PATIENTS BLOOD TRANSFUSING PER ORDER. PATIENT DENIES ANY PAIN OR SOB. PATIENT AND PATIENTS MOTHER UPDATED ON PLAN OF CARE AND ALL QUESTIONS ANSWERED. PATIENT REPOSITIONED IN BED AND WARM BLANKETS PROVIDED. PATIENT DENIES ANY FURTHER NEEDS. CALL LIGHT IN REACH. BED ALARM ON FOR SAFETY.
[2024-11-09] MEDS ORDERED: FUROSEMIDE 40 MG/4 ML VIAL IV PRN (22:00)
[2024-11-09] MEDS ORDERED: LORazepam 1 MG TAB PO PRN (22:15)
[2024-11-09] MEDS ORDERED: LORazepam 2 MG/ML VIAL IV/IM PRN (22:15)
[2024-11-09] MEDS ORDERED: DEXTROSE 50% 50 ML SYR IV PRN ×2 (22:45)
[2024-11-09] MEDS ORDERED: IBLOOD GLUCOSE TEST STRIP 1 EA TEST XX PRN (22:45)
[2024-11-09] MEDS ORDERED: DEXTROSE 5% 1,000 ML IV PRN (22:45)
[2024-11-09] MEDS ORDERED: GLUCAGON,HUMAN RECOMBINANT 1 MG/ML VIAL SUB-Q PRN (22:45)
--- NOTE | 2024-11-09 23:45 | NUR ---
PATIENTS FIRST UNIT PRBC COMPLETED. NO S/SX OF TRANSFUSION REACTION NOTED. PATIENTS SECOND UNIT PRBC STARTED PER ORDER. THIS RN IN [place] FOR 1ST 15MIN OF STARTING 2ND UNIT VITALS OBTAINED AND NO S/SX OF TRANSFUSION REACTION NOTED. PATIENT HAS BM AND ABLE TO VOID. PATIENTS REPOSITIONED IN BED. PATIENT DENIES ANY PAIN OR NAUSEA. PATIENT DENIES ANY SOB. SCHEDULED MEDS GIVEN PER ORDER. PATIENT DENIES ANY FURTHER NEEDS. CALL LIGHT IN REACH.
[2024-11-10] VITALS (19 sets, daily range): BP systolic 140–173; BP diastolic 44–110
--- NOTE | 2024-11-10 | NUR ---
PATIENT IS RESTING IN BED ON LEFT SIDE. ONE TIME ORDER OF LASIX GIVEN PER ORDER. PATIENT DENIES ANY FURTHER NEEDS. CALL LIGHT IN REACH.
[2024-11-10] MEDS ORDERED: Insulin Regular, Human 100 UNIT/ML ML SUB-Q SCH ×2 (02:00→12:00)
[2024-11-10] MEDS ORDERED: IBLOOD GLUCOSE TEST STRIP 1 EA TEST VI SCH ×2 (02:00→12:00)
[2024-11-10 02:31] LABS: BILIRUBIN, URINE NEGATIVE (negative); BLOOD/HGB, URINE SMALL (Negative); KETONE, URINE NEGATIVE (Negative); LEUK ESTERASE, URINE NEGATIVE (negative); NITRITE, URINE NEGATIVE (negative)
--- NOTE | 2024-11-10 02:34 | NUR ---
PATIENT INCONTINENT OF URINE. PATIENTS BEDDING CHANGED AND MONA CARE COMPLETED. NEW ATTENDIN PLACE. PATIENT ABLE TO VOID INURINAL ALSO. UA SENT PER ORDER. PATIENT REPOSITIONED IN BED. PATIENTS IS NOW RESTING IN BED ON RIGHT SIDE. BS CHECKED AND SS GIVEN PER ORDER-SEE EMAR. PATIENT DENIES ANY PAIN OR NAUSEA. ATTEMPTED TO PLACE MALE PUREWICK. UNSUCCESSFUL IN PLACEING MALE PUREWICK DUE TO PATIENTS SKIN. PATIENT REMINDED TO CALL IF HE NEEDS TO VOID. PATIENT VERBALIZED UNDERSTANDING. PATIENT DENIES ANY FURTHER NEEDS. CALL LIGHT IN REACH.
[2024-11-10 02:38] LABS: BACTERIA, URINE NONE SEEN /hpf (negative); CASTS, URINE NONE SEEN \\lpf; COLLECTION TYPE, URINE CLEAN CATCH; CRYSTALS, URINE NONE SEEN (0-1+); EPITHELIAL CELLS, URINE 0 /lpf (0-1+); REFLEX CULTURE, URINE No (No); WHITE BLOOD CELLS, URINE 0-1 /HPF (0-5)
--- NOTE | 2024-11-10 02:50 | NUR ---
PATIENTS BLOOD TRANSFUSION COMPLETED. PATIENT IS NOW SL. PATIENT DENIES ANY NEEDS. CALL LIGHT IN REACH.
--- NOTE | 2024-11-10 04:23 | NUR ---
PATIENT IS RESTING IN BED WITH EYES CLOSED, RR12. PATIENT IS RESTING IN BED IN LEFT SIDE. PATIENT IS RESTING ON HIS RIGHT SIDE. PATIENT IS ON RA. NAD NOTED. CALL LIGHT IN REACH.
--- NOTE | 2024-11-10 04:43 | NUR ---
THIS RN INTO PATIENTS ROOM TO ASSIST WITH URINAL. PATIENT ABLE TO VOID. PATIENT DENIES ANY FURTHER NEEDS. CALL LIGHT IN REACH. BED ALARM ON FOR SAFETY.
--- NOTE | 2024-11-10 05:19 | NUR ---
LAB IN ROOM. PATIENT UPDATE ON PLAN OF CARE FOR DAY AND ALL QUESTIONS ANSWERED. PATIENT DENIES ANY FURTHER NEEDS. CALL LIGHT IN REACH. BED ALARM ON FOR SAFETY.
[2024-11-10 05:26] LABS: BASOPHILS 0.1 % (0-2); HEMATOCRIT 25.7 % (35.0-50.0); LYMPHOCYTES 6.6 % (24-44); MCH 31.9 (27-36); MCHC 35.1 g/dl (30-36); MCV 90.9 fl (81-99); MONOCYTES 2.6 % (0-12); NEUTROPHILS 90.7 % (39-80); RBC 2.82 M/ul (4.3-5.7); RDW 16.2 (10.5-15.0)
[2024-11-10 05:40] LABS: ALBUMIN 2.5 g/dL (3.4-5.0); ALBUMIN/GLOBULIN RATIO 0.81 (1.1-2.4); ANION GAP 16.7 (7-21); BILIRUBIN, TOTAL 1.5 mg/dL (0.2-1.0); BUN/CREATININE RATIO 16.36 (6.0-28.6); CREATININE, SERUM 1.65 mg/dL (0.70-1.30); MAGNESIUM 2.1 mg/dL (1.8-2.4); PHOSPHORUS, INORGANIC 3.9 mg/dL (2.5-4.9); POTASSIUM 4.7 mmol/L (3.5-5.1); PROTEIN, TOTAL 5.6 g/dL (6.4-8.2)
[2024-11-10 05:58] LABS: PLATELET COUNT 34 K/uL (140-440)
--- NOTE | 2024-11-10 06:09 | NUR ---
PATIENT ASSISTED TO USE THE URINAL PATIENT ABLE TO VOID. PATIENT ASSISTED TO REPOSITION. PATIENT REQUEST A SWAB FOR HIS MOUTH. PATIENT THEN STATED "THESE TASTE AWFUL". PATIENT BEGAN WRETCHING. PATIENT GIVEN PRN ZOFRAN PER REQUEST. PATIENT RANDA ANY FURTHER NEEDS. CALL LIGHT IN REACH.
--- NOTE | 2024-11-10 08:11 | NUR ---
Report received from community youth secretary RN. Patient resting in bed with eyes closed, facial swelling noted to L side > R. Pt drowsy at this time. Assessment complete. Will continue plan of care.
--- NOTE | 2024-11-10 08:42 | NUR ---
Scheduled medications administered IV. Patient drowsy but awakens to voice, oriented x4. Patient states feeling "dizzy and lightheaded" but "okay" overall. Pt declines AM cares/repositioning. Skin assessed, scabs scattered along with bruises. Dressings to RLE C/D/I. Pt skin dry, hot. Afebrile. NPO at this time. updated re: POC with possible scope. pt is agreeable at this time. States no needs, call light in reach.
[2024-11-10] MEDS ORDERED: FUROSEMIDE 40 MG/4 ML VIAL IV SCH (09:00)
[2024-11-10] MEDS ORDERED: THIAMINE HCL 200 MG/2 ML VIAL IV SCH (09:00)
--- NOTE | 2024-11-10 09:02 | NUR ---
DID HRLY ROUNDING AND ASKED PT IF HE WANTED TO RINSE HIS MOUTH OR DO MORNING CARE PT REFUSED AND SAID "LATER I AM TIRED" CALL LIGHT IS WITHIN REACH AND PT DIDNT NEED ANYTHING ELSE FROM ME.
--- NOTE | 2024-11-10 09:41 | NUR ---
Patient calls and asks for nausea medication, unable to give at this time d/t receiving at 0600. Patient repositioned in bed and given emesis bag. Dry heaving at this time. Patient declines other interventions. Held PO ABX at this time.
--- NOTE | 2024-11-10 10:15 | NUR ---
Dr Hannon in to round, patient calls to use urinal. Mother at bedside.
--- NOTE | 2024-11-10 10:20 | NUR ---
UR CLINICAL REVIEW: MCG-PER MCG REVIEW MEETS INPT CRITERIA FOR UPPER GI BLEED WITH NEED FOR SERIAL LABS BASIC DMAP INPT 11/09/24 @ 2005 ORDER [facility] REG NO AUTH REQUIRED PER MEDICAID GUIDELINES ANTICIPATE DISCHARGE TO HOME IN 1-2 DAYS 11/13/23
[2024-11-10] MEDS ORDERED: AZITHROMYCIN 250 MG TAB PO SCH (10:26)
--- NOTE | 2024-11-10 10:34 | NUR ---
SPOKE WITH PATIENT'S MOTHER. HE LIVES WITH HER IN MANUFACTURED HOME. SHE HAS TO ASSIST HIM WITH MOST OF HIS ADL'S. HE USES A WALKER, CANE AND SHOWER CHAIR. SHE IS REQUESTING SOME SORT OF BED RAIL AND TOILET RISER. DISCUSSED OPTIONS FOR TOILET RISER COULD BE AT [facility] VS. ORDERING ONE ONLINE. INFORMED HER INSURANCE DOES NOT COVER COST OF BATHROOM SUPPLIES. VERBALIZES UNDERSTANDING. STATES SHE WILL LOOK AT [facility]. DID CALL [facility] TO VERIFY BED RAIL, THEY CAN NOT SUPPLY UNLESS THEY HAVE PROVIDED A HOSPITAL BED. MOTHER STATES PATIENT CAN NOT GET IN OR OUT OF HOUSE WITHOUT A LIFT ASSIST. STATES SHE OR [employer] PROVIDE TRANSPORTATION FOR APPOINTMENTS. SHE STATES ELECTRICITY IS DIFFICULT TO PAY FOR WELL FOOD. PATIENT DOES HAVE FOOD STAMPS, BUT MOTHER DOES NOT SPECIFY WHAT THE AMOUNT IS. INFORMATION FOR [employer] PROVIDED WELL [facility]. [facility] HAS BED RAILS TO ATTACH TO HOME BED WHEN CALLED TO VERIFY.
--- NOTE | 2024-11-10 11:02 | NUR ---
Pt tolerates jello and ice water at this time, able to take PO ABX. Pt requests to rest at this time, made plan for bath and up to chair for lunch. Pt is agreeable.
--- NOTE | 2024-11-10 11:40 | NUR ---
Patient uses call light, requests assistance with urinal, states feeling nauseated, dry heaving into emesis bag, no overt vomiting.
[2024-11-10] MEDS ORDERED: PHARMACY RENAL DOSE ADJUSTMENT 1 DOSE MISC PO SCH (12:00)
--- NOTE | 2024-11-10 12:11 | NUR ---
Patient offered clear liquid tray, declines at this time. Repositioned in bed with 2nd RN. Pt refuses to sit up to chair or have HOB raised.
--- NOTE | 2024-11-10 12:24 | NUR ---
Patient uses call light to request to sit up in bed, refuses chair. Declines clear liquids. TV remote provided. pt uses urinal with RN assistance. No further needs at this time.
[2024-11-10 13:04] LABS: BASOPHILS 0.1 % (0-2); EOSINOPHILS 0.3 % (0-6); HEMATOCRIT 26.2 % (35.0-50.0); HEMOGLOBIN 9.3 g/dL (12.0-18.0); LYMPHOCYTES 6.4 % (24-44); MCH 32.1 (27-36); MCHC 35.4 g/dl (30-36); MCV 90.9 fl (81-99); MONOCYTES 5.3 % (0-12); NEUTROPHILS 87.9 % (39-80); RBC 2.88 M/ul (4.3-5.7); RDW 16.6 (10.5-15.0)
[2024-11-10 13:13] LABS: PLATELET COUNT 33 K/uL (140-440)
--- NOTE | 2024-11-10 13:41 | NUR ---
REFERRED BY JEFFREY CHERY; PT HAD REQUESTED QUALITY CONTROL ANALYST VISIT. PT TALKED EXTENSIVELY OF HISTORY OF ALCHOHOL ABUSE AND REPEATED ATTEMPTS AT SOBRIETY. GAVE A VARIETY OR REASONS FOR ONGOING STRUGGLES, DISPLAYED LITTLE INSIGHT INTO PERSONAL RESPONSIBILITY. QUALITY CONTROL ANALYST LISTENED EMPATHETICALLY, PROVIDED ANTICIPATORY GUIDANCE. WILL FOLLOW UP WITH CASE MANAGEMENT. PT REQUESTED ONGOING VISITS. WILL RETURN CIRCUMSTANCES ALLOW.
--- NOTE | 2024-11-10 14:00 | NUR ---
Patient had large incontinent BM, primarily liquid/soft. C/o severe pain with cleansing and roll change. Significant amount of stool on skin, excoriations to groin extensive. Washed with wipes, warm water and soap, dried and applied zinc barrier cream and dry attends. Patient up to chair with 2pA, steady on feet, able to pivot. Linens and gown changed. Pt encouraged to call for further needs.
--- NOTE | 2024-11-10 15:45 | NUR ---
Patient calls to use "the bedpan". This RN has patient stand and turn to BSC. Patient has steady gait and is capable of moving himself in bed. Small BM, no void. Back to bed and call light in reach. Mother at bedside.
--- NOTE | 2024-11-10 17:35 | NUR ---
Patient calls to use urinal. States clear liquids broth and tea were enjoyable. No other needs at this time.
[2024-11-10] MEDS ORDERED: dilTIAZem HCL 120 MG CAPCR PO SCH (18:59)
--- NOTE | 2024-11-10 19:43 | NUR ---
REPORT RECEIVED FROM TARA CHERY RN. PT IN BED, MOM AT BEDSIDE. WHITE BOARD UPDATED.
--- NOTE | 2024-11-10 20:00 | NUR ---
ASSESSMENT COMPLETED. RA, A/O. PT MOTHER LEFT ROOM, PT SENISTIVE TO TOUCH, OFTEN YELLS OUT. DRESSING TO LLE INTACT. CALL LIGHT WITHIN REACH.
[2024-11-10] MEDS ORDERED: GABAPENTIN 300 MG CAP PO SCH (21:00)
--- NOTE | 2024-11-10 21:10 | NUR ---
MEDICATIONS GIVEN. BS 139, NO SS NEEDED. FRESH ICE WATER GIVEN. USED URINAL VOIDED. PT REPOSITIONED, INCONT CARE, BM CLEANED.
--- NOTE | 2024-11-10 21:37 | NUR ---
CHAMOMILE TEA WITH FEW ICE CHIPS GIVEN TO PT. LIGHTS OUT PER PT CHOICE, TV ON.
--- NOTE | 2024-11-10 22:12 | NUR ---
incont liquid stool cleaned, fresh linens on bed, clean attends. Stool came too fast to get up to bsc. Call light within reach.
[2024-11-11] VITALS (9 sets, daily range): BP systolic 150–172; BP diastolic 82–101
--- NOTE | 2024-11-11 00:09 | NUR ---
ROUNDED ON PT. EYES CLOSED, LAYING ON HIS LEFT SIDE. RESP EVEN AND UNLABORED.
--- NOTE | 2024-11-11 01:38 | NUR ---
ROUNDED ON PT. PT ON LEFT SIDE, EYES CLOSED, RESP EVEN AND UNLABORED. CONTINUES NPO SINCE MIDNIGHT. THIS SHIFT NO STOOL WITH OBVIOUS BLEEDING, NOR VOMITING.
[2024-11-11] MEDS ORDERED: ARTIFICIAL TEARS 15 ML BTL OU PRN (02:30)
--- NOTE | 2024-11-11 03:40 | NUR ---
ASSESSMENT COMPLETED. PT STATES HE "SLEPT FOR 3 HOURS", I FEEL MUCH BETTER. QUESTIONS IF HE CAN GO HOME AFTER THE PROCEDURE. NOTED LEFT FACE INCREASE PUFFINESS, PT LAID ON HIS LEFT SIDE WHILE SLEEPING. LUNGS UNCHANGED. PLEASANT, INCONT OF LARGE AMOUNT URINE, WELL SMALL BOWEL MOVEMENT, NO SIGNS OF BLOOD. NOTED LEFT INNER GROIN WITH SMEAR BLOOD FROM IRRITATED SKIN. SKIN BARRIER APPLIED AFTER CLEANING. "I AM GOING BACK TO SLEELP".
[2024-11-11 05:35] LABS: BASOPHILS 0.4 % (0-2); EOSINOPHILS 1.7 % (0-6); HEMATOCRIT 25.9 % (35.0-50.0); HEMOGLOBIN 9.2 g/dL (12.0-18.0); LYMPHOCYTES 10.3 % (24-44); MCH 32.4 (27-36); MCHC 35.6 g/dl (30-36); MCV 90.9 fl (81-99); MONOCYTES 8.4 % (0-12); NEUTROPHILS 79.2 % (39-80); RBC 2.84 M/ul (4.3-5.7); RDW 16.8 (10.5-15.0)
[2024-11-11 05:38] LABS: PLATELET COUNT 25 K/uL (140-440)
--- NOTE | 2024-11-11 05:40 | NUR ---
PT CALLED, REQUESTED AND RECEIVED URINAL. DEPENDENT ON USE OF URINAL. VOIDED. COVER PT UP. CALL LIGHT NEAR HIM. STATES HE WENT BACK TO SLEEP FROM PREVIOUS TIME RN INTO ROOM.
[2024-11-11 05:51] LABS: ALBUMIN 2.4 g/dL (3.4-5.0); ALBUMIN/GLOBULIN RATIO 0.75 (1.1-2.4); ANION GAP 17.4 (7-21); BILIRUBIN, TOTAL 1.8 mg/dL (0.2-1.0); BUN/CREATININE RATIO 22.03 (6.0-28.6); CALCIUM 8.4 mg/dL (8.5-10.1); CREATININE, SERUM 1.77 mg/dL (0.70-1.30); POTASSIUM 4.4 mmol/L (3.5-5.1); PROTEIN, TOTAL 5.6 g/dL (6.4-8.2)
--- NOTE | 2024-11-11 06:38 | NUR ---
ROUNDED ON PT. ON LEFT SIDE, COVERS OVER HEAD, RR 22, SATS 98%, HR 83.
--- NOTE | 2024-11-11 07:03 | NUR ---
REPORT ERECEIVED FROM [employer] JEFFREY ANNA.
--- NOTE | 2024-11-11 08:16 | NUR ---
PATIENT IS LYING IN BED AND MOVING AROUND. PATIENT WITH EYES CLOSED AND RESPIRATIONS ARE EVEN AND UNLABORED. CALL LIGHT AND PERSONAL BELONGINGS ARE WITHIN REACH.
--- NOTE | 2024-11-11 08:23 | NUR ---
PATIENT PRESSED THE CALL LIGHT. PATIENT VOID 175 ML DARK YELLOW URINE IN THE URINAL WITH RN ASSISTANCE. PATIENT BLOOD SUGAR TAKEN BY JEFFREY MORENO. BLOOD SUGAR WAS 118 AT THIS TIME. PATIENT STATED NO FURTHER NEEDS AT THIS TIME. CALL LIGHT AND PERSONAL BELONGINGS ARE WITHIN REACH.
--- NOTE | 2024-11-11 09:30 | NUR ---
0900 MEDICATIONS ADMINISTERED PER THE EMAR. VITAL SIGNS TAKEN AND DOCUMENTED IN THE CHART. FULL ASSESSMENT COMPLETE AND DOCUMENTED IN THE CHART. PATIENT IS ALERT AND ORIENTED TIMES FOUR. CARDIAC WITH NORMAL S1 AND S2 ON AUSCULTATION. PATIENT IS ON THE HEART MONITOR AND IS IN SINUS RHYTHM. RADIAL AND PEDAL PULSES ARE STRONG BILATERALLY. CAPILLARY REFILL IN THE UPPER AND LOWER EXTREMITIES IS LESS THAN 3 SECONDS BILATERALLY. SENSATION INTACT WITH NUMBNESS AND TINGLING IN THE BLE NOTED AND PATIENT REPORTS HE HAS THIS AT BASELINE. PATIENT HAS BEEN NPO SINCE MIDNIGHT. BOWEL TONES ARE ACTIVE IN ALL FOUR QUADRANTS. PATIENT WITH GENERALIZED FACIAL EDEMA. 1+ PITTING EDEMA NOTED TO THE BILATERAL THIGHS. BOTH IV SITES FLUSHED WITH 10 ML NORMAL SALINE AND ARE SALINE LOCKED. IV DRESSING ARE CLEAN, DRY, AND INTACT. ALEVYN AND BANDAID TO THE LEFT LOWER SORIA ARE INTACT WITH SMALL AMOUNT OF DRAINAGE NOTED TO EACH DRESSING. SKIN EXCORIATION NOTED TO THE MONA AREA. PATIENT IS ON ROOM AIR WITH NO COMPLAINTS OF SOB. PATIENT LUNG SOUNDS ARE CLEAR THROUGHOUT. URINAL USED AND RN TO ASSIST PAIN. PATIENT INCONTINENT OF STOOL. SKIN CLEAN AND FRESH BRIEF IN PLACE. LAST BM 11/11/24. PATIENT RATED PAIN 8/10 BUT IS DROWSY AND FALLS ASLEEP DURING PATIENT INTERACTION. PATIENT STATED NO FURTHER NEEDS AT THIS TIME. CALL LIGHT AND PERSONAL BELONGINGS ARE WITHIN REACH.
[2024-11-11] MEDS ORDERED: propofoL 200 MG/20 ML VIAL ONE (10:05)
--- NOTE | 2024-11-11 10:40 | NUR ---
PATIENT MONA AREA CLEANED AGAIN AND A AND D OINTMENT APPLIED. PATIENT TOLERATED WELL. BRIEF IN PLACE.
--- NOTE | 2024-11-11 10:47 | NUR ---
PATIENT LEFT AT THIS TIME FOR PROCEDURE WITH OR. ALIS
--- NOTE | 2024-11-11 11:07 | NUR ---
PATIENT REMAINS OFF THE FLOOR AT THIS TIME.
--- NOTE | 2024-11-11 11:14 | NUR ---
WAFFLE MATTRESS IN PLACE WITH FRESH BED LINENS. PATIENT MOM IS SITTING ON THE COUCH WAITING FOR HIM TO RETURN FROM PROCEDURE. FRESH CUP OF ICE WATER PROVIDED TO THE PATIENT MOM.
--- NOTE | 2024-11-11 11:50 | NUR ---
PATIENT ARRIVED BACK TO THE UNIT.
--- NOTE | 2024-11-11 12:00 | NUR ---
PATIENT 1200 VITAL SIGNS AND 1200 ASSESSMENT COMPLETE AT THIS TIME. PATIENT HAS FREQUENT DROWSY BUT IS AROUSABLE TO VOICE. PATIENT HAD BM 11/11/24. PATIENT USES THE URINAL WITH RN ASSISTANCE. PATIENT IS ON ROOM AIR AND HAS CLEAR LUNGS THROUGHOUT. PATIENT STATED NO SHORTNESS OF BREATH. WHEN WAKING PATIENT UP, PATIENT STATES "I HAVE BEEN AWAKE". PATIENT DIET ADVANCED TO 60 GRAM CARB DIET. BOWEL TONES ARE ACTIVE IN ALL FOUR QUADRANTS. PATIENT WITH NO COMPLAINTS OF NAUSEA OR VOMITING. IV SITES BOTH FLUSHED WITH 10 ML NORMAL SALINE AND ARE SALINE LOCKED. IV DRESSINGS ARE CLEAN, DRY, AND INTACT. BANDAID AND ALEVYN NOTED TO THE LEFT LOWER SORIA. DRESSING WITH VERY SMALL AMOUNT OF DRAINAGE NOTED. CARDIAC WITH WITH NORMAL S1 AND S2 ON AUSCULTATION. RADIAL AND PEDAL PULSES ARE STRONG BILATERALLY. CAPILLARY REFILL IN THE UPPER AND LOWER EXTREMITIES IS LESS THAN 3 SECONDS. SENSATION INTACT WITH NUMBNESS AND TINGLING IN THE BILATERAL LOWER EXTREMITIES AT BASELINE. FACIAL EDEMA NOTED. PATIENT WITH 1+ PITTING EDEMA NOTED TO THE BILATERAL THIGHS. PATIENT WIHT NO COMPLAINTS OF PAIN AT THIS TIME. PATIENT STATED NO FURTHER NEEDS AT THIS TIME. PATIENT MOTHER RETURNED TO THE ROOM AT THIS TIME. CALL LIGHT AND PERSONAL BELONGINGS ARE WITHIN REACH.
[2024-11-11] MEDS ORDERED: FLOMAX0.4 MG PO (12:58)
[2024-11-11] MEDS ORDERED: MAGNESIUM400 M1 PO (12:59)
[2024-11-11] MEDS ORDERED: FOLIC ACID1 MG PO (13:01)
[2024-11-11] MEDS ORDERED: SODIUM BICARBO650 MG PO (13:01)
--- NOTE | 2024-11-11 13:01 | NUR ---
11/11/24 1301 Annmarie Acosta 1146- PT ARRIVES TO CCU ROOM 128 FOR RECOVERY. PT NON REACTIVE TO STIMULUS, OPA IN PLACE, BREATHING EVEN AND NON LABORED ON 6L O2 PER MASK. ABD SOFT, NON DISTENDED. LR 1 LITER HANGING TO RIGHT UPPER ARM IV, NOT DRIPPING AT THIS TIME. BAG IS FULL AND THERE WAS DIFFICULTY RUNNING IV IN OR. ALL MONITORS IN PLACE. PT MOVED TO BED VIA SHEET LIFT FROM THE STRETCHER. 1152- IV IN R UPPER ARM FLUSHED EASILY BUT CONTINUES NOT TO RUN. SALINE LOCK TO R WRIST FLUSHED AND BLOOD RETURNS, IV LINE CONNECTED AND CONTINUES NOT TO RUN. LOOKING AT SMALL CLAMPS ON LINE AND FOUND ONE TO BE CLAMPED. MOVED IV LINE BACK TO R UPPER ARM IV AND DRIPPING FREELY TO GRAVITY. 1157- PT IS REACTIVE TO VERBAL AND TACTILE STIMULI, MAKES MOANING SOUNDS, OPA REMOVED. O2 REMOVED AT THIS TIME. 1200- PT CONTINUES TO REACT WITH MOANING WITH STIMULUS AND THEN EXCLAIMS "I'M AWAKE", BUT KEEPS EYES CLOSED. PT DENIES PAIN AND NAUSEA. 1202- REPORT AT BEDSIDE TO SESAR MURPHY, CARE OF PT TURNED OVER AT THIS TIME.
[2024-11-11] MEDS ORDERED: B-121000 MC2 PO (13:02)
[2024-11-11] MEDS ORDERED: COREG6.25 MG PO (13:03)
[2024-11-11] MEDS ORDERED: ZITHROMAX250 MG PO (13:04)
[2024-11-11] MEDS ORDERED: MULTI-DAY PLUS1 EACH PO (13:06)
[2024-11-11] MEDS ORDERED: ERYTHROMYCIN1 GM OPTH (13:07)
--- NOTE | 2024-11-11 13:08 | NUR ---
PATIENT IS LYING IN BED WITH THE HOB ELEVATED AND EATING LUNCH. PATIENT IS ON ROOM AIR WITH NO COMPLAINTS OF SOB. PATIENT MOTHER IS IN THE ROOM AT THIS TIME. CALL LIGHT AND PERSONAL BELONGINGS ARE WITHIN REACH.
--- NOTE | 2024-11-11 13:09 | NUR ---
INTO TALK TO PATIENT AND MOTHER AT BEDSIDE. PATIENT SITTING UP EATING LUNCH. GAVE HIM INFORMATION FOR [facility]. ALSO GAVE HIM THE PHAMPLET FOR ADDICTION RESOURCES. PATIENT INTERESTED IN MEALS ON WHEELS. LET HIM KNOW ÁNGEL IS WHO YOU CALL TO SET UP. PATIENT DENIES ANY OTHER CM NEEDS AT THIS TIME.
[2024-11-11] MEDS ORDERED: GLUCOSE4 GM PO (13:13)
--- NOTE | 2024-11-11 13:14 | NUR ---
medications reconciled using medication records from [facility]
--- NOTE | 2024-11-11 14:04 | NUR ---
CALL LIGHT ANSWERED. PATIENT ASSISTED WITH URINAL. VOID FOR QUANITY SUFFICIENT. NO FURTHER NEEDS. CALL LIGHT WITHIN REACH.
--- NOTE | 2024-11-11 14:13 | NUR ---
PATIENT IS LYING IN BED WITH HOB ELEVATED. VITAL SIGNS TAKEN AND DOCUMENTED IN THE CHART. PATIENT MOTHER REMAINS AT BEDSIDE AND GIVEN A FRESH CUP OF ICE WATER PER REQUEST. TV IS ON. PATIENT AND FAMILY STATED NO FURTHER NEEDS AT THIS TIME. CALL LIGHT AND PERSONAL BELONGINGS ARE WITHIN REACH.
--- NOTE | 2024-11-11 14:38 | NUR ---
IS IN THE ROOM AND GIVING THE PATIENT AND HIS FAMILY AN UPDATE.
--- NOTE | 2024-11-11 15:00 | NUR ---
PT NOT AVAILABLE FOR VISIT. PROVIDED PRAYER.
--- NOTE | 2024-11-11 15:14 | NUR ---
PATIENT HAD LOOSE AND LIQUID BM AT THIS TIME. PATIENT CLEANED UP. PATIENT REPOSITIONED IN BED AND HAS NEW BRIEF IN PLACE. PATIENT TOLERATED WELL. NEW BARRIER OINTMENT PLACED IN THE MONA AREA. MALE PUREWICK PLACE AND PATIENT EDUCATED. PATIENT EXPRESSED UNDERSTANDING. PATIENT PROVIDED HOT PACKS BY JEFFREY MORENO. PATIENT STATED NO FURTHER NEEDS AT THIS TIME TIME. CALL LIGHT AND PERSONAL BELONGINGS ARE WITHIN REACH.
--- NOTE | 2024-11-11 15:51 | NUR ---
IS IN THE PATIENT AT THIS TIME.
[2024-11-11] MEDS ORDERED: SUCRALFATE 1 GM TAB PO SCH (16:00)
--- NOTE | 2024-11-11 16:18 | NUR ---
PATIENT REMAINS SPEAKING WITH THE FISHER OYSTER IN THE ROOM AT THIS TIME.
--- NOTE | 2024-11-11 16:28 | NUR ---
Parks Recreation Coordinator Joaquín was called in to talk to patient. Patient indicated discouragement and emptiness regarding his present state. Patient admits history of alcohol abuse and addiction. Feels a helplessness not being able to help his mother or other people as he has in the post. Parks Recreation Coordinator listened intently and endeavored to give words of encouragement. Conversation interruped by medical issue.
--- NOTE | 2024-11-11 16:45 | NUR ---
PATIENT WITH LOOSE LIQUID BM AT THIS TIME. PATIENT LINENS AND BRIEF CHANGED. MALE NubisioWIMtoV DID NOT WORK. PATIENT TRANSFERRED TO THE CHAIR WITH 1PA AND FWW. PATIENT TOLERATED WELL. WAFFLE OVERLAY PAD IS IN THE CHAIR. 1600 AND 1700 MEDICATIONS ADMINISTERED PER THE EMAR. PATIENT 1600 VITAL SIGNS TAKEN AND DOCUMENTED IN THE CHART. FULL ASSESSMENT COMPLETE. PATIENT IS ALERT AND ORIENTED TIMES FOUR. PATIENT IS ON ROOM AIR AND LUNG SOUNDS ARE CLEAR THROUGHOUT. GENERALIZED FACIAL EDEMA NOTED WELL 1+ PITTING EDEMA NOTED TO THE BILATERAL THIGHS. PATIENT IS ON A 60 GRAM CARB DIET. BOWEL TONES ARE ACTIVE IN ALL FOUR QUADRANTS. SKIN WITH SCATTERED SCABS, BRUISING, AND SCARS NOTED. ALEVYN AND BANDAID NOTED TO THE LEFT SORIA ARE INTACT WITH SMALL AMOUNTS OF DRAINAGE NOTED. SKIN WITH EXCORIATION NOTED TO THE MONA AREA AND COCCYX. CARDIAC WITH NORMAL S1 AND S2 ON AUSCULTATION. PATIENT REMAINS ON THE WATER TAXI BOAT MATE AND IS IN SINUS RHYTHM. RADIAL AND PEDAL PULSES ARE STRONG BILATERALLY. CAPILLARY REFILL IN THE UPPER AND LOWER EXTREMITIES HAS BEEN LESS THAN 3 SECONDS. SENSATION INTACT WITH CHRONIC NUMBNESS AND TINGLING NOTED IN THE BLE. IV IN THE RIGHT UPPER ARM REMOVED BY JEFFREY MORENO WITH THE CATHETER INTACT. IV IN THE RIGHT FOREARM DRESSING IS CLEAN, DRY, AND INTACT. PATIENT RATED PAIN 7/10 IN THE BAKC, LEGS, AND SHOULDERS OCCASSIONALLY. PATIENT STATES HE TAKES GABAPENTIN AT HOME. PATIENT HAS THIS SCHEDULED, REFERENCE EMAR. PATIENT IS REQUESTING NOTHING FOR PAIN AT THIS TIME. PATIENT STATED NO FURTHER NEEDS AT THIS TIME. CALL LIGHT AND PERSONAL BELONGINGS ARE WITHIN REACH.
--- NOTE | 2024-11-11 17:09 | NUR ---
PATIENT IS SITTING UPRIGHT IN THE CHAIR AT THE END OF THE BED SO HE CAN WATCH TV PATIENT REPORTS HE DOES NOT HAVE GREAT VISION. PATIENT IS ON ROOM AIR AND IS ON THE MONITOR. PATIENT WITH EYES OPEN AND RESPIRATIONS ARE EVEN AND UNLABORED. CALL LIGHT AND PERSONAL BELONGINGS ARE WITHIN REACH.
--- NOTE | 2024-11-11 17:38 | NUR ---
PATIENT ASSISTED WITH THE URINAL AT THIS TIME AND VOIDED 275 ML LIGHT YELLOW URINE. PATIENT WITH DINNER TRAY NOW SET UP IN FRONT OF HIM. PATIENT PROVIDED A CUP OF COFFEE PER REQUEST. PATIENT STATED NO FURTHER NEEDS AT THIS TIME. CALL LIGHT AND PERSONAL BELONGINGS ARE WITHIN REACH.
--- NOTE | 2024-11-11 18:04 | NUR ---
PATIENT PRESSED THE CALL LIGHT. THIS RN WENT INTO THE ROOM. PATIENT ASKED IF HIS NOSE WAS BLEEDING. PATIENT WITH KLEENEX WITH A LITTLE BIT OF BLOOD ON IT. PATIENT NOSE IS NOT CURRENTLY BLEEDING. PATIENT PROVIDED A PUDDING PER PATIENT REQUEST. PATIENT REMAINS WORKING ON HIS DINNER TRAY. PATIENT STATED NO FURTHER NEEDS AT THIS TIME. CALL LIGHT AND PERSONAL BELONGINGS ARE WITHIN REACH.
--- NOTE | 2024-11-11 19:58 | NUR ---
PATIENT SITTING UP IN RECLINER, ALERT AND ORIENTED, PATIENT'S MOTHER IN ROOM. PATIENT ASKED FOR CHICKEN BROTH, CRACKERS AND FRESH WATER, THESE ARE PROVIDED, PATIENT DOES DENIES NAUSEA, HE DOES NOT REPORT PAIN. NO SYMTPOMS NOTED FOR CIWA ASSESSMENT.
--- NOTE | 2024-11-11 20:51 | NUR ---
PATIENT UPTO BEDSIDE COMMODE ONE PERSON ASSIST WITH FWW. HE HAD GOOD STRENGTH STANDING, UNSTEADY GAIT. PATIENT VOIDED 300ML URINE AND SEMI-LIQUID STOOL. HE IS NOW SITTING AT SIDE OF BED, HE IS ALERT AND ORIENTED.
[2024-11-11] MEDS ORDERED: PANTOPRAZOLE SODIUM 40 MG TABEC PO SCH (21:00)
--- NOTE | 2024-11-11 21:18 | NUR ---
PATIENT REQUEST MORE WATER AND CAMOMILE TEA, HE ALSO REQUESTED HOT PACKS FOR HIS LOWER BACK, PATIENT ADMINISTERED HS MEDICATIONS, PROVIDED ALL REQUESTS INCLUDING TWO WARM PACKS PREPARED WITH HOT AND COLD WATER. PATIENT HAS NO FURTHER REQUESTS AT THIS TIME. HE HAS SNACKS AT BEDSIDE CRACKERS AND PEANUT BUTTER.
--- NOTE | 2024-11-11 22:40 | NUR ---
PATIENT USED CALL LIGHT TO NOTIFY STAFF HE FELT LIKE HE MIGHT NEED TO HVE A BM. THIS RN ASSISTED PATIENT TO BEDSIDE COMMODE. PATIENT HAD SCANT SMEAR OF STOOL NOTED ON WIPE WHEN CLEANED, CLEAR BARRIER CREAM APPLIED. PATIENT DID NOT VOID URINE WHILE UP. ONE PERSON ASSIST WITH FWW.
[2024-11-12] VITALS (9 sets, daily range): BP systolic 124–150; BP diastolic 75–93
--- NOTE | 2024-11-12 00:12 | NUR ---
PATIENT REMAINS AWAKE, REQUESTS ANOTHER CUP OC CAMOMILE TEA, PROVIDED.
--- NOTE | 2024-11-12 05:10 | NUR ---
LAB INTO DRAW BLOOD, THIS RN INTO PATIENT ROOM FOR AM ASSESSMENT, PATIENT REPORTS NEED TO USE URINAL, THIS RN BROUGHT URINAL TO BEDSIDE, WHILE ADJUSTING BED UP TO USE THE URINAL WITH DEPENDS PULLED DOWN PATIENT BEGAN TO VOID BEFORE URINAL IN PLACE, URINE ON FLOOR, BED AND DEPENDS, PATIENT THEN ASSISTED UP TO BEDSIDE COMMODE TO TRY TO VOID MORE OR HAVE BM. PATIENT HAD INCONTINENCE OF STOOL BEFORE HE TRANSFERED TO COMMODE. ROOM AND BED CLEANED, PATIENT NOW SITTING UP TO SIDE OF BED.
[2024-11-12 05:37] LABS: BASOPHILS 0.3 % (0-2); EOSINOPHILS 2.9 % (0-6); HEMATOCRIT 19.3 % (35.0-50.0); HEMOGLOBIN 6.9 g/dL (12.0-18.0); LYMPHOCYTES 12.4 % (24-44); MCH 31.9 (27-36); MCHC 35.6 g/dl (30-36); MCV 89.6 fl (81-99); MONOCYTES 11.9 % (0-12); NEUTROPHILS 72.5 % (39-80); RBC 2.16 M/ul (4.3-5.7); RDW 16.6 (10.5-15.0)
[2024-11-12 06:05] LABS: ALBUMIN 2.5 g/dL (3.4-5.0); ALBUMIN/GLOBULIN RATIO 0.83 (1.1-2.4); ANION GAP 15.5 (7-21); BILIRUBIN, TOTAL 1.3 mg/dL (0.2-1.0); BUN/CREATININE RATIO 20.2 (6.0-28.6); CALCIUM 8.3 mg/dL (8.5-10.1); CREATININE, SERUM 1.93 mg/dL (0.70-1.30); POTASSIUM 4.5 mmol/L (3.5-5.1); PROTEIN, TOTAL 5.5 g/dL (6.4-8.2)
[2024-11-12 06:11] LABS: PLATELET COUNT 14 K/uL (140-440)
--- NOTE | 2024-11-12 06:30 | NUR ---
CALLED TO REPORT AM LABS CBC RESULTS. GAVE ORDER TO RE-DRAW CBC TO CONFIRM VALUES BEFORE TRANSFUSION OF BLOOD, HE ALSO ASKED TO ENSURE HE HAS BLOOD CROSS MATCHED AT THIS TIME. ORDERS PLACED.
[2024-11-12 07:03] LABS: BASOPHILS 0.6 % (0-2); EOSINOPHILS 2.8 % (0-6); HEMATOCRIT 21.2 % (35.0-50.0); HEMOGLOBIN 7.4 g/dL (12.0-18.0); MCH 31.7 (27-36); MCHC 34.9 g/dl (30-36); MCV 90.7 fl (81-99); MONOCYTES 11.6 % (0-12); RBC 2.34 M/ul (4.3-5.7); RDW 16.8 (10.5-15.0)
[2024-11-12 07:07] LABS: PLATELET COUNT 15 K/uL (140-440)
--- NOTE | 2024-11-12 07:45 | NUR ---
REPORT RECEIVED FROM BRASS CUTTER RN. PATIENT RESTING IN BED, REQUESTING COFFEE AND HOT PACKS. HOT PACKS AND COFFEE GIVEN. NO FURTHER NEEDS. CALL LIGHT WITHIN REACH.
[2024-11-12 07:46] LABS: ABO O; ANTIBODY SCREEN NEGATIVE; IS CROSSMATCH COMPATIBLE; RH POSITIVE
--- NOTE | 2024-11-12 08:38 | NUR ---
PATIENT RESTING IN BED, AM ASSESSMENT COMPLEDTED. HR NORMAL SINUS RYTHYM NOTED. PATIENT SPO2 WNL ON RA. LUNGS CTA IN UPPER LOBES DIMINISHED LOWER LOBES. ACTIVE BOWEL TONES X 4 QUADRANTS, MILD DISTENTION TO ABD PATIENT STATES "NORMAL". PATIENT SENTIVITVE TO TOUCH DURING ASSESSMENT. NOTED SCATTERED BRUSING. NOTED EDEMA TO BILATERAL UPPER EXTERMITIES AND TORSO. GENERALIZED EDEMA TO BLLE. PATIENT SET UP WITH BREAKFAST. EATING WITH NO ISSUES OR CONCERNS. IV SITE PATENT. NO FURTHER NEEDS CALL LIGHT WITHIN REACH.
[2024-11-12] MEDS ORDERED: THIAMINE HCL 100 MG TAB PO SCH (09:00)
--- NOTE | 2024-11-12 09:20 | NUR ---
MD IN WITH PATIENT TO DISCUSS POC. RN CHANGED DRESSING TO LLE. WOUND BED BRIGHT RED IN COLOR, MODERATE SEROSANG DRAINAGE NOTED. NEW DRESSING APPLIED PER WOUND ORDERS. PATIENT TOLLERATED WELL. PATIENT DENIES NEED TO USE URINAL AT THIS TIME. BREIF REMAINS DRY. NO FURTHER NEEDS CALL LIGHT WITHIN REACH.
--- NOTE | 2024-11-12 09:34 | NUR ---
INTO SEE PATIENT. PATIENT STILL PLANS ON DISCHARGING WITH MOTHER ONCE MEDICALLY CLEARED. LET HIM KNOW PT/OT TO WORK WITH HIM FOR POTENTIAL HOME HEALTH RECCOMENTDATION PENDING THERE ASSESSMENT. PATIENT STATES "I HAVE LARGE DOGS THAT DO NOT LIKE VISITORS." NO FUTHER CM NEEDS AT THIS TIME.
--- NOTE | 2024-11-12 10:15 | NUR ---
PATIENT RESTING IN BED WITH EYES CLOSED. RESPIRATIONS EVEN AND UNLABORED. NO NEEDS CALL LIGHT WITHIN REACH.
--- NOTE | 2024-11-12 10:29 | NUR ---
UR CONCURRENT/CLINICAL REVIEW: MCG-PER MCG REVIEW MEETS INPT CRITERIA FOR UPPER GI BLEED WITH NEED FOR SERIAL LABS. VARIANCE FOR GL DAY 3 ENTERED. FOR CONTINUED DECREASE IN HGB/HCT, PLTS AND POTENTIAL FOR TRANSFUSION TREND LABS BASIC DMAP INPT 11/09/24 @ 2004 ORDER MATCHES REG NO AUTH REQUIRED PER MEDICAID GUIDELINES ANTICIPATE DISCHARGE TO HOME IN 1-2 DAYS 11/15/24
[2024-11-12] MEDS ORDERED: FUROSEMIDE 40 MG/4 ML VIAL IV PRN (10:30)
--- NOTE | 2024-11-12 11:00 | NUR ---
PATIENT NOTED TO BE INCONT. OF STOOL AND URINE. GROIN REMAINS EXCORIATED. PERICARE PROVIDED PER ORDERS AND BARRIER CREAM APPLIED. PT/OT IN WITH PATIENT WELL. PATIENT WORKED WITH PT/OT. BED LINNENS CHANGED. PATIENT ASSTED TO RECLINER WITH FWW. NO FURTHER NEEDS. CALL LIGHT WITHIN REACH.
--- NOTE | 2024-11-12 12:10 | NUR ---
LUNCH SET UP FOR PATIENT. MOM AT BEDSIDE. CALL LIGHT WITHIN REACH.
[2024-11-12 13:06] LABS: BASOPHILS 0.3 % (0-2); EOSINOPHILS 1.5 % (0-6); HEMATOCRIT 19.6 % (35.0-50.0); HEMOGLOBIN 6.8 g/dL (12.0-18.0); LYMPHOCYTES 9.2 % (24-44); MCH 31.5 (27-36); MCHC 34.8 g/dl (30-36); MCV 90.5 fl (81-99); RBC 2.17 M/ul (4.3-5.7); RDW 17.1 (10.5-15.0)
[2024-11-12 13:10] LABS: PLATELET COUNT 13 K/uL (140-440)
--- NOTE | 2024-11-12 13:10 | NUR ---
CALL LIGHT ANSWERED. PATIENT AMBULATED TO BATHROOM WITH FWW. BACK TO RECLINER. NO FURTHER NEEDS. CALL LIGHT WITHIN REACH.
--- NOTE | 2024-11-12 13:45 | NUR ---
REPORT GIVEN TO KENDALL FLORES. PATIENT RESTING IN RECLINER. ORIENTED TO ROOM AND CALL LIGHT.
--- NOTE | 2024-11-12 14:24 | NUR ---
RECEIVED BEDSIDE REPORT FROM IRAIS CCU RN. HE ARRIVED IN THE CHAIR AND THE BED WAS ALSO SWAPPED. AFTER TRANSFER, JEFFREY BRAXTON REPORTED THAT THERE WAS A NEW ORDER FOR A BLOOD TRANSFUSION. PT ASKED FOR A SHOWER, FORESTRY CONTRACTOR WILL ASSIST AND THEN START THE BLOOD. VS TAKEN.
--- NOTE | 2024-11-12 14:30 | NUR ---
PT CALL LIGHT ANSWERED. PT REQ TO USE BR. PT UP TO BR 1 PA W FWW. PT REQ SHOWER. PT INFORMED OF POC AND PT DECIDED TO WAIT FOR SHOWER FOR A LATER TIME. PT OFFERED BED BATH WIPES BUT DECLINED THEM. PT BACK TO CHAIR. COFFEE PROVIDED PER REQ. CALL LIGHT IN REACH.
--- NOTE | 2024-11-12 14:46 | NUR ---
VISITED PT REQUESTED. PT NOT AVAILABLE AT THIS TIME DUE TO MEDICAL TREATMENT IN PROGRESS. WILL RETURN CIRCUMSTANCES ALLOW.
--- NOTE | 2024-11-12 15:02 | NUR ---
PT STARTING BAG OF PRBC. BLOOD LABEL AND PATIENT INFORMATION VERIFIED WITH JEFFREY LEAL AND JEFFREY FLORES. FOR FIRST 15 MINUTES, RATE OF INFUSION WAS SLOW. PT TOLERATED WELL WITH NO S/SX OF A TRANSFUSION REACTION. 15 MINUTE VITALS TAKEN WITH NO CONCERNING CHANGES. RATE OF INFUSION INCREASED. PT TOLERATING WELL.
--- NOTE | 2024-11-12 16:00 | NUR ---
CASING SPLITTER REPORTED THAT PT WAS COMPLAINING OF LIGHTHEADEDNESS AND DIZZINESS. RN RESPONDED, IMMEDIATELY TURNED OFF BLOOD ADMINISTRATION. VS OBTAINED. CCU RN REPORTED THAT HE HAD THIS COUGH ON THE UNIT WELL. PT RECOVERED AND BLOOD WAS RESTARTED.
--- NOTE | 2024-11-12 16:05 | NUR ---
pt req warm wash cloth and chapstick. both are provided to pt. pt sitting in chair. denies further needs. call light in reach
--- NOTE | 2024-11-12 16:23 | NUR ---
GOT PATIENT FRESH GLASS OF ICE WATER. EMPTIED HIS URNIAL AND GOT HIM SOME BABY WIPES. PATIENT IS SITTING IN HIS CHAIR WATCHING TV.
[2024-11-12 16:48] LABS: INFLUENZA B NAA NEGATIVE (NEGATIVE); RESPIRATORY SYNCYTIAL VIR NAA NEGATIVE (NEGATIVE)
[2024-11-12 17:27] LABS: INR 1.35 (0.80-1.30); PROTIME 16.6 Sec (11.2-14.2)
--- NOTE | 2024-11-12 17:44 | NUR ---
PT BLOOD FINISHED. TOLERATED WELL WITH NO OBSERVED REACTION. PT STATED HE FEELS "PRETTY GOOD". VS ENTERED
--- NOTE | 2024-11-12 18:07 | NUR ---
PT RESTING IN CHAIR. FAMILY PRESENT IN ROOM. PT VITALS AND I'S AND O'S COMPLETE. PT REQ WATER, WARM BLANKET, AND BUTTER. ALL PROVIDED TO PT. PT BACK TO BED PER PT REQ. PT PROVIDED WARM BLANKET. BELONGINGS IN REACH. CALL LIGHT IN REACH. PT DENIES ANY NEEDS AT THIS TIME. CALL LIGHT IN REACH.
--- NOTE | 2024-11-12 18:19 | NUR ---
DR. RAYMOND AT BEDSIDE
[2024-11-12] MEDS ORDERED: diphenhydrAMINE HCL 25 MG CAP PO PRN (18:30)
--- NOTE | 2024-11-12 19:35 | NUR ---
RECEIVED REPORT FROM JEFFREY FLORES. PT CURRENTLY UP IN BR W/ DAYSHIFT ENROLLMENT NURSE'S. VISITOR AT BEDSIDE.
--- NOTE | 2024-11-12 19:43 | NUR ---
PATIENT WAS IN BED AT THIS TIME HE NEEDED ASSISTANCE TO THE RESTROOM. SOUND TESTER CHANGED HIS BREIF, NEW GOWN, CHANGED HIS BEDDING, HE WANTED TWO PILLOWS AND WARM BLANKET AND A SODA. WHICH DIANNA FERNANDEZ GOT FOR HIM. CALL LIGHT WITH IN REACH AND NOTHING ELSE NEEDED AT THIS TIME.
--- NOTE | 2024-11-12 21:00 | NUR ---
PT RESTING IN BED, REPORTS NAUSEA. VSS. NO PAIN. LSC DIM T/O. ON RA. HRR. GEN EDEMA, SOME ABD ASCITES. BTA, INC OF BM USES URINAL W/ ASSIST. PRN ZOFRAN ADMINISTERED FOR NAUSEA. PT STILL DRINKING LIQUIDS AND SNACKING DESPITE C/O NAUSEA. SL RH WNL. SKIN CHECK DONE-PT HAS 2 PINK FOAM DRSGS TO LLE. 1 BANDAID TO LEFT POST ANKLE. PT HAS SLIGHT REDNESS TO MONA-RECTAL AREA R/T INC BM'S. BILAT GROIN REDDENED AND VERY PAINFUL DURING MONA CARE. BARRIER CREAM APPLIED. PANNUS IS VERY REDDENED AND DRY SKIN FLAKING OFF-CLEANSED AND DRIED, BARRIER CREAM APPLIED. PT BECAME IRRITABLE W/ MONA CARE. CALL LIGHT WITHIN REACH. DENIES ANY OTHER NEEDS.
[2024-11-13] VITALS (9 sets, daily range): BP systolic 115–154; BP diastolic 66–88
--- NOTE | 2024-11-13 01:00 | NUR ---
PT ASLEEP ON LEFT SIDE. RESP EVEN AND UNLABORED. APPEARS COMFORTABLE.
--- NOTE | 2024-11-13 02:30 | NUR ---
PT SLEEPING SOUNDLY. PT ABLE TO REPOSITION SELF IN BED. NO DISTRESS NOTED.
[2024-11-13 05:18] LABS: BASOPHILS 0.3 % (0-2); EOSINOPHILS 2.5 % (0-6); HEMATOCRIT 19.8 % (35.0-50.0); LYMPHOCYTES 10.8 % (24-44); MCH 31.6 (27-36); MCHC 35.3 g/dl (30-36); MCV 89.4 fl (81-99); MONOCYTES 12.2 % (0-12); NEUTROPHILS 74.2 % (39-80); RBC 2.22 M/ul (4.3-5.7); RDW 16.1 (10.5-15.0)
--- NOTE | 2024-11-13 05:31 | NUR ---
PT AWAKENED EASILY FOR AM VS. SKIN HAS REMAINED CLEAN AND DRY TO GROIN, MONA-RECTAL AND PANNUS. PT HAS SLEPT MOSTLY ON HIS SIDE THROUGHOUT THE NIGHT. DENIES ANY NEEDS AT THIS TIME.
[2024-11-13 05:37] LABS: ALBUMIN 2.5 g/dL (3.4-5.0); ALBUMIN/GLOBULIN RATIO 0.81 (1.1-2.4); ANION GAP 15.9 (7-21); BILIRUBIN, TOTAL 1.3 mg/dL (0.2-1.0); BUN/CREATININE RATIO 19.4 (6.0-28.6); CALCIUM 8.3 mg/dL (8.5-10.1); CREATININE, SERUM 2.01 mg/dL (0.70-1.30); PLATELET COUNT 13 K/uL (140-440); POTASSIUM 4.9 mmol/L (3.5-5.1); PROTEIN, TOTAL 5.6 g/dL (6.4-8.2)
--- NOTE | 2024-11-13 06:22 | NUR ---
DR. CAMPUAZNO NOTIFIED OF CRITICAL PLT LEVEL OF 13. ALSO ALERTED OF H&H STILL LOW THIS AM-7.0/19.8. ORDERED 1 UNIT PRBC'S FOR TODAY.
--- NOTE | 2024-11-13 07:33 | NUR ---
pt resting in bed. bg check complete. pt tolerated well. bg 128. pt declines getting up to chair for meal at this time. pt declines am care at this time. pt states that he is "going back to sleep". pt belongings in reach. bed in lowest position. call light in reach.
--- NOTE | 2024-11-13 07:35 | NUR ---
RECIEVED BEDSIDE REPORT FROM JEFFREY THOMAS. PT IS RESTING QUIETLY. HE IS SORE IN THE GROIN AND PANUS. GOAL TODAY IS TO GET A SHOWER. DECLINED TO GET UP FOR BREAKFAST. WILL START ONE UNIT OF BLOOD WHEN STAFF IS AVAILABLE.
--- NOTE | 2024-11-13 08:53 | NUR ---
PT RESTING IN BED. RR EVEN AND UNLABORED. BED IN LOWEST POSITION. CALL LIGHT IN REACH
--- NOTE | 2024-11-13 08:54 | NUR ---
PT IS SLEEPING SOUNDLY. BREATHING EVEN AND UNLABORED, DID NOT WAKE TO VOICE.
--- NOTE | 2024-11-13 09:42 | NUR ---
RN IN ROOM. PT IN BED. BRIEF CHECKED AND SOILED. BRIEF CHANGED. PT THEN STATES NEED FOR BED HOYT. PT CLEANED UP AGAIN. NEW GOWN PLACED. PARTIAL BED BATH COMPLETE. PT DENIES NEEDS. VITALS AND IS AND OS COMPLETE. CALL LIGHT IN REACH
--- NOTE | 2024-11-13 10:20 | NUR ---
PT SEEMS MORE CONFUSED THIS MORNING, HAVING MORE DIFICULTY OPENING HIS EYES AND WORD FINDING. PT HAD MORE FACIAL SWELLING TODAY, PRIOR TO THE BLOOD ADMINISTRATION. PT IS COUGHING, POSSIBLY WITH BLOOD. NO VISIBLE APRIL BLOOD.
--- NOTE | 2024-11-13 10:43 | NUR ---
ADVISED MD OF CONCERNS ABOUT EDEMA AND CONFUSION, ALONG WITH BLOODY SPUTUM AND COUGH. VERBAL ORDER FOR RENE AND HE WILL ASSESS.
[2024-11-13] MEDS ORDERED: GUAIFENESIN 10 ML UNIT DOSE CUP PO PRN (10:45)
--- NOTE | 2024-11-13 11:36 | NUR ---
PT BG CHECKED. BG 147. PT TOLERATED WELL. PT TEMP CHECKED, TEMP 102.3. RN NOTIFIED AND NOW PRESENT IN ROOM.
[2024-11-13] MEDS ORDERED: diphenhydrAMINE HCL 50 MG/ML VIAL IV ONE (11:45)
[2024-11-13] MEDS ORDERED: EPIPEN AUTO INJECTOR 0.3 MG/0.3 ML ML IM PRN (12:00)
--- NOTE | 2024-11-13 12:12 | NUR ---
CRIMINOLOGY TEACHER REPORTED TO RN THAT PATIENT NEEDED ASSISTANCE. RN WALKED INTO THE ROOM PT WAS SITTING UP IN BED WITH HIS HANDS AROUND HIS NECK. WHEN ASKED IF HE HAD DIFFICUTLY BREATHING HE RESPONDED WITH "I'M GASPING". RN PLACED PT ON O2 AT 4L AND CALLED FOR ASSISTANCE. CJ, RN RESPONDED TO ASSIST AND TOOK VITAL SIGNS. VITAL SIGNS ARE IMPORVED SINCE BLOOD WAS STOPPED. SWELLING IN FACE/EYES/LIPS IS MUCH IMPROVED SINCE BENADRYL. PT WAS ABLE TO WASH HIS FACE AND STATED HE FELT BETTER. O2 REMAINS IN THE HIGH 90S. TEMP IS DOWN TO 100.3.
--- NOTE | 2024-11-13 13:10 | NUR ---
REPORT REC'D FROM JEFFREY FLORES. PT IS S/P TRANSFUSION REACTION. THIS RN IN TO SEE PATIENT. VSS, TEMP DOWN TO 101.0, IV RESTARTED TO L WRIST, LABS DRAWN FOR TRANSFUSION REACTION, TUBING, UNIT OF BLOOD AND LABS TAKEN TO LAB. PT ASSESSMENT COMPLETED, PT WITH TOTAL LINEN CHANGED AND BATH, INCONTINENT OF STOOL AND URINE. BARRIER PASTE APPLIED TO BUTTOCKS AND GROIN FOR SEVERE EXCORIATION, PATIENT DIAPERED. PT VOIDED INTO NEW URINAL, URINE SAMPLE OBTAINED AND SENT TO LAB. PT OOB TO CHAIR, HAIR SHAMPOOED BY PRESLEY NAVARRO. PT PROVIDED FRESH CUP OF ICE CHIPS. ASSESSMENT COMPLETED, PT C/O PAIN TO BILAT KNEES AND R ELBOW WITH SWELLING NOTED. CALL CARRERO AT BEDSIDE TABLE, RECLINER LEGS ELEVATED, LOCKED. MOTHER AT BEDSIDE.
[2024-11-13 14:25] LABS: BASOPHILS 0.4 % (0-2); EOSINOPHILS 1.4 % (0-6); HEMATOCRIT 21.6 % (35.0-50.0); HEMOGLOBIN 7.5 g/dL (12.0-18.0); LYMPHOCYTES 9.6 % (24-44); MCH 31.4 (27-36); MCHC 34.7 g/dl (30-36); MCV 90.4 fl (81-99); MONOCYTES 12.1 % (0-12); NEUTROPHILS 76.5 % (39-80); RBC 2.39 M/ul (4.3-5.7); RDW 15.7 (10.5-15.0)
[2024-11-13 14:29] LABS: PLATELET COUNT 14 K/uL (140-440)
--- NOTE | 2024-11-13 14:58 | NUR ---
PT BRIEF SOILED. THIS COMMUNITY SUPPORT SPECIALIST AND STEPHIE DAI RN IN ROOM TO CHANGE PT. PT BRIEF CHANGED IN BED. X1 LG INCONTINENT BM AND X2 INCONTINENCE OF URINE. PT GIVEN BED BATH AND SHOWER CAP. PT UP TO CHAIR 1 [place] W FWW. ORAL CARE PERFORMED. WARM BLANKET PROVIDED. BED LINENS CHANGES. MOTHER PRESENT AT BEDSIDE. PT DENIES ANY NEEDS AT THIS TIME. CALL LIGHT IN REACH
--- NOTE | 2024-11-13 15:30 | NUR ---
PT REQUESTING YOGURT AND CHICKEN BROTH. OFFERED SUGAR FREE PUDDING AND LOW NA CHICKEN BROTH.
[2024-11-13] MEDS ORDERED: VANCOMYCIN PER PHARMACY PROTOCOL IV SCH (15:52)
--- NOTE | 2024-11-13 15:55 | NUR ---
pt call light answered. pt req urinal. pt assisted with urinal. pt voided w/o difficulty. pt assisted w/ dinner meal option. pt denies further needs. call light in reach
[2024-11-13] MEDS ORDERED: PIPERACILLIN/TAZOBACTAM 3.375 GM in SODIUM CHLORIDE 0.9% 100 ML IV SCH (16:07)
[2024-11-13] MEDS ORDERED: LIDOCAINE HCL 4% 1 EACH PATCH TD SCH (16:20)
[2024-11-13] MEDS ORDERED: VANCOMYCIN HCL 1,250 MG in DEXTROSE 5% 250 ML IV SCH (16:23)
[2024-11-13] MEDS ORDERED: PIPERACILLIN/TAZOBACTAM 3.375 GM VIAL ONE ×2 (16:34→21:02)
--- NOTE | 2024-11-13 16:42 | NUR ---
PT SITTING AT EDGE OF BED. BG CHECKED, PT TOLERATED WELL. BG 138. PT BACK TO BED. DENIES FURTHER NEEDS, CALL LIGHT IN REACH
--- NOTE | 2024-11-13 17:07 | NUR ---
PT RETURNED TO BED FOR DINNER, LIDODERM PATCHES APPLIED TO BILAT KNEES. PT PROVIDED ICE CHIPS. CONTINUES COUGHING WITH PINK SPUTUM. BED LOW POSITION AND LOCKED, SIDERAILS UP X 2, CALL CARERRO IN REACH
[2024-11-13] MEDS ORDERED: HYDROmorphone HCL 2 MG TAB PO PRN (17:30)
--- NOTE | 2024-11-13 18:07 | NUR ---
PT SITTING UP IN BED EATING MEAL. PT VITALS AND IS AND OS COMPLETE. PT PROVIDED SNACK. PT DENIES NEEDS, CALL LIGHT IN REACH
--- NOTE | 2024-11-13 18:10 | NUR ---
PT SITTING UP IN BED EATING PM MEAL. INQUIRED ABOUT PLANS FOR TOMORROW, REVIEWED PLAN OF CARE AND CONTINUED TREATMENTS AND MONITORING, NO PLANS FOR DISCHARGE.
--- NOTE | 2024-11-13 19:27 | NUR ---
REPORT GIVEN TO JEFFREY PATTON.
--- NOTE | 2024-11-13 19:37 | NUR ---
RECEIVED REPORT FROM JEFFREY BLACKWELL. PT SOUND ASLEEP IN ROOM, APPEARS COMFORTABLE. CALL LIGHT WITHIN REACH.
[2024-11-13] MEDS ORDERED: LIDOCAINE PATCH REMOVAL 1 EA TD SCH (21:00)
[2024-11-13] MEDS ORDERED: TRAZODONE HCL 50 MG TAB PO SCH (21:00)
--- NOTE | 2024-11-13 21:00 | NUR ---
PT SLEEPING UPON ENTERING ROOM, AWAKENS EASILY BUT REMAINS DROWSY. SLOW TO RESPOND. REPORTS VISION DEFICITS AND HEARING IMPAIRMENT. DENIES PAIN. LSC DIM TO BASES. CONTINUES W/ HACKING COUGH. RA. HRR. BTA, ABD DISTENDED. LBM TODAY. PT HAS DISPOSIBLE BRIEF IN PLACE FOR OCCASIONAL INC. LFA IV INFUSING ATB, IV SITE WNL. 2+ GENERALIZED EDEMA TO BUE/BLE. LARGE BRUISE TO RFA. DRY, FLAKING SKIN RASH TO PANNUS. BILAT GROIN REDDENED AND TENDER. MONA-RECTAL IRRITATION R/T INC STOOLS. MONA AREA CURRENTLY CLEAN AND DRY. PT TURNS SELF FREQUENTLY IN BED. CALL LIGHT WITHIN REACH.
--- NOTE | 2024-11-13 22:57 | NUR ---
PT SLEEPING SOUNDLY, HOB ELEVATED. APPEARS COMFORTABLE.
[2024-11-14] VITALS (10 sets, daily range): BP systolic 138–152; BP diastolic 76–92
--- NOTE | 2024-11-14 01:31 | NUR ---
IV ATB COMPLETE, LW IV SL'D. SLEEPING SOUNDLY. DROPLET PRECAUTIONS CONTINUE.
--- NOTE | 2024-11-14 04:17 | NUR ---
PT SLEEPING SOUNDLY ON LEFT SIDE-APPEARS COMFORTABLE. BREATHING EASY AND UNLABORED.
[2024-11-14 05:12] LABS: BASOPHILS 0.6 % (0-2); EOSINOPHILS 3.4 % (0-6); HEMATOCRIT 20.7 % (35.0-50.0); HEMOGLOBIN 7.2 g/dL (12.0-18.0); LYMPHOCYTES 16.2 % (24-44); MCH 31.4 (27-36); MCHC 34.9 g/dl (30-36); MCV 90.1 fl (81-99); MONOCYTES 15.1 % (0-12); NEUTROPHILS 64.7 % (39-80); RBC 2.29 M/ul (4.3-5.7)
[2024-11-14 05:18] LABS: PLATELET COUNT 25 K/uL (140-440)
[2024-11-14 05:31] LABS: ALBUMIN 2.6 g/dL (3.4-5.0); ALBUMIN/GLOBULIN RATIO 0.81 (1.1-2.4); ANION GAP 10.8 (7-21); BILIRUBIN, TOTAL 1.4 mg/dL (0.2-1.0); BUN/CREATININE RATIO 18.69 (6.0-28.6); CALCIUM 8.4 mg/dL (8.5-10.1); CREATININE, SERUM 2.14 mg/dL (0.70-1.30); POTASSIUM 4.8 mmol/L (3.5-5.1); PROTEIN, TOTAL 5.8 g/dL (6.4-8.2)
[2024-11-14] MEDS ORDERED: PIPERACILLIN/TAZOBACTAM 3.375 GM VIAL ONE ×3 (06:00→21:44)
--- NOTE | 2024-11-14 06:39 | NUR ---
PT AWAKE, LARGE BM VIA BEDPAN. SKIN TO MONA AREA AND GROIN VERY RAW AND TENDER. CLEANSED W/ SOAP AND WATER AND LEFT OPEN TO AIR TO BREATHE.
--- NOTE | 2024-11-14 06:41 | NUR ---
DR. CAMPUZANO NOTIFIED OF CRITICAL LAB VALUE-PLATELETS 25. NO NEW ORDERS.
--- NOTE | 2024-11-14 07:30 | NUR ---
VERBAL REPORT RECEIVED FROM JEFFREY THOMAS. PT RESTS IN BED WITH EYES CLOSED, RESP EVEN AND UNLABORED.
--- NOTE | 2024-11-14 08:06 | NUR ---
CALL LIGHT ANSWERED. PATIENT REQUESTING TO USE THE BED HOYT. PATIENT ASSISSTED TO BED HOTY. NOTED LARGE BM. PATIENT REPOSITIONED IN BED. BLOOD SUGAR OBTAINED. NO FURTHER NEEDS, CALL LIGHT WITHIN REACH.
[2024-11-14] MEDS ORDERED: FUROSEMIDE 40 MG/4 ML VIAL IV ONE (08:15)
--- NOTE | 2024-11-14 09:29 | NUR ---
PATIENT BLADDER SCANNED PER MD REGUEST. bLADDER SCAN FOR >257. PATIENT TIRED TO VOID IN URINAL WITH NO SUCCESS. VITALS OBTAINED I'S AND O'S OBTAINED. PATIENT WITH NO FURTHER NEEDS AT THIS TIME. CALL LIGHT WITHIN REACH.
--- NOTE | 2024-11-14 10:35 | NUR ---
PT PASSES LOOSE BM IN BREIF, MONA CARE PROVIDED, PT PASSES SECOND BM DURING MONA CARE. NEW INCONTINENCE PAD AND BREIF APPLIED, MONA CARE PROVIDED. OLD BUILT UP PRODUCT AND SKIN FLACK NOTED OVER PANNUS AND IN GROINS. THESE AREAS CLEANSED WITH NO-RISH SOAP PT WOULD TOLERATE. NOTED PIN POINT RASH WITH SATELITE LESION OVER THE BUTTOCK, GROINS, SCROTUM, AND PANNUS. BARRIER OINTMENT APPLIED. PT TOLERATED CARE POOR WITH SKIN PAINFUL TO TOUCH. PAIN MEDICATION RECEIVED POST PROCEDURE.
[2024-11-14] MEDS ORDERED: MICONAZOLE 2% 30 GM TUBE TOP SCH ×2 (11:39→21:00)
--- NOTE | 2024-11-14 12:30 | OR ---
[facility] [address] [place], [place] [address] Signed DATE OF OPERATION: 11/11/2024 SURGEON: Ti Raymond MD PREOPERATIVE DIAGNOSES: Anemia and thrombocytopenia with chronic alcoholism and other medical problems. POSTOPERATIVE DIAGNOSIS: Gastritis without associated ulcer. No evidence of esophageal varices. PROCEDURE: Esophagogastroduodenoscopy. ANESTHESIA: Intravenous sedation, propofol; Ti Rivero CRNA. INDICATION: This 49-year-old Luxembourger man is a patient of Dr. Hannon, now in the intensive care unit related to abdominal distention and numerous other medical problems. He has chronic alcoholism and presented with a blood alcohol of 203. He was noted to have a hemoglobin of 6.0 with platelets of 29,000. He has been in the hospital for two days, admitted on 11/09/2024. He did undergo upper endoscopy approximately five years [address] Dr. Maximo Titus, which showed possible grade 1 esophageal varices and diffuse gastritis. The patient has had no hematemesis, but has tested heme-positive on stool testing. He is hemodynamically stable. He did undergo 2 units of blood transfusion. His hematocrit is now 26, however, remains with thrombocytopenia with a platelet count of 25,000 today. He is admitted to undergo upper endoscopy (without biopsy) to assess for his anemia and in particular to identify any lesion in the stomach that may be contributing to it. He does have chronic anemia over the past several years in my opinion related to chronic alcoholism. His thrombocytopenia has been attributed to idiosyncratic reaction to linezolid which he was administered in the past week or so in [place], [place] in treatment for a right-sided empyema. He is of course off linezolid now. The patient and his mother understand the risk of bleeding, infection, and perforation related to upper endoscopy and wished to proceed. FINDINGS: There is no sign of active bleeding. There was a minimal amount of fresh blood within the stomach. Esophagus showed no evidence of varices, no ulceration or Pacheco's. The duodenum was normal as well. Stomach did have congested rugal folds with gastritis, but no sign of active bleeding or ulceration. There was a small amount of fresh blood in Electronically Signed By: TI RAYMOND MD 11/14/24 1230 PATIENT NAME: CHARLIE CHO OPERATIVE REPORT DATE OF : 71 REPORT #: [id number] PHYSICIAN: TI RAYMOND MD PCP: CAMDEN PRADO MD REPORT IS CONFIDENTIAL AND NOT TO BE RELEASED WITHOUT AUTHORIZATION [facility] [address] [place], [place] [address] Signed the stomach, but very small indeed. DESCRIPTION OF PROCEDURE: The patient was brought to the surgical endoscopy suite in the lateral decubitus position given intravenous sedation with propofol infusional sedation technique. A bite block was placed. An Olympus video upper endoscope was passed in the hypopharynx. The vocal cords appeared normal. There was no evidence of vallecular varices. The scope was advanced to the esophagus throughout its length, it was normal. Scope was passed to the stomach which was insufflated with air. Rugal folds were markedly congested and dilated and with the inflammatory changes. There was a small amount of fresh blood, but with irrigation, no underlying bleeding site. The antrum appeared reasonably spared from the process, must not consistent with watermelon stomach proper. The scope was passed through the pylorus into the duodenum. Duodenum was reasonably normal though there was some inflammatory change in the post pyloric duodenal area. There was no ulceration. Biopsies were not obtained on the basis of his thrombocytopenia. The scope was withdrawn to the stomach affirming the previously mentioned findings. Retroflexed view was undertaken showing the GE junction to have no varices proper, but definitely gastritis. Scope was withdrawn to the distal esophagus, confirming no evidence of varices. The remaining esophagus was normal. Scope was removed. The patient was taken to the recovery room in good condition. CONCLUDING DIAGNOSIS: Gastritis, diffuse with small amount of fresh blood, very likely accounting for his anemia. The gastritis is most likely related to chronic alcohol abuse. PLAN: I have discussed with Dr. Hannon. We will continue with PPI medication and add Carafate 1 g p.o. q.i.d. Ti Raymond MD /BETHANYL /[id number] cc: Camden Prado MD Electronically Signed By: TI RAYMOND MD 11/14/24 1230 PATIENT NAME: CHARLIE CHO OPERATIVE REPORT DATE OF : 71 REPORT #: [id number] PHYSICIAN: TI RAYMOND MD PCP: CAMDEN PRADO MD REPORT IS CONFIDENTIAL AND NOT TO BE RELEASED WITHOUT AUTHORIZATION [address] Hannon Copies: CAMDEN PRADO MD ~ Electronically Signed By: TI RAYMOND MD 11/14/24 1230 PATIENT NAME: CHARLIE CHO OPERATIVE REPORT DATE OF : 71 REPORT #: [id number] PHYSICIAN: TI RAYMOND MD PCP: CAMDEN PRADO MD REPORT IS CONFIDENTIAL AND NOT TO BE RELEASED WITHOUT AUTHORIZATION
--- NOTE | 2024-11-14 12:30 | CONS ---
[facility] [address] [place], [place] [address] Signed DATE OF CONSULTATION: 11/10/2024 REQUESTING PHYSICIAN: Dr. Hannon. ISSUE: Enigmatic anemia, coincidental thrombocytopenia and multiple medical problems. HISTORY: This 49-year-old Ethiopian man is in the intensive care unit. He was admitted yesterday by Dr. Hannon having presented to the emergency room upon delivery by his mother with concerns regarding abdominal swelling. The patient has numerous medical problems underlying his care and is well known to this institution apparently, including chronic alcoholism, recent treatment in [place], [place] at [facility] for a right-sided empyema, undergoing chest tube drainage and recent findings of thrombocytopenia, now attributed to possible antibiotic toxicity. Indeed, his platelet count was 29,000. He was admitted by Dr. Hannon to the intensive care unit as his hemoglobin was noted to be 6.0. Notably, his INR is normal at 1.30. White count was elevated at 12.7 and platelet count coincidentally 29,000. The patient has had a prior history of recurrent pancreatitis, congestive heart failure, chronic alcoholism and a pericardial window fashioned elsewhere for a pericarditis. He has had perihepatic abscess drain placement in the past as well. At present, the patient has been resting comfortably with no overt hematemesis or blood per rectum. Though, he has had heme-positive testing of stool. He denies prior history of ulceration of the stomach or hematemesis. MEDICATIONS: At the time of admission include: 1. Gabapentin. 2. Zithromax. 3. Thiamin. 4. Amoxicillin. 5. Torsemide. 6. Albuterol nebulizer. 7. Insulin. 8. Diltiazem. 9. Prednisolone eye drops. 10. Dorzolamide/timolol eye drops. 11. Prednisone 20 mg daily. 12. Cefdinir 300 mg b.i.d. Electronically Signed By: TI RAYMOND MD 11/14/24 1230 PATIENT NAME: CHARLIE CHO CONSULTATION DATE OF : 71 REPORT #: [id number] PHYSICIAN: TI RAYMOND MD PCP: CAMDEN HERNANDEZ MD REPORT IS CONFIDENTIAL AND NOT TO BE RELEASED WITHOUT AUTHORIZATION [facility] [address] [place], [place] [address] Signed REVIEW OF SYSTEMS: The patient denies any shortness of breath or chest pain. He does feels some mild bloating. The patient has definitely had nausea and retching as recently as yesterday. He has had no hematemesis that he is aware of. PHYSICAL EXAMINATION: GENERAL: Pleasant Ethiopian man actually and accompanied by his mother. She is supportive as might be expected. VITAL SIGNS: Current pulse is 91, blood pressure 162/91, O2 saturation on room air is 100%. HEENT: Examination of his face shows no sign of petechiae. He does keep his left eye closed so it is present and intact. Visual acuity testing was not undertaken. NECK: Trachea is midline. CHEST: Shows no evidence of tachypnea. The right-sided well-healed site from chest tube was noted. ABDOMEN: Mildly distended, but not tender in the slightest. He does not have massive ascites or anything of that sort. I see no periumbilical varices. EXTREMITIES: Mild edema. LABORATORY STUDIES: This morning show a white count of 12.5, hematocrit 25.7 (status post transfusion 2 units), platelet count 34,000 up from 29,000 yesterday. Chemistry today shows sodium of 127, potassium 4.7. Creatinine improved to 1.65 from 1.85. Liver enzymes with bilirubin of 1.5 up from 0.6, albumin is 2.5 down from 2.9. Lipase less than 6 yesterday. IMAGING STUDY: Included abdominal CT scan performed yesterday confirming severe anasarca, small volume ascites, trace loculated left pleural effusion and a loculated right pleural effusion with pleural thickening, and a single small focus of gas within the pleural space. The spleen appears normal size. ASSESSMENT: Upon review in coordination with Dr. Hannon, he has had rather significant anemia low-grade between 25 hematocrit and 30 hematocrit over a number of years. No doubt this is partially related to his ongoing alcoholism, bone marrow suppression, and so on. His most recent hematocrit, which was 17.6, now 25.7 following transfusion was not accompanied by overt bleeding that we are aware of. Review of notes locally show no recent upper endoscopy has been performed. On that basis, Dr. Hannon does request consideration for upper endoscopy to assess if there is an occult source of bleeding. He has no signs on CT scan of portal hypertension, though he certainly is at risk for cirrhosis and secondary portal hypertension from that based on his chronic alcoholism. An operative report from Electronically Signed By: TI RAYMOND MD 11/14/24 5870 PATIENT NAME: CHARLIE CHO CONSULTATION DATE OF : 71 REPORT #: [id number] PHYSICIAN: TI RAYMOND MD PCP: CAMDEN HERNANDEZ MD REPORT IS CONFIDENTIAL AND NOT TO BE RELEASED WITHOUT AUTHORIZATION [address] [address] Signed Maximo Titus of 2020 nearly five years ago did show an upper endoscopy, which showed mild diffuse hemorrhagic gastritis, small hiatal hernia and grade 1 esophageal varices. In five years time, any or all of them could have worsened. We will allow clear liquids today as he does not appear to have bleeding problem and assess if his platelets are increasing with withdrawal of linezolid, which has so far been impugned as his source of new onset thrombocytopenia. Consideration will be made for upper endoscopy tomorrow depending on his course. Certainly it can be done sooner if necessary. Discussed all this with the patient and his mother who attends to him. MD KATY Hughes/MODL /[id number] cc: Driss Hannon MD Copies: ~ Electronically Signed By: TI RAYMOND MD 11/14/24 1230 PATIENT NAME: CHARLIE CHO CONSULTATION DATE OF : 71 REPORT #: [id number] PHYSICIAN: TI RAYMOND MD PCP: CAMDEN HERNANDEZ MD REPORT IS CONFIDENTIAL AND NOT TO BE RELEASED WITHOUT AUTHORIZATION
--- NOTE | 2024-11-14 12:38 | NUR ---
CALL LIGHT ANSWERED. PATIENT REQUESTING TO USE BSC. NOTED SMALL STOL IN BREIG. ONCE CLEANED PATIENT WAS ASSISTED TO BSC WITH 1 PA ASSIST WITH FWW. NOTED LOOSE BM WHILE ON COMODE. PATIENT ASSISTED BACK INTO BED. HE REFUSED TO SIT IN RECLINER FOR LUNCH STATING, " MY BUTT HURTS TOO BAD TO SIT IN THAT CHAIR". ANTIFUNGAL CREAM APPLIED TO MONA AREA. PATIENT ASSISTED BACK INTO BED. REQUESTING WARM BLANKET. BLANKET GIVEN. PATIENT LUNCH SET UP. NO FURTHER NEEDS. CALL LIGHT WITHIN REACH.
--- NOTE | 2024-11-14 13:58 | NUR ---
PT RESTS IN BED WITH EYES CLOSED, RESP EVEN AND UNLABORED.
--- NOTE | 2024-11-14 15:11 | NUR ---
PT WAKES EASILY TO TOUCH. REQUESTS URINAL. DISCOVERED PT HAD AN EPISODE OF STOOL INCONTINENCE. PT VOIDS 400 MLS OF URINE IN URINAL. MONA CARE PROVIDED. NEW INCONTINENCE PAD AND BREIF APPLIED. NEW BLANKETS AND GOWN PROVIDED. PT TOELRATED FAIR WITH IMPROVEMENT SINCE THIS AM. STOOL SAMPLE COLLECTED FROM CONSECUTIVE LOOSE STOOL AND SENT TO LAB FOR C-DIFF.
--- NOTE | 2024-11-14 17:30 | NUR ---
PT SITS UP IN BED, EATS DINNER, VISITOR X1 AT BEDSIDE. PT WATCHES TV, CALL LIGHT IN REACH, NO REQUESTS AT THIS TIME.
--- NOTE | 2024-11-14 22:02 | NUR ---
PATIENT CALLED STATING HE NEEDS TO BE CLEANED UP. THIS NEWS INTERN IN TO THE ROOM. PATIENT WET THE CHUX AND HAD SMALL BM. FRESH ATTENDS AND CHUX PLACED. FRESH ICE WATER FILLED.
--- NOTE | 2024-11-14 22:15 | NUR ---
PATIENT GIVEN EVENING MEDICATIONS. GLASS PROCESSING WORKER IN ROOM WITH PATIENT AT TIME. PATIENT CLEANED UP AND READY FOR BED. IV MEDICATION STARTED. BED IN LOW POSITION, CALL LIGHT WITHIN REACH. PATIENT WANTED A CUP OF WARM TEA.
--- NOTE | 2024-11-14 23:49 | NUR ---
PATIENT CURRENTLY SLEEP ON HIS LEFT SIDE. REGULAR RESPIRATIONS NOTED.
[2024-11-15] VITALS (10 sets, daily range): BP systolic 122–140; BP diastolic 60–87
--- NOTE | 2024-11-15 00:10 | NUR ---
RECEIVED REPORT FROM CHEYENNE MURPHY. PATIENT IS RESTING IN BED WITH EYES CLOSED, RR 16. NAD NOTED. CALL LIGHT IN REACH.
--- NOTE | 2024-11-15 02:15 | NUR ---
PATIENT IS RESTING IIN BED WITH EYES CLOSED, RR 15. NAD NOTED. CALL LIGHT IN REACH
--- NOTE | 2024-11-15 03:00 | NUR ---
PATIENT INCONT OF STOOL AND URINE. PATIENTS ATTEND CAHNGED AND MONA CAREA COMPLETED. NEW ATTEND IN PLACE. PATIENT PROVIDED SNACK. PATIENT DENIES ANY PAIN OR NAUSEA. PAITENT DENIES ANY FURTHER NEEDS AT THIS TIME. CALL LIGHT IN REACH.
--- NOTE | 2024-11-15 03:50 | NUR ---
PATIENT UP TO BSC A 1PA W/FWW. PATIENT ABLE TO HAVE BM. PATIENT IS BACK IN BED RESTING. PATIENT DENIES ANY FURHTHER NEEDS. CALL LIGHT IN REACH.
--- NOTE | 2024-11-15 04:27 | NUR ---
PATIENT CALLED AND REPORTED "I KEEP COUGHING SO HARD I AM THROWING UP, I NEED MEDICATION". PRN NASUEA MEDICATION GIVEN PER ORDER. PATIENT DENIES ANY FURTHER NEEDS. CALL LIGHT IN REACH.
[2024-11-15] MEDS ORDERED: PIPERACILLIN/TAZOBACTAM 3.375 GM VIAL ONE (04:56)
[2024-11-15 05:36] LABS: BASOPHILS 0.4 % (0-2); EOSINOPHILS 4.3 % (0-6); HEMOGLOBIN 6.9 g/dL (12.0-18.0); LYMPHOCYTES 6.6 % (24-44); MCH 31.4 (27-36); MCHC 34.7 g/dl (30-36); MCV 90.4 fl (81-99); MONOCYTES 15.1 % (0-12); NEUTROPHILS 73.6 % (39-80); RBC 2.21 M/ul (4.3-5.7)
[2024-11-15 05:43] LABS: PLATELET COUNT 43 K/uL (140-440)
[2024-11-15 06:13] LABS: ALBUMIN 2.5 g/dL (3.4-5.0); ALBUMIN/GLOBULIN RATIO 0.81 (1.1-2.4); BUN/CREATININE RATIO 17.48 (6.0-28.6); CALCIUM 8.3 mg/dL (8.5-10.1); CREATININE, SERUM 2.23 mg/dL (0.70-1.30); MAGNESIUM 1.7 mg/dL (1.8-2.4); PHOSPHORUS, INORGANIC 2.6 mg/dL (2.5-4.9); PROTEIN, TOTAL 5.6 g/dL (6.4-8.2)
--- NOTE | 2024-11-15 06:19 | NUR ---
PATIENT IS RESTING IN BED ON RIGHT SIDE. AM MEDS GIVEN PER ORDER. PATIENT DENIES ANY FURTHER NEEDS. CALL LIGHT IN REACH. IV ABX INFUSING PER ORDER. WARM BLANKET PROVIDED.
--- NOTE | 2024-11-15 07:36 | NUR ---
VERBAL REPORT RECEIVED FROM JEFFREY CHAN. PT RESTS IN BED WITH EYES CLOSED, RESP EVEN AND UNLABORED.
[2024-11-15] MEDS ORDERED: diphenhydrAMINE HCL 50 MG/ML VIAL IV ONE (08:00)
[2024-11-15] MEDS ORDERED: MAGNESIUM OXIDE 400 MG TABLET PO ONE (08:15)
--- NOTE | 2024-11-15 08:44 | NUR ---
PATIENT IN BED AT THIS TIME. EAR MUFF ASSEMBLER CHARTED PATIENTS BLOOD SUGAR AND DID HOURLY ROUNDS. CALL LIGHT WITHIN REACH, NO FURHTER NEEDS AT THIS TIME.
[2024-11-15] MEDS ORDERED: ACETAMINOPHEN 500 MG TAB PO PRN (09:15)
[2024-11-15 09:32] LABS: ABO O; ANTIBODY SCREEN NEGATIVE; IS CROSSMATCH COMPATIBLE; RH POSITIVE
--- NOTE | 2024-11-15 09:57 | NUR ---
PATIENT IN BED. CNC CHARTED VITALS AND I&O'S. CALL LIGHT WITHIN REACH, NO FURTHER NEEDS AT THIS TIME.
--- NOTE | 2024-11-15 10:28 | NUR ---
PT RESTS IN BED, ALERT AND AWAKE, DENIES ANY NEW PAIN OR DISCOMFORT AT TIME OF 15 MINUTES CHECK FOR BLOOD TRANSFUSION. CALL LIGHT IN REACH. NO REQUESTS AT THIS TIME. VSS.
--- NOTE | 2024-11-15 10:59 | NUR ---
PT STATES HE IS HAVING SOME MINOR BACK PAIN. ASKED IF IT WAS HIS CHRONIC PAIN OR NEW PAIN. STATES HE DOESN'T KNOW, GIVEN WARM PACK PER REQUEST AND ADVISED HIM AND MOTHER TO CALL IF THE PAIN WORSENS AT ALL.
--- NOTE | 2024-11-15 12:50 | NUR ---
PATIENT IN BED AT THIS TIME. CNAC ASSISTED PATIENT TO BEDSIDE COMMODE AND THEN BACK TO EDGE OF BED. PATIENT STATED THAT HE WANTED TO SIT ON EDGE OF BED TO CHAT WITH HIS MOTHER. OXYHYDROGEN WELDER ALSO CHARTED BLOOD SUGAR. CALL LIGHT WITHIN REACH, NO FURTHER NEEDS AT THIS TIME.
--- NOTE | 2024-11-15 12:51 | NUR ---
PRBC INFUSION COMPLETE. VSS. PT SITS UP ON EDGE OF BED, VISITS WITH MOTHER. DENIES S/SX OF TRANSFUSION REACTION.
--- NOTE | 2024-11-15 12:56 | NUR ---
MRSA SWAB COLLECTED AND SENT TO LAB.
--- NOTE | 2024-11-15 13:51 | NUR ---
INTO SEE PATIENT. PATIENT IS STILL INTERESTED IN HOME HEALTH. WILL SET UP AT TIME OF DISCHARGE. MOTHER AT BEDSIDE. NO FUTHER CM NEEDS AT THIS TIME.
--- NOTE | 2024-11-15 14:13 | NUR ---
UR CONCURRENT/CLINICAL REVIEW: MCG-PER MCG REVIEW MEETS INPT CRITERIA FOR UPPER GI BLEED WITH NEED FOR SERIAL LABS. VARIANCE FOR GL DAY 3 ENTERED. FOR CONTINUED DECREASE IN HGB/HCT, BLOOD PRODUCTS TO BE GIVEN, IV ANTIBIOTICS TREND LABS BASIC DMAP INPT 11/09/24 @ 2004 ORDER MATCHES REG NO AUTH REQUIRED PER MEDICAID GUIDELINES ANTICIPATE DISCHARGE TO HOME IN 2-3 DAYS 11/18/24
--- NOTE | 2024-11-15 16:04 | NUR ---
DRESSING CHANGE TO LEFT SORIA WOUND COMPLETED. OLD DRESSING REMOVED, WOUND CLEANSED WITH NS AND PATTED DRY. WOUND BASE IS 100% PINK NON-GRANULAR TISSUE. SMALL AMOUNT OF SEROSANGUINEOUS DRAINAGE NOTED. MONA WOUND IS INTACT. IODOSORB APPLIED TO WOUND BASE AND SECURED WITH BORDERED FOAM DRESSING. PT TOLERATED WELL.
--- NOTE | 2024-11-15 16:43 | NUR ---
PATIENT IN BED AT THIS TIME. THIS WATERSIDE WORKER AND WATERSIDE WORKER AMI WENT WILMA PATIENTS ROOM TO CHANGE BED LINENS AND PLACE PATIENT ON BEDSIDE COMMODE. THIS WATERSIDE WORKER ALSO CHARTED BLOOD SUGAR. CALL LIGHT WITHIN REACH, NO FURTHER NEEDS AT THIS TIME.
--- NOTE | 2024-11-15 16:44 | NUR ---
PT LEAVES UNIT VIA WHEELCHAIR TO IMAGING FOR CT.
--- NOTE | 2024-11-15 16:49 | NUR ---
DR. CAMPUZANO NOTIFIED OF MRSA SWAB RESULTS, NEGATIVE. NEW ORDER RECEIVED TO D/C VANCOMYCIN.
--- NOTE | 2024-11-15 16:56 | NUR ---
PT RETURNS FROM IMAGING TO ROOM 122. PT ASSISTED TO TOILET.
--- NOTE | 2024-11-15 17:05 | NUR ---
PT UP TO RECLINER WITH 1 PERSON SBA. CALL LIGHT IN REACH. NO REQUESTS AT THIS TIME.
[2024-11-15] MEDS ORDERED: GUAIFENESIN 10 ML UNIT DOSE CUP PO SCH (18:00)
--- NOTE | 2024-11-15 18:46 | NUR ---
PATIENT SITTING UP IN CHAIR AT THIS TIME. VITALS AND I&O'S DONE AND CHARTED. CALL LIGHT IN REACH. NO FURTHER NEEDS AT THIS TIME.
--- NOTE | 2024-11-15 19:22 | NUR ---
RECEIVED REPORT FROM DAY SHIFT RN. PATIENT IS RESTING IN RECLINER WATRCHING TV. PATIENT DENIES ANY NEEDS. CALL LIGHT IN REACH.
--- NOTE | 2024-11-15 20:21 | NUR ---
PATIENTS VITALS TAKEN AND RECORDED. PATIENT UP TO BR AND ABLE TO HAVE BM. PATIENT IS NOW IN BED RESTING. PATIENTS VITALS TAKEN AND RECORDED. INTAKE AND OUTPUT RECORDED. PATIENTS OM MEDS GIVEN PER ORDER. PATIENT REPORTS 6/10 PAIN IN BILAT KNEES, PRN PAIN MEDICATION GIVEN PER ORDER. PATIENT DENIES ANY NAUSEA. PATIENTS IV FLUSHED AND SL PER ORDER. PATIENT IS ON RA. PATIENT ASSESMENT COMPLETED. PATIENT PROVIDED HOT TEA AND FRESH ICE WATER. PATIENTS MOM IS IN TO SEE PATIENT. PATIENT AND PATIENTS MOM UPDATED ON PLAN OF CARE AND ALL QUESTIONS ANSWERED. PATIENT DENIES ANY FURHTER NEEDS. CALL LIGHT IN REACH.
--- NOTE | 2024-11-15 22:06 | NUR ---
BATHROOM CALL LIGHT ANSWERED. MONA CARE ASSISTED. FRESH PULL UP PLACED. PATIENT IS BACK SITTING ON THE EDGE OF THE BED. PATIENT STATED HE IS GOING TO CHECK THE CLOTHES THAT HIS MOTHER BROUGHT AND THEY ARE ON THE BED. PATIENT WILL CALL WHEN HE IS READY TO LAY DOWN ON THE BED. CALL LIGHT WITHIN REACH.
--- NOTE | 2024-11-15 22:23 | NUR ---
PATIENT IS SITTING ON EDGE OF BED. SCHEDULED PM MEDS GIVEN PER ORDER. PATIENT REPORTS IMPROVEMENT IN PAIN AND RATES PAIN 4/10. PATIENT DENIES THE NEED FOR FURTHER INTERVENTION FOR PAIN. PATIENT DENIES ANY FURTHER NEEDS. CALL LIGHT IN REACH.
--- NOTE | 2024-11-15 22:42 | NUR ---
PATIENT CALLED. ASSISTED PATIENT NOW LAYING ON BED. SIDE TABLE WITH PERSONAL BELONGINGS AND CALL LIGHT WITHIN REACH.
--- NOTE | 2024-11-15 23:17 | NUR ---
PATIENT INCONT OF STOOL AND URINE. PATIENTS ATTEND CHANGED AND MONA CARE COMPLETED. PATIENT REPOSITIONED SELF IN BED. PATIENT DENIES ANY FURTHER NEEDS. CALL LIGHT IN REACH. IV INFUSING PER ORDER.
--- NOTE | 2024-11-15 23:45 | NUR ---
PATIENT UP TO BEDSIDE COMMODE HAD LOOSE BM. MONA CARE ASSISTED. PATIENT IS NOW SITTING ON EDGE OF BED SNACKING. SONYA CRACKERS PROVIDED PER REQUEST. ICE WATER FILLED. CALL LIGHT IN REACH.
[2024-11-16] VITALS (9 sets, daily range): BP systolic 128–157; BP diastolic 70–85
--- NOTE | 2024-11-16 00:24 | NUR ---
PATIENT IS SITTING UP ON BED WATCHING HOME DVD PLAYER. PATIENT DENIES ANY NEEDS. CALL LIGHT IN REACH.
--- NOTE | 2024-11-16 01:45 | NUR ---
PATIENT SITTING ON EDGE BED SNACKING AND WATCHING A MOVIE. PATIENT STATED "MY INSOMNIA IS BACK". PATIENT OFFERED WARM TEA. WARM TEA AND WARM BLANKET PROVIDED. PATIENT DENIES ANY FURTHER NEEDS. CALL LIGHT IN REACH.
--- NOTE | 2024-11-16 02:33 | NUR ---
PATIENT UP TO BSC A 1PA. PATIENT ABLE TO VOID AND HAVE SMALL BM. PATIENT IS BACK IN BED RESTING. PATIENT PROVIDED WARM BLANKET. PATIENT DENIES ANY FURTHER NEEDS. CALL LIGHT IN REACH.
--- NOTE | 2024-11-16 04:03 | NUR ---
PATIENT IS IN BED RESTING WITH EYES CLOSED, RR 16. NAD NOTED. CALL LIGHT IN REACH.
[2024-11-16 05:56] LABS: BASOPHILS 1.1 % (0-2); EOSINOPHILS 4.6 % (0-6); HEMATOCRIT 23.4 % (35.0-50.0); HEMOGLOBIN 8.1 g/dL (12.0-18.0); LYMPHOCYTES 9.9 % (24-44); MCH 31.2 (27-36); MCHC 34.9 g/dl (30-36); MCV 89.4 fl (81-99); MONOCYTES 21.5 % (0-12); NEUTROPHILS 62.9 % (39-80); PLATELET COUNT 73 K/uL (140-440); RBC 2.62 M/ul (4.3-5.7); RDW 15.4 (10.5-15.0)
[2024-11-16 06:10] LABS: ANION GAP 14.7 (7-21); BUN/CREATININE RATIO 16.82 (6.0-28.6); CALCIUM 8.4 mg/dL (8.5-10.1); CREATININE, SERUM 2.14 mg/dL (0.70-1.30); MAGNESIUM 1.8 mg/dL (1.8-2.4); POTASSIUM 4.7 mmol/L (3.5-5.1)
--- NOTE | 2024-11-16 06:31 | NUR ---
PATIENTS VITALS TAKEN AND RECORDED. INTAKE AND OUTPUT RECORDED. PATIENTS AM MEDS GIVEN PER ORDER. PATIENT DENIES ANY NEEDS. CALL LIGHT IN REACH.
--- NOTE | 2024-11-16 06:32 | NUR ---
PATIENT IS RESTIGN IN BED WITH EYES CLOSED, RR 16. IV INFUSING PER ORDER. NAD NOTED. CALL LIGHT IN REACH.
--- NOTE | 2024-11-16 07:14 | NUR ---
VERBAL REPORT RECEIVED FROM JEFFREY CHAN. PT RESTS IN BED WITH EYES CLOSED, RESP EVEN AND UNLABORED.
[2024-11-16] MEDS ORDERED: FUROSEMIDE 40 MG/4 ML VIAL IV ONE (07:45)
--- NOTE | 2024-11-16 07:52 | NUR ---
Hourly rounding. Patient appears to be tired this morning. Board has been updated and Blood Sugar has been documented.
--- NOTE | 2024-11-16 09:41 | NUR ---
Hourly Rounding. Patient was soiled. I ask nurse for assistance on doing a bed change. Patient is able to ambulate to the bathroom, but decided to use the restroom on himself, he claims to be in a deep sleep and wasn't able to make it. Bedding has beenchanged, and patient was given a new breif. No request from patient at this time
--- NOTE | 2024-11-16 10:00 | NUR ---
PT REQUESTS BSC. PASSES LOOSE BM. MONA CARE PROVIDED, ANTI-FUNGAL CREAM APPLIED TO RASH ORDERED. NEW INCONTINENCE BREIF DONNED. NEW GOWN DONNED, PT BACK TO BED. CALL LIGHT IN REACH.
--- NOTE | 2024-11-16 10:05 | NUR ---
SPOKE WITH PATIENT AND MOTHER. THEY BOTH STATE HE WILL GO HOME. CONTINUE TO REQUEST HOME HEALTH. MOTHER STATES SHE IS GOING TO GET HOME EQUIPMENT AT [facility] TODAY.
--- NOTE | 2024-11-16 12:59 | NUR ---
PT AMBULATES IN HALLWAY WITH PHYSICAL THERAPY.
--- NOTE | 2024-11-16 15:32 | NUR ---
Hourly rounding. Patient is sittingin recliner chair sleep. No request from patient at this time
[2024-11-16 16:23] LABS: PLATELET ANTIBODIES DIRECT,IGG Negative (Negative); PLATELET ANTIBODIES DIRECT,IGM Negative (Negative)
[2024-11-16 18:26] LABS: HIV 1,2 COMBO ANTIGEN/ANTIBODY Negative (Negative)
--- NOTE | 2024-11-16 19:10 | NUR ---
REPORT RECEIVED FROM JEFFREY RENEE. PATIENT RESTING IN CHAIR WITH EYES CLOSED. EVEN AND UNLABORED RESPIRATIONS NOTED. CALL LIGHT AND PERSONAL BELONGINGS WITHIN REACH.
--- NOTE | 2024-11-16 21:35 | NUR ---
PATIENT MEDICATED PER EMAR. PATIENT ASSISSTED BACK TO BED FROM CHAIR BY JEFFREY CHAN. WARM BLANKETS PROVIDED. PATIENT WITHOUT FURTHER NEEDS AT THIS TIME. CALL LIGHT AND PERSONAL BELONGINGS WITHIN REACH.
--- NOTE | 2024-11-16 22:32 | NUR ---
PATIENT CALLED TO USE THE BEDSIDE COMMODE. 1PA. PATIENT HAD LARGE SOFT BM. MONA CARE ASSISTED. PATIENT IS BACK IN BED. HOT TEA PROVIDED PER PATIENT'S REQUEST.
--- NOTE | 2024-11-17 00:09 | NUR ---
PATIENT RESTING IN BED WITH HIS EYES CLOSED, LAYING ON HIS RIGHT SIDE. EVEN AND UNLABORED RESPIRATIONS NOTED. CALL LIGHT AND PERSONAL BELONGINGS WITHIN REACH.
--- NOTE | 2024-11-17 02:16 | NUR ---
PATIENT RESTING IN BED ON HIS LEFT SIDE WITH EYES CLOSED. EVEN AND UNLABORED RESPIRATIONS NOTED. CALL LIGHT AND PERSONAL BELONGINGS WITHIN REACH.
--- NOTE | 2024-11-17 04:04 | NUR ---
MANAGER STRATEGIC HELPED RN TO CLEAN PT UP FROM A BM. WE APPLIED CREAM TO MONA AREA. STAFF GOT PT WARM BLANKETS AND LEFT WITH THE CALL LIGHT IN REACH. A FEW MINUTES LATER PT WANTED TO USE THE BSC. MANAGER STRATEGIC HELP PT ON AND OFF THE COMODE AND BACK TO BED.
--- NOTE | 2024-11-17 04:06 | NUR ---
PATIENT HAD INCONTINENCE EPISODE AND WAS CLEANED UP BY JEFFREY CHAN AND DIANNA NIÑO. HOT TEA AND ICE FOR SODA PROVIDED TO PATIENT PER REQUEST. PATIENT REQUESTING TO GET UP TO BEDSIDE COMMODE AT THIS TIME. THIS RN ASSISSTED PATIENT TO EDGE OF BED, DIANNA NIÑO CAME IN TO TAKE OVER. CALL LIGHT AND PERSONAL BELONGINGS WITHIN REACH.
[2024-11-17 05:23] VITALS: BP 133/71
[2024-11-17 05:40] LABS: BASOPHILS 0.7 % (0-2); HEMATOCRIT 20.9 % (35.0-50.0); HEMOGLOBIN 7.5 g/dL (12.0-18.0); LYMPHOCYTES 7.4 % (24-44); MCH 31.7 (27-36); MCHC 35.8 g/dl (30-36); MCV 88.8 fl (81-99); MONOCYTES 19.3 % (0-12); NEUTROPHILS 68.6 % (39-80); PLATELET COUNT 90 K/uL (140-440); RBC 2.35 M/ul (4.3-5.7); RDW 15.4 (10.5-15.0)
[2024-11-17 05:50] VITALS: BP 133/71
[2024-11-17 05:56] LABS: ALBUMIN 2.3 g/dL (3.4-5.0); ALBUMIN/GLOBULIN RATIO 0.77 (1.1-2.4); ANION GAP 12.9 (7-21); BILIRUBIN, TOTAL 0.6 mg/dL (0.2-1.0); BUN/CREATININE RATIO 15.02 (6.0-28.6); CALCIUM 8.1 mg/dL (8.5-10.1); CREATININE, SERUM 2.13 mg/dL (0.70-1.30); MAGNESIUM 1.6 mg/dL (1.8-2.4); PHOSPHORUS, INORGANIC 3.1 mg/dL (2.5-4.9); POTASSIUM 4.9 mmol/L (3.5-5.1); PROTEIN, TOTAL 5.3 g/dL (6.4-8.2)
--- NOTE | 2024-11-17 06:00 | NUR ---
PATIENT MEDICATED PER EMAR. PATIENT DENIES ANY NEEDS AT THIS TIME. CALL LIGHT AND PERSONAL BELONGINGS WITHIN REACH.
--- NOTE | 2024-11-17 06:10 | NUR ---
TUBE FITTER HELPED PT PICK OUT BREAKFAST [employer] AND THEN CALLED THE KITCHEN FOR PT TO PLACE THE ORDER AT 0600
[2024-11-17] MEDS ORDERED: MAGNESIUM OXIDE 400 MG TABLET PO ONE (07:30)
--- NOTE | 2024-11-17 07:33 | NUR ---
REPORT RECEIVED FROM JEFFREY MORENO AND JEFFREY CHAN. PT RESTING IN BED WITH EYES CLOSED, RR EVEN AND UNLABORED, IV ABX INFUSING WNL, CALL LIGHT AND PERSONAL BELONGINGS IN REACH.
--- NOTE | 2024-11-17 07:49 | NUR ---
Hourly Rounding. Patient appears to be tired this morning. He reported going to bed at 1 am. Blood Glucose has been documented and call light placed within reach. No request from patient at this time
[2024-11-17 08:36] VITALS: BP 133/81
--- NOTE | 2024-11-17 08:50 | NUR ---
MEDICATION ADMINISTERED, SEE OCT. ANTIFUNGAL CREAM APPLIED TO L SIDE PANNUS AND TO GROIN. PT REMAINS IN BED AT THIS TIME, HE REFUSES TO GET UP AT THIS TIME. CALL LIGHT AND PERSONAL BELONGINGS IN REACH.
--- NOTE | 2024-11-17 09:37 | NUR ---
Pt discussed in 8:30 meeting. would like to order Naltrexone (Wolf) if [facility] covers. I called and spoke with Celi at [facility] and they have 50 mg tabs or if the pt meets certain criteria they have the monthly injection. I gave her the pts name and he meets criteria for special circumstances. Dr. Mccray.
--- NOTE | 2024-11-17 09:51 | NUR ---
ASSESSMENT COMPLETE. PT REMAINS RESTING IN BED, STILL MILDLY IRRITABLE, STATES THE LIGHT IS HURTING HIS EYES AND CAUSING HIM SOME MILD NAUSEA. PT ENCOURAGED TO LAY ON HIS L SIDE, HE REPOSITIONS HIMSELF INDEPENDENTLY AND DENIES MEDICATION FOR THIS AT THIS TIME. LUNG SOUNDS CLEAR TO BILAT UPPER LOBES, DIMINISHED IN THE BILAT BASES. PT DENIES SHORTNESS OF BREATH. PT REPORTS HE FEELS DISTENDED, ABDOMEN IS MILDLY DISTENDED AND TENDER TO PALPATION THROUGHOUT. PT SENSITIVE TO TOUCH AND JUMPS WITH SLIGHT TOUCH TO ABDOMEN, LEG, OR ARM. PT HAS GENERALIZED EDEMA TO BILAT EYES, BILAT EYES ARE CLOSED, PT USES DRY RAG TO REST OVER EYES FOR HIS COMFORT. PT DOES NOT WANT TO GET OUT OF BED AT THIS TIME. IV TO L FOREARM FLUSHES WNL, IV ABX CONTINUES INFUSING. NO REQUESTS AT THIS TIME, CALL LIGHT AND PERSONAL BELONGINGS IN REACH.
[2024-11-17 10:08] VITALS: BP 153/80
[2024-11-17] MEDS ORDERED: DILTIAZEM 24HR120 MG PO (10:13)
[2024-11-17] MEDS ORDERED: TRAZODONE HCL50 MG PO (10:13)
[2024-11-17] MEDS ORDERED: SUCRALFATE1 GM PO (10:14)
[2024-11-17] MEDS ORDERED: ANTIFUNGAL CRE141 GM TOP (10:15)
[2024-11-17] MEDS ORDERED: SOAANZ40 MG PO (10:15)
[2024-11-17] MEDS ORDERED: AMOX TR-K CLV1 EAC1 PO (10:16)
[2024-11-17] MEDS ORDERED: VIVITROL380 MG IM (10:18)
--- NOTE | 2024-11-17 10:23 | NUR ---
Spoke with Clyde. He plans on dc to home today with his mom. 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 He is also agreeable to try and stop drinking. When dc summary is complete I will send his chart to [facility]. Pt states needs to call before visit as he has a mean dog. I call Nancy at and updated and gave her the moms number as Clyde requested. Pt will dc to home today and mom will drive him.
--- NOTE | 2024-11-17 10:36 | NUR ---
PATIENT WAS IN BED AT THIS TIME, WAXED BAG MACHINE OPERATOR ASSISTED PATIENT TO THE COMMODE. GOT A NEW BREIF AND CLEANED UP HIS BED. PATIENT HAD A LARGE BM. WAXED BAG MACHINE OPERATOR ASSISTED BACK TO BED AFTER PATIENT REFUSED TO GO TO THE CHAIR. CALL LIGHT WITH IN REACH AND NOTHING ELSE NEEDED AT THIS TIME.
--- NOTE | 2024-11-17 11:10 | NUR ---
Hourly Rounding. Patient appears to be not having much patience this morning. He declinied sitting in the chair. Patient is currently sleeping, mother is at bedside
--- NOTE | 2024-11-17 11:21 | NUR ---
VISITED DURING SPIRITUAL CARE ROUNDS. PT APPEARED TO BE SLEEPING. DID NOT DISTURB. PROVIDED PRAYER.
[2024-11-17 11:58] VITALS: BP 128/70
--- NOTE | 2024-11-17 12:16 | NUR ---
CALLED PTs MOTHER IN ATTEMPT TO GIVE EDUCATION OVER THE PHONE. LEFT VOICEMAIL.
--- NOTE | 2024-11-17 13:31 | NUR ---
Chart faxed to [facility] requesting PT, OT, RUG DRYING MACHINE OPERATOR, RN for wound care.
== END 2024-11-17 11:41 | disposition home or self-care (01) | DRG 377 ==
LOC: ED 17:30 → CCU 20:11 → MS 20:11
PROVIDERS: Emergency Medicine; Student in an Organized Health Care Education/Training Program; Surgery; ADMIT Family Medicine; ATTEND Family Medicine
PROC: 30233N1 Transfusion of Nonautologous Red Blood Cells into Peripheral Vein, Percutaneous Approach (ICD-10-PCS; 2024-11-10)
PROC: 0DJ08ZZ Inspection of Upper Intestinal Tract, Via Natural or Artificial Opening Endoscopic (ICD-10-PCS; principal; 2024-11-11 11:00)
DX: K29.21 Alcoholic gastritis with bleeding (principal); J86.9 Pyothorax without fistula; N17.9 Acute kidney failure, unspecified; E87.1 Hypo-osmolality and hyponatremia; D64.9 Anemia, unspecified; D69.6 Thrombocytopenia, unspecified; E11.9 Type 2 diabetes mellitus without complications; I50.9 Heart failure, unspecified; F10.129 Alcohol abuse with intoxication, unspecified; R21 Rash and other nonspecific skin eruption; M19.90 Unspecified osteoarthritis, unspecified site; M06.9 Rheumatoid arthritis, unspecified; Z79.899 Other long term (current) drug therapy; Z79.4 Long term (current) use of insulin
CPT/HCPCS: 00731; 36415; 36430; 36592; 71250; 74177; 76705; 80048; 80053; 81001; 83690; 83735; 84100; 85025; 85060; 85379; 85384; 85610; 85730; 86023; 86850; 86900; 86901; 86922; 87502; 97162; 97166; 97530; A9270; G0480; J1200; J1815; J1940; J2405; J2470; J2543; J2704; J3370; J3411; J7060; P9016; Q9967; U0002

== ENCOUNTER 2024-11-23 12:28 | Emergency (ER) | payer OTHER ==
[~2024-11-23] VITALS: Ht 175.3 cm; Wt 75.0 kg
--- OUTSIDE RECORDS SUMMARY | ~2024-11-23 | XMS | Continuity of Care Document ---
Demographics + + + | Address | [address] | | | [place] [address] | + + + | Preferred Language | Unknown | + + + | Marital Status | Unknown | + + + | Denominational Affiliation | Unknown | + + + | Race | or | + + + | Ethnic Group | Not or | + + + Author + + + | Author | [facility] | + + + | Organization | [facility] | + + + | Address | [address] | | | [place] [address] | + + + | Phone | | + + + Care Team Providers + + + + | Care Air Bag Builder Name | Role | Phone | + [...]
[~2024-11-23 12:28] MED LIST changes: +AMOX TR-K CLV1 EAC1 PO; +ANTIFUNGAL CRE141 GM TOP; +B-121000 MC2 PO; +COREG6.25 MG PO; +ERYTHROMYCIN1 GM OPTH; +FLOMAX0.4 MG PO; +MAGNESIUM400 M1 PO; +MULTI-DAY PLUS1 EACH PO; +SOAANZ40 MG PO; +SODIUM BICARBO650 MG PO; +SUCRALFATE1 GM PO; +TRAZODONE HCL50 MG PO; +VIVITROL380 MG IM
[2024-11-23] MEDS ORDERED: CEFTRIAXONE SODIUM 2 GM in SODIUM CHLORIDE 0.9% 100 ML IV ONE (13:00)
[2024-11-23 13:20] LABS: BASOPHILS 0.4 % (0-2); EOSINOPHILS 0.8 % (0-6); HEMOGLOBIN 8.1 g/dL (12.0-18.0); LYMPHOCYTES 13.8 % (24-44); MCH 31.6 (27-36); MCHC 35.1 g/dl (30-36); MCV 90.1 fl (81-99); MONOCYTES 5.1 % (0-12); NEUTROPHILS 79.9 % (39-80); PLATELET COUNT 72 K/uL (140-440); RBC 2.55 M/ul (4.3-5.7); RDW 16.7 (10.5-15.0)
[2024-11-23 13:31] LABS: PARTIAL THROMBOPLASTIN TIME 38.1 Sec (22.9-41.3)
[2024-11-23 13:32] LABS: INR 1.3 (0.80-1.30); PROTIME 15.4 Sec (11.2-14.2)
[2024-11-23 13:35] LABS: ALBUMIN 2.5 g/dL (3.4-5.0); ALBUMIN/GLOBULIN RATIO 0.69 (1.1-2.4); ALCOHOL, MEDICAL 212 ng/dL (<3); ALKALINE PHOSPHATASE 222 U/L (46-116); ALT (SGPT) 15 U/L (14-59); ANION GAP 20.1 (7-21); AST (SGOT) 23 U/L (15-37); BILIRUBIN, TOTAL 0.4 mg/dL (0.2-1.0); BUN/CREATININE RATIO 13.14 (6.0-28.6); CALCIUM 7.7 mg/dL (8.5-10.1); CARBON DIOXIDE 14 mmol/L (21-32); CHLORIDE 95 mmol/L (98-107); CREATININE, SERUM 2.13 mg/dL (0.70-1.30); GLOMERULAR FILTRATION RATE,EST 37 mL/min (>60); MAGNESIUM 1.8 mg/dL (1.8-2.4); POTASSIUM 5.1 mmol/L (3.5-5.1); PROTEIN, TOTAL 6.1 g/dL (6.4-8.2); UREA NITROGEN 28 mg/dL (7-18)
[2024-11-23 13:41] LABS: LACTIC ACID, BLOOD 0.9 mmol/L (0.4-2.0)
[2024-11-23] MEDS ORDERED: LIDOCAINE 2% VISCOUS 6 ML SYR MM ONE (14:00)
[2024-11-23] MEDS ORDERED: metroNIDAZOLE/SODIUM CHLORIDE 500 MG/100 ML PIGGYBACK IV SCH (14:00)
[2024-11-23 14:15] LABS: BILIRUBIN, URINE NEGATIVE (negative); BLOOD/HGB, URINE MODERATE (Negative); KETONE, URINE TRACE (Negative); LEUK ESTERASE, URINE NEGATIVE (negative); NITRITE, URINE NEGATIVE (negative); PH, URINE 5.5 (5-7)
[2024-11-23 14:21] LABS: BACTERIA, URINE 1+ /hpf (negative); CASTS, URINE NONE SEEN \\lpf; COLLECTION TYPE, URINE CLEAN CATCH; CRYSTALS, URINE CALCIUM OXALATE 2+ (0-1+); EPITHELIAL CELLS, URINE NONE SEEN /lpf (0-1+); REFLEX CULTURE, URINE Yes (No)
[2024-11-23 15:42] LABS: LACTIC ACID, BLOOD 0.9 mmol/L (0.4-2.0)
[2024-11-23 16:07] VITALS: BP 123/91
--- NOTE | 2024-11-23 20:42 | EKG ---
[facility] [address] [place] [address] Signed Sinus bradycardia with premature supraventricular complexes Low voltage QRS Right bundle branch block Abnormal ECG When compared with ECG of 05-NOV-2024 14:21, premature supraventricular complexes are now present Vent. rate has decreased BY 32 BPM Right bundle branch block has replaced Incomplete right bundle branch block Minimal criteria for Anteroseptal infarct are no longer present Confirmed by Keiry Rico MD () on 11/23/2024 8:42:23 PM Electronically Signed By: KEIRY RICO MD 11/23/242041 PATIENT NAME: CHARLIE CHO Electrocardiogram DATE OF : 71 PHYSICIAN: KEIRY RICO MD REPORT #: [id number] REPORT IS CONFIDENTIAL AND NOT TO BE RELEASED WITHOUT AUTHORIZATION
[2024-11-24] MEDS ORDERED: metroNIDAZOLE/SODIUM CHLORIDE 500 MG/100 ML PIGGYBACK IV SCH (09:00)
== END 2024-11-23 16:11 | disposition home or self-care (01) ==
LOC: ED 12:28
PROVIDERS: Emergency Medicine
DX: F10.20 Alcohol dependence, uncomplicated (principal); Y90.7 Blood alcohol level of 200-239 mg/100 ml; R00.1 Bradycardia, unspecified; T50.905A Adverse effect of unspecified drugs, medicaments and biological substances, initial encounter; R60.1 Generalized edema; D69.6 Thrombocytopenia, unspecified; E11.9 Type 2 diabetes mellitus without complications; I50.9 Heart failure, unspecified; M06.9 Rheumatoid arthritis, unspecified; I48.92 Unspecified atrial flutter; I48.91 Unspecified atrial fibrillation; Z86.718 Personal history of other venous thrombosis and embolism; Z87.891 Personal history of nicotine dependence; Z88.8 Allergy status to other drugs, medicaments and biological substances; Z79.899 Other long term (current) drug therapy
CPT/HCPCS: 36415; 51701; 71045; 74176; 80053; 81001; 82140; 83605; 83690; 83735; 85025; 85610; 85730; 87040; 87088; 93005; 93010; 96368; 99285-25; G0480; J0696

== ENCOUNTER 2024-12-03 10:39 | Emergency (ER) | payer OTHER ==
[~2024-12-03] VITALS: Ht 175.3 cm; Wt 77.1 kg
--- OUTSIDE RECORDS SUMMARY | ~2024-12-03 | XMS | Continuity of Care Document ---
Demographics + + + | Address | [address] | | | [place] [address] | + + + | Preferred Language | Unknown | + + + | Marital Status | Unknown | + + + | Amish Affiliation | Unknown | + + + | Race | or | + + + | Ethnic Group | Not or | + + + Author + + + | Author | [facility] | + + + | Organization | [facility] | + + + | Address | [address] | | | [place] [address] | + + + | Phone | | + + + Care Team Providers + + + + | Care Environmental Compliance Inspector Name | Role | Phone | + [...]
[2024-12-03] MEDS ORDERED: ATROPINE SULFATE 1 MG/10 ML SYR IV SCH (10:40)
[2024-12-03] MEDS ORDERED: DEXTROSE 50% 50 ML SYR IV ONE (10:45)
[2024-12-03] MEDS ORDERED: ALBUTEROL SULFATE 0.5% 2.5 MG/0.5 ML VIAL INH ONE ×2 (10:45→11:30)
[2024-12-03] MEDS ORDERED: CEFTRIAXONE SODIUM 2 GM in SODIUM CHLORIDE 0.9% 100 ML IV ONE (10:45)
[2024-12-03] MEDS ORDERED: NOREPINEPHRINE BITARTRATE 250 ML IV SCH (10:45)
[2024-12-03] MEDS ORDERED: Insulin Regular, Human 100 UNIT/ML ML IV ONE (10:45)
[2024-12-03] MEDS ORDERED: SODIUM CHLORIDE 0.9% 1,000 ML IV ONE (10:45)
[2024-12-03] MEDS ORDERED: SODIUM BICARBONATE 50 MEQ/50 ML SYR IV SCH (10:45)
[2024-12-03] MEDS ORDERED: Calcium Gluconate in NS 1,000 MG/50 ML BAG IV ONE (10:50)
[2024-12-03] MEDS ORDERED: MAGNESIUM SULFATE 2 GM/50 ML BAG IV ONE (10:50)
[2024-12-03] MEDS ORDERED: Insulin Regular, Human 100 UNIT/ML ML ONE (10:56)
[2024-12-03] MEDS ORDERED: ALBUTEROL SULFATE 0.5% 2.5 MG/0.5 ML VIAL ONE (10:57)
[2024-12-03 11:00] LABS: BASOPHILS 0.3 % (0-2); EOSINOPHILS 0.5 % (0-6); HEMATOCRIT 15.1 % (35.0-50.0); LYMPHOCYTES 12.2 % (24-44); MCH 31.9 (27-36); MCHC 36.8 g/dl (30-36); MCV 86.9 fl (81-99); MONOCYTES 2.6 % (0-12); NEUTROPHILS 84.4 % (39-80); RBC 1.74 M/ul (4.3-5.7); RDW 16.6 (10.5-15.0)
[2024-12-03] MEDS ORDERED: CALCIUM GLUCONATE IV ONE (11:02)
[2024-12-03] MEDS ORDERED: SODIUM CHLORIDE IV ONE (11:02)
[2024-12-03] MEDS ORDERED: MAGNESIUM SULFATE 50 ML IV ONE (11:03)
[2024-12-03 11:10] LABS: PARTIAL THROMBOPLASTIN TIME 54.3 Sec (22.9-41.3)
[2024-12-03 11:11] LABS: PROTIME 21.5 Sec (11.2-14.2)
[2024-12-03 11:15] LABS: ALBUMIN 1.5 g/dL (3.4-5.0); ALBUMIN/GLOBULIN RATIO 0.6 (1.1-2.4); ANION GAP 9.1 (7-21); BILIRUBIN, TOTAL 0.2 mg/dL (0.2-1.0); BUN/CREATININE RATIO 10.38 (6.0-28.6); CALCIUM 6.6 mg/dL (8.5-10.1); CREATININE, SERUM 1.54 mg/dL (0.70-1.30); POTASSIUM 4.1 mmol/L (3.5-5.1)
[2024-12-03 11:19] LABS: HEMOGLOBIN 5.5 g/dL (12.0-18.0); PLATELET COUNT 14 K/uL (140-440)
[2024-12-03 11:21] LABS: LACTIC ACID, BLOOD 7.9 mmol/L (0.4-2.0)
[2024-12-03] MEDS ORDERED: SODIUM CHLORIDE 0.9% 1,000 ML IV PRN (11:45)
[2024-12-03] MEDS ORDERED: VANCOMYCIN HCL 1 GM in DEXTROSE 5% 250 ML IV ONE (11:45)
[2024-12-03] MEDS ORDERED: PIPERACILLIN/TAZOBACTAM 3.375 GM in SODIUM CHLORIDE 0.9% 100 ML IV ONE (11:45)
[2024-12-03 12:06] LABS: ABO O; ANTIBODY SCREEN NEGATIVE; IS CROSSMATCH COMPATIBLE; RH POSITIVE
[2024-12-03 12:33] LABS: BILIRUBIN, URINE NEGATIVE (negative); BLOOD/HGB, URINE TRACE-I (Negative); KETONE, URINE NEGATIVE (Negative); LEUK ESTERASE, URINE NEGATIVE (negative); NITRITE, URINE NEGATIVE (negative)
[2024-12-03 12:40] LABS: BACTERIA, URINE NONE SEEN /hpf (negative); CASTS, URINE NONE SEEN \\lpf; COLLECTION TYPE, URINE CLEAN CATCH; CRYSTALS, URINE NONE SEEN (0-1+); EPITHELIAL CELLS, URINE SQUAMOUS 1+ /lpf (0-1+); REFLEX CULTURE, URINE No (No); WHITE BLOOD CELLS, URINE 0-1 /HPF (0-5)
[2024-12-03 13:33] LABS: LACTIC ACID, BLOOD 2.8 mmol/L (0.4-2.0)
[2024-12-03] MEDS ORDERED: PHYTONADIONE 10 MG in DEXTROSE 5% 50 ML IV ONE (16:15)
[2024-12-03 17:03] LABS: HEMATOCRIT 24.8 % (35.0-50.0); HEMOGLOBIN 8.7 g/dL (12.0-18.0); LYMPHOCYTES 3.9 % (24-44); MCH 31.6 (27-36); MCHC 35.1 g/dl (30-36); NEUTROPHILS 93.1 % (39-80); RBC 2.75 M/ul (4.3-5.7)
[2024-12-03 17:04] LABS: PLATELET COUNT 30 K/uL (140-440)
[2024-12-03 17:25] VITALS: BP 123/52
--- NOTE | 2024-12-05 12:59 | EKG ---
[facility] [address] [facility] [place], [place] [address] Signed Wide QRS rhythm with ventricular escape complexes Left axis deviation Left bundle branch block Abnormal ECG No previous ECGs available Confirmed by Pee Woodard MD ([id number]) on 12/05/2024 12:59:43 PM Electronically Signed By: PEE WOODARD MD 12/05/24 1259 PATIENT NAME: MARQUISCHARLIE CHRIS Electrocardiogram DATE OF : 71 PHYSICIAN: PEE WOODARD MD REPORT #: [id number] REPORT IS CONFIDENTIAL AND NOT TO BE RELEASED WITHOUT AUTHORIZATION
--- NOTE | 2024-12-05 13:00 | EKG ---
[facility] [address] [place], [place] [address] Signed Wide QRS rhythm with occasional premature ventricular complexes Right bundle branch block Left anterior fascicular block Bifascicular block Abnormal ECG No previous ECGs available Confirmed by Rubén Woodard MD ([id number]) on 12/05/2024 12:59:54 PM Electronically Signed By: RUBÉN WOODARD MD 12/05/24 1300 PATIENT NAME: CHARLIE CHO Electrocardiogram DATE OF : 71 PHYSICIAN: RUBÉN WOODARD MD REPORT #: [id number] REPORT IS CONFIDENTIAL AND NOT TO BE RELEASED WITHOUT AUTHORIZATION
== END 2024-12-03 17:26 | disposition short-term general hospital (02) ==
LOC: ED 10:39
PROVIDERS: Emergency Medicine
DX: A41.9 Sepsis, unspecified organism (principal); R65.21 Severe sepsis with septic shock; F10.10 Alcohol abuse, uncomplicated; Z79.01 Long term (current) use of anticoagulants; R15.9 Full incontinence of feces; D61.818 Other pancytopenia; E10.9 Type 1 diabetes mellitus without complications; Z87.891 Personal history of nicotine dependence; Z88.8 Allergy status to other drugs, medicaments and biological substances; Z79.899 Other long term (current) drug therapy
CPT/HCPCS: 36415; 36430; 36556; 51702; 70450; 71045; 71250; 74176; 80053; 81001; 83605; 84484; 85025; 85060; 85610; 85730; 86850; 86900; 86901; 86922; 93005; 93010; 94640; 96368; 99285-25; A4311; G0480; J0461; J0696; J1815; J2543; J3370; J3430; J3475; J7030; J7060; P9016